=== PATIENT | male | born 1940 | race Caucasian/White ===

== ENCOUNTER 2018-03-31 17:32 | Emergency (ER) | payer MEDICARE, SELFPAY ==
[2018-03-31 17:34] VITALS: BP 122/77; PULSE 98; RESP 18; TEMP 36.6; O2SAT 98; BMI 23.7
--- NOTE | 2018-03-31 18:10 | RAD_ITS ---
STUDY: X-RAY - RIGHT KNEE REASON FOR EXAM: Male, 77 years old. Fall TECHNIQUE: 3 view(s) of the knee. COMPARISON: None. FINDINGS: Normal visualized distal femur. Normal visualized proximal tibia and fibula. Normal proximal tibiofibular articulation. Mild narrowing of the medial femorotibial compartment. Mild degenerative spurring at the lateral femorotibial compartment. Degenerative spurring and narrowing at the patellofemoral articulation. There is a questionable longitudinal lucency through the patella. Calcifications along the medial collateral ligament. There is prepatellar soft tissue thickening. Trace suprapatellar effusion. RAD/Knee 3 Views IMPRESSION: Questionable longitudinal lucency of the patella. Prepatellar soft tissue edema. A nondisplaced patella fracture cannot be excluded. Mild degenerative changes. Electronically Signed: David Peña DO at 18:35 EDT Tel [phone], Service support ,
--- NOTE | 2018-03-31 19:00 | RAD_ITS ---
STUDY: X-RAY - RIGHT KNEE REASON FOR EXAM: Male, 77 years old. Pain TECHNIQUE: [place] view of the knee. COMPARISON: March 31, 2018 at 18:17 hours. FINDINGS: There is a linear lucency through the lateral aspect of the patella compatible with a nondisplaced fracture. Narrowing of the patellofemoral compartment. Prepatellar soft tissue edema. RAD/Knee 1 or 2 Views IMPRESSION: Nondisplaced patella fracture. Electronically Signed: David Peña DO at 19:25 EDT Tel [phone], Service support ,
--- NOTE | 2018-03-31 19:54 | ED.VISSUMM ---
- ER Visit Summary Date of Service: 03/31/18 Chief Complaint: [Injury right knee] History of Present Illness: The patient is a 77 M [presents to the emergency department after injuring his right knee today approximately 4 PM. Patient states that he was in the garage when he tripped and lost his balance falling to the left side and is not sure what he may have hit his right knee on. Patient able to bear some weight but having pain with walking. Patient denies striking his head or loss of consciousness. Patient denies any other injury.] Physical Examination: [HEENT-PERRLA, EOMI. Cranial nerves II through XII grossly intact. TMs clear. Mucous membranes moist. No adenopathy. Cardiovascular-regular rate and rhythm without murmur or ectopy Lungs-clear to auscultation, chest wall stable without crepitus or subcu emphysema Abdomen-normoactive bowel sounds, soft, nontender, no rebound or rigidity, no peritoneal signs. Extremities-intact ?4, normal range of motion, normal pulses. Right knee-patient has soft tissue swelling and effusion noted. Patient has tenderness over the patella with bruising noted over this area. Patient having a hard time lifting his leg up off the bed with the knee extended. Neurovascular intact distally. Test Results: [X-rays of the right knee obtained showed a nondisplaced patellar fracture] Emergency Department Course and Treatment: [Patient was placed in a knee immobilizer and given crutches as well as a dose of [place].] Treatment Plan: [Patient will be referred to orthopedics on-call Dr. Samuel Mann and given a prescription for [place]] Disposition: [Discharged home in stable condition] Impression: [Mechanical fall Right patella fracture] This note was generated with [employer] dictation software. It may contain incorrect words, spelling, and punctuation that were not noted in review of the chart prior to signing ED Disposition - Plan for ED Patient: Chief Complaint: Lower Extremity Injury Referrals: Jignesh Leger MD [Primary Care Provider] -
--- NOTE | 2018-03-31 19:56 | ED.DEP ---
ED Disposition - Plan for ED Patient: Chief Complaint: Lower Extremity Injury Instructions: ED Fx Patella Prescriptions: Hydrocodone/Acetaminophen [[place] 5-325 Tablet] 1 ea PO 4X/DAY PRN PRN 5 Days #20 tab PRN Reason: Pain Referrals: Jignesh Leger MD [Primary Care Provider] - Samuel Mann MD [STAFF PHYSICIAN] - 3-5 Days
--- NOTE | 2018-03-31 19:57 | DCINST.ED_ITS ---
ED Disposition - Plan for ED Patient: Chief Complaint: Lower Extremity Injury Instructions: ED Fx Patella Prescriptions: Hydrocodone/Acetaminophen [[place] 5-325 Tablet] 1 ea PO 4X/DAY PRN PRN 5 Days # 20 tab PRN Reason: Pain Referrals: Jignesh Leger MD [Primary Care Provider] - Samuel Mann MD [STAFF PHYSICIAN] - 3-5 Days
[2018-03-31] MEDS: HYDROcodone Bitartrate/Apap 5/325 Tablet PO (20:03)
[2018-03-31 20:21] VITALS: BP 156/79; PULSE 81; RESP 18; O2SAT 97
== END 2018-03-31 20:21 | disposition home or self-care (01) ==
LOC: ED 19:36
PROVIDERS: Emergency Provider Emergency Medicine; Family Provider Family Medicine; PCP Family Medicine
DX: S82.001A Unspecified fracture of right patella, initial encounter for closed fracture (principal); W01.10XA Fall on same level from slipping, tripping and stumbling with subsequent striking against unspecified object, initial encounter; Y93.9 Activity, unspecified; Y92.008 Other place in unspecified non-institutional (private) residence as the place of occurrence of the external cause; Y99.9 Unspecified external cause status; E11.9 Type 2 diabetes mellitus without complications; Z79.82 Long term (current) use of aspirin; Z79.899 Other long term (current) drug therapy
CPT/HCPCS: 73560; 73562; 99284

== ENCOUNTER → 2018-12-02 09:42 | Outpatient (CLI) | payer MEDICARE, SELFPAY ==
--- NOTE | 2018-12-02 09:46 | MRI_ITS ---
STUDY: MRI BRAIN WITH AND WITHOUT CONTRAST REASON FOR EXAM: Male, 78 years old. Mental status change, confusion. The right eye stays partially closed. TECHNIQUE: Multiplanar and multisequence MR images of the brain were obtained before and after the administration 18 IV Dotarem. COMPARISON: No relevant priors. FINDINGS: Supratentorial Brain Parenchymal Size, Ventricles and Sulci: Normal. Extra-Axial Spaces: Normal. White Matter Tracks: Mild chronic white matter ischemia with a limited number of small white matter hyperintensities distributed throughout the deep white matter tracks of the cerebral hemispheres. Normal DWI images with no evidence of recent intracranial ischemia or other cause of cytotoxic edema. Normal T2* images without demonstrated susceptibility artifact or hemosiderin stain. There are mildly prominent perivascular spaces in a periventricular location involving the body of the caudate nuclei (axial T2 series 5, image 14). Basal Ganglia (bilateral): Normal. Thalami: Normal. Arterial Flow: Normal. Venous Flow: Normal. Pituitary Gland and Infundibular Stalk: Normal. Optic Chiasm: Normal. Hypothalamus: Normal. Brainstem Pineal Gland / Tectal Plate: Normal. Midbrain: Normal. Omid: Normal. Medulla: Normal. Posterior Fossa Cerebellar Hemispheres: Normal. Internal Auditory Canals (Bilateral): Normal. Temporal Bones: Normal. Basal Cisterns: Normal. Orbits (within the constraints of a routine brain study) Globes: Normal. Optic Nerves: Normal. Intraconal / Extraconal Spaces: Normal. Extraocular Muscles: Normal. Skull Calvarium / Skull Base: Normal. Paranasal Sinuses: There is minimal mucosal inflammatory thickening of the left maxillary sinus (axial T2 series 5, image 1). Soft Tissue Structures: Normal. Cervical Spine (visualized): Normal. MRI/Brain W/WO Contrast IMPRESSION: 1. Minimal scattered chronic white matter ischemic changes without cerebral atrophy. 2. No acute or evolving process. 3. Very mild chronic sinusitis of the left maxillary sinus. Electronically Signed: Manuel Santa DO at 7:52 EDT Tel , Service support ,
[2018-12-02 11:06] LABS: CREATININE FINGERSTICK 1.3 mg/dL (0.70-1.30)
== END ==
PROVIDERS: Family Provider Family Medicine; PCP Family Medicine; Referring Provider Internal Medicine Pulmonary Disease; Visit Provider Internal Medicine Pulmonary Disease
DX: R41.82 Altered mental status, unspecified (principal)
CPT/HCPCS: 70553; A9575

== ENCOUNTER 2019-01-11 13:00 | Outpatient (RCR) | payer MEDICARE, SELFPAY ==
--- NOTE | 2018-12-24 12:24 | HP.PTEVAL_ITS ---
Patient's Visit Information CANDICE MUSA is a 78 year old M referred to Physical Therapy by ARSENIO NORMAN with a diagnosis of LBP. Date of Evaluation: 12/24/18 Physical Therapist: Marcial Mendiola, PT, ATC - Visit Plan Frequency: 2x /Week Duration: 2-4 Weeks Plan: Neutral spine core strengthening, SKTC/DKTC, Nustep, and HEP - Subjective Findings: Pt reports intermittent LBP for several years. Pt reports this bout roberts s been going on for the past 3 mos, progressively worsening over this time span. Pt denies numbness in either LE, and notes pain that does shoot down his legs (it changes from leg to leg) on occasion. Pt reports he has had xrays in the past, but nothing recently. Pt reports he has been diagnosed with having spinal stenosis in the past. Pt reports occasional sleep difficulty secondary to pain. Pt reports movement helps to alleviate his pain. Prolonged ambulation increases pain. Pt also reports prolonged sitting increases his pain. 4/10 pain at rest, 9/10 pain at worst (prolonged standing) - Pain LBP Pain Intensity (Out of 10): 4 Pain Intensity Range: 10 - Objective Neuro: B LE sensation is WNL to light touch. B patellar reflex= 2/3. MMT: B LE's 5/5 throughout. ROM: Pt is moderately limited with L/S ext. All other ranges are WNL. Repeated movements: RFIS 10x2 peripheralized pain. GINO 10x1 peripheralized sx's. SKTC/DKTC pt felt better - Goals Goal 1:: Decrease LBP x 50% to aid with sleep Goal Time Frame: 4-6 Weeks Goal 2:: Decrease the frequency and intensity of LE radiculopthy x 50% to aid with ambulation Goal Time Frame: 4-6 Weeks Goal 3:: I with HEP Goal Time Frame: 4-6 Weeks - Rehabilitation Potential Physical Therapy Diagnosis: Pt has LBP, LE radiculopathy, and sleep difficulty as a result of degenerative changes in the L/S Rehabilitation Potential: Good - Anticipated Interventions Patient/Client Instruction: Educate patient on: Condition, Plan of Care For the Purpose of:: To improve self management Therapeutic Exercise to Include: Strength training, Endurance training, Body mechanics, Postural training, Dynamic Lumbar Stabilization For the Purpose of:: To decrease pain, To improve muscle performance and motor function Cryotherapy (ice pack, ice massage): Yes Thermo therapy (hot pack): Yes For the Purpose of:: To decrease pain Thank you for the opportunity to evaluate your patient. For Medicare and Medicare HMO plans, please review the plan of care and approve it. It will need to be FAXED BACK to us at [phone] for Medicare purposes. For Medicare only, by signing this I certify the plan of care. Please let me know if there are questions or concerns regarding this plan of care. Physician Signature: Date:
--- NOTE | 2019-01-11 13:38 | HP.PTDCSUM ---
HP - PT D/C Summary It has been my pleasure to treat CANDICE MUSA under orders from ARSENIO NORMAN, for the diagnosis of LBP for a total of 5 visit(s). Discharge Date: Please see the following information for a summary of their discharge status. - Subjective Subjective: Pt notices less sensation on his medial R knee. Pt reports he really doesnt feel much better overall. - Pain LBP Pain Intensity (Out of 10): 5 - Overall Improvement % Improvement: 50 - Objective Objective/Function: Pt reports his LBP level has remained about the same 12/31. LE radiculopathy is no longer constant, but is now intermittent. Pt is I with HEP. LE radiculpathy is now less and pt is I with HEP. No change in LBP - Goals Goal 1:: Decrease LBP x 50% to aid with sleep Goal Progress: Not Progressing Goal 2:: Decrease the frequency and intensity of LE radiculopthy x 50% to aid with ambulation Goal Progress: Progressing Goal 3:: I with HEP Goal Progress: Goal Met - Plan Plan: Discontinue - D/C Information If there are questions or concerns regarding this patient's physical therapy, please feel free to call me at [phone]. Thank you for the referral of this patient. Sincerely, Marcial Mendiola, PT, ATC
== END 2019-01-11 19:00 | disposition home or self-care (01) ==
LOC: PT 13:00
PROVIDERS: Family Provider Family Medicine; PCP Family Medicine
DX: M54.5 Low back pain (principal); M79.18 Myalgia, other site
CPT/HCPCS: 97110; 97161; 97530

== ENCOUNTER → 2019-01-28 09:11 | Outpatient (CLI) | payer MEDICARE, SELFPAY ==
--- NOTE | 2019-01-28 15:17 | EEG ---
- Electroencephalogram Date of service 01/28/2019 History EEG is being done in this 78 yr M to rule out seizures EEG Description: This is an 18 channel EEG with 10-20 lead placement system. Bipolar montages, and Referential montages were reviewed. Photic stimulation and Hyperventilation were performed. The posterior dominant rhythm is 9 HZ synchronous, symmetric, reacting to eye opening and closing. Photo stimulation elicited normal driving response but no abnormal photoparoxysmal response, Hyperventilation did not elicit any abnormal photoparoxysmal response. Sleep was identified. There is no abnormal background slowing noted. There was no epileptiform discharges or electrographic seizures noted during this recording. EEG Interpretation This is a normal awake and asleep EEG. There is no epileptiform discharges or electrographic seizures noted during the record.
== END ==
PROVIDERS: Family Provider Family Medicine; PCP Family Medicine; Referring Provider Psychiatry & Neurology Neurology; Visit Provider Psychiatry & Neurology Neurology
DX: R41.0 Disorientation, unspecified (principal)
CPT/HCPCS: 95819

== ENCOUNTER 2019-06-09 10:00 | Outpatient (RCR) | payer MEDICARE, SELFPAY ==
--- NOTE | 2019-04-20 10:58 | HP.OTEVAL_ITS ---
Patient's Visit Information CANDICE MUSA is a 78 year old M, referred to Occupational Therapy by Nargis Davis DC, with a diagnosis of OA B wrist and UE. Date of Evaluation: 04/20/19 Occupational Therapist: Leanne Burgess, DELAENYR/L - Subjective Subjective: Candice is 78 y/o male with history of OA. Arrived to session and noted increased bilateral wrist pain for about a year. He noted pain in B UE occurring in biceps area and around bilateral forearms. - ADLs Dressing: Overhead shirt, Button shirt, Pants, Socks, Shoes Fasteners: Tie shoes, Buttons, Zippers, Snaps Eating: Cut food, Drink from glass Bathing: Wash hair, Squeeze shampoo bottle Toileting: Manage clothing Grooming: Shave, [place] teeth Kitchen: Open jars, Open bottle caps, Lift gallon of milk, Take dish out of oven, Load/unload knife blade polisher Household: Laundry Yard: [place], Use shovel, Use pruners Comments: 's hobby but helps. Miscellaneous: Use cell phone, Unlock front door, Start car, Open medication bottle, Hold change, Take things out of wallet, Write, Use hand tools, Use power tools - Pain B UE 6 Pain Intensity Range: 6, 7 - Objective Concerns: 4x appointments due to high copay. - ROM Forearm: WFL Wrist: flex R 0-36, L 0-38;ext R 0-20, L 0-19 ROM Comments: Increased pain with all movements. - Strength Can Pusher: flexed R 64, L 43; ext position 2 R 45, L 44 Lateral Pinch: R 21, L 18 Tripod Pinch: R 13, L 11 Tip-to-Tip Pinch: R 10, L 10 Strength Comments: Increased pain with all movements. - Sensation Sensation Comments: Denies numbness and tingling. 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 Goal:: Johnathan to be (I) to completed pain management program with use of modalities to manage symptoms at home 4/5 trials 80% of the time by d/c. Goal:: Johnathan to be (I) to complete correct ergonomics and joint protection techniques of B wrist with a/e and general ergonomic training to promote decreased pain and increased joint integrity 4/5 trials 80% of the time by d/c. Goal:: Candice to be (I) to complete daily HEP to promote increased ROM and strength needed to promote increased satbility and decrease pain of B wrists 4/5 trials 80% of the time by d/c. - Rehabilitation General Assessment: Candice Mann arrived for OT evaluation on this date of 04/20/19. He exhibits increased pain with all basic ROM movements. CMC grinding noted with palpation as well as increased tenderness and tightness of extensor digitorium and ECRB muscles of forearm. Increased skilled therapy needed to promote strength and stability of B wrists to decrease pain as well as promote compensations and adaptions for daily tasks to increase (i) and returning to PLOF for ADL/IADls. Rehabilitation Potential: Good - Anticipated Interventions Anticipated Interventions: A/AAROM/PROM, Strengthening, Modalities, Orthoses, Joint Protection/Energy Conservation, Ergonomic Education, Dynamic Sitting Balance, Fine Motor Coord/Alberto, ADL Training, Caregiver Training, Home Program - Visit Plan Frequency: 1x/Week Duration: 4 Weeks General Plan: Johnathan to complete skilled OT to promote increased ROM, strength, pain management, joint protection,and ergomic training of B UE to promote increased abilityto completed daily activities at [facility]. TEXT: Thank you for the opportunity to evaluate your patient. For Medicare and Medicare HMO plans, please review the plan of care and approve it. It will need to be FAXED BACK to us at [phone] for Medicare purposes. Please let me know if there are questions or concerns regarding this plan of care. Physician Signature: Date:
--- NOTE | 2019-05-11 11:03 | OTREVAL_ITS ---
Nargis Davis DC, It has been my pleasure to treat CANDICE MUSA over the last 4 visits for OA B wrist and UE. Please see the progress note below for an update on the occupational therapy plan of care! Subjective: Arrived and noted that wrist cock up splint at night is helping and he feels he is sleeping better with less pain. L hand and UE still very painful with all movements. Feels he has made about 25% progress mostly on R side. Objective/Function: Reassessment completed on this date 05/11/19 and is as follows: ROM: - flexion: R 0-35, L 0-45. - extension R 0-21, L 0-23. Strength. Photographic Intelligence Officer R 62, L 32. Lateral R 21, L 16. Tripod R 13, L 12. Increased pain with all L hand movements. Positive lashonda test on L side. Will trial forearm based thumb spica. Plan Frequency: 1x/Week Duration: 4 Weeks Visits in this POC: 4 Plan: continue POC. He noted R UE and hand is feeling better but L is still very painful. Completed fabrication L forearm based thumb spica splint to promote increased wrist and thumb support. WIll triala nd continue to promote tasks to manage symptoms. Goals - Goals Goal:: Johnathan to increased B fusion juncture grinder strength by 15-20 lbs to promote increased stability of wrists needed for ADL/IADls by d/c. Goal:: Johnathan to be (I) to completed pain management program with use of modalities to manage symptoms at home 4/5 trials 80% of the time by d/c. Goal:: Johnathan to be (I) to complete correct ergonomics and joint protection techniques of B wrist with a/e and general ergonomic training to promote decreased pain and increased joint integrity 4/5 trials 80% of the time by d/c. Goal:: Candice to be (I) to complete daily HEP to promote increased ROM and strength needed to promote increased satbility and decrease pain of B wrists 4/5 trials 80% of the time by d/c. Anticipated Interventions Anticipated Interventions: A/AAROM/PROM, Strengthening, Modalities, Orthoses, Joint Protection/Energy Conservation, Ergonomic Education, Dynamic Sitting Balance, Fine Motor Coord/Alberto, ADL Training, Caregiver Training, Home Program Please do not hesitate to contact me at [phone] by phone or if you have questions or concerns regarding this new plan of care! Sincerely, Leanne Burgess, OTR/L
--- NOTE | 2019-06-09 10:50 | HP.OTDCSUM ---
HP - OT D/C Summary It has been my pleasure to treat CANDICE MUSA under orders from Nargis Davis DC, for the diagnosis of OA B wrist and UE for a total of 8 visit(s). Please see the following information for a summary of their discharge status. - Overall Improvement % Improvement: 30 - Objective Objective/Function: Reassessment and completed reassessment on this date 06/09/19: ROM: wrist: - flexion: R 0-46, L 0-41. - extension R 0-30, L 0-25. - Supination: WFL. Thumb: - MP R 0-6, L 0-46. - IP R -17-0-53, L -15-0-56. - Opposition WFL. Strength: - feed project engineer flexed in position 2: R 58, l 34. - feed project engineer extended in position 2: R 53, L 40. - lateral: R 17, L 15. - tripod: R 12, L 6. He has been completing intrinsic and isometric strengthening but pain is limiting and present with all movements. - Goals Patient Goals: Regain Mobility, Regain Strength, Decrease Pain, Return to Work, Improve Fine Motor Skills, Use Hand/Wrist/Arm Normally Again, Sleep Better, Increase ROM, Be More Independent in ADLS, Resume Former Household Responsibilities (Cooking,Cleaning,Yard, etc.), Resume Hobbies Goal:: Johnathan to increased B feed project engineer strength by 15-20 lbs to promote increased stability of wrists needed for ADL/IADls by d/c. Goal:: Johnathan to be (I) to completed pain management program with use of modalities to manage symptoms at home 4/5 trials 80% of the time by d/c. Goal:: Johnathan to be (I) to complete correct ergonomics and joint protection techniques of B wrist with a/e and general ergonomic training to promote decreased pain and increased joint integrity 4/5 trials 80% of the time by d/c. Goal:: Candice to be (I) to complete daily HEP to promote increased ROM and strength needed to promote increased satbility and decrease pain of B wrists 4/5 trials 80% of the time by d/c. - Plan Plan: He will be discharged today as he has attempted therapy and progressed some with splinting methods and intrinsic and isometric strengthening techniques but has plateaued with progression at this time. Pain remains a concern and he would like, and OT agrees, that second opinion would be beneficial. He is to complete pain management techniques as well as HEP to promote increased ability to complete daily tasks. OT contact information provided via [employer] so he can call with questions/concerns. - D/C Information If there are questions or concerns regarding this patient's occupational therapy, please fell free to call me at [phone]. Thank you for the referral of this patient. Sincerely, Leanne Burgess, OTR/L
== END 2019-06-09 19:00 | disposition home or self-care (01) ==
LOC: OT 10:00
PROVIDERS: Family Provider Family Medicine; PCP Family Medicine; Referring Provider Chiropractor; Visit Provider Chiropractor
DX: M19.039 Primary osteoarthritis, unspecified wrist (principal)
CPT/HCPCS: 97035; 97110; 97140; 97166; 97168; 97530; 97760; 97763

== ENCOUNTER → 2021-06-20 12:56 | Outpatient (CLI) | payer MEDICARE, SELFPAY ==
--- NOTE | 2021-06-20 13:10 | RAD_ITS ---
STUDY: BILATERAL ENEMA. REASON FOR EXAM: Male, 81 years old. INCOMPLETE COLONOSCOPY FLUOROSCOPY TIME (if supplied): ( 46 seconds ) minutes/seconds. 15 images were obtained. TECHNIQUE: Barium was introduced retrograde through the rectum. The entire colon was opacified. COMPARISON: None. FINDINGS: A mechanical engineering teacher film was obtained. Small calculi are seen in the lower pole calyx of the left kidney. There is redundancy of the sigmoid colon. Scattered sigmoid diverticula. No evidence of retrograde or antegrade obstruction to the flow of contrast. RAD/Barium Enema No Air Cont IMPRESSION: Redundancy of the sigmoid colon. Scattered sigmoid diverticula with no radiographic evidence of diverticulitis at this time. Electronically Signed: Yossi Sinclair MD at 14:18 EDT , Service support ,
== END ==
PROVIDERS: PCP Family Medicine; Referring Provider Surgery; Visit Provider Surgery
DX: K57.30 Diverticulosis of large intestine without perforation or abscess without bleeding (principal)
CPT/HCPCS: 74270

== ENCOUNTER → 2021-07-15 12:54 | Outpatient (CLI) | payer MEDICARE, SELFPAY ==
--- NOTE | 2021-07-15 13:03 | ECHOD_ITS ---
Reason For Study: DYSPNEA/SOB Procedure This was a 2D Doppler, Color Flow transthoracic echocardiogram. The study was technically difficult. Due to restless leg syndrome. Exam performed in department. Left Ventricle Normal LV size. Left ventricular systolic function is normal. The estimated ejection fraction is 60 %. Stage 1 diastolic dysfunction. No regional wall motion abnormalities noted. Right Ventricle Normal RV size. Normal systolic function. Atria Normal left atrium. Normal right atrium. Hypermobile atrial septum. Bubble contrast study negative for right to left interatrial shunt. Mitral Valve Normal mitral valve. Tricuspid Valve Normal tricuspid valve. Aortic Valve Trisinus/trileaflet aortic valve. Mild focal aortic valve calcification. Pulmonic Valve Normal pulmonic valve. Great Vessels Normal aortic root. The pulmonary artery is normal size. Normal inferior vena cava. Pericardium/Pleural No pericardial effusion. Medication Performed a rapid injection of agitated mix of 9 cc saline and 1cc air to assess for atrial septal defect. MMode/2D Measurements & Calculations LVIDd: 4.4 cm IVSd: 1.1 cm Ao root diam: 3.4 cm LVIDs: 2.6 cm LVPWd: 1.1 cm RVDd: 3.5 cm FS: 41.6 % LAV(MOD-bp): 61.6 ml LA A4 area: 18.1 cm2 LA dimension(2D): 4.4 cm LAV(MOD-bp) Indexed: 29.9 ml/m2 LAV(MOD-sp2): 69.2 ml LAV(MOD-sp4): 52.3 ml RA A4 area: 10.9 cm2 Time Measurements MV dec time: 0.20 sec Doppler Measurements & Calculations MV E max toi: 92.6 cm/sec Lat Peak E' Toi: 9.0 cm/sec Med Peak E' Toi: 9.4 cm/sec MV A max toi: 125.4 cm/sec E/E' lat: 10.3 E/E' med: 9.8 MV E/A: 0.74 Ao V2 max: 146.0 cm/sec LV V1 max: 106.8 cm/sec PA V2 max: 98.0 cm/sec Ao max P.5 mmHg LV V1 max P.6 mmHg ECHO/Echo Complete Interpretation Summary Normal LV size. Left ventricular systolic function is normal. The estimated ejection fraction is 60 %. Hypermobile atrial septum. Stage 1 diastolic dysfunction. Ordering Physician: Felipe Jorge Referring Physician: Jignesh Leger Performed By: Angella Zuniga, NAMANCS, RVT
== END ==
PROVIDERS: PCP Family Medicine; Referring Provider Internal Medicine Pulmonary Disease; Visit Provider Internal Medicine Pulmonary Disease
DX: R06.00 Dyspnea, unspecified (principal); G25.81 Restless legs syndrome; G47.37 Central sleep apnea in conditions classified elsewhere
CPT/HCPCS: 93306; A4216

== ENCOUNTER 2023-08-20 18:53 | Inpatient (IN) | payer MEDICARE, SELFPAY ==
[2023-08-20] VITALS (19 sets, daily range): BP systolic 62–152; BP diastolic 41–98; PULSE 55–131; RESP 16–28; TEMP 36.6–39.1; O2SAT 88–97; BMI 25.2; BMI 25.3
--- NOTE | 2023-08-20 19:29 | CT_ITS ---
EXAM: CT HEAD WITHOUT INTRAVENOUS CONTRAST CLINICAL INDICATION: altered mental status TECHNIQUE: Multiple axial images were obtained of the head without intravenous contrast. This CT exam was performed using one or more of the following dose reduction techniques: automated exposure control, adjustment of the mA and/or kV according to patient size, and/or use of iterative reconstruction technique. COMPARISON: No relevant prior studies available. FINDINGS: BRAIN AND EXTRA-AXIAL SPACES: There is hypoattenuation in the periventricular white matter. No intra- or extra-axial hemorrhage. No evidence of acute infarct. No intracranial mass or mass effect. There is preservation of the medrnao/white matter interface. Posterior fossa structures are unremarkable. No hydrocephalus. Basal cisterns are patent. BONES/JOINTS: Unremarkable. No discrete lytic or blastic abnormalities. SINUSES: Unremarkable as visualized. Clear. MASTOID AIR CELLS: Unremarkable. Clear. ORBITS: Visualized globes, extraocular muscles, optic nerves and retrobulbar fat appear unremarkable. CT/Brain/Head without Contrast IMPRESSION: No acute intracranial abnormality. There is mild underlying small vessel ischemia. Electronically Signed: Perez Dangelo MD at 20:41 EST ,
--- NOTE | 2023-08-20 19:29 | CT_ITS ---
EXAM: CT ABDOMEN AND PELVIS WITHOUT INTRAVENOUS CONTRAST CLINICAL INDICATION: agitated, low back pain TECHNIQUE: Helically acquired images were obtained of the abdomen and pelvis without intravenous contrast. This CT exam was performed using one or more of the following dose reduction techniques: automated exposure control, adjustment of the mA and/or kV according to patient size, and/or use of iterative reconstruction technique. COMPARISON: No relevant prior studies available. FINDINGS: LOWER THORAX: Unremarkable. Lung bases are clear. No cardiomegaly. No significant pericardial effusion. ABDOMEN: LIVER: Unremarkable. Homogeneous. GALLBLADDER AND BILE DUCTS: There are surgical clips from a cholecystectomy. No intra- or extrahepatic biliary ductal dilation. PANCREAS: Unremarkable. No focal cystic mass. SPLEEN: Unremarkable. Normal size without focal cystic or solid mass. ADRENALS: Unremarkable. No nodules. KIDNEYS AND URETERS: There is a low-density mass in the right kidney compatible with a cyst. No follow-up imaging is necessary. There is a nonobstructing left calyceal stone. STOMACH AND BOWEL: Unremarkable. No stomach or bowel distention. No focal inflammatory change. PELVIS: APPENDIX: No evidence of acute appendicitis. BLADDER: Unremarkable. REPRODUCTIVE: Unremarkable as visualized. No mass. ABDOMEN and PELVIS: INTRAPERITONEAL SPACE: Unremarkable. No ascites or other fluid collection. No free air. BONES/JOINTS: There are old healed fractures of the right superior and inferior pubic rami. No suspicious lytic or blastic abnormality. SOFT TISSUES: Unremarkable. No discrete abdominal or pelvic wall hernia. VASCULATURE: Unremarkable. Abdominal aorta is non-dilated. LYMPH NODES: Unremarkable. No enlarged lymph nodes. CT/Abdomen/Pelvis without Cont IMPRESSION: No acute findings in the abdomen or pelvis. Electronically Signed: Perez Dangelo MD at 20:40 EST ,
--- NOTE | 2023-08-20 19:34 | EX.ED.DYSGE1 ---
HPI History of Present Illness Chief Complaint: Fever Informant: patient and EMS Narrative Narrative: Very limited evaluation on this gentleman who was confused and called by roommate because he was altered. Febrile 103 per EMS, according to triage nurses who have been with him for 5 minutes since he arrived, he is wanting to constantly have episodes of urination, he is very agitated and getting up, lying down, trying to get out of bed, etc. Very poor historian. He does know where he is at. Denies any abdominal or chest pain right now or headache, but states he has pain in his low back and nowhere else. [facility] Medical History (Updated 08/20/23 @ 21:[address] Abdulkadir Ayala MD) Arthritis Carpal tunnel syndrome Diabetes Hypertension IBS (irritable bowel syndrome) Kidney stones Neuropathy Prostate abscess Sleep apnea Medical History unable to obtain Home Medications lisinopril 5 mg tablet 5 mg PO DAILY 03/31/18 [History Last Taken Unknown] ropinirole 5 mg tablet (Requip) 1 mg PO BID 03/31/18 [History Last Taken Unknown] simvastatin 10 mg tablet 10 mg PO QHS 03/31/18 [History Last Taken Unknown] tamsulosin 0.4 mg capsule 0.4 mg PO DAILY 03/31/18 [History Last Taken Unknown] calcitonin (salmon) 200 unit/actuation nasal spray 1 spray intranasal DAILY 08/20/23 [History Last Taken Unknown] citalopram 20 mg tablet 20 mg PO DAILY 08/20/23 [History Last Taken Unknown] glimepiride 2 mg tablet 2 mg PO DAILY 08/20/23 [History Last Taken Unknown] metformin 1,000 mg tablet 1,000 mg PO BID 08/20/23 [History Last Taken Unknown] methadone 5 mg tablet 5 mg PO QHS 08/20/23 [History Last Taken Unknown] methocarbamol 750 mg tablet 750 mg PO Q8H PRN muscle pain 08/20/23 [History Last Taken Unknown] Allergy/AdvReac Type Severity Reaction Status Date / Time meperidine [From Demerol] Allergy Mild insomnia Verified 08/20/23 19:32 Family History Other Asthma Surgical History History of cholecystectomy History of circumcision History of foot surgery History of shoulder surgery History of tonsillectomy Social History Smoking Status: Never smoker alcohol intake: never substance use type: does not use what type of physical activity do you participate in: none ROS ROS ED Review of Systems ROS Unobtainable: due to encephalopathy Cardiovascular Cardiovascular: Denies chest pain Respiratory/Chest Respiratory/Chest: Reports cough Gastrointestinal Gastrointestinal: Denies abdominal pain Musculoskeletal Musculoskeletal: Reports back pain; Denies neck pain Neurologic Neurologic: Denies headache(s) EXAM Physical Exam Const Vital Signs: 08/20/23 19:00 08/20/23 19:05 08/20/23 19:13 Temperature 100.5 F H 100.5 F H Temperature Source Oral Temporal Pulse Rate 131 H 130 H Respiratory Rate 21 H 23 H Respiratory Effort Normal Respiratory Pattern Tachypnea Blood Pressure 152/98 H 152/98 H Blood Pressure Mean 116 116 Pulse Ox 93 92 Oxygen Delivery Method Room Air Room Air 08/20/23 19:19 08/20/23 19:41 08/20/23 20:05 Temperature 100.5 F H 102.3 F H Temperature Source Temporal Oral Pulse Rate 129 H 71 66 Respiratory Rate 24 H 26 H 26 H Respiratory Effort Respiratory Pattern Blood Pressure 152/98 H 131/69 H 110/46 L Blood Pressure Mean 116 89 67 Pulse Ox 94 94 94 Oxygen Delivery Method Room Air Room Air Room Air 08/20/23 20:34 08/20/23 20:52 08/20/23 21:04 Temperature 98.4 F Temperature Source Oral Pulse Rate 69 72 72 Respiratory Rate 28 H 26 H Respiratory Effort Respiratory Pattern Blood Pressure 134/52 H 119/49 L 80/55 L Blood Pressure Mean 79 72 63 Pulse Ox 93 92 Oxygen Delivery Method Room Air Room Air 08/20/23 21:14 08/20/23 21:43 Temperature Temperature Source Pulse Rate 68 88 Respiratory Rate 22 H 16 Respiratory Effort Respiratory Pattern Blood Pressure 99/70 92/56 L Blood Pressure Mean 79 68 Pulse Ox 92 Oxygen Delivery Method Room Air Positive well nourished and well developed Constitutional Narrative: Very agitated keenly alert General Appearance ED: well developed HEENT Reports moist mucous membranes normocephalic and atraumatic Eyes PERRL and EOMs intact bilaterally Neck full ROM and supple Resp normal respiratory effort and clear to auscultation bilaterally Cardio regular rate, regular rhythm and no murmurs Rate: tachycardic GI non-tender and non-distended Auscultation: normoactive bowel sounds Palpation: soft Narrative: Patient constantly urinating in small amounts no gross hematuria Back/Spine no CVA tenderness General Back: other FROM Extremity normal to inspection General Extremety ED: Negative for edema, pulses abnormal or tenderness General Extremity: Negative for edema or pulses abnormal Neuro CN's II-XII intact bilaterally and no sensory deficits noted Neuro Narrative: Disoriented to time but oriented to person and city/hospital Sensorium / Orientation: awake, alert and orientation impaired Motor Exam: strength 5/5 throughout Psych Attitude: agitated Skin no rashes or lesions noted and no wounds Sepsis Attestation Sepsis Alert: Yes Sepsis Attestation: Agree w/Sepsis Date exam was performed: 08/20/23 Time exam was performed: 20:00 Possible Source of Sepsis: Pulmonary, GI tract/intra-abdominal and Genitourinary Sepsis Organ Dysfunction Criteria Present: Lactic Acid > 2 mmol/L and New/Unexplained change in mental status Fluid Resuscitation Fluid resuscitation indicated?: Yes Fluid Resuscitation ordered: 30 ml/kg fluid bolus ordered Sepsis Note Date exam was performed: 08/20/23 Time exam was performed: 21:30 Sepsis Attestation: Sepsis re-evaluation was performed (Tachycardia resolved, MAP stable) MDM MDM MDM Narrative Medical decision making narrative: Concerned about sepsis here in this gentleman who is tachycardic, agitated, and febrile. Wide differential, but so far I have high suspicion of UTI source but also considering others such as upper urinary tract involvement given his back pain so obtaining a CT of the abdomen/pelvis, acute SCRAP SAWYER etiologies given his agitation so CT of the head being obtained, pulmonary etiologies, blood cultures to evaluate for bacteremia, and COVID/influenza swab. Simultaneously treating him with 30 cc/kg IV fluid bolus and antibiotics to cover for urinary source. Urinalysis was one of the first test returned, and it is surprisingly normal. His COVID test returns positive. Chest x-ray 1 view on my interpretation shows a right hemidiaphragm elevation but no acute infiltrate, CT of the head is negative for any acute, and CT of the abdomen/pelvis shows nothing acute. I reviewed the images and the results which I agree with. Patient told the nurses that he had an L1 fracture and he was post be on methadone and has not had it. We do not know for how long. For his agitation we gave him Geodon but it did not do anything, and there was a nurse that was not able to leave the room, as she was trying to keep him from falling and injuring himself since he is extremely agitated and all over the place. Therefore I gave him IV morphine, it also did not result in any help with his agitation. Therefore I felt that the benefit of Haldol outweighed the risks in this scenario although they are noted. He is less tachycardic with the fluids and Tylenol, actually his heart rate is down to the 60s now. Plan from here will be to admit the patient given his mental status. After discussing with hospitalist, we did have a discussion about the possibility of meningitis. I think that is less likely here. He does not examine like meningitis and actually was doing straight leg raises on his own without any apparent discomfort. He does have an objective reason for his fevers, since he is positive for COVID. Furthermore after discussing with nursing, he was able to intermittently have appropriate discussions with him about the fact that he fell a couple weeks ago, was diagnosed with an L1 fracture at an outside ER, [place], and is only on 5 mg of methadone once daily, not a large dose making withdrawal less likely here in my opinion. She stated that the patient seemed to have more like restless legs than anything else. At 1 point she briefly left the room and came back and he was out of bed and rummaging through his belongings for a pill bottle. Given all of this, I think much less likely to need an emergent LP. History & Record Review Additional record(s) reviewed:: Other (Prior radiology: Evidence of DDD but no radiology showing L1 fracture as patient suggests) Lab Data Attestation: I reviewed the patient's lab results. Labs: Laboratory Results - last 24 hr 08/20/23 08/20/23 19:15 19:20 WBC 3.5 L RBC 3.65 L Hgb 11.6 L Hct 35.5 L MCV 97.3 H MCH 31.8 MCHC 32.7 RDW Std Deviation 43.6 RDW Coeff of Radha 12.1 Plt Count 128 L MPV 11.0 Immature Gran % (Auto) 0.000 Neut % (Auto) 84.3 H Lymph % (Auto) 13.0 L [place] % (Auto) 1.2 Eos % (Auto) 1.2 Baso % (Auto) 0.3 Absolute Neuts (auto) 2.9 Absolute Lymphs (auto) 0.45 L Nucleated RBC % 0 Differential Comment SCANNED Diff Path Review December foll PT 13.5 INR 1.0 APTT 21.5 L Sodium 139 Potassium 4.7 Chloride 108 H Carbon Dioxide 24.0 Anion Gap 7 BUN 33 H Creatinine 1.80 H Estim Creat Clear Calc 35.76 Est GFR (MDRD) Af Amer 47 L Est GFR (MDRD) Non-Af 39 L BUN/Creatinine Ratio 18.3 Glucose 151 H Lactic Acid 3.3 H* Calcium 9.0 Total Bilirubin 0.40 AST 16 ALT 23 Alkaline Phosphatase 103 Troponin I High Sens 18 Total Protein 6.2 L Albumin 3.1 L Globulin 3.1 Albumin/Globulin Ratio 1.0 Urine Color Yellow Urine Clarity Clear Urine pH 6.0 Ur Specific [place] 1.010 Urine Protein 30 H Urine Glucose (UA) Normal Urine Ketones Negative Urine Occult Blood 25 H Urine Nitrite Negative Urine Bilirubin Negative Urine Urobilinogen Normal Ur Leukocyte Esterase Negative Urine RBC 0-5 SEEN Urine WBC 0-5 SEEN Ur Squamous Epith Cells 0 SEEN Urine Bacteria 0 SEEN Urine Mucus 0 SEEN Radiography Diagnostic Testing: Clinical Impression(s) from Imaging Studies Abdomen/Pelvis CT 08/20/23 19:29 IMPRESSION: No acute findings in the abdomen or pelvis. Electronically Signed: Perez Dangelo MD at 20:40 EST , Brain CT 08/20/23 19:29 IMPRESSION: No acute intracranial abnormality. There is mild underlying small vessel ischemia. Electronically Signed: Perez Dangelo MD at 20:41 EST , Chest X-Ray 08/20/23 20:15 IMPRESSION: No acute findings in the chest. Electronically Signed: Perez Dangelo MD at 20:38 EST , Rhythm Strip Rhythm Strip: Sinus Tach Rate: 133 Ectopy: None EKG Initial EKG: Attestation: I personally reviewed and interpreted this EKG as follows: Interpretation: Sinus Rhythm (66 rate), No Acute Injury Pattern and Non-Specific ST Changes Prior EKG tracings: not available for review Prior: No Prior Management Discussion w/another healthcare provider: Hospitalist Critical Care Time Critical Care Time: Yes Critical care time (excluding procedures): 30-74 minutes (36 min), Including time spent:, Discussing w/Patient &/or Family/3[employer] Modeler, Discussing w/Consultants, Arranging Admission or Transfer and Performing Direct Patient Care at Bedside Discharge Plan Dx/Rx/DC Orders Clinical Impression: COVID-19, Acute encephalopathy, Restlessness and agitation, Sepsis Disposition Disposition: Acute Care Hospital [facility] Discharge Date/Time: 08/20/23 22:12
[2023-08-20] MEDS: Acetaminophen 500 MG Tablet 1000 MG PO (19:36)
[2023-08-20] MEDS: NORMAL SALINE 999 ML IV (19:36)
[2023-08-20] MEDS: Ziprasidone IM 20 MG/ML VIAL 10 MG IM (19:37)
--- NOTE | 2023-08-20 19:43 | ED.RN ---
pt thrashing in bed. trying to get up. not following commands. pulling at wires. alert to self and place. RN has been at bedside at all times for safety. RAFAEL scott ordered and given.
[2023-08-20 19:53] LABS: Bacteria 0 SEEN /hpf (None Seen); Color, Urine Yellow (Yellow); Glucose, Dipstick Normal (Normal); Ketone-Dipstick Negative (Negative); Leukocyte Esterase-Dipstick Negative /ul (Negative); Mucous, Urine 0 SEEN /hpf (<or=2+); Nitrite-Dipstick Negative (Negative); Occult Blood-Urine 25 /ul (Negative); Protein-Dipstick 30 mg/dl (Negative); Squamous Epithelial Cells - UA 0 SEEN /hpf (0-5); Urine Bilirubin Dipstick Negative (Negative); Urine Clarity Clear (Clear); Urine Urobilinogen Normal (Normal)
[2023-08-20 19:57] LABS: Absolute Lymphocyte Count 0.45 X10^3/uL (0.83-4.51); Absolute Neutrophil Count 2.9 X10^3/uL (2.0-7.7); Basophil# 0.01 X10^3/uL; Basophil% 0.3 % (0-1); Eosinophil# 0.04 X10^3/uL; Eosinophils% 1.2 % (0-5); Hematocrit 35.5 % (40-54); Hemoglobin 11.6 g/dL (13.0-16.5); Lymphocyte # 0.45 X10^3/ul (0.83-4.51); Mean Corp Hgb Conc 32.7 g/dL (32-36); Mean Corpuscular Hgb 31.8 pg (27.0-32.0); Mean Corpuscular Volume 97.3 fL (80-94); Monocyte# 0.04 X10^3/uL; Monocyte% 1.2 % (0-10); NRBC Flagged by Analyzer 0 % (0-5); Neutrophil # 2.93 X10^3/uL (2.7-7.7); Neutrophil % 84.3 % (47-70); POSITIVE DIFFERENTIAL YES; Platelet Count 128 K/mm3 (150-450); RBC Distribution Width CV 12.1 % (11.6-14.6); RBC Distribution Width SD 43.6 fl (35.1-43.9); Red Blood Count 3.65 M/mm3 (4.6-6.2); White Blood Count 3.5 K/mm3 (4.4-11.0)
[2023-08-20] MEDS: Ceftriaxone 1 GM/50 ML BAG IV (19:57)
[2023-08-20 19:59] LABS: Red Blood Cells-Urine 0-5 SEEN /hpf (0-5); White Blood Cells 0-5 SEEN /hpf (0-5)
[2023-08-20 20:01] LABS: Differential Indicated SCAN CRITERIA MET
[2023-08-20 20:08] LABS: AST(SGOT) 16 U/L (15-37); Alanine Aminotransfer ALT/SGPT 23 U/L (16-61); Albumin, Serum 3.1 g/dL (3.2-5.0); Alkaline Phosphatase 103 U/L (45-117); Anion Gap 7 (5-15); BUN 33 mg/dL (7-18); BUN/Creat Ratio 18.3 RATIO (10-20); Chloride 108 mmol/L (98-107); EST Glomerular Filtration Rate 39 mL/min (>60); Est Glom Filt Rate - Afr Amer 47 mL/min (>60); Estimated Creatinine Clearance 35.76 ml/min; Globulin 3.1 g/dL (2.2-4.2); Glucose 151 mg/dL (74-106); Potassium 4.7 mmol/L (3.5-5.1); Protein, Total 6.2 g/dL (6.4-8.2); Sodium Level 139 mmol/L (136-145); Troponin-I HS 18 pg/mL (3.0-78.0)
[2023-08-20 20:10] LABS: Prothrombin Time (Protime)PT. 13.5 SECONDS (11.7-14.9)
[2023-08-20 20:11] LABS: Partial Thromboplast Time 21.5 Seconds (24.1-36.2)
[2023-08-20 20:14] LABS: Lactic Acid 3.3 mmol/L (0.4-1.9)
--- NOTE | 2023-08-20 20:15 | RAD_ITS ---
EXAM: XR CHEST, 1 VIEW CLINICAL INDICATION: fever TECHNIQUE: Frontal view of the chest. COMPARISON: No relevant prior studies available. FINDINGS: LUNGS AND PLEURAL SPACES: Unremarkable. No consolidation or edema. No pneumothorax. No effusion. HEART: Unremarkable. Cardiac silhouette not enlarged. MEDIASTINUM: Central airways and mediastinal contour are unremarkable. BONES/JOINTS: Unremarkable. No acute fracture. SOFT TISSUES: Unremarkable. UPPER ABDOMEN: There is elevation of the right hemidiaphragm. RAD/Chest 1 View (Portable) IMPRESSION: No acute findings in the chest. Electronically Signed: Perez Dangelo MD at 20:38 EST ,
[2023-08-20 20:24] LABS: Differential Comment SCANNED
--- OUTSIDE RECORDS SUMMARY | 2023-08-20 20:32 | XMS RPT_ITS | CCD ---
Author Name Unknown Address [address] [place] [address] Organization [facility] Care Team Providers Care Impregnation Operator Name Role Phone Trevon BELL, Antonio Ortiz Unavailable Jignesh Leger Primary Care Provider Adarsh BELL, Jignesh Marin Primary Care Provider Jignesh Leger MD Primary Care Provider Veena Bucio Primary Care Provider Martha Tariq Attending Unavailable PROVIDER, UNKNOWN Referring Unavailable Adarsh, Jignesh Primary Care Unavailable Martha Tariq Attending Unavailable PROVIDER, UNKNOWN Referring Unavailable Adarsh, Jignesh Primary Care Unavailable Jignesh Leger MD Primary Care Provider Dequan Tariq DOa E Unavailable Jignesh Leger MD Primary Care Provider Trinh DOesa E Unavailable Jignesh Leger MD Primary Care Provider CECILIA, DAY Attending Unavailable CECILIA, DAY Referring Unavailable ADARSH, JIGNESH Primary Care Unavailable CAMILA PEPPER Attending Unavailable ADARSH, JIGNESH Primary Care Unavailable CECILIA, DAY Attending Unavailable CAMILA PEPPER Attending Unavailable CAMILA PEPPER Referring Unavailable ADARSH, JIGNESH Primary Care Unavailable CAMILA PEPPER Attending Unavailable CAMILA PEPPER Referring Unavailable ADARSH, JIGNESH Primary Care Unavailable CECILIA, DAY Attending Unavailable CECILIA, DAY Referring Unavailable ADARSH, JIGNESH Primary Care Unavailable CAMILA PEPPER Attending Unavailable ADARSH, JIGNESH Primary Care Unavailable CAMILA PEPPER Attending Unavailable CAMILA PEPPER Referring Unavailable ADARSH, JIGNESH Primary Care Unavailable CECILIA, DAY Referring Unavailable DAMIEN ARCE Attending Unavailable ADARSH, JIGNESH Primary Care Unavailable AMINATASRUTHI Referring Unavailable ADARSH, JIGNESH Primary Care Unavailable CECILIA, DAY Attending Unavailable CECILIA, DAY Referring Unavailable ADARSH, JIGNESH Primary Care Unavailable JAWILLIAM LOAIZA Referring Unavailable ADARSH, JIGNESH Primary Care Unavailable CECILIA, DAY Attending Unavailable CECILIA, DAY Referring Unavailable SKEGANGELITO MENDEZ Referring Unavailable ADARSH, JIGNESH Primary Care Unavailable CECILIA, DAY Attending Unavailable CECILIA, DAY Referring Unavailable BAVJÚNIOR, CAMILA Attending Unavailable DAMIEN ARCE Referring Unavailable ADARSH, JIGNESH Primary Care Unavailable SKANGELITO NGUYEN Attending Unavailable JABOUR, WILLIAM Referring Unavailable ADARSH, JIGNESH Primary Care Unavailable SHANTELLE, CAMILA Attending Unavailable SHANTELLE, CAMILA Referring Unavailable ADARSH, JIGNESH Primary Care Unavailable ADARSH, JIGNESH Primary Care Unavailable WILLIAM SUERO Attending Unavailable ADARSH, JIGNESH Primary Care Unavailable CANDICE PATRICIO Attending Unavailable CECILIA, DAY Attending Unavailable CECILIA, DAY Referring Unavailable ADARSH, JIGNESH Primary Care Unavailable ADARSH, JIGNESH Attending Unavailable ADARSH, JIGNESH Primary Care Unavailable DAMIEN ARCE Attending Unavailable ADARSH, JIGNESH Primary Care Unavailable CANDICE PATRICIO Referring Unavailable ADARSH, JIGNESH Primary Care Unavailable ABDULKADIR TORRES Attending Unavailable ADARSH, JIGNESH Primary Care Unavailable BAVCAMILA CALLEJAS Attending Unavailable ADARSH, JIGNESH Primary Care Unavailable CAMILA PEPPER Attending Unavailable CAMILA PEPPER Referring Unavailable ADARSH, JIGNESH Primary Care Unavailable CAMILA PEPPER Attending Unavailable BAVCAMILA CALLEJAS Referring Unavailable ADARSH, JIGNESH Primary Care Unavailable BAVCAMILA CALLEJAS Attending Unavailable BAVCAMILA CALLEJAS Referring Unavailable ADARSH, JIGNESH Primary Care Unavailable BAVCAMILA CALLEJAS Attending Unavailable BAVCAMILA CALLEJAS Referring Unavailable ADARSH, JIGNESH Primary Care Unavailable CAMILA PEPPER Attending Unavailable CAMILA PEPPER Referring Unavailable ADARSH, JIGNESH Primary Care Unavailable AMINATARASHAWNINDER Attending Unavailable AMINATA DATINDER Referring Unavailable ADARSH, JIGNESH Primary Care Unavailable Allergies Allergy Classification Reported Allergen(s) Allergy Type Date of Onset Reaction(s) Facility [facility] (4 sources) Meperidine Drug Allergy 6 Other (See Comments) [facility] pregabalin (2 sources) pregabalin Drug Allergy 9 Other (See Comments) [facility] (1 source) meperidine Drug Allergy 8 difficulty waking up [facility] Work Phone: (20 sources) Meperidine Drug Allergy 6 Other (See Comments), Intolerance [employer] Work Phone: (20 sources) Meperidine Drug Allergy 9 Other (See Comments), Unknown [facility] Work Phone: (2 sources) pregabalin Drug Allergy 9 Other (See Comments) [employer] Work Phone: (20 sources) gabapentin Drug Allergy 9 Other (See Comments) [employer] Work Phone: (20 sources) Pregabalin Allergy to substance 2 Unknown [email or web address] (10 sources) Etodolac Propensity to adverse reactions 2 [email or web address] Work Phone: (10 sources) Terazosin Drug Allergy 0 [email or web address] [email or web address] (10 sources) terbinafine Drug Allergy 5 Rash [facility] (10 sources) vardenafil Drug Allergy 2 Headache [facility] Medications Current Medications Medication Drug Class(es) Dates Sig (Normalized) Sig (Original) Acetaminophen (20 sources) Start: 10-06-2021 acetaminophen (TYLENOL) tablet 650 mg Completed/Discontinued Medications Medication Drug Class(es) Dates Sig (Normalized) Sig (Original) B COMPLEX VITAMINS (1 source) Start: 02-03-20 18 B COMPLEX CAPS take 1 capsule once daily B COMPLEX VITAMINS [id number] Tonya Tinsley LPN DULOXETINE HCL (1 source) Serotonin and Norepinephrine Reuptake Inhibitor Start: 02-03-20 18 DULOXETINE HCL 60 MG CPEP take 1 capsule once daily DULOXETINE HCL [id number] Tonya Tinsley LPN ferric carboxymaltose (INJECTAFER) 750 mg in sodium chloride 0.9 % 250 mL IVPB (1 source) Start: 03-28-20 21 End: 03-28-20 21 ferric carboxymaltose (INJECTAFER) 750 mg in sodium chloride 0.9 % 250 mL IVPB fish oil (1 source) Start: 02-03-20 FISH OIL 1000 MG CAPS take 1 capsule once daily OMEGA-3 FATTY ACIDS [id number] Tonya Alvina COLE gadobutrol (Gadavist) injection 9 mL (2 sources) Start: 01-28-20 End: 01-28-20 gadobutrol (Gadavist) injection 9 mL hydroCHLOROthiazide 25 mg oral tablet (14 sources) Thiazide Diuretic Start: 04-01-20 End: 06-18-20 take 1 tablet by mouth once daily hydroCHLOROthiazide (HYDRODiuril) 25 MG tablet Indications: Peripheral vertigo, right Take 1 tablet (25 mg) by mouth daily. 30 tablet 3 04/01/2023 06/18/2023 Discontinued Problems Active Problems Problem Classification Problem Date Documented Date Episodic/Chronic Chronic kidney disease (20 sources) Chronic kidney disease stage 3B ; Translations: [Chronic renal impairment, stage 3b (HCC)] Onset: 05-27-2022 Chronic Chronic kidney disease (4 sources) Chronic kidney disease; Translations: [Chronic kidney disease, stage 3 unspecified] Onset: 2022 Coagulation and hemorrhagic disorders (2 sources) Thrombocytopenia, unspecified; Translations: [Thrombocytopenia, unspecified] Onset: 2022 Chronic Deficiency and other anemia (14 sources) Anemia of chronic disease; Translations: [Anemia in stage 3 chronic kidney disease, unspecified whether stage 3a or 3b CKD (HCC)] Onset: 03-13-2021 Chronic Deficiency and other anemia (20 sources) Anemia; Translations: [Anemia in stage 3b chronic kidney disease (HCC)] Onset: 03-13-2021 Chronic Deficiency and other anemia (2 sources) Anemia in chronic kidney disease; Translations: [Anemia in chronic kidney disease] Onset: 06-13-2022 Chronic Deficiency and other anemia (2 sources) Anemia, unspecified; Translations: [Anemia, unspecified] Onset: 2022 Episodic Deficiency and other anemia (4 sources) Iron deficiency anemia, unspecified; Translations: [Iron deficiency anemia, unspecified] Onset: 11-05-2021 Episodic Diabetes mellitus with complications (20 sources) Type 2 diabetes mellitus; Translations: [Type 2 diabetes mellitus with diabetic chronic kidney disease] Onset: 11-25-2017 06-21-2021 Chronic Diabetes mellitus without complication (6 sources) Type 2 diabetes mellitus without complication; Translations: [Type 2 diabetes mellitus without complications] Onset: 11-25-2017 02-05-2018 Chronic Disorders of lipid metabolism (20 sources) Hyperlipidemia; Translations: [Hyperlipidemia, unspecified] Onset: 11-27-2017 11-27-2017 Chronic Essential hypertension (20 sources) Hypertensive disorder; Translations: [Essential (primary) hypertension] Onset: 11-27-2017 11-27-2017 Chronic Hyperplasia of prostate (20 sources) Benign prostatic hyperplasia; Translations: [Benign prostatic hyperplasia without lower urinary tract symptoms] Onset: 12-14-2019 12-14-2019 Chronic Hypertension with complications and secondary hypertension (2 sources) Secondary hypertension, unspecified; Translations: [Secondary hypertension, unspecified] Onset: 06-13-2022 Chronic Immunizations and screening for infectious disease (2 sources) Encounter for immunization; Translations: [Encounter for immunization] Onset: 07-15-2023 Episodic Miscellaneous mental health disorders (20 sources) Primary insomnia; Translations: [Primary insomnia] Onset: 02-06-2018 02-06-2018 Chronic Osteoarthritis (2 sources) Post-traumatic osteoarthritis, left wrist; Translations: [Post-traumatic osteoarthritis, right wrist] Onset: 02-05-2018 02-05-2018 Chronic Other acquired deformities (1 source) Contracture, right hand; Translations: [Contracture, right hand] Onset: 02-05-2018 02-05-2018 Chronic Other connective tissue disease (2 sources) Lateral epicondylitis; Translations: [Lateral epicondylitis, right elbow] Onset: 02-05-2018 02-05-2018 Episodic Other connective tissue disease (1 source) Pain in bilateral legs; Translations: [Pain in both lower extremities] Onset: 02-02-2017 02-02-2017 Other connective tissue disease (1 source) Bursitis of olecranon of right elbow; Translations: [Olecranon bursitis, right elbow] Onset: 03-10-2016 03-10-2016 Other endocrine disorders (20 sources) Male hypogonadism; Translations: [Testicular hypofunction] Onset: 10-09-2017 10-09-2017 Chronic Other fractures (3 sources) Compression fracture of lumbar spine; Translations: [Wedge compression fracture of first lumbar vertebra, initial encounter for closed fracture] 07-29-2023 Episodic Other fractures (2 sources) Wedge compression fracture of first lumbar vertebra, initial encounter for closed fracture; Translations: [Wedge compression fracture of first lumbar vertebra, initial encounter for closed fracture (HCC)] Onset: 08-12-2023 Episodic Other hereditary and degenerative nervous system conditions (20 sources) Restless legs; Translations: [Restless legs syndrome] Onset: 10-14-2021 10-14-2021 Chronic Other hereditary and degenerative nervous system conditions (2 sources) Restless legs syndrome; Translations: [Restless legs syndrome] Onset: 06-13-2022 Chronic Other nervous system disorders (2 sources) Radial neuropathy; Translations: [Lesion of radial nerve, left upper limb] Onset: 02-05-2018 02-05-2018 Chronic Other nervous system disorders (20 sources) Femoral neuropathy; Translations: [Lesion of femoral nerve, bilateral lower limbs] Onset: 12-23-2016 12-23-2016 Chronic Other nervous system disorders (20 sources) Difficulty walking; Translations: [Difficulty in walking, not elsewhere classified] Onset: 10-06-2021 Chronic Other nervous system disorders (20 sources) Narcolepsy without cataplexy ; Translations: [Narcolepsy without cataplexy] Onset: 10-14-2021 10-14-2021 Chronic Other nervous system disorders (20 sources) Chronic pain syndrome; Translations: [Chronic pain syndrome] Onset: 10-14-2021 10-14-2021 Chronic Other nervous system disorders (2 sources) Lesion of femoral nerve, bilateral lower limbs; Translations: [Lesion of femoral nerve, bilateral lower limbs] Onset: 06-13-2022 Chronic Other nervous system disorders (1 source) Chronic pain syndrome; Translations: [Chronic pain syndrome] Onset: 06-13-2022 Chronic Other nervous system disorders (2 sources) Narcolepsy without cataplexy; Translations: [Narcolepsy without cataplexy] Onset: 06-13-2022 Chronic Other nervous system disorders (2 sources) Disease of spinal cord, unspecified; Translations: [Disease of spinal cord, unspecified (HCC)] Onset: 08-27-2022 Chronic Other nervous system disorders (2 sources) Tremor; Translations: [Tremor, unspecified] Episodic Other nervous system disorders (2 sources) Paresthesia of lower extremity; Translations: [Anesthesia of skin] 06-18-2023 Episodic Other upper respiratory disease (20 sources) Allergic rhinitis due to pollen; Translations: [Allergic rhinitis due to pollen] Onset: 12-20-2021 12-20-2021 Chronic Residual codes; unclassified (20 sources) Obstructive sleep apnea syndrome; Translations: [Obstructive sleep apnea (adult) (pediatric)] Onset: 02-11-2018 02-11-2018 Chronic Residual codes; unclassified (2 sources) Obstructive sleep apnea (adult) (pediatric); Translations: [Obstructive sleep apnea (adult) (pediatric)] Onset: 06-13-2022 Chronic Spondylosis; intervertebral disc disorders; other back problems (20 sources) Degeneration of cervical intervertebral disc; Translations: [Other cervical disc degeneration, unspecified cervical region] Onset: 09-29-2022 10-13-2022 Chronic Spondylosis; intervertebral disc disorders; other back problems (20 sources) Backache; Translations: [Dorsalgia, unspecified] Onset: 10-12-2020 10-12-2020 Episodic Superficial injury; contusion (20 sources) Contusion of rib; Translations: [Contusion of right front wall of thorax, initial encounter] Onset: 01-11-2023 01-11-2023 Episodic Unclassified (1 source) Low back pain, unspecified; Translations: [Low back pain, unspecified] Onset: 08-27-2022 Past or Other Problems Problem Classification Problem Date Documented Da te Episodic/Chronic Allergic reactions (20 sources) Allergic contact dermatitis caused by plant material; Translations: [Allergic contact dermatitis due to plants, except food] Onset: 03-20-2021 03-20-2021 Episodic Conditions associated with dizziness or vertigo (17 sources) Dizziness; Translations: [Dizziness and giddiness] Onset: 01-29-2023 Episodic Deficiency and other anemia (20 sources) Iron deficiency anemia; Translations: [Iron deficiency anemia, unspecified] Onset: 03-13-2021 Episodic Genitourinary symptoms and ill-defined conditions (20 sources) Urgent desire to urinate; Translations: [Urgency of urination] Onset: 06-15-2020 06-15-2020 Episodic Malaise and fatigue (20 sources) Asthenia; Translations: [Other malaise] Onset: 10-14-2021 10-14-2021 Episodic Mood disorders (15 sources) Recurrent major depression in remission; Translations: [Major depressive disorder, recurrent, in remission, unspecified] Resolved: 12-14-2019 12-14-2019 Chronic Other acquired deformities (2 sources) Spondylolisthesis, cervical region; Translations: [Spondylolisthesis, cervical region] Onset: 08-27-2022 Episodic Other connective tissue disease (20 sources) Spasm; Translations: [Other muscle spasm] Onset: 03-12-2015 03-12-2015 Episodic Other connective tissue disease (20 sources) Bursitis of olecranon of right elbow; Translations: [Olecranon bursitis, right elbow] Onset: 03-10-2016 03-10-2016 Episodic Other connective tissue disease (20 sources) Pain in bilateral legs; Translations: [Pain in right leg] Onset: 02-02-2017 02-02-2017 Episodic Other eye disorders (20 sources) Tear film insufficiency; Translations: [Dry eye syndrome of bilateral lacrimal glands] Onset: 12-25-2020 12-25-2020 Episodic Other eye disorders (20 sources) Disorder of cornea; Translations: [Unspecified disorder of cornea] Onset: 05-15-2022 06-13-2022 Episodic Other fractures (15 sources) Fracture of multiple pubic rami; Translations: [Other specified fracture of right pubis, initial encounter for closed fracture] Onset: 10-12-2021 Episodic Other fractures (12 sources) Closed fracture sacrum; Translations: [Unspecified fracture of sacrum, subsequent encounter for fracture with routine healing] Onset: 10-12-2021 Episodic Other nervous system disorders (20 sources) Paresthesia of upper limb; Translations: [Anesthesia of skin] Onset: 07-02-2022 07-02-2022 Episodic Other nervous system disorders (20 sources) Numbness of face; Translations: [Anesthesia of skin] Onset: 07-02-2022 07-02-2022 Episodic Other nervous system disorders (5 sources) Ataxic gait; Translations: [Ataxic gait] Onset: 01-27-2023 Episodic Other nervous system disorders (1 source) Ataxic gait; Translations: [Ataxic gait] Onset: 01-27-2023 Episodic Other nervous system disorders (2 sources) Tremor, unspecified; Translations: [Tremor, unspecified] Onset: 01-22-2023 Episodic Other nervous system disorders (2 sources) Anesthesia of skin; Translations: [Anesthesia of skin] Onset: 07-02-2022 Episodic Other nervous system disorders (2 sources) Paresthesia of skin; Translations: [Paresthesia of skin] Onset: 07-02-2022 Episodic Other nervous system disorders (2 sources) Ataxia, unspecified; Translations: [Ataxia, unspecified] Onset: 08-27-2022 Episodic Other nutritional; endocrine; and metabolic disorders (20 sources) Body mass index 25-29 - overweight; Translations: [Overweight] Onset: 07-09-2022 07-09-2022 Episodic Unclassified (1 source) Problem Unclassified (1 source) Low back pain, unspecified; Translations: [Low back pain, unspecified] Onset: 08-27-2022 Viral infection (20 sources) Disease caused by 2019-nCoV; Translations: [COVID-19] Onset: 10-14-2021 Resolved: 07-09-2022 10-14-2021 Episodic Results Test Name Value Interpretation Reference Range Facil it Vital Signs Date Time Vital Sign Value Performing Clinician Facility 08-12-2023 14:33-0500 Body height 182.9 cm Angelito Pastrana NETWORKER Work Phone: [facility] 08-12-2023 14:33-0500 Body mass index (BMI) [Ratio] 26.31 kg/m2 Angelito Pastrana NETWORKER Work Phone: [facility] 08-12-2023 14:33-0500 Body weight 88 kg Angelito Bansalrosette TRINH Work Phone: [facility] 07-29-2023 15:28-0500 Diastolic blood pressure 72 mm[Hg] William Suero DO Work Phone: [facility] 07-29-2023 15:28-0500 Heart rate 94 /min William Suero [email or web address] Work Phone: [facility] 07-29-2023 15:28-0500 Respiratory rate 16 /min William Suero [email or web address] Work Phone: [facility] 07-29-2023 15:28-0500 SaO2% (BldA) [Mass fraction] 96 % William Suero DO Work Phone: [facility] 07-29-2023 15:28-0500 Systolic blood pressure 153 mm[Hg] William Suero DO Work Phone: [facility] 07-29-2023 14:06-0500 Body temperature 97.81 [degF] William Suero DO Work Phone: [facility] 06-18-2023 09:23-0400 Body height 182.9 cm Camila Pepper MD Work Phone: [facility] 06-18-2023 09:23-0400 Body mass index (BMI) [Ratio] 26.56 kg/m2 Camila Pepper MD Work Phone: [facility] 06-18-2023 09:23-0400 Body weight 88.81 kg Camila Pepper MD Work Phone: [facility] 06-18-2023 09:23-0400 Diastolic blood pressure 82 mm[Hg] Camila Pepper MD Work Phone: [facility] 06-18-2023 09:23-0400 Heart rate 98 /min Camila Pepper MD Work Phone: [facility] 06-18-2023 09:23-0400 Systolic blood pressure 154 mm[Hg] Camila Pepper MD Work Phone: [facility] 04-01-2023 07:57-0400 Body height 182.9 cm Camila Pepper MD Work Phone: [facility] 04-01-2023 07:57-0400 Body mass index (BMI) [Ratio] 26.2 kg/m2 Camila Pepper MD Work Phone: [facility] 04-01-2023 07:57-0400 Body weight 87.64 kg Camila Pepper MD Work Phone: [facility] 04-01-2023 07:57-0400 Diastolic blood pressure 82 mm[Hg] Camila Pepper MD Work Phone: [facility] 04-01-2023 07:57-0400 Heart rate 88 /min Camila Pepper MD Work Phone: [facility] 04-01-2023 07:57-0400 Systolic blood pressure 151 mm[Hg] Camila Pepper MD Work Phone: [facility] 02-16-2023 12:04-0400 Body mass index (BMI) [Ratio] 26.58 kg/m2 Camila Pepper MD Work Phone: [facility] 02-16-2023 12:04-0400 Body weight 88.91 kg Camila Pepper MD Work Phone: [facility] 02-16-2023 12:04-0400 Diastolic blood pressure 69 mm[Hg] Camila Peppre MD Work Phone: [facility] 02-16-2023 12:04-0400 Heart rate 101 /min Camila Pepper MD Work Phone: [facility] 02-16-2023 12:04-0400 Systolic blood pressure 107 mm[Hg] Camila Pepepr MD Work Phone: [facility] 01-22-2023 09:59-0400 Body height 182.9 cm Camila Pepper MD Work Phone: [facility] 01-22-2023 09:59-0400 Body mass index (BMI) [Ratio] 27.26 kg/m2 Camila Pepper MD Work Phone: [facility] 01-22-2023 09:59-0400 Body weight 91.17 kg Camila Pepper MD Work Phone: [facility] 01-22-2023 09:59-0400 Diastolic blood pressure 84 mm[Hg] Camila Pepper MD Work Phone: [facility] 01-22-2023 09:59-0400 Heart rate 82 /min Camila Pepper MD Work Phone: [facility] 01-22-2023 09:59-0400 Systolic blood pressure 169 mm[Hg] Camila Pepper MD Work Phone: [facility] 01-05-2023 09:01-0400 Body height 185.4 cm Damien Claude PLANT 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 - [employer]ER Work Phone: [facility] 01-05-2023 09:01-0400 Body mass index (BMI) [Ratio] 26.25 kg/m2 Damien Arce APRN - FLATWARE [employer]ER Work Phone: [facility] 01-05-2023 09:01-0400 Body weight 90.27 kg Damien Claude PLANT 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 - [employer] MAKER Work Phone: [facility] 01-05-2023 09:01-0400 Diastolic blood pressure 72 mm[Hg] Damien Arce PLANT 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 - [employer] MAKER Work Phone: [facility] 01-05-2023 09:01-0400 Heart rate 67 /min Damien Arce APRN - FLATWARE [employer]ER Work Phone: [facility] 01-05-2023 09:01-0400 SaO2% (BldA) [Mass fraction] 98 % Damien Arce APRN - [employer]WARE [employer]ER Work Phone: [facility] 01-05-2023 09:01-0400 Systolic blood pressure 120 mm[Hg] Damien Arce APRN - FLATWARE MAKER Work Phone: [facility] 10-12-2021 16:42-0500 Body temperature 97.59 [degF] Stephan Emanuel MD Work Phone: [facility] 10-12-2021 16:42-0500 Diastolic blood pressure 70 mm[Hg] Stephan Emanuel MD Work Phone: [facility] 10-12-2021 16:42-0500 Heart rate 99 /min Stephan Emanuel MD Work Phone: [facility] 10-12-2021 16:42-0500 Respiratory rate 18 /min Stephan Emanuel MD Work Phone: [facility] 10-12-2021 16:42-0500 SaO2% (BldA) [Mass fraction] 94 % Stephan Emanuel MD Work Phone: [facility] 10-12-2021 16:42-0500 Systolic blood pressure 143 mm[Hg] Stephan Emanuel MD Work Phone: [facility] 10-06-2021 23:00-0500 Body height 185.4 cm Stephan Emanuel MD Work Phone: [facility] 10-06-2021 23:00-0500 Body mass index (BMI) [Ratio] 23.75 kg/m2 Stephan Emanuel MD Work Phone: [facility] 10-06-2021 23:00-0500 Body weight 81.65 kg Stephan Emanuel MD Work Phone: [facility] 09-17-2021 20:06-0500 Body height 185.4 cm Vignesh Hull MD Work Phone: [facility] 09-17-2021 20:06-0500 Body mass index (BMI) [Ratio] 23.75 kg/m2 Vignesh Hull MD Work Phone: [facility] 09-17-2021 20:06-0500 Body temperature 98.1 [degF] Vignesh Hull MD Work Phone: [facility] 09-17-2021 20:06-0500 Body weight 81.65 kg Vignesh Hull MD Work Phone: [facility] 09-17-2021 20:06-0500 Diastolic blood pressure 71 mm[Hg] Vignesh Hull MD Work Phone: [facility] 09-17-2021 20:06-0500 Heart rate 85 /min Vignesh Hull MD Work Phone: [facility] 09-17-2021 20:06-0500 Respiratory rate 16 /min Vignesh Hull MD Work Phone: [facility] 09-17-2021 20:06-0500 SaO2% (BldA) [Mass fraction] 96 % Vignesh Hull MD Work Phone: [facility] 09-17-2021 20:06-0500 Systolic blood pressure 138 mm[Hg] Vignesh Hull MD Work Phone: [facility] 03-28-2021 12:03-0400 Diastolic blood pressure 61 mm[Hg] Martha Marciano DO Work Phone: [facility] Work Phone: 03-28-2021 12:03-0400 Heart rate 84 /min Martha Marciano DO Work Phone: [facility] Work Phone: 03-28-2021 12:03-0400 Respiratory rate 18 /min Martha Marciano DO Work Phone: [facility] Work Phone: 03-28-2021 12:03-0400 Systolic blood pressure 129 mm[Hg] Martha Marciano DO Work Phone: [facility] Work Phone: 03-28-2021 10:58-0400 Body mass index (BMI) [Ratio] 25.13 kg/m2 Martha Marciano DO Work Phone: [facility] Work Phone: 03-28-2021 10:58-0400 Body temperature 98.1 [degF] Martha Marciano DO Work Phone: [facility] Work Phone: 03-28-2021 10:58-0400 Body weight 84.05 kg Martha Marciano DO Work Phone: [facility] Work Phone: NEGATED: Highlighted [id number] 10:12-0400 BMI (Body Mass Index) 24.5 kg/m2 Josefina Fernandez DOUGLAS [facility] Work Phone: NEGATED: Highlighted [id number] 10:12-0400 BP Diastolic 67 mm[Hg] Josefina Fernandez DOUGLAS [facility] Work Phone: NEGATED: Highlighted [id number] 10:12-0400 BP Systolic 110 mm[Hg] Josefina Fernandez DOUGLAS [facility] Work Phone: NEGATED: Highlighted [id number] 10: Height 185.42 cm Josefina Fernandez LPN [facility] Work Phone: NEGATED: Highlighted [id number] 10: Height 185 cm Josefina Fernandez LPN [facility] Work Phone: NEGATED: Highlighted [id number] 10:040 Pulse (Heart Rate) 80 /min Josefina Fernandez LPN [facility] Work Phone: NEGATED: Highlighted [id number] 10:040 Weight 83.92 kg Josefina Fernandez LPN [facility] Work Phone: NEGATED: Highlighted [id number] 10:040 Weight 84 kg Josefina Fernandez LPN [facility] Work Phone: Encounters Encounter Date Encounter Type Care Provider Facility Start: 08-12-2023 End: 08-12-2023 ambulatory [facility] Start: 08-12-2023 End: 08-12-2023 Office outpatient new 45 minutes Angelito Bansal NETWORKER Work Phone: [facility] Procedures Date Procedure Procedure Detail Performing Clinician Start: 07-29-2023 End: 07-29-2023 Ct cervical spine w/o contrast material William Suero DO Work Phone: Start: 07-29-2023 Ct head/brain w/o co ntrast material William Suero DO Work Phone: Start: 07-14-2023 Adult depression scr eening assessment Camila Pepper MD Work Phone: Start: 06-18-2023 Protein xcpt refract ometry serum plasma/whl bld Camila Pepper MD Work Phone: Start: 07-09-2022 Adult depression scr eening assessment Damien Arce 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 Work Phone: Start: 07-09-2022 Lipid 1996 panel - S lindsey or Plasma Damien Claude 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 Work Phone: Start: 10-12-2021 Gluc bld gluc mntr d ev cleared fda spec home use Stephan Emanuel MD Work Phone: Start: 10-12-2021 COVID-19 Syd harkins MD Work Phone: Start: 10-12-2021 Gluc bld gluc mntr d ev cleared fda spec home use Stephan Emanuel MD Work Phone: Start: 10-12-2021 Gluc bld gluc mntr d ev cleared fda spec home use Stephan Emanuel MD Work Phone: Start: 10-11-2021 Gluc bld gluc mntr d ev cleared fda spec home use Stephan Emanuel MD Work Phone: Start: 10-11-2021 Gluc bld gluc mntr d ev cleared fda spec home use Stephan Emanuel MD Work Phone: Start: 10-11-2021 C-reactive protein Shikha Warren MD Work Phone: Start: 10-11-2021 Fibrin dgradj produc ts d-dimer quantitative Andrey Warren MD Work Phone: Start: 10-11-2021 Gluc bld gluc mntr d ev cleared fda spec home use Stephan Emanuel MD Work Phone: Start: 10-11-2021 COVID-19 Andrey murguia MD Work Phone: Start: 10-11-2021 Radiologic exam ches t single view Andrey Warren MD Work Phone: Start: 10-11-2021 Gluc bld gluc mntr d ev cleared fda spec home use Markel Nathan MD Work Phone: Start: 10-10-2021 Gluc bld gluc mntr d ev cleared fda spec home use Markel Nathan MD Work Phone: Start: 10-10-2021 Gluc bld gluc mntr d ev cleared fda spec home use Stephan Emanuel MD Work Phone: Start: 10-10-2021 Gluc bld gluc mntr d ev cleared fda spec home use Stephan Emanuel MD Work Phone: Start: 10-10-2021 COVID-19 Andrey murguia MD Work Phone: Start: 10-10-2021 Gluc bld gluc mntr d ev cleared fda spec home use Stephan Emanuel MD Work Phone: Start: 10-09-2021 Gluc bld gluc mntr d ev cleared fda spec home use Stephan Emanuel MD Work Phone: Start: 10-09-2021 Gluc bld gluc mntr d ev cleared fda spec home use Stephan Emanuel MD Work Phone: Start: 10-09-2021 Gluc bld gluc mntr d ev cleared fda spec home use Stephan Emanuel MD Work Phone: Start: 10-09-2021 End: 10-09-2021 Gluc bld gluc mntr dev cleared fda spec home use Stephan Emanuel MD Work Phone: Start: 10-09-2021 BASIC METABOLIC PANE L W/ REFLEX TO MG FOR LOW K Dorcas Jung MD Start: 10-08-2021 Gluc bld gluc mntr d ev cleared fda spec home use Stephan Emanuel MD Work Phone: Start: 10-08-2021 Gluc bld gluc mntr d ev cleared fda spec home use Stephan Emanuel MD Work Phone: Start: 10-08-2021 Gluc bld gluc mntr d ev cleared fda spec home use Stephan Emanuel MD Work Phone: Start: 10-08-2021 BASIC METABOLIC PANE L W/ REFLEX TO MG FOR LOW K Dorcas Jung MD Start: 10-08-2021 Blood count complete auto&auto difrntl wbc Dorcas Jung MD Start: 10-07-2021 Gluc bld gluc mntr d ev cleared fda spec home use Stephan Emanuel MD Work Phone: Start: 10-07-2021 Gluc bld gluc mntr d ev cleared fda spec home use Markel Nathan MD Work Phone: Start: 10-07-2021 Gluc bld gluc mntr d ev cleared fda spec home use Stephan Emanuel MD Work Phone: Start: 10-07-2021 Radiologic exam pelv is compl minimum 3 views Nikole Selby MD Work Phone: Start: 10-07-2021 Gluc bld gluc mntr d ev cleared fda spec home use Stephan Emaunel MD Work Phone: Start: 10-07-2021 BASIC METABOLIC PANE L W/ REFLEX TO MG FOR LOW K Dorcas Jung MD Start: 10-07-2021 Blood count complete auto&auto difrntl wbc Dorcas Jung MD Start: 10-06-2021 Gluc bld gluc mntr d ev cleared fda spec home use Stephan Emanuel MD Work Phone: Start: 10-06-2021 Basic metabolic pane l calcium total Stephan Emanuel MD Work Phone: Start: 10-06-2021 PROTIME/INR & PTT Freedom Emanuel MD Work Phone: Start: 10-06-2021 Radiologic examinati on femur minimum 2 views Stephan Emanuel MD Work Phone: Start: 10-06-2021 Ct angiography pelvi s w/contrast/noncontrast Stephan Emanuel MD Work Phone: Start: 09-17-2021 Radiologic examinati on pelvis 1/2 views Vignesh Hull MD Work Phone: Start: 09-17-2021 Radex elbow 2 views Kei Hull MD Work Phone: Start: 06-20-2021 Colonoscopy Patel davis MD Work Phone: Start: 11-06-2020 Radiologic exam knee complete 4/more views Kelly Feng Work Phone: Start: 02-05-2018 End: 02-05-2018 Blood pressure within normal parameters - no follow-up required Antonio Lester MD Work Phone: Start: 02-05-2018 End: 02-05-2018 BMI documented within normal parameters - no follow-up plan is required Antonio Lester MD Work Phone: Start: 02-05-2018 End: 02-05-2018 Current medications documented Antonio Lester MD Work Phone: Start: 02-05-2018 End: 02-05-2018 Fall plan of care docd Antonio Todd Work Phone: Start: 02-05-2018 End: 02-05-2018 Fall risk assessment doc d Antonio Somers ch, MD Work Phone: Start: 02-05-2018 End: 02-05-2018 Pain assessment documented as positive - follow-up documented Antonio Lester MD Work Phone: Start: 02-05-2018 End: 02-05-2018 Ptfalls assess-doc d ge2+/yr Antonio Lester MD Work Phone: Start: 02-05-2018 End: 02-05-2018 Tobacco non-user Antonio Lester MD Work Phone: Plan of Treatment Date Care Activity Detail Author Start: 02-20-2032 DTaP/Tdap/Td Vaccine s (5 - Td or Tdap) DTaP/Tdap/Td Vaccines (5 - Td or Tdap) [facility] Start: 06-20-2031 Colonoscopy COLONOSCOPY [facility] Start: 06-20-2031 COLORECTAL CANCER SCREENING COLORECTAL CANCER SCREENING [facility] Start: 02-19-2026 DTaP/Tdap/Td vaccine (3 - Tdap) DTaP/Tdap/Td vaccine (3 - Tdap) [facility] Start: 02-19-2026 DTaP/Tdap/Td Vaccine s (3 - Tdap) DTaP/Tdap/Td Vaccines (3 - Tdap) [facility] Start: 02-19-2026 DTaP/Tdap/Td Vaccine s (4 - Tdap) DTaP/Tdap/Td Vaccines (4 - Tdap) [facility] Start: 02-19-2026 DTaP/Tdap/Td Vaccine s (5 - Tdap) DTaP/Tdap/Td Vaccines (5 - Tdap) [facility] Start: 08-14-2024 Medicare Advantage Annual Wellness Visit (AWV) Medicare Advantage Annual Wellness Visit (AWV) [facility] Start: 07-18-2024 End: 07-18-2024 Patient encounter procedure 07/18/2024 9:20 AM EST Office Visit [facility] [address], [place] [id number] Damien Arce, [employer] 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 - [employer] [address], [place] [id number] [facility] Start: 07-15-2024 COVID-19 Vaccine ( season) COVID-19 Vaccine ( season) [facility] Immunizations Immunization Date Immunization Notes Care Provider Fa cility 07-15-2023 Influenza, Seasonal, Quadrivalent, Adjuvanted William Suero DO Work Phone: [facility] 06-24-2022 Influenza, High-dose Seasonal, Quadrivalent, Preservative Free Damien Arce 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 - [employer] Work Phone: [facility] 06-24-2022 influenza virus vacc ine, unspecified formulation Jude Kelly PT [facility] 02-19-2022 tetanus toxoid, redu clarissa diphtheria toxoid, and acellular pertussis vaccine, adsorbed Camila Pepper MD Work Phone: [facility] 10-12-2021 tuberculin skin test ; purified protein derivative solution, intradermal Abdulkadir Torres MD Work Phone: [facility] Work Phone: 11-01-2021 COVID-19, Pfizer Pur ple top, DILUTE for use, 12+ yrs, 30mcg/0.3mL dose Stephan Emanuel MD Work Phone: [facility] Work Phone: 06-05-2021 Influenza, Quadv, adjuvanted, 65 yrs +, IM, PF (Fluad) Vignesh Hull MD Work Phone: [facility] Work Phone: 10-08-2020 COVID-19, Pfizer, PF , 30mcg/0.3mL Kelly Tokodi [facility] Work Phone: 09-12-2020 COVID-19, Pfizer, PF , 30mcg/0.3mL Kelly Tokodi [facility] Work Phone: 07-30-2020 zoster vaccine recombinant Vignesh Hull MD Work Phone: [facility] Work Phone: 05-08-2020 influenza, injectabl e, quadrivalent, preservative free Damien Arce 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 - [facility] Work Phone: [facility] 05-08-2020 Influenza, Quadv, adjuvanted, 65 yrs +, IM, PF (Fluad) Kelly Feng [facility] 05-08-2020 zoster vaccine recombinant Kelly Umerodi [facility] Work Phone: 06-14-2019 pneumococcal conjuga te vaccine, 13 valent [facility] Work Phone: 05-16-2019 Seasonal trivalent influenza vaccine, adjuvanted, preservative free Vignesh Hull MD Work Phone: [facility] Work Phone: 06-04-2018 influenza, high dose seasonal, preservative-free Kellychaka Owusuodi [facility] Work Phone: 05-17-2018 zoster vaccine recombinant Vignesh Hull MD Work Phone: [facility] Work Phone: 11-09-2017 zoster vaccine recombinant Marthakristen Tariq DO Work Phone: [facility] 09-07-2017 influenza, high dose seasonal, preservative-free Kelly Feng [facility] 10-29-2016 influenza virus vacc ine, unspecified formulation Vignesh Hull MD Work Phone: [facility] Work Phone: 02-20-2016 TD(adult) unspecifie d formulation Damien Arce [employer] 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 - [employer] Work Phone: [facility] 02-20-2016 Td, unspecified formulation Kelly Feng [facility] 02-20-2016 tetanus and diphther ia toxoids, not adsorbed, for adult use Damien Arce [employer] 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 - [employer] Work Phone: [facility] 10-24-2015 pneumococcal polysaccharide vaccine, 23 valent Vignesh Hull MD Work Phone: [facility] Work Phone: 08-24-2015 zoster vaccine, live [facility] Work Phone: 07-09-2015 influenza, high dose seasonal, preservative-free Vignesh Hull MD Work Phone: [facility] Work Phone: 05-24-2015 Influenza Vaccine, unspecified formulation Kellychaka Feng [facility] 02-09-2015 pneumococcal conjuga te vaccine, 13 valent Vignesh Hull MD Work Phone: [facility] Work Phone: 12-04-2009 diphtheria, tetanus toxoids and acellular pertussis vaccine, unspecified formulation Vignesh Hull MD Work Phone: [facility] Work Phone: 08-14-2009 novel influenza-H1N1 -09, all formulations Vignesh Hull MD Work Phone: [facility] Work Phone: 08-14-2009 novel influenza-H1N1 -09, preservative-free, injectable Damien Arce [employer] 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 - [employer] Work Phone: [facility] 04-28-2002 pneumococcal vaccine , unspecified formulation Martha Marciano ATKINSON Work Phone: [facility] Work Phone: 04-27-2002 TD(adult) unspecifie d formulation Vignesh Hull MD Work Phone: [facility] Work Phone: No information available. Josefina Rebecca COLE [facility] Work Phone: Payers Date Payer Category Payer Medicare [employer] RE [employer] [id number] 2021-Present [address] [place] [address] Medicare HMO [id number] 2020 Medicare [employer] [place] [id number] 2020-Present [phone] [address] [place] [address] HMO [id number] 2020 Unknown [employer] [id number] 2020-Present [address] [place] [address] Indemnity [id number] 2019 Unknown [id number] 2015 Medicare [id number] 1940 Unknown [id number] 1940 Unknown [id number] Unknown Social History Date Type Detail Facility Start: 02-05-2018 End: 02-05-2018 Assertion Unknown if ever smoked [facility] Work Phone: Start: 10-12-2020 End: 06-13-2022 Tobacco smoking status NHIS Never smoker [facility] Start: 10-12-2020 End: 06-13-2022 Tobacco use and exposure Never used [employer] Work Phone: Start: 10-12-2020 End: 12-20-2021 Alcohol intake Current non-drinker of alcohol (finding) [employer] Work Phone: Start: 06-14-2020 End: 01-11-2023 History SDOH Alcohol Frequency 1 [employer] Work Phone: Start: 06-14-2019 History SDOH Physical Activity DPW 6 [employer] Work Phone: Start: 06-14-2019 History SDOH Physical Activity MPS 9 [employer] Work Phone: Start: 06-14-2019 History SDOH Financial 4 [employer] Work Phone: Start: 06-14-2019 End: 03-19-2021 History SDOH Transport Med 2 [employer] Work Phone: Start: 1940 Sex Assigned At Not on file [employer] Work Phone: Start: 09-28-2021 End: 05-08-2023 Exposure to SARS-CoV-2 (event) Not sure [employer] Work Phone: Start: 03-12-2021 End: 07-14-2023 Alcohol intake [facility] Start: 03-19-2021 History SDOH Financial 5 [employer] Work Phone: Start: 07-02-2021 End: 07-29-2023 Alcohol intake Lifetime non-drinker (finding) [facility] Start: 01-11-2023 History SDOH Alcohol Std Drinks 0 [facility] Start: 01-11-2023 End: 07-14-2023 Alcohol Use Disorder Identification Test - Consumption [AUDIT-C] [facility] How often to you hav e a drink containing alcohol? Never [facility] How many standard dr inks containing alcohol do you have on a typical day? Patient does not drink [id number] [email or web address] (I/We) worried wheth er (my/our) food would run out before (I/we) got money to buy more. Never true [address] [email or web address] In the past 12 month s, was there a time when you were not able to pay the mortgage or rent on time? No [facility] Medical Equipment Procedure Code Equipment Code Equipment Origin al Text Equipment Identifier Dates Test blood sugar daily DX: E11.9, type 2 diabetes mellitus without complication, without long-term current use of insulin [id number] Start: 08-28-2020 Test blood sugar daily, DX: E11.9, type 2 diabetes mellitus without complication, without long-term current use of insulin [id number] Start: 08-28-2020 Test blood sugar daily DX: E11.9, type 2 diabetes mellitus without complication, without long-term current use of insulin [id number] Start: 08-28-2020 Goals Date Patient Goal Desired Activity /State Clinical Notes 03-28-2021 to 08-12-2023 Angelito Pastrana NETWORKER - 08/12/2023 2:30 PM ESTPatient InstructionsWilliam Suero DO - 07/29/2023 1:54 PM Ngoc Kramer LPN - 07/29/2023 1:54 PM Ngoc Kramer LPN - 07/29/2023 1:54 PM EST Note Date & Type Note Facility 08-12-2023 History of Present illness Narrative Images from the original note were not included. [facility] [address] [place] [address] [place] [id number] Dept: [phone] Dept Candice Person Tiff 1940 [id number] 08/12/2023 Problem List: Acute, stable L1 compression fracture Lumbar pain Lumbar radiculopathy, bilateral Lumbar degenerative disc disease Lumbar spondylosis Diagnoses: (S32.010A) Compression fracture of L1 vertebra, initial encounter ([facility]) (M54.50) Lumbar pain (M54.16) Lumbar radiculopathy (M51.36) Lumbar degenerative disc disease (M47.816) Lumbar spondylosis Chief Complaint Patient presents with Back Pain HPI Candice is a 83 y.o. male who is here today for evaluation of his L1 Compression fracture. DOI: ED on 07/29/2023. Went to ED about 2 weeks after fall KRISTA: fall Current complaints: Across lumbar, reports pain in bilateral legs due to stenosis; numbness and tingling worse since fall Associated Radiculopathy: denies Associated neurologic complaints: Gait/balance: reports - worse since fall Bowel/bladder incontinence: was having urination incontinence prior to fall feels like it may be worse than it was prior to fall Aggravating factors: none Alleviating Factors: nothing Current Treatment: Bracing: none NSAIDS: unable to take Opiod medications: methadone Other medications: none History of osteoporosis treatment: no History of previous fragility fracture: no Quality of life: severely Work status: retired History of DVT/PE or hypercoagulable state (including history of relative): none Blood thinning medications: none Tobacco Use: Low Risk (07/29/2023) Patient History Smoking Tobacco Use: Never Smokeless Tobacco Use: Never Passive Exposure: Not on file Review of Systems Allergies Allergen Reactions Etodolac Other reaction(s): OTHER REACTION Gabapentin Other reaction(s): Other (See Comments) ineffective Other reaction(s): elevated liver enzymes Other reaction(s): elevated liver enzymes Meperidine Other reaction(s): Intolerance, Other (See Comments) Pt states he is unable to be woken after demerol Difficulty to arouse has difficulty waking up Meperidine Hcl Unknown Pregabalin Unknown Terazosin Other reaction(s): Low blood pressure Vardenafil Headache Terbinafine Rash Current Outpatient Medications Medication Sig Dispense Refill albuterol 108 (90 Base) MCG/ACT inhaler Inhale 2 puffs every 6 hours as needed for wheezing. 18 g 2 citalopram (CeleXA) 20 MG tablet take 1 tablet by mouth once daily 90 tablet 1 dextroamphetamine (DextroStat) 10 MG tablet Take 2 tablets by mouth in the morning and at bedtime. finasteride (Proscar) 5 MG tablet take 1 tablet by mouth once daily 90 tablet 1 glimepiride (Amaryl) 2 MG tablet take 1 tablet by mouth every morning 90 tablet 1 melatonin 10 MG tablet Take 10 mg by mouth Nightly as needed. metFORMIN (Glucophage) 1000 MG tablet Take 1 tablet by mouth in the morning and 1 tablet in the evening. Take with meals. methadone (Dolophine) 5 MG tablet Take 5 mg by mouth at bedtime. rOPINIRole (Requip) 1 MG tablet Take 1 mg by mouth. 1 q morning 2 at noon 2 at night simvastatin (Zocor) 10 MG tablet take 1 tablet by mouth at bedtime 90 tablet 1 tamsulosin (Flomax) 0.4 MG 24 hr capsule Take 0.8 mg by mouth. calcitonin, salmon, (Miacalcin) 200 UNIT/ACT nasal spray Administer 1 spray into one nostril daily. 3.7 mL 0 Glucose Blood (Blood Glucose Test) strip Test blood sugar daily DX: E11.9, type 2 diabetes mellitus without complication, without long-term current use of insulin ibuprofen 200 MG tablet every 12 hours. methocarbamol (Robaxin) 750 MG tablet Take 1 tablet (750 mg) by mouth 3 times daily as needed for muscle spasms. 90 tablet 0 No current facility-administered medications for this visit. Past Medical History: Diagnosis Date Chronic back pain COVID-19 10/14/2021 Depression Diabetes mellitus (HCC) Hemorrhoids, unspecified hemorrhoid type Hip fracture (HCC) 2021 R hip Hyperlipidemia Hypertension Kidney stone Osteoarthritis Restless leg syndrome Past Surgical History: Procedure Laterality Date CATARACT EXTRACTION Right CHOLECYSTECTOMY COLONOSCOPY 2014 PROSTATE SURGERY ROTATOR CUFF REPAIR Right TOE SURGERY Social History Socioeconomic History Marital status: Spouse name: Not on file Number of children: Not on file Years of education: Not on file Highest education level: Not on file Occupational History Not on file Tobacco Use Smoking status: Never Smokeless tobacco: Never Vaping Use Vaping Use: Never used Substance and Sexual Activity Alcohol use: Never Drug use: Never Sexual activity: Not on file Other Topics Concern Not on file Social History Narrative Not on file Social Determinants of Health Financial Resource Strain: Low Risk (07/14/2023) Overall Financial Resource Strain (CARDIA) Difficulty of Paying Living Expenses: Not hard at all Food Insecurity: No Food Insecurity (07/14/2023) Hunger Vital Sign Worried About Running Out of Food in the Last Year: Never true Ran Out of Food in the Last Year: Never true Transportation Needs: No Transportation Needs (07/14/2023) PRAPARE - Transportation Lack of Transportation (Medical): No Lack of Transportation (Non-Medical): No Physical Activity: Insufficiently Active (07/14/2023) Exercise Vital Sign Days of Exercise per Week: 2 days Minutes of Exercise per Session: 40 min Stress: Not on file Social Connections: Not on file Intimate Partner Violence: Not on file Housing Stability: Low Risk (07/14/2023) Housing Stability Vital Sign Unable to Pay for Housing in the Last Year: No Number of Places Lived in the Last Year: 1 Unstable Housing in the Last Year: No Family History Problem Relation Name Age of Onset Heart disease Mother Heart disease Father PHYSICAL EXAM Ht 6' (1.829 m) Wt 194 lb (88 kg) BMI 26.31 kg/m SPINE/EXTREMITY: General: Patient is in no apparent distress. Gait is slightly antalgic, nonassisted. He is able to go up on his toes and back on his heels in a standing position but is unable to toe walk or heel walk. No tenderness to palpation of lumbar spine. Lower Extremity Motor: HF Q TA EHL GSC Right 5 5 5 5 5 Left 5 5 5 5 5 Lower extremity sensation to light touch: L2 L3 L4 L5 S1 Right Intact Intact Intact Intact Intact Left Intact Intact Intact Intact Intact Lower extremity reflexes: Patellar Achilles Right 2+ 1+ Left 2+ 1+ Straight leg raise: Right Negative Left Negative Misc: Clonus Right None Left None Hip exam: Bilateral hip range of motion is full and symmetric without pain. IMAGING Lumbar 2V xrays (AP/LAT) Date of Exam: 08/12/2023 Findings: There is no aortic calcification noted. The bilateral hip joint spaces are observed with moderate degenerative changes noted. The bilateral SI joints are also observed with no significant degenerative changes noted. There is some straightening of normal lumbar lordosis. There are five non rib-bearing lumbar vertebrae. There is an acute, stable L1 compression fracture unchanged when compared to imaging done on 07/29/2023. Moderate degenerative disc disease throughout the lumbar spine. There are moderate spondylitic changes and facet arthropathy noted. There is a trace anterolisthesis noted at L2-L3. Cervical MRI: Date of exam: 09/19/2022 Findings: FINDINGS: There is normal cervical lordosis. Anterolisthesis at C4-C5 of 3 mm, C5-C6 of 4 mm and C7-T1 of 4 mm. Vertebral body heights are maintained. Multilevel degenerative endplate changes are present throughout the cervical spine, most significantly at C3-C4 and C6-C7. Loss of disc height at these levels. Mild type I edematous Modic endplate changes at C6-C7. Multilevel disc desiccation throughout the cervical spine. No prevertebral soft tissue swelling. The cervical spinal cord is normal in size and signal characteristics. Visualized portion of the posterior fossa is unremarkable. Degenerative changes at the atlantodental interval. C2-C3: Mild disc osteophyte complex. Mild spinal canal narrowing. Severe left and mild right facet hypertrophy. Left uncovertebral hypertrophy. Severe left and no right foraminal narrowing. C3-C4: Mild disc osteophyte complex that abuts and flattens the ventral cord. Severe bilateral facet hypertrophy. Severe spinal canal narrowing. Bilateral uncovertebral hypertrophy. Severe bilateral foraminal narrowing. C4-C5: Mild disc osteophyte complex. Severe bilateral facet hypertrophy with ankylosis. Mild spinal canal narrowing. Bilateral uncovertebral hypertrophy. Severe left and mild right foraminal narrowing. C5-C6: Anterolisthesis with uncovering the disc. Mild posterior endplate osteophytic spurring within the right. Right uncovertebral hypertrophy. Severe right and moderate left facet hypertrophy. Mild spinal canal narrowing. Mild bilateral foraminal narrowing. C6-C7: Moderate disc osteophyte complex eccentric to the right that abuts and flattens the ventral hemicord. Narrowing of the right lateral recess. Severe left and moderate right facet hypertrophy. Bilateral uncovertebral hypertrophy. Severe right and moderate left foraminal narrowing. Moderate to severe spinal canal narrowing. C7-T1: Anterolisthesis with uncovering the disc. Severe left and mild right facet hypertrophy. No spinal canal or foraminal narrowing. IMPRESSION: 1. Severe spinal canal narrowing at C3-C4. Moderate to severe spinal canal narrowing at C6-C7. 2. Severe foraminal narrowing at multiple levels, further described above. 3. Otherwise, multilevel degenerative changes of the cervical spine as described, including severe facet hypertrophy at multiple levels. CT: Date of exam: 07/29/2023 Findings: FINDINGS: There is a mild anterolisthesis C5 on C6. Disc space narrowing and spurring are noted diffusely, most pronounced at C3-4 and C6-7. Vertebral body heights are maintained. There is no evidence of acute C-spine fracture or traumatic subluxation. IMPRESSION: 1. Moderate degenerative changes in the mid and lower cervical spine. 2. No evidence of C-spine fracture or traumatic subluxation. L-SPINE CT: 1 mm axial cuts through the lumbosacral spine are provided without IV contrast. Coronal and sagittal reconstructions are reviewed. Dose reduction was employed with automated exposure control. There are no comparison studies. FINDINGS: The alignment of the lumbosacral spine is within normal limits. Disc space narrowing is most pronounced at L2-3. There is a compression fracture through the superior endplate of L1. This has lost approximately 20% of its height centrally. The remaining vertebral body heights are maintained. Posterior facet hypertrophy is evident from L2 through S1. Neural foraminal narrowing is most pronounced at L2-3 and L5-S1. IMPRESSION: 1. Moderate diffuse degenerative changes. 2. Compression fracture through superior endplate of L1. This is likely acute. NCT/EMG (Copied Impression) Date: none DEXA Date: ASSESSMENT See problem list above. Candice is a 83 y.o. male presenting with lumbar pain, bilateral lumbar radiculopathy, stable, acute L1 compression fracture. Patient presents today as an ED follow-up from 07/29/2023 where he presented with worsening back pain after a fall that occurred 2 weeks prior. At that time he was evaluated and found to have an L1 compression fracture. He was treated and released. Today, he reports that his back pain is no better than what it was the day he injured his back. He also reports he is having worsening lower extremity radicular symptoms since the fall. He did have bowel and bladder function issues prior to the fall but he believes that these have also worsened since the fall. He denies having any saddle paresthesia or significant symptoms of neurogenic claudication. We independently reviewed the radiographs obtained today that revealed an acute stable L1 compression fracture along with diffuse degenerative changes. The patient and I discussed the natural history of this fracture and how they typically heal on their own within 6 to 8 weeks. We discussed how these types of fractures typically do not require a procedure or operation. We discussed the data regarding cement augmentation and other treatment modalities. We will proceed with intranasal calcitonin and Robaxin. Unfortunately, the patient reports no improvement in his back pain since his accident and it has been approximately 5 weeks. He also reports increased lower extremity radicular symptoms. I feel that it is imperative to order a lumbar spine MRI without contrast to evaluate for fracture healing and nerve compression. He will follow-up with Dr. Torres for MRI review and to discuss treatment options including possible kyphoplasty, injection therapy, or possible surgery. IMPRESSION I had a long discussion with Candice to make sure he had a good understanding of what I think the main issues and diagnoses are that are affecting him today, and reviewed the plan going forward. PLAN: Calcitonin Robaxin 750mg TID Lumbar MRI without contrast Follow up 2-3 days after MRI with Dr. Torres Electronically signed by Angelito Pastrana NP 08/12/2023 at 4:00 PM Dictated using [employer] Direct Version 2.4 Proof read however unrecognized voice recognition errors may have occurred documented in this encounter [facility] 08-12-2023 Instructions Harriet Plasencia ATC - 08/12/2023 2:30 PM EST We will notify you once we have approval from your insurance. You will then call central scheduling at [phone] to schedule. We will see you in office with Dr. Torres 2-3 days following your MRI for review. documented in this encounter [facility] 07-29-2023 Emergency department Note EMERGENCY DEPARTMENT ENCOUNTER Pt Name: Candice Matthew Birthdate 1940 Date of evaluation: 07/29/2023 ED Provider: William Suero DO CHIEF COMPLAINT Chief Complaint Patient presents with Fall HISTORY OF PRESENT ILLNESS (Location/Symptom, Timing/Onset, Context/Setting, Quality, Duration, Modifying Factors, Severity) Note limiting factors. I wore appropriate PPE for the entirety of this encounter. HPI Candice Matthew is a 83 y.o. male who presents to the emergency department with headache and back pain status post fall. The patient reports that he was packing lumbar into his truck when he accidentally ran into one of the pieces of wood. He reports hitting his head and loss of consciousness. He reports falling back onto his lower back. He has been able to stand and ambulate since the accident however he is having headache and lower back pain. He denies use of blood thinners. Denies other injuries. Nursing Notes were reviewed. Limitations to history: Outside historians: REVIEW OF SYSTEMS Review of Systems Musculoskeletal: Positive for back pain. Neurological: Positive for headaches. PAST MEDICAL HISTORY Past Medical History: Diagnosis Date Chronic back pain COVID-19 10/14/2021 Depression Diabetes mellitus (HCC) Hemorrhoids, unspecified hemorrhoid type Hip fracture (HCC) 2021 R hip Hyperlipidemia Hypertension Kidney stone Osteoarthritis Restless leg syndrome SURGICAL HISTORY Past Surgical History: Procedure Laterality Date CATARACT EXTRACTION Right CHOLECYSTECTOMY COLONOSCOPY 2014 PROSTATE SURGERY ROTATOR CUFF REPAIR Right TOE SURGERY CURRENT MEDICATIONS Previous Medications ALBUTEROL 108 (90 BASE) MCG/ACT INHALER Inhale 2 puffs every 6 hours as needed for wheezing. CITALOPRAM (CELEXA) 20 MG TABLET take 1 tablet by mouth once daily DEXTROAMPHETAMINE (DEXTROSTAT) 10 MG TABLET Take 2 tablets by mouth in the morning and at bedtime. FINASTERIDE (PROSCAR) 5 MG TABLET take 1 tablet by mouth once daily GLIMEPIRIDE (AMARYL) 2 MG TABLET take 1 tablet by mouth every morning GLUCOSE BLOOD (BLOOD GLUCOSE TEST) STRIP Test blood sugar daily DX: E11.9, type 2 diabetes mellitus without complication, without long-term current use of insulin IBUPROFEN 200 MG TABLET every 12 hours. MELATONIN 10 MG TABLET Take 10 mg by mouth Nightly as needed. METFORMIN (GLUCOPHAGE) 1000 MG TABLET Take 1 tablet by mouth in the morning and 1 tablet in the evening. Take with meals. METHADONE (DOLOPHINE) 5 MG TABLET Take 5 mg by mouth at bedtime. ROPINIROLE (REQUIP) 1 MG TABLET Take 1 mg by mouth. 1 q morning 2 at noon 2 at night SIMVASTATIN (ZOCOR) 10 MG TABLET take 1 tablet by mouth at bedtime TAMSULOSIN (FLOMAX) 0.4 MG 24 HR CAPSULE Take 0.8 mg by mouth. ALLERGIES Etodolac, Gabapentin, Meperidine, Meperidine hcl, Pregabalin, Terazosin, Vardenafil, and Terbinafine FAMILY HISTORY Family History Problem Relation Name Age of Onset Heart disease Mother Heart disease Father SOCIAL HISTORY Social History Socioeconomic History Marital status: Tobacco Use Smoking status: Never Smokeless tobacco: Never Vaping Use Vaping Use: Never used Substance and Sexual Activity Alcohol use: Never Drug use: Never Social Determinants of Health Financial Resource Strain: Low Risk (07/14/2023) Overall Financial Resource Strain (CARDIA) Difficulty of Paying Living Expenses: Not hard at all Food Insecurity: No Food Insecurity (07/14/2023) Hunger Vital Sign Worried About Running Out of Food in the Last Year: Never true Ran Out of Food in the Last Year: Never true Transportation Needs: No Transportation Needs (07/14/2023) PRAPARE - Transportation Lack of Transportation (Medical): No Lack of Transportation (Non-Medical): No Physical Activity: Insufficiently Active (07/14/2023) Exercise Vital Sign Days of Exercise per Week: 2 days Minutes of Exercise per Session: 40 min Housing Stability: Low Risk (07/14/2023) Housing Stability Vital Sign Unable to Pay for Housing in the Last Year: No Number of Places Lived in the Last Year: 1 Unstable Housing in the Last Year: No SCREENINGS PHYSICAL EXAM ED Triage Vitals [07/29/23 1406] Temp Heart Rate Resp BP 36.6 C (97.8 F) (!) 115 20 (!) 158/80 SpO2 Temp Source Heart Rate Source Patient Position 96 % Oral Monitor Sitting BP Location FiO2 (%) Right arm -- Physical Exam Constitutional: General: He is not in acute distress. HENT: Head: Normocephalic. Comments: No obvious signs of head trauma. Eyes: Conjunctiva/sclera: Conjunctivae normal. Pulmonary: Effort: Pulmonary effort is normal. Abdominal: General: Abdomen is flat. Tenderness: There is no abdominal tenderness. Musculoskeletal: General: No deformity. Comments: Midline L-spine tenderness is present. No midline C-spine, or T-spine tenderness. No other long bone deformities or tenderness. Tenderness to the left posterior lateral ribs. Skin: General: Skin is warm and dry. Psychiatric: Mood and Affect: Mood normal. DIAGNOSTIC RESULTS RADIOLOGY (Per Emergency Physician): Interpretation per the Radiologist below, if available at the time of this note: CT lumbar spine wo IV contrast Final Result 1. Atrophy and evidence of small-vessel ischemic disease. This is not unusual for patient age. 2. No intracranial hemorrhage. 3. No CT evidence of an acute intracranial process. C-SPINE CT: 1 mm axial cuts through the cervical spine are provided without IV contrast. Coronal and sagittal reconstructions are reviewed. Dose reduction was employed with automated exposure control. There are no comparison studies. FINDINGS: There is a mild anterolisthesis C5 on C6. Disc space narrowing and spurring are noted diffusely, most pronounced at C3-4 and C6-7. Vertebral body heights are maintained. There is no evidence of acute C-spine fracture or traumatic subluxation. IMPRESSION: 1. Moderate degenerative changes in the mid and lower cervical spine. 2. No evidence of C-spine fracture or traumatic subluxation. L-SPINE CT: 1 mm axial cuts through the lumbosacral spine are provided without IV contrast. Coronal and sagittal reconstructions are reviewed. Dose reduction was employed with automated exposure control. There are no comparison studies. FINDINGS: The alignment of the lumbosacral spine is within normal limits. Disc space narrowing is most pronounced at L2-3. There is a compression fracture through the superior endplate of L1. This has lost approximately 20% of its height centrally. The remaining vertebral body heights are maintained. Posterior facet hypertrophy is evident from L2 through S1. Neural foraminal narrowing is most pronounced at L2-3 and L5-S1. IMPRESSION: 1. Moderate diffuse degenerative changes. 2. Compression fracture through superior endplate of L1. This is likely acute. Report Dictated on Electronically Signed By: Daryl Russell MD Electronically Signed Date/Time: 07/29/2023 3:[address] cervical spine wo IV contrast Final Result 1. Atrophy and evidence of small-vessel ischemic disease. This is not unusual for patient age. 2. No intracranial hemorrhage. 3. No CT evidence of an acute intracranial process. C-SPINE CT: 1 mm axial cuts through the cervical spine are provided without IV contrast. Coronal and sagittal reconstructions are reviewed. Dose reduction was employed with automated exposure control. There are no comparison studies. FINDINGS: There is a mild anterolisthesis C5 on C6. Disc space narrowing and spurring are noted diffusely, most pronounced at C3-4 and C6-7. Vertebral body heights are maintained. There is no evidence of acute C-spine fracture or traumatic subluxation. IMPRESSION: 1. Moderate degenerative changes in the mid and lower cervical spine. 2. No evidence of C-spine fracture or traumatic subluxation. L-SPINE CT: 1 mm axial cuts through the lumbosacral spine are provided without IV contrast. Coronal and sagittal reconstructions are reviewed. Dose reduction was employed with automated exposure control. There are no comparison studies. FINDINGS: The alignment of the lumbosacral spine is within normal limits. Disc space narrowing is most pronounced at L2-3. There is a compression fracture through the superior endplate of L1. This has lost approximately 20% of its height centrally. The remaining vertebral body heights are maintained. Posterior facet hypertrophy is evident from L2 through S1. Neural foraminal narrowing is most pronounced at L2-3 and L5-S1. IMPRESSION: 1. Moderate diffuse degenerative changes. 2. Compression fracture through superior endplate of L1. This is likely acute. Report Dictated on Electronically Signed By: Daryl Russell MD Electronically Signed Date/Time: 07/29/2023 3:[address] head wo IV contrast Final Result 1. Atrophy and evidence of small-vessel ischemic disease. This is not unusual for patient age. 2. No intracranial hemorrhage. 3. No CT evidence of an acute intracranial process. C-SPINE CT: 1 mm axial cuts through the cervical spine are provided without IV contrast. Coronal and sagittal reconstructions are reviewed. Dose reduction was employed with automated exposure control. There are no comparison studies. FINDINGS: There is a mild anterolisthesis C5 on C6. Disc space narrowing and spurring are noted diffusely, most pronounced at C3-4 and C6-7. Vertebral body heights are maintained. There is no evidence of acute C-spine fracture or traumatic subluxation. IMPRESSION: 1. Moderate degenerative changes in the mid and lower cervical spine. 2. No evidence of C-spine fracture or traumatic subluxation. L-SPINE CT: 1 mm axial cuts through the lumbosacral spine are provided without IV contrast. Coronal and sagittal reconstructions are reviewed. Dose reduction was employed with automated exposure control. There are no comparison studies. FINDINGS: The alignment of the lumbosacral spine is within normal limits. Disc space narrowing is most pronounced at L2-3. There is a compression fracture through the superior endplate of L1. This has lost approximately 20% of its height centrally. The remaining vertebral body heights are maintained. Posterior facet hypertrophy is evident from L2 through S1. Neural foraminal narrowing is most pronounced at L2-3 and L5-S1. IMPRESSION: 1. Moderate diffuse degenerative changes. 2. Compression fracture through superior endplate of L1. This is likely acute. Report Dictated on Electronically Signed By: Daryl Russell MD Electronically Signed Date/Time: 07/29/2023 3:16 PM EST LABS: Labs Reviewed - No data to display All other labs were within normal range or not returned as of this dictation. EMERGENCY DEPARTMENT COURSE and DIFFERENTIAL DIAGNOSIS/MDM: Vitals: Vitals: 07/29/23 1406 BP: (!) 158/80 BP Location: Right arm Patient Position: Sitting Pulse: (!) 115 Resp: 20 Temp: 36.6 C (97.8 F) TempSrc: Oral SpO2: 96% Medications - No data to display MDM The patient presented with chief complaint of headache and lower back pain status post fall. The patient appears well at this time no acute distress, vitals are stable. See history and physical exam above. Differential diagnosis includes but is not limited to concussion, intracranial hemorrhage, L-spine fracture, lower back soft tissue injury. The patient was offered analgesia however he reports that he does not need analgesia at this time. CT scan significant for L1 compression deformity. The patient was updated on results and questions were answered. With the patient's tenderness of the left lower ribs there is likely some bruised ribs in that region, I have very low suspicion for multiple or displaced rib fractures. Plan for discharge with instructions for Motrin and Tylenol for pain and follow-up to orthopedic spine. The patient demonstrated general understanding and is agreeable with the plan. I William Suero DO am the hardboard coating machine operator of record. PROCEDURES: Unless otherwise noted below, none Procedures FINAL IMPRESSION 1. Closed compression fracture of body of L1 vertebra (HCC) 2. Contusion of rib on left side, initial encounter DISPOSITION Discharge 07/29/2023 03:24:00 PM PATIENT REFERRED TO: Tenisha Diehl/Tank Mejia [address] [place] [id number] Schedule an appointment as soon as possible for a visit [facility] [address] [facility] [phone] If symptoms worsen DISCHARGE MEDICATIONS: New Prescriptions No medications on file (Comment: Please note this report has been produced using speech recognition software and may contain errors related to that system including errors in grammar, punctuation, and spelling, as well as words and phrases that may be inappropriate. If there are any questions or concerns please feel free to contact the dictating provider for clarification.) William Suero DO (electronically signed) Emergency Medicine Provider William Suero DO 07/29/23 152 Pt presents to the ED with acute left lower back pain. Pt states he was hauling lumber on his vehicle and when he was walking around the car. Pt states he hit his head on the lumber and knocked himself out. Pt states he wasn't out long and found himself laying on his back on the ground. Pt states this occurred 2 weeks ago. Pt states he thought the pain would go away and put it off. Pt was able to walk back to the unit without any difficulty and call light is within reach. documented in this encounter [facility] 07-29-2023 Emergency department Triage note Pt presents to the ED with acute left lower back pain. Pt states he was hauling lumber on his vehicle and when he was walking around the car. Pt states he hit his head on the lumber and knocked himself out. Pt states he wasn't out long and found himself laying on his back on the ground. Pt states this occurred 2 weeks ago. Pt states he thought the pain would go away and put it off. Pt was able to walk back to the unit without any difficulty and call light is within reach. [facility] 07-29-2023 Physician Emergency department Note EMERGENCY DEPARTMENT ENCOUNTER Pt Name: Candice Matthew Birthdate 1940 Date of evaluation: 07/29/2023 ED Provider: William Suero DO CHIEF COMPLAINT Chief Complaint Patient presents with Fall HISTORY OF PRESENT ILLNESS (Location/Symptom, Timing/Onset, Context/Setting, Quality, Duration, Modifying Factors, Severity) Note limiting factors. I wore appropriate PPE for the entirety of this encounter. HPI Candice Matthew is a 83 y.o. male who presents to the emergency department with headache and back pain status post fall. The patient reports that he was packing lumbar into his truck when he accidentally ran into one of the pieces of wood. He reports hitting his head and loss of consciousness. He reports falling back onto his lower back. He has been able to stand and ambulate since the accident however he is having headache and lower back pain. He denies use of blood thinners. Denies other injuries. Nursing Notes were reviewed. Limitations to history: Outside historians: REVIEW OF SYSTEMS Review of Systems Musculoskeletal: Positive for back pain. Neurological: Positive for headaches. PAST MEDICAL HISTORY Past Medical History: Diagnosis Date Chronic back pain COVID-19 10/14/2021 Depression Diabetes mellitus (HCC) Hemorrhoids, unspecified hemorrhoid type Hip fracture ([facility]) 2021 R hip Hyperlipidemia Hypertension Kidney stone Osteoarthritis Restless leg syndrome SURGICAL HISTORY Past Surgical History: Procedure Laterality Date CATARACT EXTRACTION Right CHOLECYSTECTOMY COLONOSCOPY 2013 PROSTATE SURGERY ROTATOR CUFF REPAIR Right TOE SURGERY CURRENT MEDICATIONS Previous Medications ALBUTEROL 108 (90 BASE) MCG/ACT INHALER Inhale 2 puffs every 6 hours as needed for wheezing. CITALOPRAM (CELEXA) 20 MG TABLET take 1 tablet by mouth once daily DEXTROAMPHETAMINE (DEXTROSTAT) 10 MG TABLET Take 2 tablets by mouth in the morning and at bedtime. FINASTERIDE (PROSCAR) 5 MG TABLET take 1 tablet by mouth once daily GLIMEPIRIDE (AMARYL) 2 MG TABLET take 1 tablet by mouth every morning GLUCOSE BLOOD (BLOOD GLUCOSE TEST) STRIP Test blood sugar daily DX: E11.9, type 2 diabetes mellitus without complication, without long-term current use of insulin IBUPROFEN 200 MG TABLET every 12 hours. MELATONIN 10 MG TABLET Take 10 mg by mouth Nightly as needed. METFORMIN (GLUCOPHAGE) 1000 MG TABLET Take 1 tablet by mouth in the morning and 1 tablet in the evening. Take with meals. METHADONE (DOLOPHINE) 5 MG TABLET Take 5 mg by mouth at bedtime. ROPINIROLE (REQUIP) 1 MG TABLET Take 1 mg by mouth. 1 q morning 2 at noon 2 at night SIMVASTATIN (ZOCOR) 10 MG TABLET take 1 tablet by mouth at bedtime TAMSULOSIN (FLOMAX) 0.4 MG 24 HR CAPSULE Take 0.8 mg by mouth. ALLERGIES Etodolac, Gabapentin, Meperidine, Meperidine hcl, Pregabalin, Terazosin, Vardenafil, and Terbinafine FAMILY HISTORY Family History Problem Relation Name Age of Onset Heart disease Mother Heart disease Father SOCIAL HISTORY Social History Socioeconomic History Marital status: Tobacco Use Smoking status: Never Smokeless tobacco: Never Vaping Use Vaping Use: Never used Substance and Sexual Activity Alcohol use: Never Drug use: Never Social Determinants of Health Financial Resource Strain: Low Risk (07/14/2023) Overall Financial Resource Strain (CARDIA) Difficulty of Paying Living Expenses: Not hard at all Food Insecurity: No Food Insecurity (07/14/2023) Hunger Vital Sign Worried About Running Out of Food in the Last Year: Never true Ran Out of Food in the Last Year: Never true Transportation Needs: No Transportation Needs (07/14/2023) PRAPARE - Transportation Lack of Transportation (Medical): No Lack of Transportation (Non-Medical): No Physical Activity: Insufficiently Active (07/14/2023) Exercise Vital Sign Days of Exercise per Week: 2 days Minutes of Exercise per Session: 40 min Housing Stability: Low Risk (07/14/2023) Housing Stability Vital Sign Unable to Pay for Housing in the Last Year: No Number of Places Lived in the Last Year: 1 Unstable Housing in the Last Year: No SCREENINGS PHYSICAL EXAM ED Triage Vitals [07/29/23 1406] Temp Heart Rate Resp BP 36.6 C (97.8 F) (!) 115 20 (!) 158/80 SpO2 Temp Source Heart Rate Source Patient Position 96 % Oral Monitor Sitting BP Location FiO2 (%) Right arm -- Physical Exam Constitutional: General: He is not in acute distress. HENT: Head: Normocephalic. Comments: No obvious signs of head trauma. Eyes: Conjunctiva/sclera: Conjunctivae normal. Pulmonary: Effort: Pulmonary effort is normal. Abdominal: General: Abdomen is flat. Tenderness: There is no abdominal tenderness. Musculoskeletal: General: No deformity. Comments: Midline L-spine tenderness is present. No midline C-spine, or T-spine tenderness. No other long bone deformities or tenderness. Tenderness to the left posterior lateral ribs. Skin: General: Skin is warm and dry. Psychiatric: Mood and Affect: Mood normal. DIAGNOSTIC RESULTS RADIOLOGY (Per Emergency Physician): Interpretation per the Radiologist below, if available at the time of this note: CT lumbar spine wo IV contrast Final Result 1. Atrophy and evidence of small-vessel ischemic disease. This is not unusual for patient age. 2. No intracranial hemorrhage. 3. No CT evidence of an acute intracranial process. C-SPINE CT: 1 mm axial cuts through the cervical spine are provided without IV contrast. Coronal and sagittal reconstructions are reviewed. Dose reduction was employed with automated exposure control. There are no comparison studies. FINDINGS: There is a mild anterolisthesis C5 on C6. Disc space narrowing and spurring are noted diffusely, most pronounced at C3-4 and C6-7. Vertebral body heights are maintained. There is no evidence of acute C-spine fracture or traumatic subluxation. IMPRESSION: 1. Moderate degenerative changes in the mid and lower cervical spine. 2. No evidence of C-spine fracture or traumatic subluxation. L-SPINE CT: 1 mm axial cuts through the lumbosacral spine are provided without IV contrast. Coronal and sagittal reconstructions are reviewed. Dose reduction was employed with automated exposure control. There are no comparison studies. FINDINGS: The alignment of the lumbosacral spine is within normal limits. Disc space narrowing is most pronounced at L2-3. There is a compression fracture through the superior endplate of L1. This has lost approximately 20% of its height centrally. The remaining vertebral body heights are maintained. Posterior facet hypertrophy is evident from L2 through S1. Neural foraminal narrowing is most pronounced at L2-3 and L5-S1. IMPRESSION: 1. Moderate diffuse degenerative changes. 2. Compression fracture through superior endplate of L1. This is likely acute. Report Dictated on Electronically Signed By: Daryl Russell MD Electronically Signed Date/Time: 07/29/2023 3:[address] cervical spine wo IV contrast Final Result 1. Atrophy and evidence of small-vessel ischemic disease. This is not unusual for patient age. 2. No intracranial hemorrhage. 3. No CT evidence of an acute intracranial process. C-SPINE CT: 1 mm axial cuts through the cervical spine are provided without IV contrast. Coronal and sagittal reconstructions are reviewed. Dose reduction was employed with automated exposure control. There are no comparison studies. FINDINGS: There is a mild anterolisthesis C5 on C6. Disc space narrowing and spurring are noted diffusely, most pronounced at C3-4 and C6-7. Vertebral body heights are maintained. There is no evidence of acute C-spine fracture or traumatic subluxation. IMPRESSION: 1. Moderate degenerative changes in the mid and lower cervical spine. 2. No evidence of C-spine fracture or traumatic subluxation. L-SPINE CT: 1 mm axial cuts through the lumbosacral spine are provided without IV contrast. Coronal and sagittal reconstructions are reviewed. Dose reduction was employed with automated exposure control. There are no comparison studies. FINDINGS: The alignment of the lumbosacral spine is within normal limits. Disc space narrowing is most pronounced at L2-3. There is a compression fracture through the superior endplate of L1. This has lost approximately 20% of its height centrally. The remaining vertebral body heights are maintained. Posterior facet hypertrophy is evident from L2 through S1. Neural foraminal narrowing is most pronounced at L2-3 and L5-S1. IMPRESSION: 1. Moderate diffuse degenerative changes. 2. Compression fracture through superior endplate of L1. This is likely acute. Report Dictated on Electronically Signed By: Daryl Russell MD Electronically Signed Date/Time: 07/29/2023 3:[address] head wo IV contrast Final Result 1. Atrophy and evidence of small-vessel ischemic disease. This is not unusual for patient age. 2. No intracranial hemorrhage. 3. No CT evidence of an acute intracranial process. C-SPINE CT: 1 mm axial cuts through the cervical spine are provided without IV contrast. Coronal and sagittal reconstructions are reviewed. Dose reduction was employed with automated exposure control. There are no comparison studies. FINDINGS: There is a mild anterolisthesis C5 on C6. Disc space narrowing and spurring are noted diffusely, most pronounced at C3-4 and C6-7. Vertebral body heights are maintained. There is no evidence of acute C-spine fracture or traumatic subluxation. IMPRESSION: 1. Moderate degenerative changes in the mid and lower cervical spine. 2. No evidence of C-spine fracture or traumatic subluxation. L-SPINE CT: 1 mm axial cuts through the lumbosacral spine are provided without IV contrast. Coronal and sagittal reconstructions are reviewed. Dose reduction was employed with automated exposure control. There are no comparison studies. FINDINGS: The alignment of the lumbosacral spine is within normal limits. Disc space narrowing is most pronounced at L2-3. There is a compression fracture through the superior endplate of L1. This has lost approximately 20% of its height centrally. The remaining vertebral body heights are maintained. Posterior facet hypertrophy is evident from L2 through S1. Neural foraminal narrowing is most pronounced at L2-3 and L5-S1. IMPRESSION: 1. Moderate diffuse degenerative changes. 2. Compression fracture through superior endplate of L1. This is likely acute. Report Dictated on Electronically Signed By: Daryl Russell MD Electronically Signed Date/Time: 07/29/2023 3:16 PM EST LABS: Labs Reviewed - No data to display All other labs were within normal range or not returned as of this dictation. EMERGENCY DEPARTMENT COURSE and DIFFERENTIAL DIAGNOSIS/MDM: Vitals: Vitals: 07/29/23 1406 BP: (!) 158/80 BP Location: Right arm Patient Position: Sitting Pulse: (!) 115 Resp: 20 Temp: 36.6 C (97.8 F) TempSrc: Oral SpO2: 96% Medications - No data to display MDM The patient presented with chief complaint of headache and lower back pain status post fall. The patient appears well at this time no acute distress, vitals are stable. See history and physical exam above. Differential diagnosis includes but is not limited to concussion, intracranial hemorrhage, L-spine fracture, lower back soft tissue injury. The patient was offered analgesia however he reports that he does not need analgesia at this time. CT scan significant for L1 compression deformity. The patient was updated on results and questions were answered. With the patient's tenderness of the left lower ribs there is likely some bruised ribs in that region, I have very low suspicion for multiple or displaced rib fractures. Plan for discharge with instructions for Motrin and Tylenol for pain and follow-up to orthopedic spine. The patient demonstrated general understanding and is agreeable with the plan. Samira Suero DO am the hardboard coating machine operator of record. PROCEDURES: Unless otherwise noted below, none Procedures FINAL IMPRESSION 1. Closed compression fracture of body of L1 vertebra (HCC) 2. Contusion of rib on left side, initial encounter DISPOSITION Discharge 07/29/2023 03:24:00 PM PATIENT REFERRED TO: Tenisha Diehl/Tank Mejia [address] [place] [address] [place] [address] Schedule an appointment as soon as possible for a visit [facility] [address] [place] [address] If symptoms worsen DISCHARGE MEDICATIONS: New Prescriptions No medications on file (Comment: Please note this report has been produced using speech recognition software and may contain errors related to that system including errors in grammar, punctuation, and spelling, as well as words and phrases that may be inappropriate. If there are any questions or concerns please feel free to contact the dictating provider for clarification.) William Suero DO (electronically signed) Emergency Medicine Provider William Suero DO 07/29/23 1526 [facility] 07-17-2023 Note Referral placed with Dr. Kevin Navas in [place]. [address] [place] [address] [address] [place] [address] P: [facility] 07-17-2023 Note Notified, agreeable, wants referral to kidney specialist. Was seeing one at the [place] but states he can't get an appointment there. [facility] 06-18-2023 Note Addended by: CAMILA PEPPER on: 06/18/2023 10:14 AM Modules accepted: Orders [facility] 06-18-2023 History of Present illness Narrative Images from the original note were not included. [facility] [address] [facility] [address] [facility] [id number] Dept: [phone] Dept Loc: [phone] Visit type: Established Patient Reason for Visit: Follow-up and Vertigo Assessment and Plan 1. Peripheral vertigo, right - External referral to Physical Therapy 2. Numbness and tingling of both legs below knees - Immunofixation Electrophoresis - Protein, Total and Protein Electrophoresis - Vitamin B1 - Vitamin B12 - Vitamin B6 - TSH 3. Spinal stenosis of lumbar region without neurogenic claudication - External referral to Physical Therapy Subjective HPI: He reports that the hydrochlorothiazide is not working even after I increased the dose. He reports that he saw an ENT in [place]. I do not have those notes and the ENT in [place] did not have our workup. He reports that the attacks last less than a minute, which is too short for usual Meniere's. He reports that the PT did not work. He reports that he feels dizzy whenever he is up and walking. He reports numbness in the toes and feet. His imbalance on his feet is worse with darkness and uneven surface. REVIEW OF SYSTEMS: Review of Systems Constitutional: Negative for appetite change, chills, diaphoresis, fever and unexpected weight change. HENT: Negative for dental problem and mouth sores. Eyes: Negative for discharge and itching. Respiratory: Negative for chest tightness. Cardiovascular: Negative for chest pain and leg swelling. Gastrointestinal: Negative for rectal pain and vomiting. Endocrine: Negative for polydipsia, polyphagia and polyuria. Genitourinary: Negative for decreased urine volume, flank pain and genital sores. Musculoskeletal: Negative for arthralgias. Skin: Negative for color change. Allergic/Immunologic: Negative for food allergies and immunocompromised state. Neurological: Positive for dizziness. Hematological: Negative for adenopathy. Does not bruise/bleed easily. Psychiatric/Behavioral: Negative for agitation, behavioral problems, decreased concentration, sleep disturbance and suicidal ideas. Allergies Allergen Reactions Gabapentin Other reaction(s): Other (See Comments) ineffective Other reaction(s): elevated liver enzymes Other reaction(s): elevated liver enzymes Meperidine Other reaction(s): Intolerance, Other (See Comments) Pt states he is unable to be woken after demerol Difficulty to arouse has difficulty waking up Meperidine Hcl Unknown Pregabalin Unknown Filled Written Sold ID Drug QTY Days Prescriber RX # Dispenser Refill Daily Dose* Pymt Type DIRECTOR OF PSYCHIATRY 06/12/2023 06/12/2023 2 Dextroamphetamine 10 Mg Tab 60.00 30 La Ruf [id number] Rit ([id number]) 0 [place] 06/07/2023 06/02/2023 1 Methadone Hcl 5 Mg Tablet 30.00 30 Mi Sonam [id number] Rit ([id number]) 0 15.00 MME [place] 05/12/2023 05/12/2023 2 Dextroamphetamine 10 Mg Tab 60.00 30 La Ruf [id number] Rit ([id number]) 0 [place] 05/08/2023 05/05/2023 1 Methadone Hcl 5 Mg Tablet 30.00 30 Mi Sonam [id number] Rit ([id number]) 0 15.00 MME [place] 04/25/2023 04/22/2023 1 Methadone Hcl 5 Mg Tablet 14.00 14 Mi Sonam [id number] Rit ([id number]) 0 15.00 MME [place] 04/06/2023 04/06/2023 2 Dextroamphetamine 10 Mg Tab 60.00 30 Ro Sib [id number] Rit ([id number]) 0 [place] 03/26/2023 03/24/2023 1 Methadone Hcl 5 Mg Tablet 30.00 30 Pi Torito [id number] Rit ([id number]) 0 15.00 MME [place] 03/09/2023 03/05/2023 2 Dextroamphetamine 10 Mg Tab 60.00 30 Ro Sib [id number] Rit ([id number]) 0 [place] 02/24/2023 02/18/2023 1 Methadone Hcl 5 Mg Tablet 30.00 30 Ho Zel [id number] Rit ([id number]) Current Outpatient Medications: acetaminophen (Tylenol) 500 MG tablet, Take 1,000 mg by mouth in the morning and 1,000 mg at noon and 1,000 mg in the evening., Disp: , Rfl: albuterol 108 (90 Base) MCG/ACT inhaler, Inhale 2 puffs., Disp: , Rfl: citalopram (CeleXA) 20 MG tablet, take 1 tablet by mouth once daily, Disp: 90 tablet, Rfl: 1 dextroamphetamine (DextroStat) 10 MG tablet, Take 2 tablets by mouth in the morning and at bedtime., Disp: , Rfl: finasteride (Proscar) 5 MG tablet, take 1 tablet by mouth once daily, Disp: 90 tablet, Rfl: 1 gabapentin (Neurontin) 100 MG capsule, 100 mg at noon and 100 mg in the evening., Disp: , Rfl: gabapentin (Neurontin) 300 MG capsule, Take 300 mg by mouth daily., Disp: , Rfl: glimepiride (Amaryl) 2 MG tablet, take 1 tablet by mouth every morning, Disp: 90 tablet, Rfl: 1 Glucose Blood (Blood Glucose Test) strip, Test blood sugar daily DX: E11.9, type 2 diabetes mellitus without complication, without long-term current use of insulin, Disp: , Rfl: hydroCHLOROthiazide (HYDRODiuril) 25 MG tablet, Take 1 tablet (25 mg) by mouth daily., Disp: 30 tablet, Rfl: 3 ibuprofen 200 MG tablet, every 12 hours., Disp: , Rfl: melatonin 10 MG tablet, Take 10 mg by mouth Nightly as needed., Disp: , Rfl: metFORMIN (Glucophage) 1000 MG tablet, Take 1 tablet by mouth in the morning and 1 tablet in the evening. Take with meals., Disp: , Rfl: methadone (Dolophine) 5 MG tablet, Take 5 mg by mouth at bedtime., Disp: , Rfl: NON FORMULARY, Beet root chews, Disp: , Rfl: prednisoLONE acetate (Pred-Forte) 1 % ophthalmic suspension, , Disp: , Rfl: rOPINIRole (Requip) 1 MG tablet, Take 1 mg by mouth. 1 q morning 2 at noon 2 at night, Disp: , Rfl: simvastatin (Zocor) 10 MG tablet, take 1 tablet by mouth at bedtime, Disp: 90 tablet, Rfl: 1 tamsulosin (Flomax) 0.4 MG 24 hr capsule, Take 0.8 mg by mouth., Disp: , Rfl: Past Medical History: Diagnosis Date Chronic back pain COVID-19 10/14/2021 Depression Diabetes mellitus (HCC) Hemorrhoids, unspecified hemorrhoid type Hip fracture (HCC) 2021 R hip Hyperlipidemia Hypertension Kidney stone Osteoarthritis Restless leg syndrome Social History Tobacco Use Smoking status: Never Smokeless tobacco: Never Substance Use Topics Alcohol use: Never Past Surgical History: Procedure Laterality Date CATARACT EXTRACTION Right CHOLECYSTECTOMY COLONOSCOPY 2014 PROSTATE SURGERY ROTATOR CUFF REPAIR Right TOE SURGERY Family History Problem Relation Name Age of Onset Heart disease Mother Heart disease Father Objective Vitals: BP (!) 154/82 (BP Location: Right arm, Patient Position: Sitting, BP Cuff Size: Adult) Pulse 98 Ht 6' (1.829 m) Wt 195 lb 12.8 oz (88.8 kg) BMI 26.56 kg/m General Appearance: Patient is in no apparent distress. Head is normocephalic, atraumatic Cardiovascular: Regular rate and rhythm. No heart murmurs. No carotid bruit Neurologic: Mentation: Alert and oriented x 3 [address] person, place and time. Speech and Language: Speech and language normal Concentration and Attention: Concentration normal Memory: Memory grossly normal Fund of Knowledge: Fund of knowledge normal Cranial Nerves: II, III, IV, V, , VII, VIII, IX, X, XI, XII examined and were intact. Motor: Strength: Strength 5 out of 5 with normal tone Alternating Movements: Normal Cogwheel Rigidity: None Tone: Tone is normal Tremor / Involuntary Movements: None Deep Tendon Reflexes: 1 out of 4 symmetrical in all four limbs. Sensory: Normal sensation upper and lower extremities Coordination: Normal coordination upper and lower extremities Gait and Station: Station is normal. Gait is abnormal. He is mildly unsteady on turning. Data Reviewed and Summarized DIAGNOSTIC TESTING [address] [address] Audiology Vestibular Testing ENG/VNG Patient Name: Candice Matthew Date: 01/29/23 : 1940 Referring Provider: Shantelle Medical Record: [id number] Skin Toggler: Michael Zeng IMPRESSIONS ABNORMAL VESTIBULAR STUDY Right peripheral vestibular involvement/hypofunction is suggested by his abnormal rotary chair findings in conjunction with his left beat nystagmus that is enhanced with vibration and positoining. He does not have a BPPV component at this time. All tests for central vestibular involvement are WNL. RECOMMENDATIONS: 1. Neuro to review and follow. 2. Consider outpatient PT for vestibular rehab protocols designed to promote compensation/habituation of his peripheral vestibular involvement. HISTORY/CHIEF COMPLAINT (per pt report) 82 y.o. presents with 6 months hx of imbalance and dizziness that is gradually getting worse. Pt reports neck c/o C4-C6. He states he has fallen a couple of times. 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 GAZE: NORMAL and negative for nystagmus. SACCADES: NORMAL for random horizontal deviations. TRACKING: NORMAL for smooth pursuit tracking at increasing speeds. OPTOKINETIC (OKN): NORMAL and symmetric for horizontal stimulation. OPTOKINETIC AFTER- NYSTAGMUS (CARLOS): NORMAL negative for prolonged afternystagmus. ROTATION (SVAR): ABNORMAL low gain, phase lead, right sided asymmetry. FixVOR: NORMAL for gain, phase, and symmetry. SPONTANEOUS: NORMAL negative for spontaneous nystagmus (sitting upright head straight) SITTING NECK TORSION: NORMAL negative for nystagmus and or c/o with neck turned right and left. BOW/LEAN: NORMAL negative for provoked nystagmus. SUBOCCIPITAL VIBRATION: ABNORMAL strong left beat nystagmus with bilateral stim. HEAD SHAKE: NORMAL negative for provoked after nystagmus. HALLPIKES: ABNORMAL negative for nystagmus consistent with posterior and or anterior canal BPPV. Left beat horizontal-constant nystagmus in the head left position only. He is asymptomatic. BACK 30 Deg/ LATERAL: NORMAL negative for nystagmus and or c/o. HEAD ROLL: ABNORMAL left beat nystagmus in the head left position. POSITIONS: ABNORMAL left beat nystagmus in the supine and left lateral head position. CBC: Lab Results Component Value Date WBC 4.7 12/03/2022 RBC 4.16 (L) 12/03/2022 HGB 13.0 (L) 12/03/2022 HCT 38.9 12/03/2022 MCV 93.5 12/03/2022 MCH 31.3 12/03/2022 MCHC 33.4 12/03/2022 RDW 13.1 12/03/2022 PLT 123 (L) 12/03/2022 MPV 10.9 12/03/2022 CMP: Lab Results Component Value Date NA 136 07/09/2022 K 4.7 07/09/2022 CL 103 07/09/2022 CO2 25 01/05/2023 BUN 30 (H) 01/05/2023 CREATININE 1.40 (H) 01/26/2023 AGRATIO 1.8 10/15/2021 GLUCOSE 116 (H) 01/05/2023 PROT 6.4 07/09/2022 CALCIUM 9.2 01/05/2023 BILITOT 0.3 07/09/2022 ALKPHOS 68 07/09/2022 AST 26 07/09/2022 ALT 18 07/09/2022 BMP: Lab Results Component Value Date NA 136 07/09/2022 K 4.7 07/09/2022 CL 103 07/09/2022 CO2 25 01/05/2023 BUN 30 (H) 01/05/2023 CREATININE 1.40 (H) 01/26/2023 CALCIUM 9.2 01/05/2023 GLUCOSE 116 (H) 01/05/2023 PT/INR: Lab Results Component Value Date PROTIME 12.1 (H) 10/06/2021 INR 1.1 10/06/2021 PTT: Lab Results Component Value Date APTT 27.3 10/06/2021 [APTT} FLP: Lab Results Component Value Date TRIG 135 07/09/2022 HDL 36 (L) 07/09/2022 LDLCALC 92 07/09/2022 TSH: Lab Results Component Value Date TSH 0.327 (L) 10/15/2021 VITAMIN B12: No results found for: [id number] No results found for: PHENYTOIN , PHENOBARB , VALPROATE , CBMZ No components found for: TOPIRA @RESULTINGLABINFO@ FERRITIN Date Value Ref Range Status 12/03/2022 176 24 - 380 ng/mL Final C REACTIVE PROTEIN Date Value Ref Range Status 10/11/2021 14.6 (H) 0.0 - 9.9 mg/L Final Comment: . No results found for: PRASHANTH , IMMUNOGLOBUL , OLIGOBANDS No results found for: [id number] , HEPCAB C REACTIVE PROTEIN Date Value Ref Range Status 10/11/2021 14.6 (H) 0.0 - 9.9 mg/L Final Comment: . FERRITIN: Lab Results Component Value Date FERRITIN 176 12/03/2022 MRI Spine Lumbar w/o Contrast) see diagnosis Report Examination: MRI lumbar spine Clinical Indication: Pain Comparison: None Findings: Multiplanar multisequence high field strength MRI images were obtained through the lumbar spine without administration of intravenous gadolinium contrast. Five lumbar type vertebra are assumed for purposes of numbering on this examination. L4-5 mm L2-L3 retrolisthesis. lumbar spine is in normal overall alignment without evidence of spondylolisthesis. 15 mm L1 vertebral body hemangioma. Mild multilevel intervertebral disc space narrowing with some low-grade reactive vertebral body endplate changes, especially at L2-L3, L3-L4 and L5-S1. Otherwise the lumbar spine demonstrates grossly normal signal intensity. The conus terminates at a normal L1 level. No abnormal signal is appreciated within the distal cord. Shortening of the pedicles resulting in relative congenital central canal stenosis with superimposed degenerative change. Partial visualization of a right renal cyst. T12-L1: No disc bulge or disc protrusion. No central spinal canal stenosis. No neural foraminal narrowing. L1-L2: No disc bulge or disc protrusion. No central spinal canal stenosis. No neural foraminal narrowing. L2-L3: 4 to 5 mm anterolisthesis, uncovering the posterior aspect of L3. Superimposed 2 mm annular disc bulge. Advanced facet arthropathy and ligamentous hypertrophy resulting in complete thecal sac effacement-severe central canal stenosis. Mild bilateral neural foraminal narrowing L3-L4: 3 to 4 mm annular disc bulge, extending laterally into the neural foramina. And advanced facet arthropathy and ligamentous hypertrophy contributes Magnetic Resonance Imaging Report to severe central canal stenosis. Mild/moderate bilateral neural foraminal narrowing. L4-L5: With tiny annular disc bulge with more focal-superimposed right and left disc protrusions. Advanced facet arthropathy and ligamentous hypertrophy contributes to moderate to severe central canal stenosis. Severe left and moderate-severe right neural foraminal narrowing. L5-S1: 3 mm right and left neural foraminal disc protrusions. Facet arthropathy and ligamentous hypertrophy contributes to moderate right and mild left neural foraminal narrowing. Mild central canal stenosis. Impression: 1. Shortening of the pedicles resulting in relative congenital central canal stenosis with superimposed degenerative change. 2. At L2-L3 there is complete thecal sac effacement is severe central canal stenosis and mild bilateral foraminal narrowing. 3. At L3-L4 there is severe central canal stenosis and mild-moderate bilateral neural foraminal narrowing. 4. At L4-L5 there is moderate to severe central canal stenosis. Severe left and moderate to severe right neural foraminal narrowing. 5. At L5-S1 there is mild central canal stenosis. Moderate right and mild left neural foraminal narrowing. ---- Vestibular test Tracie Zeng, Faraz 01/29/2023 12:16 PM [place] [address] Audiology Vestibular Testing ENG/VNG Patient Name: Candice Matthew Date: 01/29/23 : 1940 Referring Provider: Shantelle Medical Record: [id number] Skin Toggler: Michael Zeng IMPRESSIONS ABNORMAL VESTIBULAR STUDY Right peripheral vestibular involvement/hypofunction is suggested by his abnormal rotary chair findings in conjunction with his left beat nystagmus that is enhanced with vibration and positoining. He does not have a BPPV component at this time. All tests for central vestibular involvement are WNL. RECOMMENDATIONS: 1. Neuro to review and follow. 2. Consider outpatient PT for vestibular rehab protocols designed to promote compensation/habituation of his peripheral vestibular involvement. HISTORY/CHIEF COMPLAINT (per pt report) 82 y.o. presents with 6 months hx of imbalance and dizziness that is gradually getting worse. Pt reports neck c/o C4-C6. He states he has fallen a couple of times. 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 GAZE: NORMAL and negative for nystagmus. SACCADES: NORMAL for random horizontal deviations. TRACKING: NORMAL for smooth pursuit tracking at increasing speeds. OPTOKINETIC (OKN): NORMAL and symmetric for horizontal stimulation. OPTOKINETIC AFTER- NYSTAGMUS (CARLOS): NORMAL negative for prolonged afternystagmus. ROTATION (SVAR): ABNORMAL low gain, phase lead, right sided asymmetry. FixVOR: NORMAL for gain, phase, and symmetry. SPONTANEOUS: NORMAL negative for spontaneous nystagmus (sitting upright head straight) SITTING NECK TORSION: NORMAL negative for nystagmus and or c/o with neck turned right and left. BOW/LEAN: NORMAL negative for provoked nystagmus. SUBOCCIPITAL VIBRATION: ABNORMAL strong left beat nystagmus with bilateral stim. HEAD SHAKE: NORMAL negative for provoked after nystagmus. HALLPIKES: ABNORMAL negative for nystagmus consistent with posterior and or anterior canal BPPV. Left beat horizontal-constant nystagmus in the head left position only. He is asymptomatic. BACK 30 Deg/ LATERAL: NORMAL negative for nystagmus and or c/o. HEAD ROLL: ABNORMAL left beat nystagmus in the head left position. POSITIONS: ABNORMAL left beat nystagmus in the supine and left lateral head position. IMPRESSION and PLAN: Diagnosis Plan 1. Peripheral vertigo, right External referral to Physical Therapy 2. Numbness and tingling of both legs below knees Immunofixation Electrophoresis Protein, Total and Protein Electrophoresis Vitamin B1 Vitamin B12 Vitamin B6 TSH Immunofixation Electrophoresis Vitamin B1 Vitamin B12 Vitamin B6 TSH 3. Spinal stenosis of lumbar region without neurogenic claudication External referral to Physical Therapy He does have this but it appears now that the primary issue is the imbalance when he is on his feet. He can stop the hydrochlorothiazide. Labs for common causes of neuropathy. The exam suggested L4 radiculopathies This is contributing to his imbalance. CAMILA PEPPER MD I spent 30 minutes caring for this patient today, reviewing labs, records, seeing the patient, documenting in the record and arranging for studies. documented in this encounter [facility] 06-18-2023 Miscellaneous Notes Addended by: CAMILA PEPPER on: 06/18/2023 10:14 AM Modules accepted: Orders documented in this encounter [facility] 06-18-2023 Note Addended by: CAMILA PEPPER on: 06/18/2023 10:14 AM Modules accepted: Orders [facility] 06-18-2023 Note Addended by: CAMILA PEPPER on: 06/18/2023 10:14 AM Modules accepted: Orders [facility] 06-17-2023 History of Present illness Narrative Images from the original note were not included. [facility] [address] [facility] [address] Discharge Notification Patient Name: Candice Matthew : 1940 Today's Date: 06/17/2023 No contact has been made to schedule additional appointments in the past 30+ days following hold from therapy. The pt will be discharged at this time and will require a new referral and evaluation to resume physical therapy. Thank you for this referral. For any questions on this patient s course of therapy, please call the clinic for clarification. Jude Kelly PT documented in this encounter [facility] 05-11-2023 Telephone encounter Note Reviewed chart. Refill appropriate. RX sent. [facility] 05-11-2023 Miscellaneous Notes Reviewed chart. Refill appropriate. RX sent. Prescription Request: Last medication check: 01/05/23 Last physical exam: 07/09/22 Next scheduled appointment: 07/15/23 Last date of refill on this medication 11/10/22 90 days 1 refill documented in this encounter [facility] 05-11-2023 Telephone encounter Note Prescription Request: Last medication check: 01/05/23 Last physical exam: 07/09/22 Next scheduled appointment: 07/15/23 Last date of refill on this medication 11/10/22 90 days 1 refill [facility] 05-08-2023 History of Present illness Narrative Images from the original note were not included. [facility] [address] [facility] [address] [facility] [address] Dept: [phone] Dept PHYSICAL THERAPY RE-EVALUATION Patient Name: Candice Matthew : 1940 Date of Service: 05/08/2023 Referring Provider: Camila Pepper MD Visit #: 7 Diagnosis: Peripheral vertigo, right Reason for referral/Mechanism of injury: Dizziness Precautions/Red Flags: Yes HTN, DM II Patient Preferences: Johnathan Subjective General Comments: Pt reports dizziness is about the the same since starting therapy but he reports worsening symptoms with trying to do vestibular exercises. The pt reports dizziness is more often now with around the same intensity. The pt reports continued limitation in balance. Dizziness: Current: 5/10 Best: 5/10 Worst: 8/10 Objective Sensation: left hand still from radiculopathy Cervical ROM Date: 05/08/2023 Cervical AROM Left (L) Right (R) Comment: Cervical flexion (flex) 75% Cervical extension (ext) 75% Cervical Rotation (Rot) 50%* 50%* Pain/ slight increase in dizziness Cervical side bending (SB) 25*% 25%* Pain and dizziness *C/O pain with movement Flexibility: Upper Trapezius: Left: mod tightness and Right: mod tightness Visual assessment: Date 05/08/2023 Spontaneous nystagmus negative Gaze-evoked nystagmus negative Smooth Pursuits negative Convergence negative Saccades Additiona beats to the left Head Impulse negative Head Shake Test Negative VOR Horizontal positive - slight dizziness VOR Vertical positive - slight dizziness Positional testing: Date 05/08/2023 Right Jefferson-Hallpike N/T Left Ana-Hallpike N/T Right Roll Test N/T Left Roll Test N/T Balance: Date 05/08/2023 Romberg EO 30 , mild sway Romberg EC 30 . Significant sway, no LOB Semi-tandem R 10 (very difficult, CGA) Semi-tandem L 10 (very difficult, CGA) SLS R N/T SLS L N/T Gait: Gait with headturns: severe limitations, off balanced Gait with head nods: severe limitations, off balanced Outcome measure: 05/08/2023: DHI: 60/100 Assessment Reassessment of goals and objective measures was completed today after ~2.5 months of physical therapy intervention to address dizziness. The pt has not demonstrated good improvement with physical therapy noting worse response to treatment and continued dizziness limiting his tolerance to daily activities. The pt's response to testing was near baseline assessment with dizziness during VOR exercises, limited static balance- worse the eyes closed versus open, and decreased steadiness with headturns/nodding with gait. Discussed continued symptoms off dizziness and worsening tolerance to exercises. At this time the pt will follow up with his referring physician due to lack of improvement with therapy. The pt is agreeable with plan. Rehab Potential: Good Goals Active Vestibular The patient will improve Dizziness Handicap index by 20 points to 29/100 in order to demonstrate improved function with ADLs when standing and walking. (Not Progressing) Start: 02/20/23 Expected End: 06/07/23 The patient will demonstrate improvement of balance with tandem stance bilaterally to 10 in order to reduce risk for falls and improve safe and functional mobility in home and community settings (Not Progressing) Start: 02/20/23 Expected End: 06/07/23 Patient will report no dizziness/vertigo for 1 week to allow for to allow for improved steadiness with gait and standing activities. (Not Progressing) Start: 02/20/23 Expected End: 06/07/23 Plan Plan for next session: The pt will be placed on hold from therapy at this time. If no contact is made, after 30 days the pt will be discharged from therapy. Risks and benefits were discussed with the patient and/or family, and the patient and/or family participated with the plan of care and agrees. Treatment Patient Education: Pt education was provided for reassessment findings, update of POC, and goals for therapy. Time Entry Total Treatment Time Start Time: 1025 Stop Time: 1050 Time Calculation (min): 25 min PT Therapeutic Procedures Time Entry Therapeutic Exercise Time Entry: 25 Jude Kelly PT documented in this encounter [facility] 05-01-2023 Telephone encounter Note Prescription Request: Last medication check: 01-05-23 Last physical exam: 07-09-22 Next scheduled appointment: 07-15-23 Last date of refill on this medication 11-03-22 [facility] 05-01-2023 Miscellaneous Notes Prescription Request: Last medication check: 01-05-23 Last physical exam: 07-09-22 Next scheduled appointment: 07-15-23 Last date of refill on this medication 11-03-22 documented in this encounter [facility] 04-14-2023 Telephone encounter Note Reviewed chart. Refill appropriate. RX sent. [facility] 04-14-2023 Miscellaneous Notes Reviewed chart. Refill appropriate. RX sent. Prescription Request: Last medication check: 01/05/23 Last physical exam: 07/09/22 Next scheduled appointment: 07/15/23 Last date of refill on this medication 01/22/23 documented in this encounter [facility] 04-14-2023 Telephone encounter Note Prescription Request: Last medication check: 01/05/23 Last physical exam: 07/09/22 Next scheduled appointment: 07/15/23 Last date of refill on this medication 01/22/23 [facility] 04-13-2023 Note I do not see an ENT on the chart anywhere so I do not even know who did tell him to call, yes we probably need to put in a new referral if we know where we sent him. [facility] 04-13-2023 Note Do we need a new ref erral since this was a year ago? [facility] 04-10-2023 History of Present illness Narrative [facility] [address] [facility] [address] [facility] [address] Dept: [phone] Dept PHYSICAL THERAPY TREATMENT Patient Name: Candice Matthew : 1940 Date of Service: 04/10/2023 Referring Provider: Camila Pepper MD Visit #: 6 Diagnosis: Peripheral vertigo, right Reason for referral/Mechanism of injury: Dizziness Precautions/Red Flags: Yes HTN, DM II Patient Preferences: Johnathan Subjective The pt reports that he feels slightly better compared to last week but he still feels off with walking and standing exercises. The pt reports he has been working to exercises better this week with longer duration during VORx1 for stronger sensation. Compliance with HEP: Yes Objective Objective measurements not taken today. Treatment Balance/Neuromuscular Re-Education Balance/Neuromuscular Re-Education Activity 1: Romberg stance, 2x30 Activity 1 Comment: EC Balance/Neuromuscular Re-Education Activity 2: Tandem stance 2x30 ea Activity 2 Comment: EC Balance/Neuromuscular Re-Education Activity 3: Gait with VOR x1 horizontal 4x20' Balance/Neuromuscular Re-Education Activity 4: Gait with VOR x1 vertical 4x20' Balance/Neuromuscular Re-Education Activity 5: vestibular ball circles, 10x Activity 5 Comment: CW/CCW Assessment Skilled physical therapy interventions utilized to improve patient s impairments and work towards established goals. Patient response to treatment: Continued balance and vestibular exercises for gaze stabilization to improve safety with gait and decrease dizziness. Added seated ball circles to further challenge the pt's vestibular system. Standing VORx1 was much more challenging than completing from a seated position with noted unsteadiness with additional time of exercise. The pt was cued during gait with gaze stabilization to increase speed of head movements, while still keeping focus, to allow strong sensation and more challenge of stability. Patient will benefit from continued physical therapy to decreased dizziness and improve balance for decreased fall risk/increased safety. The rationale for today s treatment was explained to the patient. Verbal cues were provided for correct form with all exercises. Advised patient to continue with Home Exercise Program (HEP). Goals Vestibular The patient will improve Dizziness Handicap index by 20 points to 29/100 in order to demonstrate improved function with ADLs when standing and walking. (Not Addressed) Start: 02/20/23 Expected End: 04/20/23 The patient will demonstrate improvement of balance with tandem stance bilaterally to 10 in order to reduce risk for falls and improve safe and functional mobility in home and community settings (Progressing) Start: 02/20/23 Expected End: 04/20/23 Patient will report no dizziness/vertigo for 1 week to allow for to allow for improved steadiness with gait and standing activities. (Progressing) Start: 02/20/23 Expected End: 04/20/23 Plan Plan for next session: Reassessment of goals and objective measures at next treatment session. Time Entry Total Treatment Time Start Time: 1103 Stop Time: 1130 Time Calculation (min): 27 min PT Therapeutic Procedures Time Entry Neuromuscular Re-Education Time Entry: 27 Jude Kelly PT documented in this encounter [facility] 04-03-2023 History of Present illness Narrative Images from the original note were not included. [facility] [address] [facility] [address] [facility] [address] Dept: [phone] Dept PHYSICAL THERAPY TREATMENT Patient Name: Candice Matthew : 1940 Date of Service: 04/03/2023 Referring Provider: Camila Pepper MD Visit #: 5 Diagnosis: Peripheral vertigo, right Reason for referral/Mechanism of injury: Dizziness Precautions/Red Flags: Yes HTN, DM II Patient Preferences: Johnathan Milka Pt followed up with Dr. Pepper. He recommended continued physical therapy. He reports difficulty performing VOR exercises in standing. Compliance with HEP: Yes Objective Objective measurements not taken today. Treatment Balance/Neuromuscular Re-Education Balance/Neuromuscular Re-Education Activity 1: Romberg stance, 2x30 Activity 1 Comment: EC Balance/Neuromuscular Re-Education Activity 2: Tandem stance 2x30 ea Balance/Neuromuscular Re-Education Activity 3: Gait with VOR x1 horizontal 4x20' Balance/Neuromuscular Re-Education Activity 4: Gait with VOR x1 vertical 4x20' VOR Exercises VOR x 1 horizontal: 3x to symptoms; 2x30 in standing Position: standing, sitting VOR x 1 Vertical: 3x to symptoms; 2x30 in standing Position: standing, sitting Assessment Skilled physical therapy interventions utilized to improve patient s impairments and work towards established goals. Patient response to treatment: Continued to work on gaze stabilization to reduce dizziness and improve balance. Performed VOR x1 today in sitting, standing and during gait today. Gait with VOR was added to further challenge gaze stabilization today. Recommended when he performs VOR at home to perform for longer time frames to challenge stabilization further. Also worked on tandem and romberg stance to challenge balance. Patient will benefit from continued physical therapy to reduce fall risk and dizziness The rationale for today s treatment was explained to the patient. Verbal cues were provided for correct form with all exercises. Advised patient to continue with Home Exercise Program (HEP). Goals Vestibular The patient will improve Dizziness Handicap index by 20 points to 29/100 in order to demonstrate improved function with ADLs when standing and walking. (Not Addressed) Start: 02/20/23 Expected End: 04/20/23 The patient will demonstrate improvement of balance with tandem stance bilaterally to 10 in order to reduce risk for falls and improve safe and functional mobility in home and community settings (Progressing) Start: 02/20/23 Expected End: 04/20/23 Patient will report no dizziness/vertigo for 1 week to allow for to allow for improved steadiness with gait and standing activities. (Progressing) Start: 02/20/23 Expected End: 04/20/23 Plan Plan for next session: Progress gaze stabilization as able Time Entry Total Treatment Time Start Time: 1108 Stop Time: 1135 Time Calculation (min): 27 min Trevon Grey PT documented in this encounter [facility] 04-01-2023 History of Present illness Narrative Images from the original note were not included. [facility] [address] [place] [address] [facility] [address] Dept: [phone] Dept Loc: [phone] Visit type: Established Patient Reason for Visit: Follow-up Assessment and Plan 1. Peripheral vertigo, right - [facility] - hydroCHLOROthiazide (HYDRODiuril) 25 MG tablet; Take 1 tablet (25 mg) by mouth daily., Starting Thu04/01/2023, Until Thu05/01/2023, Normal Subjective HPI: He reports that the hydrochlorothiazide is not working that well. The PT is only slightly helping. He is dizzy any time he is walking. He feels that his hearing is about the same, no hearing loss. He sometimes feels that he has bugs crawling in the ears sometimes REVIEW OF SYSTEMS: Review of Systems Constitutional: Negative for appetite change, chills, diaphoresis, fever and unexpected weight change. HENT: Negative for dental problem and mouth sores. Eyes: Negative for discharge and itching. Respiratory: Negative for chest tightness. Cardiovascular: Negative for chest pain and leg swelling. Gastrointestinal: Negative for rectal pain and vomiting. Endocrine: Negative for polydipsia, polyphagia and polyuria. Genitourinary: Negative for decreased urine volume, flank pain and genital sores. Musculoskeletal: Negative for arthralgias. Skin: Negative for color change. Allergic/Immunologic: Negative for food allergies and immunocompromised state. Neurological: Positive for dizziness. Hematological: Negative for adenopathy. Does not bruise/bleed easily. Psychiatric/Behavioral: Negative for agitation, behavioral problems, decreased concentration, sleep disturbance and suicidal ideas. Allergies Allergen Reactions Gabapentin Other reaction(s): Other (See Comments) ineffective Other reaction(s): elevated liver enzymes Other reaction(s): elevated liver enzymes Meperidine Other reaction(s): Intolerance, Other (See Comments) Pt states he is unable to be woken after demerol Difficulty to arouse has difficulty waking up Meperidine Hcl Unknown Pregabalin Unknown Current Outpatient Medications: acetaminophen (Tylenol) 500 MG tablet, Take 1,000 mg by mouth in the morning and 1,000 mg at noon and 1,000 mg in the evening., Disp: , Rfl: albuterol 108 (90 Base) MCG/ACT inhaler, Inhale 2 puffs., Disp: , Rfl: citalopram (CeleXA) 20 MG tablet, take 1 tablet by mouth once daily, Disp: 90 tablet, Rfl: 1 dextroamphetamine (DextroStat) 10 MG tablet, Take 2 tablets by mouth in the morning and at bedtime., Disp: , Rfl: finasteride (Proscar) 5 MG tablet, take 1 tablet by mouth once daily, Disp: 90 tablet, Rfl: 1 glimepiride (Amaryl) 1 MG tablet, Take 2 tablets (2 mg) by mouth every morning., Disp: 180 tablet, Rfl: 1 Glucose Blood (Blood Glucose Test) strip, Test blood sugar daily DX: E11.9, type 2 diabetes mellitus without complication, without long-term current use of insulin, Disp: , Rfl: melatonin 10 MG tablet, Take 10 mg by mouth Nightly as needed., Disp: , Rfl: metFORMIN (Glucophage) 1000 MG tablet, Take 1 tablet by mouth in the morning and 1 tablet in the evening. Take with meals., Disp: , Rfl: methadone (Dolophine) 5 MG tablet, Take 5 mg by mouth at bedtime., Disp: , Rfl: NON FORMULARY, Beet root chews, Disp: , Rfl: prednisoLONE acetate (Pred-Forte) 1 % ophthalmic suspension, , Disp: , Rfl: rOPINIRole (Requip) 1 MG tablet, Take 1 mg by mouth. 1 q morning 2 at noon 2 at night, Disp: , Rfl: simvastatin (Zocor) 10 MG tablet, take 1 tablet by mouth at bedtime, Disp: 90 tablet, Rfl: 1 tamsulosin (Flomax) 0.4 MG 24 hr capsule, Take 0.8 mg by mouth., Disp: , Rfl: gabapentin (Neurontin) 100 MG capsule, 100 mg at noon and 100 mg in the evening., Disp: , Rfl: gabapentin (Neurontin) 300 MG capsule, Take 300 mg by mouth daily., Disp: , Rfl: hydroCHLOROthiazide (HYDRODiuril) 25 MG tablet, Take 1 tablet (25 mg) by mouth daily., Disp: 30 tablet, Rfl: 3 ibuprofen 200 MG tablet, every 12 hours., Disp: , Rfl: Filled Written Sold ID Drug QTY Days Prescriber RX # Dispenser Refill Daily Dose* Pymt Type [facility] 03/26/2023 03/24/2023 2 Methadone Hcl 5 Mg Tablet 30.00 30 Pi Ugarte [id number] Rit ([id number]) 0 15.00 MME [place] 03/09/2023 03/05/2023 1 Dextroamphetamine 10 Mg Tab 60.00 30 Ro Sib [id number] Rit ([id number]) 0 [place] 02/24/2023 02/18/2023 2 Methadone Hcl 5 Mg Tablet 30.00 30 Ho Zel [id number] Rit ([id number]) 0 15.00 [place]ME [place] 02/18/2023 02/18/2023 2 Gabapentin 300 Mg Capsule 60.00 30 Ho Zel [id number] Rit ([id number]) 0 [place] 02/02/2023 02/02/2023 1 Dextroamphetamine 10 Mg Tab 60.00 30 Ro Sib [id number] Rit ([id number]) 0 [place] 01/25/2023 01/20/2023 2 Methadone Hcl 5 Mg Tablet 30.00 30 Pi Ugarte [id number] Rit ([id number]) 0 15.00 [place]ME [place] 01/20/2023 01/20/2023 2 Gabapentin 300 Mg Capsule 30.00 30 Pi Ugarte [id number] Rit ([id number]) 0 Past Medical History: Diagnosis Date Chronic back pain COVID-19 10/14/2021 Depression Diabetes mellitus (HCC) Hemorrhoids, unspecified hemorrhoid type Hip fracture (HCC) 2021 R hip Hyperlipidemia Hypertension Kidney stone Osteoarthritis Restless leg syndrome Social History Tobacco Use Smoking status: Never Smokeless tobacco: Never Substance Use Topics Alcohol use: Never Past Surgical History: Procedure Laterality Date CATARACT EXTRACTION Right CHOLECYSTECTOMY COLONOSCOPY 2014 PROSTATE SURGERY ROTATOR CUFF REPAIR Right TOE SURGERY Family History Problem Relation Name Age of Onset Heart disease Mother Heart disease Father Objective Vitals: BP (!) 151/82 (BP Location: Right arm, Patient Position: Sitting, BP Cuff Size: Adult) Pulse 88 Ht 6' (1.829 m) Wt 193 lb 3.2 oz (87.6 kg) BMI 26.20 kg/m General Appearance: Patient is in no apparent distress. Head is normocephalic, atraumatic Cardiovascular: Regular rate and rhythm. No heart murmurs. No carotid bruit Neurologic: Mentation: Alert and oriented x 3 [address], place and time. Speech and Language: Speech and language normal Concentration and Attention: Concentration normal Memory: Memory grossly normal Fund of Knowledge: Fund of knowledge normal Cranial Nerves: II, III, IV, V, , VII, VIII, IX, X, XI, XII examined and were intact. Motor: Strength: Strength 5 out of 5 with normal tone Alternating Movements: Normal Cogwheel Rigidity: None Tone: Tone is normal Tremor / Involuntary Movements: None Deep Tendon Reflexes: 1 out of 4 symmetrical in all four limbs. Sensory: Normal sensation upper and lower extremities Coordination: Normal coordination upper and lower extremities Gait and Station: Station is normal. Gait is abnormal. He is mildly unsteady on turning. Data Reviewed and Summarized DIAGNOSTIC TESTING CBC: Lab Results Component Value Date WBC 4.7 12/03/2022 RBC 4.16 (L) 12/03/2022 HGB 13.0 (L) 12/03/2022 HCT 38.9 12/03/2022 MCV 93.5 12/03/2022 MCH 31.3 12/03/2022 MCHC 33.4 12/03/2022 RDW 13.1 12/03/2022 PLT 123 (L) 12/03/2022 MPV 10.9 12/03/2022 CMP: Lab Results Component Value Date NA 136 07/09/2022 K 4.7 07/09/2022 CL 103 07/09/2022 CO2 25 01/05/2023 BUN 30 (H) 01/05/2023 CREATININE 1.40 (H) 01/26/2023 AGRATIO 1.8 10/15/2021 GLUCOSE 116 (H) 01/05/2023 PROT 6.4 07/09/2022 CALCIUM 9.2 01/05/2023 BILITOT 0.3 07/09/2022 ALKPHOS 68 07/09/2022 AST 26 07/09/2022 ALT 18 07/09/2022 BMP: Lab Results Component Value Date NA 136 07/09/2022 K 4.7 07/09/2022 CL 103 07/09/2022 CO2 25 01/05/2023 BUN 30 (H) 01/05/2023 CREATININE 1.40 (H) 01/26/2023 CALCIUM 9.2 01/05/2023 GLUCOSE 116 (H) 01/05/2023 PT/INR: Lab Results Component Value Date PROTIME 12.1 (H) 10/06/2021 INR 1.1 10/06/2021 PTT: Lab Results Component Value Date APTT 27.3 10/06/2021 [APTT} FLP: Lab Results Component Value Date TRIG 135 07/09/2022 HDL 36 (L) 07/09/2022 LDLCALC 92 07/09/2022 TSH: Lab Results Component Value Date TSH 0.327 (L) 10/15/2021 VITAMIN B12: No results found for: [id number] No results found for: PHENYTOIN, PHENOBARB, VALPROATE, CBMZ No components found for: TOPIRA @RESULTINGLABINFO@ FERRITIN Date Value Ref Range Status 12/03/2022 176 24 - 380 ng/mL Final C REACTIVE PROTEIN Date Value Ref Range Status 10/11/2021 14.6 (H) 0.0 - 9.9 mg/L Final Comment: . No results found for: PRASHANTH, IMMUNOGLOBUL, OLIGOBANDS No results found for: [id number], HEPCAB C REACTIVE PROTEIN Date Value Ref Range Status 10/11/2021 14.6 (H) 0.0 - 9.9 mg/L Final Comment: . FERRITIN: Lab Results Component Value Date FERRITIN 176 12/03/2022 ---- Vestibular test Tracie Zeng, AuD 01/29/2023 12:16 PM [facility] [address] [facility] [address] Audiology Vestibular Testing ENG/VNG Patient Name: Candice Person Tiff Date: 01/29/23 : 1940 Referring Provider: Shantelle Medical Record: [id number] Skin Toggler: Michael Zeng IMPRESSIONS ABNORMAL VESTIBULAR STUDY Right peripheral vestibular involvement/hypofunction is suggested by his abnormal rotary chair findings in conjunction with his left beat nystagmus that is enhanced with vibration and positoining. He does not have a BPPV component at this time. All tests for central vestibular involvement are WNL. RECOMMENDATIONS: 1. Neuro to review and follow. 2. Consider outpatient PT for vestibular rehab protocols designed to promote compensation/habituation of his peripheral vestibular involvement. HISTORY/CHIEF COMPLAINT (per pt report) 82 y.o. presents with 6 months hx of imbalance and dizziness that is gradually getting worse. Pt reports neck c/o C4-C6. He states he has fallen a couple of times. 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 GAZE: NORMAL and negative for nystagmus. SACCADES: NORMAL for random horizontal deviations. TRACKING: NORMAL for smooth pursuit tracking at increasing speeds. OPTOKINETIC (OKN): NORMAL and symmetric for horizontal stimulation. OPTOKINETIC AFTER- NYSTAGMUS (CARLOS): NORMAL negative for prolonged afternystagmus. ROTATION (SVAR): ABNORMAL low gain, phase lead, right sided asymmetry. FixVOR: NORMAL for gain, phase, and symmetry. SPONTANEOUS: NORMAL negative for spontaneous nystagmus (sitting upright head straight) SITTING NECK TORSION: NORMAL negative for nystagmus and or c/o with neck turned right and left. BOW/LEAN: NORMAL negative for provoked nystagmus. SUBOCCIPITAL VIBRATION: ABNORMAL strong left beat nystagmus with bilateral stim. HEAD SHAKE: NORMAL negative for provoked after nystagmus. HALLPIKES: ABNORMAL negative for nystagmus consistent with posterior and or anterior canal BPPV. Left beat horizontal-constant nystagmus in the head left position only. He is asymptomatic. BACK 30 Deg/ LATERAL: NORMAL negative for nystagmus and or c/o. HEAD ROLL: ABNORMAL left beat nystagmus in the head left position. POSITIONS: ABNORMAL left beat nystagmus in the supine and left lateral head position. IMPRESSION and PLAN: Diagnosis Plan 1. 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 Will increase the hydrochlorothiazide to 25 mg daily. He has this feeling of bugs in his ears despite normal TM exam today. Will ask him to see ENT. Note that the VNG showed right peripheral issues and the discomfort he has is usually the right ear. CAMILA PEPPER MD I spent 30 minutes caring for this patient today, reviewing labs, records, seeing the patient, documenting in the record and arranging for studies. documented in this encounter [facility] 03-20-2023 History of Present illness Narrative Images from the original note were not included. [facility] [address] [facility] [address] [facility] [address] Dept: [phone] Dept PHYSICAL THERAPY RE-EVALUATION Patient Name: Candice Matthew : 1940 Date of Service: 03/20/2023 Referring Provider: Camila Pepper MD Diagnosis: Peripheral vertigo, right Reason for referral/Mechanism of injury: Dizziness Precautions/Red Flags: Yes HTN, DM II Patient Preferences: Johnathan Subjective General Comments: The pt reports that he is unsure currently if his dizziness has been better the past month due to his back/neck pain increasing the past few weeks. He reports difficulty doing exercises and moving because of the pain. The pt reports that he bad bout of dizziness with standing up while shopping. He reports stumbling because catching himself. Dizziness: Current: 3/10 Best: 0/10 Worst: 9/10 Objective Sensation: left hand still from radiculopathy Palpation: No TTP during evaluation Cervical ROM Cervical AROM Left (L) Right (R) Comment: Cervical flexion (flex) 50% Cervical extension (ext) 50% Cervical Rotation (Rot) 50%* 50%* Pain down back/neck Cervical side bending (SB) 25% 25% *C/O pain with movement Flexibility: Upper Trapezius: Left: mod tightness and Right: mod tightness Visual assessment: Date 03/20/2023 Spontaneous nystagmus negative Gaze-evoked nystagmus negative Smooth Pursuits negative Convergence negative Saccades Negative Head Impulse negative Head Shake Test Negative VOR Horizontal positive - slight dizziness VOR Vertical positive - slight dizziness Positional testing: Date 03/20/2023 Right Jefferson-Hallpike N/T Left Ana-Hallpike N/T Right Roll Test N/T Left Roll Test N/T Balance: Date 03/20/2023 Romberg EO 30 , mild sway Romberg EC 30 . Significant sway, no LOB Tandem R 8 (very difficult, CGA) Tandem L 6 (very difficult, CGA) SLS R N/T SLS L N/T Gait: Gait with headturns: severe limitations, off balanced Gait with head nods: severe limitations, off balanced Outcome measure: DHI: 49/100 (not retested today) Assessment Reassessment of goals and objective measures was completed today after ~1 month of physical therapy intervention. The pt demonstrates slight improvement from initial evaluation with difficulty progressing with HEP per pt due to pt having cervical radiculopathy. The pt had only slight dizziness during VORx1 with head turns and head nods. Walking and balance is still very challenging for the pt limiting his safety with function. Discussed with the pt continuing with therapy to progress further for better improvement toward goals. The pt is open to continuing with therapy and plans to continuing following up with his phyisician about his symptoms in the left arm. Rehab Potential: Good Goals Active Vestibular The patient will improve Dizziness Handicap index by 20 points to 29/100 in order to demonstrate improved function with ADLs when standing and walking. (Not Addressed) Start: 02/20/23 Expected End: 04/20/23 The patient will demonstrate improvement of balance with tandem stance bilaterally to 10 in order to reduce risk for falls and improve safe and functional mobility in home and community settings (Progressing) Start: 02/20/23 Expected End: 04/20/23 Patient will report no dizziness/vertigo for 1 week to allow for to allow for improved steadiness with gait and standing activities. (Progressing) Start: 02/20/23 Expected End: 04/20/23 Goal Note Less dizziness with testing during reassessment Plan Frequency and Duration: 1/wk for 4 weeks Therapeutic Contents: client education, home exercise program, manual therapy techniques, therapeutic activities, therapeutic exercise, vestibular rehabilitation, and modalities as needed Plan for next session: Continue with vestibular exercises progressing to standing and balance activities. Risks and benefits were discussed with the patient and/or family, and the patient and/or family participated with the plan of care and agrees. Treatment Patient Education: Pt education was provided for reassessment findings, update of POC, and goals for therapy. Time Entry Total Treatment Time Start Time: 0840 Stop Time: 0900 Time Calculation (min): 20 min PT Therapeutic Procedures Time Entry Therapeutic Exercise Time Entry: 18 Jude Kelly PT documented in this encounter [facility] 02-20-2023 History of Present illness Narrative Images from the original note were not included. [facility] AT [facility] [address] [facility] [address] Dept: [phone] Dept PHYSICAL THERAPY EVALUATION Patient Name: Candice Matthew : 1940 Date of Service: 02/20/2023 Referring Provider: Camila Pepper MD Diagnosis: Peripheral vertigo, right General Information Reason for referral/Mechanism of injury: Dizziness Precautions/Red Flags: Yes HTN, DM II Patient Preferences: Johnathan Fall Risk: Yes, 1 fall per month typically, SPC to help while dizziness Work status: retired Home Setup: Two-story home but stays on primary floor PMHX: Candice has a past medical history of Chronic back pain, COVID-19, Depression, Diabetes mellitus (HCC), Hemorrhoids, unspecified hemorrhoid type, Hip fracture (HCC), Hyperlipidemia, Hypertension, Kidney stone, Osteoarthritis, and Restless leg syndrome. PSHX: Candice has a past surgical history that includes Cataract extraction (Right); Cholecystectomy; Colonoscopy (2014); Prostate surgery; Rotator cuff repair (Right); and Toe Surgery. Have you experienced any anxiety or depression?: No, takes medications as prescribed by the Dr. Have you experienced thoughts of self-harm or suicidal thoughts?: No Physician follow-up appointment?: as needed. Subjective Chief Complaint: Pt arrives for therapy evaluation due to dizziness. The pt reports dizziness started several months ago. He reports having mild dizziness for a while but one morning he woke up with worse dizziness that caused him to fall. The pt reports dizziness has stayed worse over the past month. The pt reports falling around once each month. He fell yesterday due to dizziness when rising from bending over. The pt reports dizziness is worse with standing up and while walking. None with rolling in bed. Pt denies spinning sensation or lightheadedness but the dizziness is difficult for the pt to describe. The pt reports off balanced feeling and he catches himself with his cane. The pt denies ringing in the ears but reports buzzing/air moving feeling with pain in his ears that last 30 seconds. This happens periodically around 1 time per day in the evening. Dizziness: Current: 5/10 Best: 0/10 Worst: 9/10 Prior Level of Function: Independent with ADLs Current Level of Function: Using SPC to avoid falling as best as possible. 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 Palpation: No TTP during evaluation Cervical ROM Cervical AROM Left (L) Right (R) Comment: Cervical flexion (flex) 50% Cervical extension (ext) 25% Cervical Rotation (Rot) 50%* 50%* Pain down back/neck Cervical side bending (SB) 25% 25% *C/O pain with movement Upper Quadrant Examination: Right Left C4 Shoulder shrug 5/5 5/5 C5 Deltoid 5/5 5/5 C5-6 Biceps 5/5 5/5 C6 Wrist Extensors 5/5 5/5 C7 Triceps 5/5 5/5 C8 Thumb extensors 5/5 5/5 T1 Hand Intrinsics 5/5 5/5 *C/O pain with movement Flexibility: Upper Trapezius: Left: mod tightness and Right: mod tightness Visual assessment: Date 02/20/2023 Spontaneous nystagmus negative Gaze-evoked nystagmus negative Smooth Pursuits negative Convergence negative Saccades positive - slight under shooting to the right Head Impulse negative Head Shake Test positive - ~5 beats with movement to the right VOR Horizontal positive - slight dizziness VOR Vertical positive - slight dizziness Positional testing: Date 02/20/2023 Right Jefferson-Hallpike N/T Left Jefferson-Hallpike N/T Right Roll Test N/T Left Roll Test N/T Balance: Date 02/20/2023 Romberg EO 30 , mild sway Romberg EC 30 . Significant sway, no LOB Tandem R 5 (very difficult, CGA) Tandem L 5 (very difficult, CGA) SLS R N/T SLS L N/T Gait: Gait with headturns: severe limitations, off balanced Gait with head nods: severe limitations, off balanced Outcome measure: DHI: 49/100 Assessment Candice Matthew is a 82 y.o. 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 The pt has mildly positive head thrust test on the right, dizziness with saccades and VORx1, and is very off balanced with balance testing and gait with head turns/nodding. The pt would benefit from skilled physical therapy to address impaired balance, impaired gait, impaired functional activities, and vestibular impairment. Evaluation complexity is low secondary to: patient has 3 or more personal factors and/or comorbidities that will affect plan of care, therapy will be addressing 1-2 elements, and clinical presentation is stable. Body Systems Affected: vestibular Rehab Potential: Good Learning Preferences: demonstration, explanation, and printed materials Barriers to Rehab: chronicity Goals Vestibular The patient will improve Dizziness Handicap index by 20 points to 29/100 in order to demonstrate improved function with ADLs when standing and walking. (Initiated) Start: 02/20/23 Expected End: 03/22/23 The patient will demonstrate improvement of balance with tandem stance bilaterally to 10 in order to reduce risk for falls and improve safe and functional mobility in home and community settings (Initiated) Start: 02/20/23 Expected End: 03/22/23 Patient will report no dizziness/vertigo for 1 week to allow for to allow for improved steadiness with gait and standing activities. (Initiated) Start: 02/20/23 Expected End: 03/22/23 Plan Frequency and Duration: 1/wk for 4 weeks Therapeutic Contents: client education, gait training, home exercise program, manual therapy techniques, neuromuscular re-education, therapeutic activities, therapeutic exercise, and vestibular rehabilitation Plan for next session: Treatment will focus on balance training and habituation exercises to improve dizziness and safety with standing and gait. Risks and benefits were discussed with the patient and/or family, and the patient and/or family participated with the plan of care and agrees. Treatment VOR Exercises VOR x 1 horizontal: 5x to symptoms Position: sitting VOR x 1 Vertical: 5x to symptoms Position: sitting Occulomotor Exercises Smooth pursuit L/R: 5x Smooth pursuit Up/down: 5x Smooth pursuit Diagonal: 5x Patient Education: Pt education was provided for evaluation findings, POC, and goals for therapy. HEP was instructed and issued to pt. Time Entry Total Treatment Time Start Time: 902 Stop Time: 944 Time Calculation (min): 42 min PT Evaluation Time Entry PT Evaluation (Low) Time Entry: 30 PT Therapeutic Procedures Time Entry Therapeutic Exercise Time Entry: 8 Jude Kelly, PT documented in this encounter [facility] 02-16-2023 History of Present illness Narrative Images from the original note were not included. [facility] NEUROS[facility]ENCE [address] [facility] [address] Dept: [phone] Dept Loc: [phone] Visit type: Established Patient Reason for Visit: Follow-up, Dizziness, and Results Assessment and Plan 1. Peripheral vertigo, right - [facility] Vestibular Therapy [facility] Subjective HPI: He has dizziness. Still primarily with position changes. He is noticing periods of hearing loss. He gets a buzzing and pain in the ears, primarily the right. The MRI brain was reviewed and it did not show a cause for his dizziness. REVIEW OF SYSTEMS: Review of Systems Constitutional: Negative for appetite change, chills, diaphoresis, fever and unexpected weight change. HENT: Negative for dental problem and mouth sores. Eyes: Negative for discharge and itching. Respiratory: Negative for chest tightness. Cardiovascular: Negative for chest pain and leg swelling. Gastrointestinal: Negative for rectal pain and vomiting. Endocrine: Negative for polydipsia, polyphagia and polyuria. Genitourinary: Negative for decreased urine volume, flank pain and genital sores. Musculoskeletal: Negative for arthralgias. Skin: Negative for color change. Allergic/Immunologic: Negative for food allergies and immunocompromised state. Neurological: Positive for dizziness. Hematological: Negative for adenopathy. Does not bruise/bleed easily. Psychiatric/Behavioral: Negative for agitation, behavioral problems, decreased concentration, sleep disturbance and suicidal ideas. Allergies Allergen Reactions Gabapentin Other reaction(s): Other (See Comments) ineffective Other reaction(s): elevated liver enzymes Other reaction(s): elevated liver enzymes Meperidine Other reaction(s): Intolerance, Other (See Comments) Pt states he is unable to be woken after demerol Difficulty to arouse has difficulty waking up Meperidine Hcl Unknown Pregabalin Unknown Current Outpatient Medications: albuterol 108 (90 Base) MCG/ACT inhaler, Inhale 2 puffs., Disp: , Rfl: citalopram (CeleXA) 20 MG tablet, take 1 tablet by mouth once daily, Disp: 90 tablet, Rfl: 1 dextroamphetamine (DextroStat) 10 MG tablet, Take 2 tablets by mouth in the morning and at bedtime., Disp: , Rfl: finasteride (Proscar) 5 MG tablet, take 1 tablet by mouth once daily, Disp: 90 tablet, Rfl: 1 gabapentin (Neurontin) 300 MG capsule, Take 300 mg by mouth daily., Disp: , Rfl: glimepiride (Amaryl) 1 MG tablet, Take 2 tablets (2 mg) by mouth every morning., Disp: 180 tablet, Rfl: 1 Glucose Blood (Blood Glucose Test) strip, Test blood sugar daily DX: E11.9, type 2 diabetes mellitus without complication, without long-term current use of insulin, Disp: , Rfl: ibuprofen 200 MG tablet, every 12 hours., Disp: , Rfl: melatonin 10 MG tablet, Take 10 mg by mouth Nightly as needed., Disp: , Rfl: metFORMIN (Glucophage) 1000 MG tablet, Take 1 tablet by mouth in the morning and 1 tablet in the evening. Take with meals., Disp: , Rfl: methadone (Dolophine) 5 MG tablet, Take 5 mg by mouth at bedtime., Disp: , Rfl: prednisoLONE acetate (Pred-Forte) 1 % ophthalmic suspension, , Disp: , Rfl: rOPINIRole (Requip) 1 MG tablet, Take 1 mg by mouth. 1 q morning 2 at noon 2 at night, Disp: , Rfl: simvastatin (Zocor) 10 MG tablet, take 1 tablet by mouth at bedtime, Disp: 90 tablet, Rfl: 1 tamsulosin (Flomax) 0.4 MG 24 hr capsule, Take 0.8 mg by mouth., Disp: , Rfl: acetaminophen (Tylenol) 500 MG tablet, Take 1,000 mg by mouth in the morning and 1,000 mg at noon and 1,000 mg in the evening., Disp: , Rfl: gabapentin (Neurontin) 100 MG capsule, 100 mg at noon and 100 mg in the evening., Disp: , Rfl: hydroCHLOROthiazide (HYDRODiuril) 12.5 MG tablet, Take 1 tablet (12.5 mg) by mouth Daily as needed (dizziness)., Disp: 30 tablet, Rfl: 3 NON FORMULARY, Beet root chews, Disp: , Rfl: Past Medical History: Diagnosis Date Chronic back pain COVID-19 10/14/2021 Depression Diabetes mellitus (HCC) Hemorrhoids, unspecified hemorrhoid type Hip fracture (HCC) 2021 R hip Hyperlipidemia Hypertension Kidney stone Osteoarthritis Restless leg syndrome Social History Tobacco Use Smoking status: Never Smokeless tobacco: Never Substance Use Topics Alcohol use: Never Past Surgical History: Procedure Laterality Date CATARACT EXTRACTION Right CHOLECYSTECTOMY COLONOSCOPY 2014 PROSTATE SURGERY ROTATOR CUFF REPAIR Right TOE SURGERY Family History Problem Relation Name Age of Onset Heart disease Mother Heart disease Father Objective Vitals: BP 107/69 (BP Location: Right arm) Pulse 101 Wt 196 lb (88.9 kg) BMI 26.58 kg/m General Appearance: Patient is in no apparent distress. Head is normocephalic, atraumatic Cardiovascular: Regular rate and rhythm. No heart murmurs. No carotid bruit Neurologic: Mentation: Alert and oriented x 3 [address], [address] and time. Speech and Language: Speech and language normal Concentration and Attention: Concentration normal Memory: Memory normal Fund of Knowledge: Fund of knowledge normal Cranial Nerves: II, III, IV, V, , VII, VIII, IX, X, XI, XII examined and were intact. AC>BC in bilateral ears. Motor: Strength: Strength 5 out of 5 with normal tone Alternating Movements: Normal Cogwheel Rigidity: None Tone: Tone is normal Tremor / Involuntary Movements: None Deep Tendon Reflexes: 1 out of 4 symmetrical in all four limbs. Coordination: Normal coordination upper and lower extremities Gait and Station: Station is normal. Gait is normal, He used his cane but just tapped the floor with it. Data Reviewed and Summarized DIAGNOSTIC TESTING [facility]THEW [facility] 1940 [id number] Exam Date/Time: 01/27/2023 10:49 Procedure: MR BRAIN W AND WO CONTRAST Ordering Provider: PEPPER JAMES Reason For Exam: Dizziness, persistent/recurrent, cardiac or vascular cause suspected EXAMINATION: MR BRAIN W AND WO CONTRAST HISTORY: Dizziness, persistent/recurrent, cardiac or vascular cause suspected TECHNIQUE: Multiplanar, multisequence MRI of the brain was performed without and with intravenous gadolinium contrast. Contrast: 9mL Gadavist IV COMPARISON: Cervical spine MRI 09/19/2022 RESULT: Multiple pulse sequences are degraded by motion. Acute Change: There is no evidence of an acute intracranial process. Hemorrhage: No evidence of prior parenchymal hemorrhage on the gradient echo images. Mass Lesion/ Mass Effect: No evidence of an intracranial mass or extra-axial fluid collection. No abnormal parenchymal or leptomeningeal enhancement is noted following contrast administration within constraints of motion. No significant mass effect. Chronic Change: Scattered patchy areas of increased T2 and FLAIR signal are present in the supratentorial white matter which is a nonspecific finding but likely represents mild chronic microvascular ischemia. Parenchyma: There is mild generalized parenchymal volume loss. Ventricles: Normal caliber and morphology. Skull Base: Hypothalamic and pituitary region are grossly normal. Craniocervical junction is normal. No significant marrow replacement process. Vasculature: Major intracranial arterial structures, and dural venous sinuses show typical flow void, suggesting patency by spin echo criteria. Other: The visualized paranasal sinuses and mastoid air cells are clear. Bilateral lens replacements The orbits and extracranial soft tissues are unremarkable. IMPRESSION: No acute intracranial process. No abnormal intracranial enhancement within constraints of motion. Chronic parenchymal changes as discussed. Report Dictated on Electronically Signed By: Neftaly Ballesteros Electronically Signed Date/Time: 01/28/2023 7:19 PM EDT [place] [id number] Audiology Vestibular Testing ENG/VNG Patient Name: Candice Matthew Date: 01/29/23 : 1940 Referring Provider: Shantelle Medical Record: [id number] Skin Toggler: Michael Zeng IMPRESSIONS ABNORMAL VESTIBULAR STUDY Right peripheral vestibular involvement/hypofunction is suggested by his abnormal rotary chair findings in conjunction with his left beat nystagmus that is enhanced with vibration and positoining. He does not have a BPPV component at this time. All tests for central vestibular involvement are WNL. RECOMMENDATIONS: 1. Neuro to review and follow. 2. Consider outpatient PT for vestibular rehab protocols designed to promote compensation/habituation of his peripheral vestibular involvement. HISTORY/CHIEF COMPLAINT (per pt report) 82 y.o. presents with 6 months hx of imbalance and dizziness that is gradually getting worse. Pt reports neck c/o C4-C6. He states he has fallen a couple of times. 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 GAZE: NORMAL and negative for nystagmus. SACCADES: NORMAL for random horizontal deviations. TRACKING: NORMAL for smooth pursuit tracking at increasing speeds. OPTOKINETIC (OKN): NORMAL and symmetric for horizontal stimulation. OPTOKINETIC AFTER- NYSTAGMUS (CARLOS): NORMAL negative for prolonged afternystagmus. ROTATION (SVAR): ABNORMAL low gain, phase lead, right sided asymmetry. FixVOR: NORMAL for gain, phase, and symmetry. SPONTANEOUS: NORMAL negative for spontaneous nystagmus (sitting upright head straight) SITTING NECK TORSION: NORMAL negative for nystagmus and or c/o with neck turned right and left. BOW/LEAN: NORMAL negative for provoked nystagmus. SUBOCCIPITAL VIBRATION: ABNORMAL strong left beat nystagmus with bilateral stim. HEAD SHAKE: NORMAL negative for provoked after nystagmus. HALLPIKES: ABNORMAL negative for nystagmus consistent with posterior and or anterior canal BPPV. Left beat horizontal-constant nystagmus in the head left position only. He is asymptomatic. BACK 30 Deg/ LATERAL: NORMAL negative for nystagmus and or c/o. HEAD ROLL: ABNORMAL left beat nystagmus in the head left position. POSITIONS: ABNORMAL left beat nystagmus in the supine and left lateral head position. CBC: Lab Results Component Value Date WBC 4.7 12/03/2022 RBC 4.16 (L) 12/03/2022 HGB 13.0 (L) 12/03/2022 HCT 38.9 12/03/2022 MCV 93.5 12/03/2022 MCH 31.3 12/03/2022 MCHC 33.4 12/03/2022 RDW 13.1 12/03/2022 PLT 123 (L) 12/03/2022 MPV 10.9 12/03/2022 CMP: Lab Results Component Value Date NA 136 07/09/2022 K 4.7 07/09/2022 CL 103 07/09/2022 CO2 25 01/05/2023 BUN 30 (H) 01/05/2023 CREATININE 1.40 (H) 01/26/2023 AGRATIO 1.8 10/15/2021 GLUCOSE 116 (H) 01/05/2023 PROT 6.4 07/09/2022 CALCIUM 9.2 01/05/2023 BILITOT 0.3 07/09/2022 ALKPHOS 68 07/09/2022 AST 26 07/09/2022 ALT 18 07/09/2022 BMP: Lab Results Component Value Date NA 136 07/09/2022 K 4.7 07/09/2022 CL 103 07/09/2022 CO2 25 01/05/2023 BUN 30 (H) 01/05/2023 CREATININE 1.40 (H) 01/26/2023 CALCIUM 9.2 01/05/2023 GLUCOSE 116 (H) 01/05/2023 PT/INR: Lab Results Component Value Date PROTIME 12.1 (H) 10/06/2021 INR 1.1 10/06/2021 PTT: Lab Results Component Value Date APTT 27.3 10/06/2021 [APTT} FLP: Lab Results Component Value Date TRIG 135 07/09/2022 HDL 36 (L) 07/09/2022 LDLCALC 92 07/09/2022 TSH: Lab Results Component Value Date TSH 0.327 (L) 10/15/2021 VITAMIN B12: No results found for: [id number] No results found for: PHENYTOIN, PHENOBARB, VALPROATE, CBMZ No components found for: TOPIRA @RESULTINGLABINFO@ FERRITIN Date Value Ref Range Status 12/03/2022 176 24 - 380 ng/mL Final C REACTIVE PROTEIN Date Value Ref Range Status 10/11/2021 14.6 (H) 0.0 - 9.9 mg/L Final Comment: . No results found for: PRASHANTH, IMMUNOGLOBUL, OLIGOBANDS No results found for: [id number], HEPCAB C REACTIVE PROTEIN Date Value Ref Range Status 10/11/2021 14.6 (H) 0.0 - 9.9 mg/L Final Comment: . FERRITIN: Lab Results Component Value Date FERRITIN 176 12/03/2022 ---- Vestibular test Tracie Zeng, Faraz 01/29/2023 12:16 PM [facility] [address] [facility] [address] Audiology Vestibular Testing ENG/VNG Patient Name: Candice Naya Matthew Date: 01/29/23 : 1940 Referring Provider: Shantelle Medical Record: [id number] Skin Toggler: Michael Zeng IMPRESSIONS ABNORMAL VESTIBULAR STUDY Right peripheral vestibular involvement/hypofunction is suggested by his abnormal rotary chair findings in conjunction with his left beat nystagmus that is enhanced with vibration and positoining. He does not have a BPPV component at this time. All tests for central vestibular involvement are WNL. RECOMMENDATIONS: 1. Neuro to review and follow. 2. Consider outpatient PT for vestibular rehab protocols designed to promote compensation/habituation of his peripheral vestibular involvement. HISTORY/CHIEF COMPLAINT (per pt report) 82 y.o. presents with 6 months hx of imbalance and dizziness that is gradually getting worse. Pt reports neck c/o C4-C6. He states he has fallen a couple of times. 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 GAZE: NORMAL and negative for nystagmus. SACCADES: NORMAL for random horizontal deviations. TRACKING: NORMAL for smooth pursuit tracking at increasing speeds. OPTOKINETIC (OKN): NORMAL and symmetric for horizontal stimulation. OPTOKINETIC AFTER- NYSTAGMUS (CARLOS): NORMAL negative for prolonged afternystagmus. ROTATION (SVAR): ABNORMAL low gain, phase lead, right sided asymmetry. FixVOR: NORMAL for gain, phase, and symmetry. SPONTANEOUS: NORMAL negative for spontaneous nystagmus (sitting upright head straight) SITTING NECK TORSION: NORMAL negative for nystagmus and or c/o with neck turned right and left. BOW/LEAN: NORMAL negative for provoked nystagmus. SUBOCCIPITAL VIBRATION: ABNORMAL strong left beat nystagmus with bilateral stim. HEAD SHAKE: NORMAL negative for provoked after nystagmus. HALLPIKES: ABNORMAL negative for nystagmus consistent with posterior and or anterior canal BPPV. Left beat horizontal-constant nystagmus in the head left position only. He is asymptomatic. BACK 30 Deg/ LATERAL: NORMAL negative for nystagmus and or c/o. HEAD ROLL: ABNORMAL left beat nystagmus in the head left position. POSITIONS: ABNORMAL left beat nystagmus in the supine and left lateral head position. IMPRESSION and PLAN: Diagnosis Plan 1. Peripheral vertigo, right [facility] He has both inner ear and Meniere's attacks. I am going to ask him to get PT for vestib therapy and to take hydrochlorothiazide 12.5 mg on days that he has prolonged dizziness. No problem-specific Assessment & Plan notes found for this encounter. CAMILA PEPPER MD I spent 30 minutes caring for this patient today, reviewing labs, records, seeing the patient, documenting in the record and arranging for studies. @SIGNATURE@ documented in this encounter [facility] 02-11-2023 Telephone encounter Note Pt has been scheduled for a sooner appt. [facility] 02-11-2023 Miscellaneous Notes Pt has been scheduled for a sooner appt. Called pt no answer, voicemail was not set up. Name of caller: Candice Contact phone number: [phone] Relationship to Patient: patient Provider: Dr Pepper Practice: [facility] [place] Chief Complaint/Reason for Call: Pt states he would like to speak to the office directly regarding his upcoming appt. Pt states that the appt is booked too far out and he needs to be seen sooner. Pt states that the results of his testing should be getting him seen within two weeks and not two months. Schedule was reviewed but nothing sooner is available at this time. Please advise. Best time of day caller can be reached: any Patient advised that office/PCP has 24-48 business hours to return their call: No documented in this encounter [facility] 02-11-2023 Telephone encounter Note Called pt no answer, voicemail was not set up. [facility] 02-11-2023 Telephone encounter Note Name of caller: Candice Contact phone number: [phone] Relationship to Patient: patient Provider: Dr Pepper Practice: [facility] [place] Chief Complaint/Reason for Call: Pt states he would like to speak to the office directly regarding his upcoming appt. Pt states that the appt is booked too far out and he needs to be seen sooner. Pt states that the results of his testing should be getting him seen within two weeks and not two months. Schedule was reviewed but nothing sooner is available at this time. Please advise. Best time of day caller can be reached: any Patient advised that office/PCP has 24-48 business hours to return their call: No [facility] 02-06-2023 Telephone encounter Note Pt has been scheduled for 02/09/2023. [facility] 02-06-2023 Miscellaneous Notes Pt has been scheduled for 02/09/2023. Pt is asking to speak to the office about some questions they had about their current condition. Patient notified Remind him of his follow up appt in Mar. If Wendy or I have a sooner opening -- not ER -- then please offer it to him. Tell him that there is no cause for dizziness/off balance on the brain MRI. Name of caller: Candice Contact phone number: [phone] Relationship to Patient: patient Provider: Dr. Pepper Practice: Neuro Chief Complaint/Reason for Call: Candice states that he has not heard any results from his mri and testing. Candice would like a call back with results. Best time of day caller can be reached: any Patient advised that office/PCP has 24-48 business hours to return their call: Yes documented in this encounter [facility] 02-06-2023 Telephone encounter Note Pt is asking to speak to the office about some questions they had about their current condition. [facility] 02-06-2023 Telephone encounter Note Patient notified [facility] 02-06-2023 Telephone encounter Note Remind him of his follow up appt in Mar. If Wendy or I have a sooner opening -- not ER -- then please offer it to him. Tell him that there is no cause for dizziness/off balance on the brain MRI. [facility] 02-04-2023 Telephone encounter Note Name of caller: Candice Contact phone number: [phone] Relationship to Patient: patient Provider: Dr. Pepper Practice: Neuro Chief Complaint/Reason for Call: Candice states that he has not heard any results from his mri and testing. Candice would like a call back with results. Best time of day caller can be reached: any Patient advised that office/PCP has 24-48 business hours to return their call: Yes [facility] 02-04-2023 Miscellaneous Notes Name of caller: Candice Contact phone number: [phone] Relationship to Patient: patient Provider: Dr. Pepper Practice: Neuro Chief Complaint/Reason for Call: Candice states that he has not heard any results from his mri and testing. Candice would like a call back with results. Best time of day caller can be reached: any Patient advised that office/PCP has 24-48 business hours to return their call: Yes documented in this encounter [facility] 01-29-2023 Note [facility] enter [address] [place] [id number] Audiology Vestibular Testing ENG/VNG Patient Name: Candice Matthew Date: 01/29/23 : 1940 Referring Provider: Shantelle Medical Record: [id number] Skin Toggler: Michael Zeng IMPRESSIONS ABNORMAL VESTIBULAR STUDY Right peripheral vestibular involvement/hypofunction is suggested by his abnormal rotary chair findings in conjunction with his left beat nystagmus that is enhanced with vibration and positoining. He does not have a BPPV component at this time. All tests for central vestibular involvement are WNL. RECOMMENDATIONS: 1. Neuro to review and follow. 2. Consider outpatient PT for vestibular rehab protocols designed to promote compensation/habituation of his peripheral vestibular involvement. HISTORY/CHIEF COMPLAINT (per pt report) 82 y.o. presents with 6 months hx of imbalance and dizziness that is gradually getting worse. Pt reports neck c/o C4-C6. He states he has fallen a couple of times. 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 GAZE: NORMAL and negative for nystagmus. SACCADES: NORMAL for random horizontal deviations. TRACKING: NORMAL for smooth pursuit tracking at increasing speeds. OPTOKINETIC (OKN): NORMAL and symmetric for horizontal stimulation. OPTOKINETIC AFTER- NYSTAGMUS (CARLOS): NORMAL negative for prolonged afternystagmus. ROTATION (SVAR): ABNORMAL low gain, phase lead, right sided asymmetry. FixVOR: NORMAL for gain, phase, and symmetry. SPONTANEOUS: NORMAL negative for spontaneous nystagmus (sitting upright head straight) SITTING NECK TORSION: NORMAL negative for nystagmus and or c/o with neck turned right and left. BOW/LEAN: NORMAL negative for provoked nystagmus. SUBOCCIPITAL VIBRATION: ABNORMAL strong left beat nystagmus with bilateral stim. HEAD SHAKE: NORMAL negative for provoked after nystagmus. HALLPIKES: ABNORMAL negative for nystagmus consistent with posterior and or anterior canal BPPV. Left beat horizontal-constant nystagmus in the head left position only. He is asymptomatic. BACK 30 Deg/ LATERAL: NORMAL negative for nystagmus and or c/o. HEAD ROLL: ABNORMAL left beat nystagmus in the head left position. POSITIONS: ABNORMAL left beat nystagmus in the supine and left lateral head position. [facility] 01-22-2023 Telephone encounter Note Called and spoke with patient about getting scheduled for MRI. He is aware and will be reaching out to Central Scheduling. [facility] 01-22-2023 Miscellaneous Notes Called and spoke with patient about getting scheduled for MRI. He is aware and will be reaching out to Central Scheduling. documented in this encounter [facility] 01-22-2023 Telephone encounter Note Reviewed chart. Refill appropriate. RX sent. [facility] 01-22-2023 Miscellaneous Notes Reviewed chart. Refill appropriate. RX sent. This has not been sent in since 07/28/22 and looks like the dose was changed, new script needs sent. Pended. Name of caller: Gage Matthew Contact phone number: [phone] Relationship to Patient: patient Provider: Damien Arce Practice: [facility] Chief Complaint/Reason for Call: Pt called that he is having some issues getting his medication. The medication is glimepiride (Amaryl) 1 MG tablet. He said provider asked him to double the dosage he is taking and when he tried to get it from the pharmacy he was told the medication has been canceled. Pt is confused. Please advise. Best time of day caller can be reached: any Patient advised that office/PCP has 24-48 business hours to return their call: Yes documented in this encounter [facility] 01-22-2023 Telephone encounter Note This has not been sent in since 07/28/22 and looks like the dose was changed, new script needs sent. Pended. [facility] 01-22-2023 History of Present illness Narrative Images from the original note were not included. [facility] [address] [place] [address] [facility] [address] Dept: [phone] Dept Loc: [phone] Camila Pepper MD Thank you for your kind request for a neurological consultation on this patient. CHIEF COMPLAINT: Chief Complaint Patient presents with New Patient Dizziness HISTORY OF PRESENT ILLNESS: The patient is a 82 y.o. person who presents with dizziness. He reports that it began 6 months ago but has gotten sharply worse in the past month. Do you have to be up to have the dizziness or can you have the dizziness when seated or lying down? On my feet only. When you have an attack of dizziness how long does it last? Seconds: vestibular paroxysmia, cardiogenic dizziness (Less than 2 minutes)? No Minutes: vertebrobasilar transient ischemic attack (TIA), vestibular migraine, panic disorder, delayed orthostatic hypotension, hypoglycemia (2 min-60 min)? No Hours: vestibular migraine, M ni re disease, toxic/metabolic (Over an hour)? Yes Days: vestibular migraine? Constant Do you feel like things are moving in when you know they are actually still?No Do you have otalgia? Yes. Both Do you have tinnitus? Buzzing, both ears If so, which ear? Left/Right Do you get dizzy turning your head?No Do you have trouble with dizziness getting up from a chair or from a seat? No Have you had falls? No Is there any vision change with the dizziness? No Do you have headache associated with the dizziness? No Have you had hearing loss with your dizziness? No He reports that he had therapy for his dizziness without success. He is on ropinirole at the same dose for years for RLS. He reports that he just recently started gabapentin for chronic leg pain. He reports that he is seeing a sleep physician. He reports that he had numbness in the left hand. He reports that he had an EMG/NCS. I do not have that report today Past Medical History: has a past medical history of Chronic back pain, COVID-19 (10/14/2021), Depression, Diabetes mellitus (HCC), Hemorrhoids, unspecified hemorrhoid type, Hip fracture (HCC) (2021), Hyperlipidemia, Hypertension, Kidney stone, Osteoarthritis, and Restless leg syndrome. Dr. 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 Medications: Current Outpatient Medications: acetaminophen (Tylenol) 500 MG tablet, Take 1,000 mg by mouth in the morning and 1,000 mg at noon and 1,000 mg in the evening., Disp: , Rfl: albuterol 108 (90 Base) MCG/ACT inhaler, Inhale 2 puffs., Disp: , Rfl: citalopram (CeleXA) 20 MG tablet, take 1 tablet by mouth once daily, Disp: 90 tablet, Rfl: 1 dextroamphetamine (DextroStat) 10 MG tablet, Take 2 tablets by mouth in the morning and at bedtime., Disp: , Rfl: finasteride (Proscar) 5 MG tablet, take 1 tablet by mouth once daily, Disp: 90 tablet, Rfl: 1 gabapentin (Neurontin) 100 MG capsule, 100 mg at noon and 100 mg in the evening., Disp: , Rfl: glimepiride (Amaryl) 1 MG tablet, Take 2 tablets (2 mg) by mouth every morning., Disp: 1 tablet, Rfl: 0 Glucose Blood (Blood Glucose Test) strip, Test blood sugar daily DX: E11.9, type 2 diabetes mellitus without complication, without long-term current use of insulin, Disp: , Rfl: ibuprofen 200 MG tablet, every 12 hours., Disp: , Rfl: melatonin 10 MG tablet, Take 10 mg by mouth Nightly as needed., Disp: , Rfl: metFORMIN (Glucophage) 1000 MG tablet, Take 1 tablet by mouth in the morning and 1 tablet in the evening. Take with meals., Disp: , Rfl: methadone (Dolophine) 5 MG tablet, Take 5 mg by mouth at bedtime., Disp: , Rfl: NON FORMULARY, Beet root chews, Disp: , Rfl: prednisoLONE acetate (Pred-Forte) 1 % ophthalmic suspension, , Disp: , Rfl: rOPINIRole (Requip) 1 MG tablet, Take 1 mg by mouth. 1 q morning 2 at noon 2 at night, Disp: , Rfl: simvastatin (Zocor) 10 MG tablet, take 1 tablet by mouth at bedtime, Disp: 90 tablet, Rfl: 1 tamsulosin (Flomax) 0.4 MG 24 hr capsule, Take 0.8 mg by mouth., Disp: , Rfl: Filled Written Sold ID Drug QTY Prescriber RX # Dispenser Refill Daily Dose* Pymt Type DIRECTOR OF PSYCHIATRY 01/01/2023 12/29/2022 1 Dextroamphetamine 10 Mg Tab 60.00 30 Ro Sib [id number] Rit ([id number]) 0 [place] 12/25/2022 12/16/2022 2 Methadone Hcl 5 Mg Tablet 30.00 30 Pi Torito [id number] Rit ([id number]) 0 15.00 MME [place] 12/16/2022 12/16/2022 2 Gabapentin 100 Mg Capsule 30.00 30 Pi Torito [id number] Rit ([id number]) 0 [place] 12/04/2022 12/02/2022 1 Dextroamphetamine 10 Mg Tab 60.00 30 [place] Ruf [id number] Rit ([id number]) 0 [place] 11/25/2022 11/25/2022 2 Methadone Hcl 5 Mg Tablet 30.00 30 Pi Ugarte [id number] Rit ([id number]) 0 15.00 MME [place] 10/25/2022 10/21/2022 2 Methadone Hcl 5 Mg Tablet 30.[address] Whi [id number] Rit ([id number]) 0 15.00 [place]ME [place] 10/24/2022 10/24/2022 1 Dextroamphetamine 10 Mg Tab 60.00 30 Ro Sib [id number] Rit ([id number]) 0 [place] 09/25/2022 09/15/2022 2 Methadone Hcl 5 Mg Tablet 30.00 30 Ho Zel [id number] Rit ([id number]) 0 15.00 MME [place] 09/01/2022 08/27/2022 1 Dextroamphetamine 10 Mg Tab 120.00 30 Ro Sib [id number] Rit ([id number]) 0 [place] Allergies: Gabapentin, Meperidine, Meperidine hcl, and Pregabalin Social History: Social History Socioeconomic History Marital status: Spouse name: Not on file Number of children: Not on file Years of education: Not on file Highest education level: Not on file Occupational History Not on file Tobacco Use Smoking status: Never Smokeless tobacco: Never Vaping Use Vaping Use: Never used Substance and Sexual Activity Alcohol use: Never Drug use: Never Sexual activity: Not on file Other Topics Concern Not on file Social History Narrative Not on file Social Determinants of Health Financial Resource Strain: Not on file Food Insecurity: Not on file Transportation Needs: Not on file Physical Activity: Not on file Stress: Not on file Social Connections: Not on file Intimate Partner Violence: Not on file Housing Stability: Not on file Family History: Family History Problem Relation Name Age of Onset Heart disease Mother Heart disease Father REVIEW OF SYSTEMS: Review of Systems Constitutional: Negative for appetite change, chills, diaphoresis, fever and unexpected weight change. HENT: Negative for dental problem and mouth sores. Eyes: Negative for discharge and itching. Respiratory: Negative for chest tightness. Cardiovascular: Negative for chest pain and leg swelling. Gastrointestinal: Negative for rectal pain and vomiting. Endocrine: Negative for polydipsia, polyphagia and polyuria. Genitourinary: Negative for decreased urine volume, flank pain and genital sores. Musculoskeletal: Positive for arthralgias, neck pain and neck stiffness. Skin: Negative for color change. Allergic/Immunologic: Negative for food allergies and immunocompromised state. Neurological: Hypersomnia Chronic leg pain bilaterally Hematological: Negative for adenopathy. Does not bruise/bleed easily. Psychiatric/Behavioral: Negative for agitation, behavioral problems, decreased concentration, sleep disturbance and suicidal ideas. PHYSICAL EXAM: Vitals: BP (!) 169/84 (BP Location: Right arm, Patient Position: Sitting, BP Cuff Size: Adult) Pulse 82 Ht 6' (1.829 m) Wt 201 lb (91.2 kg) BMI 27.26 kg/m General Appearance: Patient is in no apparent distress. Head is normocephalic, atraumatic Cardiovascular: Regular rate and rhythm. No heart murmurs. No carotid bruit Neurologic: Mentation: Alert and oriented x 3 to person, place and time. Speech and Language: Speech and language normal Concentration and Attention: Concentration normal Memory: Memory normal Fund of Knowledge: Fund of knowledge normal Cranial Nerves: II, III, IV, V, , VII, VIII, IX, X, XI, XII tested and were intact including fundoscopic exam (optic discs) and visual field to confrontation. Head position changes and hearing testing did not elicit. Motor: Strength:Strength 5 out of 5 with normal tone in the arms/hands. He has atrophy in the intrinsic hand muscles. He is 4/5 in right hip flexors and right ankle dorsiflexors but is otherwise normal in the legs. Alternating Movements: Normal Cogwheel Rigidity: None Tone: Tone is normal Tremor / Involuntary Movements: Head titubation occl Deep Tendon Reflexes: 1 out of 4 symmetrical in all four limbs. Sensory: Normal sensation upper extremities. He has compression stockings on the legs, ankles and feet that prevented exam there. Coordination: Normal coordination upper and lower extremities Gait and Station: Station is abnormal. Gait is abnormal. He is mildly unstable on standing but was able to pull off Romberg. He had a very stiff, very straight/upright gate with small strides, worse on the right DATA CBC: Lab Results Component Value Date WBC 4.7 12/03/2022 RBC 4.16 (L) 12/03/2022 HGB 13.0 (L) 12/03/2022 HCT 38.9 12/03/2022 MCV 93.5 12/03/2022 MCH 31.3 12/03/2022 MCHC 33.4 12/03/2022 RDW 13.1 12/03/2022 PLT 123 (L) 12/03/2022 MPV 10.9 12/03/2022 CMP: Lab Results Component Value Date NA 136 07/09/2022 K 4.7 07/09/2022 CL 103 07/09/2022 CO2 25 01/05/2023 BUN 30 (H) 01/05/2023 CREATININE 1.52 (H) 01/05/2023 AGRATIO 1.8 10/15/2021 GLUCOSE 116 (H) 01/05/2023 PROT 6.4 07/09/2022 CALCIUM 9.2 01/05/2023 BILITOT 0.3 07/09/2022 ALKPHOS 68 07/09/2022 AST 26 07/09/2022 ALT 18 07/09/2022 BMP: Lab Results Component Value Date NA 136 07/09/2022 K 4.7 07/09/2022 CL 103 07/09/2022 CO2 25 01/05/2023 BUN 30 (H) 01/05/2023 CREATININE 1.52 (H) 01/05/2023 CALCIUM 9.2 01/05/2023 GLUCOSE 116 (H) 01/05/2023 PT/INR: Lab Results Component Value Date PROTIME 12.1 (H) 10/06/2021 INR 1.1 10/06/2021 PTT: Lab Results Component Value Date APTT 27.3 10/06/2021 [APTT} FLP: Lab Results Component Value Date TRIG 135 07/09/2022 HDL 36 (L) 07/09/2022 LDLCALC 92 07/09/2022 TSH: Lab Results Component Value Date TSH 0.327 (L) 10/15/2021 VITAMIN B12: No results found for: [id number] FERRITIN: Lab Results Component Value Date FERRITIN 176 12/03/2022 ---- No results found for: PHENYTOIN, PHENOBARB, VALPROATE, CBMZ No components found for: TOPIRANo results found for: OXCARBAZE, OXCARB @LASTAPPOINTMENTTHISPROV@ XR chest 2 views Patient Name: CANDICE MATTHEW : 1940 Exam Date/Time: 01/11/2023 14:26 Procedure: XR CHEST 2 VIEWS Ordering Provider: PATRICIO DAVID Reason For Exam: fall, right chest and scapula pain HISTORY: Fall with right chest and scapular pain Frontal view the chest with comparison film from 10/11/2021. FINDINGS: 1. No definite fracture is seen on this single view-there are some atelectatic appearing changes in the right lung base and to lesser degree the left lung base. 2. Chronically elevated right hemidiaphragm with prior abdominal surgery Report Dictated on Electronically Signed By: Kurt Sanderson Electronically Signed Date/Time: 01/11/2023 2:33 PM EDT @RESULTINGLABINFO@ FERRITIN Date Value Ref Range Status 12/03/2022 176 24 - 380 ng/mL Final C REACTIVE PROTEIN Date Value Ref Range Status 10/11/2021 14.6 (H) 0.0 - 9.9 mg/L Final Comment: . No results found for: PRASHANTH, IMMUNOGLOBUL, OLIGOBANDS No results found for: [id number], HEPCAB C REACTIVE PROTEIN Date Value Ref Range Status 10/11/2021 14.6 (H) 0.0 - 9.9 mg/L Final Comment: . ASSESSMENT AND PLAN: Diagnosis Plan 1. Ataxic gait [facility] MR brain w and wo contrast Creatinine, Serum Creatinine, Serum 2. Dizziness and giddiness Vestibular test 3. Tremor His primary issue on exam is the instability of stance and gait. It is medically necessary to get MRI brain for stroke or tumor causing this progressively worsening issue. VNG for vertigo. He had faint tremor in the hands and head suggestive of essential tremor. I did not see Parkinson's but note that he takes ropinirole for RLS during the day so this could hide manifestations of PD. He has a history of sleep disorders but is being seen elsewhere regarding those issues. I spent 45 minutes caring for this patient today, reviewing labs and records, seeing the patient, documenting in the record and arranging for studies. documented in this encounter [facility] 01-22-2023 Telephone encounter Note Name of caller: Gage Matthew Contact phone number: [phone] Relationship to Patient: patient Provider: Damien Arce Practice: [facility] Chief Complaint/Reason for Call: Pt called that he is having some issues getting his medication. The medication is glimepiride (Amaryl) 1 MG tablet. He said provider asked him to double the dosage he is taking and when he tried to get it from the pharmacy he was told the medication has been canceled. Pt is confused. Please advise. Best time of day caller can be reached: any Patient advised that office/PCP has 24-48 business hours to return their call: Yes [email or web address] 01-12-2023 Note Order placed. Referr al to neurology was internal so they should be contacting him to schedule. [email or web address] [facility] 01-05-2023 History of Present illness Narrative Images from the original note were not included. Patient Candice Matthew 82 y.o. male, presents today with Chief Complaint Patient presents with Diabetes Medication Check Health Maintenance [facility]--[facility], [facility]--has been , Hep B--,discuss COVID 4-- has not had and does not want . HPI- Candice Matthew presents today for follow up on his diabetes and other chronic health conditions. Previous hemoglobin A1c was 6.2% on 07/09/22. Diabetes Mellitus Type II: Current symptoms/problems include none. Known diabetic complications: nephropathy and peripheral neuropathy- takes Gabapentin Cardiovascular risk factors: advanced age (older than 55 for men, 65 for women), diabetes mellitus, dyslipidemia, hypertension, male gender, and microalbuminuria Current diabetic medications include Glimepiride, Metformin . [facility] exam current (within one year): [facility] [place] [facility] Dental exam current (within one year): Yes - 11/22/22 Weight trend: stable Prior visit with wig comber: No Current diet: strives for a healthy diet but states he loves sweets Current exercise: will ride the stationary bicycle for exercise Current monitoring regimen: home blood tests - a couple times weekly Home blood sugar records: fasting range: 200 and postprandial range: has not bee checking Any episodes of hypoglycemia? No Is He on SANTANA inhibitor or angiotensin II receptor [place]? No - Was taking Lisinopril but that was discontinued by Dr. Leger due to hyperkalemia and renal function. Currently on statin therapy? Yes - Simvastatin Last urine microalbumin was 62.1 mg/L on 07/09/22. Last foot exam was 07/09/22. Chronic Pain: Takes Methadone nightly. Feels symptoms are stable. Continues to follow up with [facility]. Has also been following up with a forestry biology specialist- Dr. Torres. TABITHA: Wears a machine for his sleep apnea- states it is not a CPAP or BiPAP. Not sure what is called. Feels current settings are working well for him. [facility]. Insomnia: Feels symptoms are stable. Takes Melatonin nightly as needed. Feels symptoms are stable. Narcolepsy: Feels symptoms are stable. Takes his Dextroamphetamine (2 tablets in the AM)and feels this is helpful. RLS: Feels symptoms are well controlled with his Ropinirole. Anemia: Feels symptoms are stable. No longer taking an iron supplement. Had received an iron transfusion and symptoms resolved. Denies blood in urine or stool. BPH: Takes Finasteride and Tamsulosin for his prostate. [facility]. Has concerns regarding worsening dizziness over the past couple of years. Would like to see a neurologist. Health Maintenance: Declines to be vaccinated for Hep B. Vaccinated for COVID-19 ([facility]) x3 with most recent dose on 06/24/21- does not plan to get a 4th dose at this time. Tdap current: 02/20/16. Fully vaccinated for shingles and pneumonia. Past Medical History: Diagnosis Date Chronic back pain COVID-19 10/14/2021 Depression Diabetes mellitus (HCC) Hemorrhoids, unspecified hemorrhoid type Hip fracture (CMS/HCC) (HCC) 2021 R hip Hyperlipidemia Hypertension Kidney stone Osteoarthritis Restless leg syndrome Past Surgical History: Procedure Laterality Date CATARACT EXTRACTION Right CHOLECYSTECTOMY COLONOSCOPY 2014 PROSTATE SURGERY ROTATOR CUFF REPAIR Right TOE SURGERY Family History Problem Relation Name Age of Onset Heart disease Mother Heart disease Father Social History Socioeconomic History Marital status: Spouse name: Not on file Number of children: Not on file Years of education: Not on file Highest education level: Not on file Occupational History Not on file Tobacco Use Smoking status: Never Smokeless tobacco: Never Vaping Use Vaping Use: Never used Substance and Sexual Activity Alcohol use: Never Drug use: Never Sexual activity: Not on file Other Topics Concern Not on file Social History Narrative Not on file Social Determinants of Health Financial Resource Strain: Not on file Food Insecurity: Not on file Transportation Needs: Not on file Physical Activity: Not on file Stress: Not on file Social Connections: Not on file Intimate Partner Violence: Not on file Housing Stability: Not on file Health Maintenance Topic Date Due Diabetes: Retinopathy Screening Never done Diabetes: Hemoglobin A1C 10/09/2022 Hepatitis B Vaccines (1 of 3 - 3-dose series) 07/09/2023 (Originally 1940) COVID-19 Vaccine (4 - Booster for Pfizer series) 07/09/2023 (Originally 08/19/2021) Depression Screening 07/09/2023 Diabetes: Foot Exam 07/09/2023 Lipid Panel 07/09/2023 Diabetes: Urine Protein Screening 07/09/2023 Diabetes: Dental Exam 11/23/2023 DTaP/Tdap/Td Vaccines (3 - Tdap) 02/19/2026 Influenza Vaccine Completed Pneumococcal Vaccine: 65+ Years Completed Zoster Vaccines Completed HIB Vaccines Aged Out IPV Vaccines Aged Out Hepatitis A Vaccines Aged Out Meningococcal Vaccine Aged Out Rotavirus Vaccines Aged Out HPV Vaccines Aged Out Allergies Allergen Reactions Gabapentin Other reaction(s): Other (See Comments) ineffective Other reaction(s): elevated liver enzymes Other reaction(s): elevated liver enzymes Meperidine Other reaction(s): Intolerance, Other (See Comments) Pt states he is unable to be woken after demerol Difficulty to arouse has difficulty waking up Meperidine Hcl Unknown Pregabalin Unknown Review of Systems Constitutional: Negative for chills and fever. Respiratory: Negative for chest tightness, shortness of breath and wheezing. Cardiovascular: Negative for chest pain and palpitations. Gastrointestinal: Negative for abdominal distention, abdominal pain and blood in stool. Endocrine: Negative for polydipsia, polyphagia and polyuria. Genitourinary: Negative for hematuria. Skin: Negative for color change, pallor, rash and wound. Neurological: Positive for dizziness. Negative for syncope, facial asymmetry, speech difficulty and weakness. BP 120/72 Pulse 67 Ht 6' 1 (1.854 m) Wt 199 lb (90.3 kg) SpO2 98% BMI 26.25 kg/m Physical Exam Constitutional: General: He is not in acute distress. Appearance: He is not ill-appearing or diaphoretic. HENT: Head: Normocephalic and atraumatic. Eyes: Extraocular Movements: Extraocular movements intact. Pupils: Pupils are equal, round, and reactive to light. Neck: Vascular: No carotid bruit. Cardiovascular: Rate and Rhythm: Normal rate and regular rhythm. Pulses: Normal pulses. Heart sounds: Normal heart sounds. No murmur heard. No friction rub. Pulmonary: Effort: Pulmonary effort is normal. Breath sounds: Normal breath sounds. No wheezing, rhonchi or rales. Abdominal: General: Bowel sounds are normal. There is no distension. Palpations: Abdomen is soft. There is no hepatomegaly, splenomegaly or mass. Tenderness: There is no abdominal tenderness. Musculoskeletal: Cervical back: Neck supple. Skin: General: Skin is warm and dry. Coloration: Skin is not pale. Findings: No erythema. Neurological: Mental Status: He is alert and oriented to person, place, and time. Motor: No weakness. Coordination: Coordination normal. Gait: Gait normal. Psychiatric: Mood and Affect: Mood normal. Behavior: Behavior normal. Thought Content: Thought content normal. Judgment: Judgment normal. Assessment and Plan: 1. Type 2 diabetes mellitus with stage 3b chronic kidney disease, without long-term current use of insulin (HCC) - Hemoglobin A1c - Basic metabolic panel - Did not bring in home blood sugars for review. Will check blood work today and provide recommendations accordingly. 2. Chronic renal impairment, stage 3b (HCC) - Basic metabolic panel - Will notify of blood work results. 3. Anemia in stage 3b chronic kidney disease (HCC) - Basic metabolic panel - Stable. 4. Hyperlipidemia LDL goal <70 - Stable with Simvastatin. Will continue current treatment plan. 5. Chronic pain syndrome - Basic metabolic panel - Stable. Follow up with specialist as directed. 6. TABITHA (obstructive sleep apnea) - Stable with CPAP. Will continue current treatment plan. 7. Primary insomnia - Basic metabolic panel - Stable with Melatonin. Will continue current treatment plan. 8. Primary narcolepsy without cataplexy - Basic metabolic panel - Stable. 9. Restless leg syndrome - Basic metabolic panel - Stable with Ropinirole. Will continue current treatment plan. 10. Iron deficiency anemia, unspecified iron deficiency anemia type - Stable. 11. Benign prostatic hyperplasia without lower urinary tract symptoms - Basic metabolic panel - Stable. 12. Dizziness - [facility] Discussed use, benefit, and side effects of prescribed medications. Barriers to medication compliance addressed. All patient questions answered. Pt voiced understanding. Follow up in 6 months (on 07/15/2023) for Next scheduled follow-up. Outpatient Encounter Medications as of 01/05/2023 Medication Sig Dispense Refill acetaminophen (Tylenol) 500 MG tablet Take 1,000 mg by mouth in the morning and 1,000 mg at noon and 1,000 mg in the evening. albuterol 108 (90 Base) MCG/ACT inhaler Inhale 2 puffs. citalopram (CeleXA) 20 MG tablet take 1 tablet by mouth once daily 90 tablet 1 dextroamphetamine (DextroStat) 10 MG tablet Take 2 tablets by mouth in the morning and at bedtime. finasteride (Proscar) 5 MG tablet take 1 tablet by mouth once daily 90 tablet 1 gabapentin (Neurontin) 100 MG capsule Every 24 hours. glimepiride (Amaryl) 1 MG tablet Take 1 tablet (1 mg) by mouth every morning. 90 tablet 1 Glucose Blood (Blood Glucose Test) strip Test blood sugar daily DX: E11.9, type 2 diabetes mellitus without complication, without long-term current use of insulin ibuprofen 200 MG tablet every 12 hours. melatonin 10 MG tablet Take 10 mg by mouth Nightly as needed. metFORMIN (Glucophage) 1000 MG tablet Take 1 tablet by mouth in the morning and 1 tablet in the evening. Take with meals. methadone (Dolophine) 5 MG tablet Take 5 mg by mouth at bedtime. NON FORMULARY Beet root chews prednisoLONE acetate (Pred-Forte) 1 % ophthalmic suspension rOPINIRole (Requip) 1 MG tablet Take 1 mg by mouth. 1 q morning 2 at noon 2 at night simvastatin (Zocor) 10 MG tablet take 1 tablet by mouth at bedtime 90 tablet 1 tamsulosin (Flomax) 0.4 MG 24 hr capsule Take 0.8 mg by mouth. No facility-administered encounter medications on file as of 01/05/2023. BYRON Martinez CNP 01/05/2023 9:57 AM documented in this encounter [facility] 01-16-2022 Miscellaneous Notes Lynnette Jung, Department of Affairs ([phone]) called requesting the results of the EGD and colonoscopy that were completed on 06/20/2021. Results faxed to Lynnette's attention at [phone]. Fax confirmation sheet received. Yun Valiente RN documented in this encounter [facility] 10-12-2021 Note Hospitalist Discharg e Summary Candice Matthew : 1940 Admit date: 10/06/2021 Discharge date: 10/12/2021 Admitting Physician: Markel Nathan MD Primary Care Physician: Jignesh Leger MD Visit Status: Admission Code Status: Full Code Discharge Diagnoses: 1. Pelvic fractures 2. Chronic pain Diagnosis Date ? Chronic back pain ? Depression ? Hyperlipidemia ? Hypertension ? Kidney stone ? Osteoarthritis ? Restless legs syndrome (RLS) ? Type II or unspecified type diabetes mellitus without mention of complication, not stated as uncontrolled ? Unspecified hemorrhoids without mention of complication ? Unspecified hyperplasia of prostate without urinary obstruction and other lower urinary tract symptoms (LUTS) Procedures: None Hospital Course: 81-year-old male with history of chronic pain. Admitted to the hospital on account of a fall and pelvic fractures. Seen by orthopedic surgery. No surgical interventions. Was seen by pain management/addiction medicine. Recommendations are to hold methadone for now while on Percocet for his acute pain. Resume methadone when need for acute treatment of pain no longer exists and at which time Percocet will be discontinued. Requires rehabilitation in a care home facility. Tested positive for COVID-19 initially but asymptomatic. Subsequent repeat tests are negative. Stable for discharge. Consults: IP CONSULT TO HOSPITALIST IP CONSULT TO CASE MANAGEMENT IP CONSULT TO HOME CARE NEEDS IP CONSULT TO ADDICTION MEDICINE Discharge Instructions: Diet: ADULT DIET; Regular; 3 carb choices (45 gm/meal) Activity: as tolerated Recommended Outpatient Tests: Disposition: Patient discharged in stable condition to care home facility for rehab. Greater than 30 minutes spent discharging the patient and coming up with patient discharge plan. Vitals: BP 133/66 Pulse 98 Temp 96.8 ?F (36 ?C) (Temporal) Resp 18 Ht 6' 1 (1.854 m) Wt 180 lb (81.6 kg) SpO2 93% BMI 23.75 kg/m? Pulse Ox: SpO2 Av.5 % Min: 93 % Max: 96 % Supplemental O2: General appearance: No apparent distress, appears stated age and cooperative with exam HEENT: Normal cephalic, atraumatic without obvious deformity. Pupils equal, round, and reactive to light. Extra ocular muscles intact. Conjunctivae/corneas clear. Neck: Supple, with full range of motion. No jugular venous distention. Trachea midline. No lymphadenopathy. Respiratory: Normal respiratory effort. Clear to auscultation, bilaterally without Rales/Wheezes/Rhonchi. Cardiovascular: Regular rate and rhythm with normal S1/S2 without murmurs, rubs or gallops. Abdomen: Soft, non-tender, non-distended with normal bowel sounds. No rebound or guarding. Musculoskeletal: Tenderness on palpation of the pelvic bones Skin: Skin color, texture, turgor normal. No rashes or lesions. Neurologic: Neurovascularly intact without any focal sensory/motor deficits. Cranial nerves: II-XII intact, grossly non-focal. Discharge Medications: Medication List START taking these medications aluminum & magnesium hydroxide-simethicone 200-200-20 MG/5ML Susp suspension Commonly known as: MAALOX Take 30 mLs by mouth every 6 hours as needed for Indigestion oxyCODONE-acetaminophen 5-325 MG per tablet Commonly known as: Percocet Take 2 tablets by mouth every 8 hours as needed for Pain for up to 7 days. polyethylene glycol 17 GM/SCOOP powder Commonly known as: GLYCOLAX Take 17 g by mouth daily for 14 days predniSONE 10 MG tablet Commonly known as: DELTASONE 5 tablets by mouth once a day x 2 days, then 4 tablets by mouth once a day x 2 days, then 3 tablets by mouth once a day x 2 days, then 2 tablets by mouth once a day x 2 days, then 1 tablets by mouth once a day x 2 days then stop. sennosides-docusate sodium 8.6-50 MG tablet Commonly known as: SENOKOT-S Take 2 tablets by mouth in the morning and at bedtime for 14 days CONTINUE taking these medications albuterol sulfate HFA 108 (90 Base) MCG/ACT inhaler Commonly known as: Ventolin HFA Inhale 2 puffs into the lungs 4 times daily as needed for Wheezing aspirin 81 MG chewable tablet blood glucose test strips Test blood sugar daily DX: E11.9, type 2 diabetes mellitus without complication, without long-term current use of insulin citalopram 20 MG tablet Commonly known as: CELEXA take 1 tablet by mouth once daily Denta 5000 Plus 1.1 % Crea Generic drug: SODIUM FLUORIDE (DENTAL GEL) dextroamphetamine 10 MG tablet Commonly known as: DEXTROSTAT finasteride 5 MG tablet Commonly known as: PROSCAR take 1 tablet by mouth once daily fluocinolone 0.01 % Oil oil Commonly known as: DERMOTIC Place 4 drops in ear(s) [address] 4 drops in right ear 2 times a day glimepiride 1 MG tablet Commonly known as: AMARYL take 1 tablet by mouth every morning glucose monitoring kit Test blood sugar daily DX: E11.9, type (more content not included)... [facility] 10-12-2021 Hospital course Narrative Images from the original note were not included. Hospitalist Discharge Summary Candice Matthew : 1940 Admit date: 10/06/2021 Discharge date: 10/12/2021 Admitting Physician: Markel Nathan MD Primary Care Physician: Jignesh Leger MD Visit Status: Admission Code Status: Full Code Discharge Diagnoses: 1. Pelvic fractures 2. Chronic pain Diagnosis Date Chronic back pain Depression Hyperlipidemia Hypertension Kidney stone Osteoarthritis Restless legs syndrome (RLS) Type II or unspecified type diabetes mellitus without mention of complication, not stated as uncontrolled Unspecified hemorrhoids without mention of complication Unspecified hyperplasia of prostate without urinary obstruction and other lower urinary tract symptoms (LUTS) Procedures: None Hospital Course: 81-year-old male with history of chronic pain. Admitted to the hospital on account of a fall and pelvic fractures. Seen by orthopedic surgery. No surgical interventions. Was seen by pain management/addiction medicine. Recommendations are to hold methadone for now while on Percocet for his acute pain. Resume methadone when need for acute treatment of pain no longer exists and at which time Percocet will be discontinued. Requires rehabilitation in a care home facility. Tested positive for COVID-19 initially but asymptomatic. Subsequent repeat tests are negative. Stable for discharge. Consults: IP CONSULT TO HOSPITALIST IP CONSULT TO CASE MANAGEMENT IP CONSULT TO HOME CARE NEEDS IP CONSULT TO ADDICTION MEDICINE Discharge Instructions: Diet: ADULT DIET; Regular; 3 carb choices (45 gm/meal) Activity: as tolerated Recommended Outpatient Tests: Disposition: Patient discharged in stable condition to care home facility for rehab. Greater than 30 minutes spent discharging the patient and coming up with patient discharge plan. Vitals: BP 133/66 Pulse 98 Temp 96.8 F (36 C) (Temporal) Resp 18 Ht 6' 1 (1.854 m) Wt 180 lb (81.6 kg) SpO2 93% BMI 23.75 kg/m Pulse Ox: SpO2 Av.5 % Min: 93 % Max: 96 % Supplemental O2: General appearance: No apparent distress, appears stated age and cooperative with exam HEENT: Normal cephalic, atraumatic without obvious deformity. Pupils equal, round, and reactive to light. Extra ocular muscles intact. Conjunctivae/corneas clear. Neck: Supple, with full range of motion. No jugular venous distention. Trachea midline. No lymphadenopathy. Respiratory: Normal respiratory effort. Clear to auscultation, bilaterally without Rales/Wheezes/Rhonchi. Cardiovascular: Regular rate and rhythm with normal S1/S2 without murmurs, rubs or gallops. Abdomen: Soft, non-tender, non-distended with normal bowel sounds. No rebound or guarding. Musculoskeletal: Tenderness on palpation of the pelvic bones Skin: Skin color, texture, turgor normal. No rashes or lesions. Neurologic: Neurovascularly intact without any focal sensory/motor deficits. Cranial nerves: II-XII intact, grossly non-focal. Discharge Medications: Medication List START taking these medications aluminum & magnesium hydroxide-simethicone 200-200-20 MG/5ML Susp suspension Commonly known as: MAALOX Take 30 mLs by mouth every 6 hours as needed for Indigestion oxyCODONE-acetaminophen 5-325 MG per tablet Commonly known as: Percocet Take 2 tablets by mouth every 8 hours as needed for Pain for up to 7 days. polyethylene glycol 17 GM/SCOOP powder Commonly known as: GLYCOLAX Take 17 g by mouth daily for 14 days predniSONE 10 MG tablet Commonly known as: DELTASONE 5 tablets by mouth once a day x 2 days, then 4 tablets by mouth once a day x 2 days, then 3 tablets by mouth once a day x 2 days, then 2 tablets by mouth once a day x 2 days, then 1 tablets by mouth once a day x 2 days then stop. sennosides-docusate sodium 8.6-50 MG tablet Commonly known as: SENOKOT-S Take 2 tablets by mouth in the morning and at bedtime for 14 days CONTINUE taking these medications albuterol sulfate HFA 108 (90 Base) MCG/ACT inhaler Commonly known as: Ventolin HFA Inhale 2 puffs into the lungs 4 times daily as needed for Wheezing aspirin 81 MG chewable tablet blood glucose test strips Test blood sugar daily DX: E11.9, type 2 diabetes mellitus without complication, without long-term current use of insulin citalopram 20 MG tablet Commonly known as: CELEXA take 1 tablet by mouth once daily Denta 5000 Plus 1.1 % Crea Generic drug: SODIUM FLUORIDE (DENTAL GEL) dextroamphetamine 10 MG tablet Commonly known as: DEXTROSTAT finasteride 5 MG tablet Commonly known as: PROSCAR take 1 tablet by mouth once daily fluocinolone 0.01 % Oil oil Commonly known as: DERMOTIC Place 4 drops in ear(s) [address] 4 drops in right ear 2 times a day glimepiride 1 MG tablet Commonly known as: AMARYL take 1 tablet by mouth every morning glucose monitoring kit Test blood sugar daily DX: E11.9, type 2 diabetes mellitus without complication, without long-term current use of insulin Lancets Misc Test blood sugar daily, DX: E11.9, type 2 diabetes mellitus without complication, without long-term current use of insulin lisinopril 5 MG tablet Commonly known as: PRINIVIL;ZESTRIL take 1 tablet by mouth once daily Melatonin 10 MG Tabs meloxicam 15 MG tablet Commonly known as: Mobic Take 1 tablet by mouth daily for 14 days metFORMIN 500 MG tablet Commonly known as: GLUCOPHAGE NONFORMULARY rOPINIRole 1 MG tablet Commonly known as: REQUIP Take 1 tablet by mouth 5 times daily simvastatin 10 MG tablet Commonly known as: ZOCOR take 1 tablet by mouth at bedtime tamsulosin 0.4 MG capsule Commonly known as: FLOMAX Walker Misc Use as directed STOP taking these medications methadone 5 MG tablet Commonly known as: DOLOPHINE ASK your doctor about these medications traMADol 50 MG tablet Commonly known as: ULTRAM Take 1 tablet by mouth every 6 hours as needed (Moderate pain) for up to 3 days. Ask about: Should I take this medication? Where to Get Your Medications These medications were sent to [id number] [place] - [address] [facility] - P [phone] - F [phone] [address] [phone] predniSONE 10 MG tablet Information about where to get these medications is not yet available Ask your nurse or doctor about these medications aluminum & magnesium hydroxide-simethicone 200-200-20 MG/5ML Susp suspension oxyCODONE-acetaminophen 5-325 MG per tablet polyethylene glycol 17 GM/SCOOP powder sennosides-docusate sodium 8.6-50 MG tablet traMADol 50 MG tablet Recommended Follow-up: Jignesh Leger MD [address] [place] [address], [address] [facility] [id number] Felipe Damon MD [address] [place] [address], [address] [facility] [id number] In 1 week For fracture follow up Readmission Risk Risk of Unplanned Readmission: 0 Complexity of Follow up: [] Moderate Complexity: follow up within 7-14 calendar days (72939) [x] Severe Complexity: follow up within 7 calendar days (81619) Follow up Testing, Pending results or Referrals at Transitional Care Visit: [x] yes [] no Instructions to MA: Please call patient on day after discharge (must document patient contacted within 2 business days of discharge). Follow up questions for MA: 1. Did you get medications filled and taking them as instructed from discharge? 2. Are you following your discharge instructions from your hospital stay? 3. Please confirm patient is scheduled for a follow up appointment within the above time frame. Signed: Syd Smith MD Division of Hospitalist Medicine Inpatient Medical Services 10/12/2021, 3:24 PM Images from the original note were not included. Hospitalist Discharge Summary Patient ID: Candice Matthew Patient : 1940 Patient's PCP: Jignesh Leger MD Admit Date: 10/06/2021 Admitting Physician: Markel Nathan MD Discharge Date: 10/11/21 Discharge Physician: Andrey Warren MD Discharge Condition: Stable Discharge Disposition: Acute Rehab Hospital course in brief: (Please refer to daily progress notes for a comprehensive review of the hospitalization by requesting medical records) Patient admitted on 10/06/2021 who presented to [facility] as a transfer from [facility] for PT/OT orthopedic evaluation for sacral and pubic ramus fractures. Patient reports he fell off a chair he was standing on that collapsed in his home 3 weeks ago, mostly landing on his right side. He was evaluated in ER and advised of pubic ramus fracture. Over the past 4 days he has been having increasing left hip pain and repeat imaging showed the sacral fracture today. Patient sent here for rehab evaluation and pain control. Patient has been on nightly Methadone for overall pain that has been chronic but has not been taking it since the accident and initiation of narcotic medication. Will admit for further evaluation and management. Admitted to monitored for pain control. PT OT evaluations noted. Patient had evaluation by orthopedic team. Patient was discharged in stable condition. ADDENDUM: Patient tested positive for COVID and could not discharge to Rehab. Patient discharged home with [facility] services Consults: IP CONSULT TO HOSPITALIST IP CONSULT TO CASE MANAGEMENT IP CONSULT TO HOME CARE NEEDS IP CONSULT TO ADDICTION MEDICINE Discharge Diagnoses: Pubic ramus/sacral fractures Type 2 diabetes mellitus with an A1c of CKD stage III Hypertension Restless leg syndrome BPH Hyperlipidemia Depression Chronic back pain / syndrome - on Methadone Discharge exam: see today's progress note BP 131/62 Pulse 79 Temp 96.8 F (36 C) (Temporal) Resp 15 Ht 6' 1 (1.854 m) Wt 180 lb (81.6 kg) SpO2 97% BMI 23.75 kg/m General appearance: No apparent distress. Pain is more than adequately controlled HEENT: Conjunctivae/corneas clear. Neck: Supple. No jugular venous distention. Respiratory: Clear to auscultation bilaterally, normal respiratory effort Cardiovascular: Regular rate rhythm, normal S1-S2 Abdomen: Soft, nontender, nondistended Musculoskeletal: No clubbing, cyanosis, no bilateral lower extremity edema. Brisk capillary refill. Skin: No rashes on visible skin Neurologic: awake, alert and following commands Discharge Instructions / Follow up: Future Appointments Date Time Provider Department Center 10/22/2021 9:30 AM [facility] [address] [facility] 11/05/2021 9:45 AM Martha Tariq DO [facility] 12/19/2021 9:00 AM Jignesh Leger MD [facility] 06/23/2022 9:00 AM Damien Arce, PLANT 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 - JOCELYN [facility] Titrate pain medications for comfort to participate in rehab Continued appropriate risk factor modification of blood pressure, diabetes and serum lipids will remain essential to reducing risk of future atherosclerotic development Activity: activity as tolerated Significant labs: CBC: Recent Labs 10/09/21 0606 WBC 5.5 RBC 4.02* HGB 12.9* HCT 38.8* MCV 96.5 RDW 13.7 PLT 207 BMP: Recent Labs 10/09/21 0606 NA 134* K 4.9 CL 103 CO2 22 BUN 40* CREATININE 1.25 LFT: No results for input(s): PROT, ALB, ALKPHOS, ALT, AST, BILITOT, AMYLASE, LIPASE in the last 72 hours. PT/INR: No results for input(s): INR, APTT in the last 72 hours. BNP: No results for input(s): BNP in the last 72 hours. Hgb A1C: Lab Results Component Value Date LABA1C 6.9 (A) 06/21/2021 Folate and B12: No results found for: [id number], No results found for: FOLATE Thyroid Studies: Lab Results Component Value Date TSH 1.350 07/15/2017 [id number] 89 07/15/2017 Urinalysis: No results found for: NITRU, WBCUA, BACTERIA, RBCUA, BLOODU, SPECGRAV, GLUCOSEU Imaging: XR ELBOW RIGHT (2 VIEWS) Result Date: 09/17/2021 Patient Name: CANDICE MATTHEW Diagnostic Radiology ACCESSION EXAM DATE/TIME PROCEDURE ORDERING PROVIDER [id number] 09/17/2021 21:11 EST CR Elbow 2 Views Right 5803 -VIGNESH HULL CPT code 66238 Reason For Exam (CR Elbow 2 Views Right) fall, elbow pain Report EXAMINATION: Right elbow two views INDICATION: fall, elbow pain FINDINGS: The lateral radiograph is limited in positioning. No acute fracture or dislocation is demonstrated. There is a small well-corticated osseous fragment along the expected common extensor origin. Small osteophytes are present at the articulation of the radial head with the ulna. The joint spaces are otherwise grossly maintained. There is soft tissue swelling along the posterior elbow. IMPRESSION: No obvious acute fracture. Diagnostic Radiology Report Report Dictated on --- Final --- Dictating Physician: MD BOUCHER KRIKOR Signed Date and Time: 09/17/2021 9:28 pm Signed by: MD BOUCHER KRIKOR Transcribed Date and Time: 09/17/2021 9:29 XR HIP RIGHT (2-3 VIEWS) Result Date: 09/17/2021 Patient Name: CANDICE MATTHEW [facility]#: [id number] Diagnostic Radiology ACCESSION EXAM DATE/TIME PROCEDURE ORDERING PROVIDER [id number] 09/17/2021 21:11 EST CR Hip w/ Pelvis 2 or 3 5803 -KEI HULLNTIN Views Right n CPT code 67037 Reason For Exam (CR Hip w/ Pelvis 2 or 3 Views Right n) fall, r hip pain Report AP view of the pelvis and AP and frog-leg lateral views of the right hip, 09/17/2021. Reason for examination: Right hip pain after falling. COMPARISON: CT of the abdomen and pelvis dated February 15, 2018. FINDINGS: There are minimally displaced fractures of the right superior and inferior rami fractures identified. There is no evidence of hip dislocation. There are [id number] degenerative changes in the hips bilaterally. Degenerative changes are also noted in the lumbar spine. IMPRESSION: Fractures of the right superior and inferior pubic rami. Report Dictated on --- Final --- Dictating Physician: MD CORREA JOE M Signed Date and Time: 09/17/2021 9:26 pm Signed by: MD CORREA JOE M Transcribed Date and Time: 09/17/2021 9:27 XR FEMUR LEFT (MIN 2 VIEWS) Result Date: 10/06/2021 Patient Name: CANDICE MATTHEW Diagnostic Radiology ACCESSION EXAM DATE/TIME PROCEDURE ORDERING PROVIDER [id number] 10/06/2021 17:32 EST CR Femur 2+ Views Left n MD EMANUEL DOUGALAS R. CPT code 63900 Reason For Exam (CR Femur 2+ Views Left n) left femur/proximal left hip pain Report EXAMINATION: LEFT FEMUR RADIOGRAPH CLINICAL INDICATION: Fall, left hip pain TECHNIQUE: Two views COMPARISON: None. FINDINGS: No acute fracture or subluxation of the left femur/hip. Alignment is anatomic. Joint spaces are preserved. Soft tissues are intact. IMPRESSION: No acute fracture of the left hip/femur. Known fractures of the right superior and inferior pubic rami better characterized on pelvic CT performed earlier today. Report Dictated on --- Final --- Dictating Physician: MD KRISTAL, VITA BERNAL Signed Date and Time: 10/06/2021 5:39 pm Signed by: MD KRISTAL, VITA BERNAL Transcribed Date and Time: 10/06/2021 5:40 XR PELVIS (MIN 3 VIEWS) Result Date: 10/07/2021 Patient Name: CANDICE MATTHEW Diagnostic Radiology ACCESSION EXAM DATE/TIME PROCEDURE ORDERING PROVIDER [id number] 10/07/2021 09:08 EST CR Pelvis Complete [id number] NIKOLE CASE Minimum 3 Views CPT code 82322 Reason For Exam (CR Pelvis Complete Minimum 3 Views) AP/inlet/outlet Report Indication: Fracture. Findings and impression: Pelvis three views performed. Fracture deformity right superior and inferior pubic rami. Fracture deformities well visualized on CT 10/06/2021. Femurs intact. Pubic symphysis and SI joints intact. Degenerative changes of lumbar spine noted. Report Dictated on --- Final --- Dictating Physician: MD VASQUEZ JOHN Signed Date and Time: 10/07/2021 9:25 am Signed by: MD VASQUEZ JOHN Transcribed Date and Time: 10/07/2021 9:26 CT PELVIS WO ANY CONTRAST Result Date: 10/06/2021 Patient Name: CANDICE MATTHEW Computed Tomography ACCESSION EXAM DATE/TIME PROCEDURE ORDERING PROVIDER [id number] 10/06/2021 17:[address] Pelvis w/o Contrast MD EMANUEL DOUGALAS R. CPT code 22809 Reason For Exam (CT Pelvis w/o Contrast) fell on 09/17/21, has right upper and lower rami fx. now his left hip pain. is he putting too much weight on left hip or are there left pubic rami or left hip fractures too?? Report CT PELVIS WITHOUT CONTRAST CLINICAL INDICATION: Left-sided hip pain. Recent history of right superior and inferior pubic rami fractures. Evaluate for new fractures. Noncontrast axial CT images of the pelvis were obtained. Coronal and sagittal reformatted images were also made available for interpretation. COMPARISON: Plain films of the pelvis and right hip dated 09/17/2021 FINDINGS: Again are identified nondisplaced, slightly comminuted fractures of the right superior and inferior pubic rami with mild surrounding callus formation. The appearance is similar to the plain films dated 09/17/2021. No fracture or dislocation of the left or right hip is identified. There are moderate degenerative changes of the bilateral hip joints, with loss of joint space and degenerative spurring. The visualized portion of the left and right femurs are unremarkable. A nondisplaced, incomplete hairline fracture through the left sacral ala is suspected. There are moderate degenerative changes of the lower lumbar spine. No fluid collection or mass is identified within the pelvis on the soft tissue images. There is no soft tissue gas or radiopaque foreign body. IMPRESSION: Nondisplaced, slightly comminuted fractures of the right superior and inferior pubic rami with mild surrounding callus formation, similar appearance to plain films dated 09/17/2021. An incomplete, hairline fracture of the left sacral ala is suspected. This may be confirmed with either bone scan or MRI if clinically warranted. Computed Tomography Report Report Dictated on --- Final --- Dictating Physician: MD VALENCIA JONATHAN R Signed Date and Time: 10/06/2021 5:29 pm Signed by: MD VALENCIA JONATHAN R Transcribed Date and Time: 10/06/2021 5:30 XR PELVIS (1-2 VW) Result Date: 09/17/2021 Patient Name: CANDICE MATTHEW Diagnostic Radiology ACCESSION EXAM DATE/TIME PROCEDURE ORDERING PROVIDER [id number] 09/17/2021 22:56 EST CR Pelvis 1 or 2 Views 5803 -VIGNESH HULL CPT code 73160 Reason For Exam (CR Pelvis 1 or 2 Views) inlet and outlet Report EXAMINATION: AP pelvis with Inlet and outlet views INDICATION: inlet and outlet FINDINGS: Fractures of the right superior and inferior pubic rami are present. There is cam morphology along the lateral right and left femoral head neck junctions. Degenerative disc disease of the lower lumbar spine is present. Mild degenerative changes of the SI joints are noted. The soft tissues are grossly unremarkable. IMPRESSION: Acute fractures of the right superior and inferior pubic rami. Report Dictated on --- Final --- Dictating Physician: MD BOUCHER KRIKOR Signed Date and Time: 09/17/2021 11:11 pm Signed by: MD BOUCHER KRIKOR Transcribed Date and Time: 09/17/2021 11:12 Discharge Medications: Medication List START taking these medications aluminum & magnesium hydroxide-simethicone 200-200-20 MG/5ML Susp suspension Commonly known as: MAALOX Take 30 mLs by mouth every 6 hours as needed for Indigestion oxyCODONE-acetaminophen 7.5-325 MG per tablet Commonly known as: Percocet Take 1 tablet by mouth every 6 hours as needed for Pain for up to 7 days. Intended supply: 28 days sennosides-docusate sodium 8.6-50 MG tablet Commonly known as: SENOKOT-S Take 1 tablet by mouth daily traMADol 50 MG tablet Commonly known as: ULTRAM Take 1 tablet by mouth every 6 hours as needed (Moderate pain) for up to 3 days. CONTINUE taking these medications albuterol sulfate HFA 108 (90 Base) MCG/ACT inhaler Commonly known as: Ventolin HFA Inhale 2 puffs into the lungs 4 times daily as needed for Wheezing aspirin 81 MG chewable tablet blood glucose test strips Test blood sugar daily DX: E11.9, type 2 diabetes mellitus without complication, without long-term current use of insulin citalopram 20 MG tablet Commonly known as: CELEXA take 1 tablet by mouth once daily Denta 5000 Plus 1.1 % Crea Generic drug: SODIUM FLUORIDE (DENTAL GEL) dextroamphetamine 10 MG tablet Commonly known as: DEXTROSTAT finasteride 5 MG tablet Commonly known as: PROSCAR take 1 tablet by mouth once daily fluocinolone 0.01 % Oil oil Commonly known as: DERMOTIC Place 4 drops in ear(s) [address] 4 drops in right ear 2 times a day glimepiride 1 MG tablet Commonly known as: AMARYL take 1 tablet by mouth every morning glucose monitoring kit Test blood sugar daily DX: E11.9, type 2 diabetes mellitus without complication, without long-term current use of insulin Lancets Misc Test blood sugar daily, DX: E11.9, type 2 diabetes mellitus without complication, without long-term current use of insulin lisinopril 5 MG tablet Commonly known as: PRINIVIL;ZESTRIL take 1 tablet by mouth once daily Melatonin 10 MG Tabs meloxicam 15 MG tablet Commonly known as: Mobic Take 1 tablet by mouth daily for 14 days metFORMIN 500 MG tablet Commonly known as: GLUCOPHAGE methadone 5 MG tablet Commonly known as: DOLOPHINE NONFORMULARY rOPINIRole 1 MG tablet Commonly known as: REQUIP Take 1 tablet by mouth 5 times daily simvastatin 10 MG tablet Commonly known as: ZOCOR take 1 tablet by mouth at bedtime tamsulosin 0.4 MG capsule Commonly known as: FLOMAX Walker Misc Use as directed Where to Get Your Medications Information about where to get these medications is not yet available Ask your nurse or doctor about these medications aluminum & magnesium hydroxide-simethicone 200-200-20 MG/5ML Susp suspension oxyCODONE-acetaminophen 7.5-325 MG per tablet sennosides-docusate sodium 8.6-50 MG tablet traMADol 50 MG tablet Time Spent on discharge is more than 40 minutes in the examination, evaluation, counseling and review of medications and discharge plan. ++++++++++++++++++++++++++++++++++ +++++++++++++++ Andrey Warren MD ++++++++++++++++++++++++++++++++++ +++++++++++++++ NOTE: This report was transcribed using voice recognition software. Every effort was made to ensure accuracy; however, inadvertent computerized agronomy professor errors may be present. documented in this encounter [facility] Work Phone: 10-11-2021 Note Hospitalist Discharg e Summary Patient ID: Candice Matthew Patient : 1940 Patient's PCP: Jignesh Leger MD Admit Date: 10/06/2021 Admitting Physician: Mrakel Nathan MD Discharge Date: 10/11/21 Discharge Physician: Andrey Warren MD Discharge Condition: Stable Discharge Disposition: Acute Rehab Hospital course in brief: (Please refer to daily progress notes for a comprehensive review of the hospitalization by requesting medical records) Patient admitted on 10/06/2021 who presented to [facility] as a transfer from [facility] for PT/OT orthopedic evaluation for sacral and pubic ramus fractures. Patient reports he fell off a chair he was standing on that collapsed in his home 3 weeks ago, mostly landing on his right side. He was evaluated in ER and advised of pubic ramus fracture. Over the past 4 days he has been having increasing left hip pain and repeat imaging showed the sacral fracture today. Patient sent here for rehab evaluation and pain control. Patient has been on nightly Methadone for overall pain that has been chronic but has not been taking it since the accident and initiation of narcotic medication.?Will admit for further evaluation and management. ? Admitted to monitored for pain control. PT OT evaluations noted. Patient had evaluation by orthopedic team. Patient was discharged in stable condition. ADDENDUM: Patient tested positive for COVID and could not discharge to Rehab. Patient discharged home with [facility] services Consults: IP CONSULT TO HOSPITALIST IP CONSULT TO CASE MANAGEMENT IP CONSULT TO HOME CARE NEEDS IP CONSULT TO ADDICTION MEDICINE Discharge Diagnoses: Pubic ramus/sacral fractures Type 2 diabetes mellitus with an A1c of CKD stage III Hypertension Restless leg syndrome BPH Hyperlipidemia Depression Chronic back pain / syndrome - on Methadone Discharge exam: see today's progress note BP 131/62 Pulse 79 Temp 96.8 ?F (36 ?C) (Temporal) Resp 15 Ht 6' 1 (1.854 m) Wt 180 lb (81.6 kg) SpO2 97% BMI 23.75 kg/m? General appearance: No apparent distress. Pain is more than adequately controlled HEENT: Conjunctivae/corneas clear. Neck: Supple. No jugular venous distention. Respiratory: Clear to auscultation bilaterally, normal respiratory effort Cardiovascular: Regular rate rhythm, normal S1-S2 Abdomen: Soft, nontender, nondistended Musculoskeletal: No clubbing, cyanosis, no bilateral lower extremity edema. Brisk capillary refill. Skin: No rashes on visible skin Neurologic: awake, alert and following commands Discharge Instructions / Follow up: Future Appointments Date Time Provider Department Center 10/22/2021 9:30 AM [facility]EDULE, [facility] [address] [facility] 11/05/2021 9:45 AM [facility] 12/19/2021 9:00 AM Jignesh Leger MD [facility] 06/23/2022 9:00 AM Damien Arce APRN - FLATWARE MAKER [facility] Titrate pain medications for comfort to participate in rehab Continued appropriate risk factor modification of blood pressure, diabetes and serum lipids will remain essential to reducing risk of future atherosclerotic development Activity: activity as tolerated Significant labs: CBC: Recent Labs 10/09/21 0606 WBC 5.5 RBC 4.02* HGB 12.9* HCT 38.8* MCV 96.5 RDW 13.7 PLT 207 BMP: Recent Labs 10/09/21 0606 NA 134* K 4.9 CL 103 CO2 22 BUN 40* CREATININE 1.25 LFT: No results for input(s): PROT, ALB, ALKPHOS, ALT, AST, BILITOT, AMYLASE, LIPASE in the last 72 hours. PT/INR: No results for input(s): INR, APTT in the last 72 hours. BNP: No results for input(s): BNP in the last 72 hours. Hgb A1C: Lab Results Component Value Date LABA1C 6.9 (A) 06/21/2021 Folate and B12: No results found for: [id number], No results found for: FOLATE Thyroid Studies: Lab Results Component Value Date TSH 1.350 07/15/2017 [id number] 89 07/15/2017 Urinalysis: No results found for: NITRU, WBCUA, BACTERIA, RBCUA, BLOODU, SPECGRAV, GLUCOSEU Imaging: XR ELBOW RIGHT (2 VIEWS) Result Date: 09/17/2021 Patient Name: CANDICE MATTHEW Diagnostic Radiology ACCESSION EXAM DATE/TIME PROCEDURE ORDERING PROVIDER [id number] 09/17/2021 21:11 EST CR Elbow 2 Views Right 5803 -VIGNESH HULL CPT code 31332 Reason For Exam (CR Elbow 2 Views Right) fall, elbow pain Report EXAMINATION: Right elbow two views INDICATION: fall, elbow pain FINDINGS: The lateral radiograph is limited in positioning. No acute fracture or dislocation is demonstrated. There is a small well-corticated osseous fragment along the expected common extensor origin. Small osteophytes are present at the articulation of the radial head with the ulna. The joint spaces are otherwise grossly maintained. There is soft tissue swelling along theposterior elbow. IMPRESSION: No obvious acute fracture. Diagnostic Radiology Report Report Dictated on Workstation: (more content not included)... [facility] 10-10-2021 History of Present illness Narrative Patient transferred up to [facility] from [facility]. Patient resting comfortably. No complaints. Will continue to monitor Occupational Therapy Facility/Department: [facility] Daily Treatment Note NAME: Candice Matthew : 1940 Date of Service: 10/10/2021 Discharge Recommendations: IP Rehab Assessment Performance deficits / Impairments: Decreased functional mobility ;Decreased endurance;Decreased ADL status;Decreased balance;Decreased safe awareness;Decreased high-level IADLs Assessment: Pt completed toileting ADL this date. Increased time required throughout d/t increased fatigue and pain in BLE hips, L > R. He required CGA for completion of functional transfers / mobility. Good FWW management. Pt completed hand hygiene at sink thsi date wtih use of environemtnal supports and FWW. No gross LOB. Also of note pt recieved r/o COVID-19 test and has resulted positive, appears asymptomatic. Pt would continue to beenfit from skilled OT services. Continue to rec IP rehab for D/C. Prognosis: Good History: Pt was admitted with R pubic ramus fracture, sacral fracture, gait disturbance and L hip pain. PMH is listed above. Exam: [facility] Assistance / Modification: CGA OT Education: Transfer Training Barriers to Learning: none REQUIRES OT FOLLOW UP: Yes Activity Tolerance Activity Tolerance: Patient limited by fatigue;Patient limited by pain Safety Devices Safety Devices in place: Yes Type of devices: All fall risk precautions in place;Left in bed;Nurse notified;Call light within reach;Gait belt;Patient at risk for falls Restraints Initially in place: No Patient Diagnosis(es): The primary encounter diagnosis was Closed fracture of sacrum with routine healing, unspecified portion of sacrum, subsequent encounter. Diagnoses of Closed fracture of multiple pubic rami, right, sequela and Difficulty walking were also pertinent to this visit. has a past medical history of Chronic back pain, Depression, Hyperlipidemia, Hypertension, Kidney stone, Osteoarthritis, Restless legs syndrome (RLS), Type II or unspecified type diabetes mellitus without mention of complication, not stated as uncontrolled, Unspecified hemorrhoids without mention of complication, and Unspecified hyperplasia of prostate without urinary obstruction and other lower urinary tract symptoms (LUTS). has a past surgical history that includes Cholecystectomy; Tonsillectomy; Cataract removal (Right); Toe Surgery; Colonoscopy (2013); Prostate surgery; eye surgery (Bilateral, 01/2018); and Rotator cuff repair (Right). Restrictions Restrictions/Precautions Restrictions/Precautions: General Precautions,Fall Risk,Weight Bearing,Isolation,Contact Precautions (COVID-19) Required Braces or Orthoses?: No Lower Extremity Weight Bearing Restrictions Right Lower Extremity Weight Bearing: Weight Bearing As Tolerated Left Lower Extremity Weight Bearing: Weight Bearing As Tolerated Position Activity Restriction Other position/activity restrictions: R sup/ing rami fractures, L sacral ala fracture Subjective General Chart Reviewed: Yes Patient assessed for rehabilitation services?: Yes Response to previous treatment: Patient with no complaints from previous session Family / Caregiver Present: No Subjective Subjective: Pt was pleasant and cooperative General Comment Comments: Per RN, ok to see pt. Vital Signs Patient Currently in Pain: Yes (noted cris hip pain, however did not rate this visit) Orientation Orientation Overall Orientation Status: Within Functional Limits Objective ADL Toileting: Contact guard assistance Additional Comments: Pt completed bathroom level toileting this date. Increased time d/t pain noted. No gross LOB, however increased reliance on device and grab bars with transfers. Pt able to complete pericare seated and hand hygiene in standing at sink. Increased time throughout. Balance Sitting Balance: Supervision Standing Balance: Stand by assistance Standing Balance Time: ~1 min Activity: washing hands at sink Comment: no gross LOB, good FWW placement, SBA for safety Functional Mobility Functional - Mobility Device: Rolling Walker Activity: To/from bathroom Assist Level: Contact guard assistance Functional Mobility Comments: Continues to require CGA for mobility with increased time to complete d/t diminished balance and increased pain in BLE, L > R Toilet Transfers Toilet - Technique: Ambulating Equipment Used: Grab bars Toilet Transfer: Contact guard assistance Toilet Transfers Comments: increased reliance on grab bar and FWW. No gross LOB, however increased time required d/t BLE pain this visit. no gross LOB. Good hand placement. Bed mobility Supine to Sit: Stand by assistance Sit to Supine: Stand by assistance Scooting: Stand by assistance Comment: Denies lightheadedness with change in position, HOB elevated, increased time to complete. SBA overall this date Transfers Sit to stand: Contact guard assistance Stand to sit: Contact guard assistance Transfer Comments: at FWW, increased time to complete this date. Noted increased pain, with increased reliance on FWW. Mild fatigue noted Cognition Overall Cognitive Status: WFL Plan Plan Times per week: 4 visits Current Treatment Recommendations: Patient/Caregiver Education & Training,Home Management Training,Equipment Evaluation, Education, & procurement,Balance Training,Functional Mobility Training,Endurance Training,Safety Education & Training,Self-Care / ADL,Pain Management,Positioning,Strengtheni ng Plan Comment: continue with established OT POC AM-PAC Score AM-PAC Inpatient Daily Activity Raw Score: 20 (10/10/21 1600) AM-PAC Inpatient ADL T-Scale Score : 42.03 (10/10/21 1600) ADL Inpatient CMS 0-100% Score: 38.32 (10/10/21 1600) ADL Inpatient [facility] G-Code Modifier : CJ (10/10/211599) Goals Short term goals Time Frame for Short term goals: 5 visits Short term goal 1: Pt will complete functional mobility/transfers with mod I at fww. (progressing) Short term goal 2: Pt will complete full body ADLs with mod I. (progressing) Short term goal 3: Pt will complete functional standing >3 min at fww with mod I. (progressing) Short term goal 4: Pt will complete toilet transfers with mod I. (progressing) Therapy Time Individual Concurrent Group Co-treatment Time In 1455 Time Out 1513 Minutes 18 Timed Code Treatment Minutes: 18 Minutes (ADL) Rajeev Renteria OT Physical Therapy Facility/Department: [facility] Daily Treatment Note NAME: Candice Matthew : 1940 Date of Service: 10/10/2021 Discharge Recommendations: IP Rehab,Continue to assess pending progress Assessment Assessment: Pt presents iwth decreased functional mobility, demo bed mobility SBA, transfers min A and limited ambulation CGA iwth FWW. Pt limited by pain this date. Also of note pt recieved r/o COVID-19 test and has resulted positive, appears asymptomatic. He is at increased risk for falls and IP Rehab rec remains appropriate. He will continue to benefit from skilled therapy to promote safety and mobility PT Education: Goals;PT Role;Plan of Care;Precautions;Transfer Training;Energy Conservation;General Safety;Weight-bearing Education;Gait Training;Functional Mobility Training;Injury Prevention REQUIRES PT FOLLOW UP: Yes Activity Tolerance Activity Tolerance: Patient limited by pain Patient Diagnosis(es): The primary encounter diagnosis was Closed fracture of sacrum with routine healing, unspecified portion of sacrum, subsequent encounter. Diagnoses of Closed fracture of multiple pubic rami, right, sequela and Difficulty walking were also pertinent to this visit. has a past medical history of Chronic back pain, Depression, Hyperlipidemia, Hypertension, Kidney stone, Osteoarthritis, Restless legs syndrome (RLS), Type II or unspecified type diabetes mellitus without mention of complication, not stated as uncontrolled, Unspecified hemorrhoids without mention of complication, and Unspecified hyperplasia of prostate without urinary obstruction and other lower urinary tract symptoms (LUTS). has a past surgical history that includes Cholecystectomy; Tonsillectomy; Cataract removal (Right); Toe Surgery; Colonoscopy (2013); Prostate surgery; eye surgery (Bilateral, 01/2018); and Rotator cuff repair (Right). Restrictions Restrictions/Precautions Restrictions/Precautions: General Precautions,Fall Risk,Weight Bearing,Isolation,Contact Precautions (COVID-19) Required Braces or Orthoses?: No Lower Extremity Weight Bearing Restrictions Right Lower Extremity Weight Bearing: Weight Bearing As Tolerated Left Lower Extremity Weight Bearing: Weight Bearing As Tolerated Position Activity Restriction Other position/activity restrictions: R sup/ing rami fractures, L sacral ala fracture Subjective General Chart Reviewed: Yes Additional Pertinent Hx: tested positive for COVID-19 Response To Previous Treatment: Patient with no complaints from previous session. Family / Caregiver Present: No Subjective Subjective: Pt pleasant and agreeable to PT General Comment Comments: Per RN patient okay for therapy. Pain Screening Patient Currently in Pain: Yes Pain Assessment Pain Level: 8 Pain Type: Acute pain Pain Location: Hip Vital Signs Patient Currently in Pain: Yes Orientation Orientation Overall Orientation Status: Within Normal Limits Cognition Cognition Overall Cognitive Status: WFL Objective Bed mobility Supine to Sit: Unable to assess (pt standing next to bed on entry) Sit to Supine: Stand by assistance Scooting: Stand by assistance Comment: Denies dizziness. Pt requires increased time to complete. He completes sit to supine with SBA Transfers Sit to Stand: Minimal Assistance Stand to sit: Stand by assistance Comment: Pt completes sit to stand with min A to FWW. Pt demo good hand and foot placement and no LOB noted. Pt limited by pain Ambulation Ambulation?: Yes WB Status: WBAT Ambulation 1 Surface: level tile Device: Rolling Walker Assistance: Contact guard assistance Quality of Gait: Pt ambulates with CGA and FWW for safety. He demo short reciprocal step pattern with decreased crystal, step length. He is limited by pain this date. Gait Deviations: Slow Crystal;Decreased step length;Decreased step height Distance: ~20 ft x2 Comments: Pt with increased pain. Therapist cues pt for increased equal step lenth nad upright trunk for normal gait. Therapist cues pt for walker management with turning and to maintain FRANK inside FWW with turns. Stairs/Curb Stairs?: No AM-PAC Score AM-PAC Inpatient Mobility Raw Score : 17 (10/10/211536) AM-PAC Inpatient T-Scale Score : 42.13 (10/10/211536) Mobility Inpatient CMS 0-100% Score: 50.57 (10/10/211536) Mobility Inpatient CMS G-Code Modifier : CK (10/10/211536) Goals Short term goals Time Frame for Short term goals: 6 visits Short term goal 1: Patient will complete bed mobility MOD I to increase independence. (not met) Short term goal 2: Patient will complete functional transfers MOD I with LRAD in preparation for gait. (not met) Short term goal 3: Patient will ambulate 100' with LRAD MOD I to increase endurance and safety. (not met) Short term goal 4: Patient will complete 1-2 sets/ 10 reps LE exercises to increase strength and activity tolerance. (N/A) Short term goal 5: Patient will complete 4 stairs with no HR and CGA to enter home safely. (N/A) Patient Goals Patient goals : Patient states he want his pain to get better Plan Plan Times per week: 4 visits Current Treatment Recommendations: Strengthening,ROM,Balance Training,Functional Mobility Training,Transfer Training,Stair training,Gait Training,Endurance Training,Safety Education & Training,Patient/Caregiver Education & Training,Equipment Evaluation, Education, & procurement,Positioning,Pain Management Plan Comment: all goals and/or treatment were established in collaboration with patient. Safety Devices Type of devices: All fall risk precautions in place,Gait belt,Patient at risk for falls,Left in bed,Call light within reach,Nurse notified Restraints Initially in place: No Therapy Time Individual Concurrent Group Co-treatment Time In 1430 Time Out 1445 Minutes 15 Timed Code Treatment Minutes: 15 Minutes (gait x1) Ottoniel Short PT Images from the original note were not included. Hospitalist Progress Note SYNOPSIS: Patient admitted on 10/06/2021 who presented to [facility] as a transfer from [facility] for PT/OT orthopedic evaluation for sacral and pubic ramus fractures. Patient reports he fell off a chair he was standing on that collapsed in his home 3 weeks ago, mostly landing on his right side. He was evaluated in ER and advised of pubic ramus fracture. Over the past 4 days he has been having increasing left hip pain and repeat imaging showed the sacral fracture today. Patient sent here for rehab evaluation and pain control. Patient has been on nightly Methadone for overall pain that has been chronic but has not been taking it since the accident and initiation of narcotic medication. Will admit for further evaluation and management. SUBJECTIVE: Patient seen and examined Records reviewed. No new complaints Pain well controlled Stable overnight. No other overnight issues reported. Temp (24hrs), Av.2 F (36.2 C), Min:96.8 F (36 C), Max:97.5 F (36.4 C) DIET: ADULT DIET; Regular; 3 carb choices (45 gm/meal) CODE: Full Code Intake/Output Summary (Last 24 hours) at 10/11/2021 0920 Last data filed at 10/11/2021 0138 Gross per 24 hour Intake 480 ml Output 1300 ml Net -820 ml OBJECTIVE: BP 131/62 Pulse 79 Temp 96.8 F (36 C) (Temporal) Resp 15 Ht 6' 1 (1.854 m) Wt 180 lb (81.6 kg) SpO2 97% BMI 23.75 kg/m General appearance: No apparent distress. Pain is more than adequately controlled HEENT: Conjunctivae/corneas clear. Neck: Supple. No jugular venous distention. Respiratory: Clear to auscultation bilaterally, normal respiratory effort Cardiovascular: Regular rate rhythm, normal S1-S2 Abdomen: Soft, nontender, nondistended Musculoskeletal: No clubbing, cyanosis, no bilateral lower extremity edema. Brisk capillary refill. Skin: No rashes on visible skin Neurologic: awake, alert and following commands ASSESSMENT: Pubic ramus/sacral fractures Type 2 diabetes mellitus with an A1c of CKD stage III Hypertension Restless leg syndrome BPH Hyperlipidemia Depression Chronic back pain / syndrome - on Methadone PLAN: Reviewed H&P, labs and imaging studies MAR reviewed-Percocet 7.5 starting today. Orthopedic consultation-fall 3 weeks ago-okay with weightbearing as tolerated, PT OT evaluation-no formal consult provided by orthopedic surgery resident on 10/07 Stable serum creatinine and kidney function Normocytic anemia-stable Vital signs with elevated blood pressure otherwise stable-likely due to pain-monitor Patient's home medications have been reviewed Pain medications readjusted again today DISPOSITION: Inpatient Rehab: [facility] per patient request. Okay for discharge Medications: REVIEWED DAILY Infusion Medications sodium chloride dextrose Scheduled Medications morphine 4 mg IntraVENous Once lactulose 20 g Oral Daily rOPINIRole 2 mg Oral Daily before dinner Vitamin D 4,000 Units Oral Daily melatonin 10 mg Oral Nightly rOPINIRole 0.5 mg Oral Nightly rOPINIRole 1 mg Oral Daily lidocaine 1 patch TransDERmal Daily aspirin 81 mg Oral Daily citalopram 20 mg Oral Daily finasteride 5 mg Oral Daily lisinopril 5 mg Oral Daily trospium 20 mg Oral BID AC atorvastatin 10 mg Oral Daily triamcinolone Topical BID sodium chloride flush 5-40 mL IntraVENous 2 times per day enoxaparin 40 mg SubCUTAneous Daily insulin lispro 0-6 Units SubCUTAneous TID WC insulin lispro 0-3 Units SubCUTAneous Nightly tamsulosin 0.8 mg Oral Nightly PRN Meds: oxyCODONE-acetaminophen, morphine, traMADol, albuterol sulfate HFA, sodium chloride flush, sodium chloride, ondansetron OR ondansetron, polyethylene glycol, acetaminophen OR acetaminophen, aluminum & magnesium hydroxide-simethicone, glucose, dextrose, glucagon (rDNA), dextrose Labs: Recent Labs 10/09/21 0606 WBC 5.5 HGB 12.9* HCT 38.8* PLT 207 Recent Labs 10/09/21 0606 NA 134* K 4.9 CL 103 CO2 22 BUN 40* CREATININE 1.25 CALCIUM 9.6 No results for input(s): PROT, ALB, ALKPHOS, ALT, AST, BILITOT, AMYLASE, LIPASE in the last 72 hours. No results for input(s): INR in the last 72 hours. No results for input(s): CKTOTAL, TROPONINI in the last 72 hours. Chronic labs: Lab Results Component Value Date CHOL 141 06/21/2021 TRIG 165 (A) 06/21/2021 HDL 37 (L) 06/21/2021 LDLCALC 93 10/22/2016 TSH 1.350 07/15/2017 PSA 1.108 06/14/2019 INR 1.1 10/06/2021 LABA1C 6.9 (A) 06/21/2021 Radiology: REVIEWED DAILY ++++++++++++++++++++++++++++++++++ +++++++++++++++ nAdrey Warren MD ++++++++++++++++++++++++++++++++++ +++++++++++++++ NOTE: This report was transcribed using voice recognition software. Every effort was made to ensure accuracy; however, inadvertent computerized agronomy professor errors may be present. Physical Therapy Facility/Department: [facility] Daily Treatment Note NAME: Candice Matthew : 1940 Date of Service: 10/09/2021 Discharge Recommendations: IP Rehab,Continue to assess pending progress Assessment Assessment: Pt presents with increased functional mobility. Pt is now SBA for bed mobility, STS and 80ft x 1 of ambulation qith FWW. Pt requires extended time to complete due to increased pain. Pt faituges quickly. pt is expected to benefit from continued therapy in order to increase overall independence. REQUIRES PT FOLLOW UP: Yes Activity Tolerance Activity Tolerance: Patient limited by fatigue;Patient limited by pain;Patient limited by endurance Patient Diagnosis(es): The primary encounter diagnosis was Closed fracture of sacrum with routine healing, unspecified portion of sacrum, subsequent encounter. Diagnoses of Closed fracture of multiple pubic rami, right, sequela and Difficulty walking were also pertinent to this visit. has a past medical history of Chronic back pain, Depression, Hyperlipidemia, Hypertension, Kidney stone, Osteoarthritis, Restless legs syndrome (RLS), Type II or unspecified type diabetes mellitus without mention of complication, not stated as uncontrolled, Unspecified hemorrhoids without mention of complication, and Unspecified hyperplasia of prostate without urinary obstruction and other lower urinary tract symptoms (LUTS). has a past surgical history that includes Cholecystectomy; Tonsillectomy; Cataract removal (Right); Toe Surgery; Colonoscopy (2013); Prostate surgery; eye surgery (Bilateral, 01/2018); and Rotator cuff repair (Right). Restrictions Restrictions/Precautions Restrictions/Precautions: General Precautions,Fall Risk,Weight Bearing Required Braces or Orthoses?: No Lower Extremity Weight Bearing Restrictions Right Lower Extremity Weight Bearing: Weight Bearing As Tolerated Left Lower Extremity Weight Bearing: Weight Bearing As Tolerated Position Activity Restriction Other position/activity restrictions: R sup/ing rami fractures, L sacral ala fracture Subjective General Chart Reviewed: Yes Family / Caregiver Present: No Subjective Subjective: Patient lying in bed and agreeable to therapy. General Comment Comments: Per RN patient okay for therapy. Pain Screening Patient Currently in Pain: Yes (c/o of pain with mobility but didnt rate) Vital Signs Patient Currently in Pain: Yes (c/o of pain with mobility but didnt rate) Objective Bed mobility Supine to Sit: Stand by assistance Sit to Supine: Stand by assistance Scooting: Stand by assistance Comment: Denied dizziness. HOB elevated and use of bed rails. Pt moves with B LE together. Transfers Sit to Stand: Stand by assistance (To FWW) Stand to sit: Stand by assistance Comment: Denied dizziness. Pt able to demonstrates proper hand placement with ascends and descends. Demonstrates good overall control. Ambulation Ambulation?: Yes More Ambulation?: No Ambulation 1 Surface: level tile Device: Rolling Walker Assistance: Stand by assistance Quality of Gait: Demonstrates a short reciprocal gait pattern, decreased step height and length, increased B UE assist to complete, fatigue but no LOB noted Distance: 80ft x 1 Comments: Pt with increased pain with ambulation. Pt demos slow crystal. Extended time. Stairs/Curb Stairs?: No AM-PAC Score -[facility] Inpatient Mobility Raw Score : 17 (10/09/211054) AM-[facility] Inpatient T-Scale Score : 42.13 (10/09/211054) Mobility Inpatient CMS 0-100% Score: 50.57 (10/09/215) Mobility Inpatient [facility] G-Code Modifier : CK (10/09/211054) Goals Short term goals Time Frame for Short term goals: 6 visits Short term goal 1: Patient will complete bed mobility MOD I to increase independence. (not met) Short term goal 2: Patient will complete functional transfers MOD I with LRAD in preparation for gait. (not met) Short term goal 3: Patient will ambulate 100' with LRAD MOD I to increase endurance and safety. (not met) Short term goal 4: Patient will complete 1-2 sets/ 10 reps LE exercises to increase strength and activity tolerance. (N/A) Short term goal 5: Patient will complete 4 stairs with no HR and CGA to enter home safely. (N/A) Patient Goals Patient goals : Patient states he want his pain to get better Plan Plan Times per week: 5 visits Current Treatment Recommendations: Strengthening,ROM,Balance Training,Functional Mobility Training,Transfer Training,Stair training,Gait Training,Endurance Training,Safety Education & Training,Patient/Caregiver Education & Training,Equipment Evaluation, Education, & procurement,Positioning,Pain Management Plan Comment: all goals and/or treatment were established in collaboration with patient. Safety Devices Type of devices: All fall risk precautions in place,Gait belt,Patient at risk for falls,Left in bed,Call light within reach,Nurse notified Restraints Initially in place: No Therapy Time Individual Concurrent Group Co-treatment Time In 1041 Time Out 1054 Minutes 13 Timed Code Treatment Minutes: 13 Minutes (1 gait) Amna Peña PTA Images from the original note were not included. Hospitalist Progress Note SYNOPSIS: Patient admitted on 10/06/2021 who presented to [facility] as a transfer from [facility] for PT/OT orthopedic evaluation for sacral and pubic ramus fractures. Patient reports he fell off a chair he was standing on that collapsed in his home 3 weeks ago, mostly landing on his right side. He was evaluated in ER and advised of pubic ramus fracture. Over the past 4 days he has been having increasing left hip pain and repeat imaging showed the sacral fracture today. Patient sent here for rehab evaluation and pain control. Patient has been on nightly Methadone for overall pain that has been chronic but has not been taking it since the accident and initiation of narcotic medication. Will admit for further evaluation and management. SUBJECTIVE: Patient seen and examined Records reviewed. Patient's Percocets will be changed to 7.5 mg every 6 hours as needed. Continue morphine the same and Ultram for moderate pain Patient reports he slept well last night No family present at bedside Pain appears to be adequately controlled at the current regimen Stable overnight. No other overnight issues reported. Temp (24hrs), Av.1 F (36.2 C), Min:96.7 F (35.9 C), Max:97.4 F (36.3 C) DIET: ADULT DIET; Regular; 3 carb choices (45 gm/meal) CODE: Full Code Intake/Output Summary (Last 24 hours) at 10/09/2021 0959 Last data filed at 10/09/2021 0921 Gross per 24 hour Intake Output 1600 ml Net -1600 ml OBJECTIVE: BP (!) 140/78 Pulse 101 Temp 96.7 F (35.9 C) (Temporal) Resp 12 Ht 6' 1 (1.854 m) Wt 180 lb (81.6 kg) SpO2 94% BMI 23.75 kg/m General appearance: No apparent distress. Pain is more than adequately controlled HEENT: Conjunctivae/corneas clear. Neck: Supple. No jugular venous distention. Respiratory: Clear to auscultation bilaterally, normal respiratory effort Cardiovascular: Regular rate rhythm, normal S1-S2 Abdomen: Soft, nontender, nondistended Musculoskeletal: No clubbing, cyanosis, no bilateral lower extremity edema. Brisk capillary refill. Skin: No rashes on visible skin Neurologic: awake, alert and following commands ASSESSMENT: Pubic ramus/sacral fractures Type 2 diabetes mellitus with an A1c of CKD stage III Hypertension Restless leg syndrome BPH Hyperlipidemia Depression Chronic back pain / syndrome - on Methadone PLAN: Reviewed H&P, labs and imaging studies MAR reviewed-Percocet 7.5 starting today. Orthopedic consultation-fall 3 weeks ago-okay with weightbearing as tolerated, PT OT evaluation-no formal consult provided by orthopedic surgery resident on 10/07 Stable serum creatinine and kidney function Normocytic anemia-stable Vital signs with elevated blood pressure otherwise stable-likely due to pain-monitor Patient's home medications have been reviewed Pain medications readjusted again today DISPOSITION: Inpatient Rehab: [facility] per patient request. Okay for discharge Medications: REVIEWED DAILY Infusion Medications sodium chloride dextrose Scheduled Medications melatonin 10 mg Oral Nightly rOPINIRole 0.5 mg Oral Nightly rOPINIRole 1 mg Oral Daily lidocaine 1 patch TransDERmal Daily aspirin 81 mg Oral Daily citalopram 20 mg Oral Daily finasteride 5 mg Oral Daily lisinopril 5 mg Oral Daily trospium 20 mg Oral BID AC atorvastatin 10 mg Oral Daily triamcinolone Topical BID sodium chloride flush 5-40 mL IntraVENous 2 times per day enoxaparin 40 mg SubCUTAneous Daily insulin lispro 0-6 Units SubCUTAneous TID WC insulin lispro 0-3 Units SubCUTAneous Nightly tamsulosin 0.8 mg Oral Nightly PRN Meds: oxyCODONE-acetaminophen, morphine, traMADol, albuterol sulfate HFA, sodium chloride flush, sodium chloride, ondansetron OR ondansetron, polyethylene glycol, acetaminophen OR acetaminophen, aluminum & magnesium hydroxide-simethicone, glucose, dextrose, glucagon (rDNA), dextrose Labs: Recent Labs 10/07/21 0614 10/08/21 0433 10/09/21 0606 WBC 5.4 7.1 5.5 HGB 11.0* 12.9* 12.9* HCT 33.3* 39.0* 38.8* PLT 160 221 207 Recent Labs 10/07/21 0614 10/08/21 0433 10/09/21 0606 NA 132* 133* 134* K 4.7 4.6 4.9 CL 104 102 103 CO2 25 27 22 BUN 45* 41* 40* CREATININE 1.30* 1.29* 1.25 CALCIUM 8.7 9.4 9.6 No results for input(s): PROT, ALB, ALKPHOS, ALT, AST, BILITOT, AMYLASE, LIPASE in the last 72 hours. Recent Labs 10/06/21 1826 INR 1.1 No results for input(s): CKTOTAL, TROPONINI in the last 72 hours. Chronic labs: Lab Results Component Value Date CHOL 141 06/21/2021 TRIG 165 (A) 06/21/2021 HDL 37 (L) 06/21/2021 LDLCALC 93 10/22/2016 TSH 1.350 07/15/2017 PSA 1.108 06/14/2019 INR 1.1 10/06/2021 LABA1C 6.9 (A) 06/21/2021 Radiology: REVIEWED DAILY ++++++++++++++++++++++++++++++++++ +++++++++++++++ Andrey Warren MD ++++++++++++++++++++++++++++++++++ +++++++++++++++ NOTE: This report was transcribed using voice recognition software. Every effort was made to ensure accuracy; however, inadvertent computerized agronomy professor errors may be present. Images from the original note were not included. Hospitalist Progress Note SYNOPSIS: Patient admitted on 10/06/2021 who presented to [facility] as a transfer from [facility] for PT/OT orthopedic evaluation for sacral and pubic ramus fractures. Patient reports he fell off a chair he was standing on that collapsed in his home 3 weeks ago, mostly landing on his right side. He was evaluated in ER and advised of pubic ramus fracture. Over the past 4 days he has been having increasing left hip pain and repeat imaging showed the sacral fracture today. Patient sent here for rehab evaluation and pain control. Patient has been on nightly Methadone for overall pain that has been chronic but has not been taking it since the accident and initiation of narcotic medication. Will admit for further evaluation and management. SUBJECTIVE: Hospital day 0 Patient seen and examined Records reviewed. MAR reviewed. Ultram 25 mg x 1 for moderate, Percocet 5 mg x 2 for severe used - Morphine used for breakthroughs x 3-increase Ultram 25-50 and reduce dosage frequency, increase morphine frequency to every 3 hours as needed Pain is somewhat adequately controlled today. Patient was over treated yesterday. No family at bedside today. Plan is for inpatient rehab at [facility] overnight. No other overnight issues reported. Temp (24hrs), Av.6 F (36.4 C), Min:97.5 F (36.4 C), Max:97.7 F (36.5 C) DIET: ADULT DIET; Regular; 3 carb choices (45 gm/meal) CODE: Full Code Intake/Output Summary (Last 24 hours) at 10/08/2021 1040 Last data filed at 10/08/2021 0737 Gross per 24 hour Intake Output 1250 ml Net -1250 ml OBJECTIVE: BP 125/64 Pulse 89 Temp 97.7 F (36.5 C) (Temporal) Resp 16 Ht 6' 1 (1.854 m) Wt 180 lb (81.6 kg) SpO2 98% BMI 23.75 kg/m General appearance: No apparent distress. Pain is more than adequately controlled HEENT: Conjunctivae/corneas clear. Neck: Supple. No jugular venous distention. Respiratory: Clear to auscultation bilaterally, normal respiratory effort Cardiovascular: Regular rate rhythm, normal S1-S2 Abdomen: Soft, nontender, nondistended Musculoskeletal: No clubbing, cyanosis, no bilateral lower extremity edema. Brisk capillary refill. Skin: No rashes on visible skin Neurologic: awake, alert and following commands ASSESSMENT: Pubic ramus/sacral fractures Type 2 diabetes mellitus with an A1c of CKD stage III Hypertension Restless leg syndrome BPH Hyperlipidemia Depression Chronic back pain / syndrome - on Methadone PLAN: Reviewed H&P, labs and imaging studies MAR reviewed. Ultram 25 mg x 1 for moderate, Percocet 5 mg x 2 for severe used - Morphine used for breakthroughs x 3-increase Ultram 25-50 and reduce dosage frequency, increase morphine frequency to every 3 hours as needed Orthopedic consultation-fall 3 weeks ago-okay with weightbearing as tolerated, PT OT evaluation-no formal consult provided by orthopedic surgery resident on 10/07 Stable serum creatinine and kidney function Normocytic anemia-stable Vital signs with elevated blood pressure otherwise stable-likely due to pain Patient's home medications have been reviewed PTOT Pain medications readjusted DISPOSITION: Inpatient Rehab: [facility] per patient request. Medications: REVIEWED DAILY Infusion Medications sodium chloride dextrose Scheduled Medications melatonin 10 mg Oral Nightly rOPINIRole 1 mg Oral Daily lidocaine 1 patch TransDERmal Daily aspirin 81 mg Oral Daily citalopram 20 mg Oral Daily finasteride 5 mg Oral Daily lisinopril 5 mg Oral Daily trospium 20 mg Oral BID AC atorvastatin 10 mg Oral Daily triamcinolone Topical BID sodium chloride flush 5-40 mL IntraVENous 2 times per day enoxaparin 40 mg SubCUTAneous Daily insulin lispro 0-6 Units SubCUTAneous TID WC insulin lispro 0-3 Units SubCUTAneous Nightly tamsulosin 0.8 mg Oral Nightly PRN Meds: traMADol, morphine, oxyCODONE-acetaminophen, albuterol sulfate HFA, sodium chloride flush, sodium chloride, ondansetron OR ondansetron, polyethylene glycol, acetaminophen OR acetaminophen, aluminum & magnesium hydroxide-simethicone, glucose, dextrose, glucagon (rDNA), dextrose Labs: Recent Labs 10/06/21182510/07/21 0614 10/08/21 0433 WBC 6.3 5.4 7.1 HGB 11.9* 11.0* 12.9* HCT 35.1* 33.3* 39.0* PLT 183 160 221 Recent Labs 10/06/21 1826 10/07/21 0614 10/08/21 0433 NA 136 132* 133* K 4.8 4.7 4.6 CL 107 104 102 CO2 25 25 27 BUN 47* 45* 41* CREATININE 1.33* 1.30* 1.29* CALCIUM 9.1 8.7 9.4 No results for input(s): PROT, ALB, ALKPHOS, ALT, AST, BILITOT, AMYLASE, LIPASE in the last 72 hours. Recent Labs 10/06/211825 INR 1.1 No results for input(s): CKTOTAL, TROPONINI in the last 72 hours. Chronic labs: Lab Results Component Value Date CHOL 141 06/21/2021 TRIG 165 (A) 06/21/2021 HDL 37 (L) 06/21/2021 LDLCALC 93 10/22/2016 TSH 1.350 07/15/2017 PSA 1.108 06/14/2019 INR 1.1 10/06/2021 LABA1C 6.9 (A) 06/21/2021 Radiology: REVIEWED DAILY ++++++++++++++++++++++++++++++++++ +++++++++++++++ Andrey Warren MD ++++++++++++++++++++++++++++++++++ +++++++++++++++ NOTE: This report was transcribed using voice recognition software. Every effort was made to ensure accuracy; however, inadvertent computerized agronomy professor errors may be present. Nutrition rescreen completed. Patient assigned a level 1. Told that patient still c/o pain. Asked if he could have the Morphine when it is due and she said yes. Patient has been complaining of lower left back and sacral area. He has received Percocet, Morphine and Tramadol. He has an ice pack. Lidocaine patch was applied. He says nothing has helped with the pain. Notified Dr. Jung. Melatonin ordered for sleep. Physical Therapy Facility/Department: [facility] Initial Assessment NAME: Candice Matthew : 1940 Date of Service: 10/07/2021 Having reviewed the treatment plan and goals for this patient, I certify that the plan of care below is medically necessary and appropriate. Discharge Recommendations: IP Rehab,Continue to assess pending progress PT Equipment Recommendations Equipment Needed: No Assessment Body structures, Functions, Activity limitations: Decreased functional mobility ;Decreased ROM;Decreased strength;Decreased safe awareness;Decreased endurance;Decreased balance;Increased pain;Decreased posture Assessment: Patient admitted 10/06 with L hip pain. Imaging shows R sup/inf rami fractures and L sacral ala fracture from 09/17. Patient presents with the above deficits limiting his functional indepenence. On evaluation patient requires SBA for bed mobility, Gabriel for transfers and CGA for ambulation with FWW. Patient is limited by LLE pain and fatigue. Expected to benefit from skilled PT to increase strength, endurance and safety with mobility. Prognosis: Good Decision Making: Medium Complexity History: Patient admitted 10/06 with L hip pain. Imaging shows R sup/inf rami fractures and L sacral ala fracture from 09/17. PMH listed below. Exam: AM-PAC Clinical Presentation: Patient has PMH as indicated below that contributes to his clinical presentation. At baseline patient lives alone with renters that share the same space and is functionally independent with no device, however has been using a FWW recently due to pain. Patient is limited with OOB mobility due to acute pain and is at an increased fall risk. Unable to attempt any stairs. Recommend IP rehab pending progress. PT Education: Goals;PT Role;Plan of Care;Precautions;Transfer Training;Energy Conservation;General Safety;Weight-bearing Education;Gait Training;Functional Mobility Training;Injury Prevention REQUIRES PT FOLLOW UP: Yes Activity Tolerance Activity Tolerance: Patient limited by fatigue;Patient limited by pain;Patient limited by endurance Patient Diagnosis(es): The primary encounter diagnosis was Closed fracture of sacrum with routine healing, unspecified portion of sacrum, subsequent encounter. Diagnoses of Closed fracture of multiple pubic rami, right, sequela and Difficulty walking were also pertinent to this visit. has a past medical history of Chronic back pain, Depression, Hyperlipidemia, Hypertension, Kidney stone, Osteoarthritis, Restless legs syndrome (RLS), Type II or unspecified type diabetes mellitus without mention of complication, not stated as uncontrolled, Unspecified hemorrhoids without mention of complication, and Unspecified hyperplasia of prostate without urinary obstruction and other lower urinary tract symptoms (LUTS). has a past surgical history that includes Cholecystectomy; Tonsillectomy; Cataract removal (Right); Toe Surgery; Colonoscopy (2013); Prostate surgery; eye surgery (Bilateral, 01/2018); and Rotator cuff repair (Right). Restrictions Restrictions/Precautions Restrictions/Precautions: General Precautions,Fall Risk,Weight Bearing Required Braces or Orthoses?: No Lower Extremity Weight Bearing Restrictions Right Lower Extremity Weight Bearing: Weight Bearing As Tolerated Left Lower Extremity Weight Bearing: Weight Bearing As Tolerated Position Activity Restriction Other position/activity restrictions: R sup/ing rami fractures, L sacral ala fracture Vision/Hearing Vision: Within Functional Limits Hearing: Within functional limits Subjective General Chart Reviewed: Yes Patient assessed for rehabilitation services?: Yes Family / Caregiver Present: No Follows Commands: Within Functional Limits General Comment Comments: Per RN patient okay for therapy. Subjective Subjective: Patient lying in bed and agreeable to therapy. Pain Screening Patient Currently in Pain: Yes (pain in L hip, did not rate) Pain Assessment Pain Type: Acute pain Pain Location: Hip Pain Orientation: Left Vital Signs Patient Currently in Pain: Yes (pain in L hip, did not rate) Orientation Orientation Overall Orientation Status: Within Normal Limits Social/Functional History Social/Functional History Lives With: Alone Type of Home: House Home Layout: Two level Home Access: Stairs to enter without rails Bathroom Shower/Tub: Tub/Shower unit Bathroom Toilet: Standard Bathroom Accessibility: Accessible Home Equipment: (Bi-Pap) Receives Help From: Family ADL Assistance: Independent Homemaking Assistance: Independent Homemaking Responsibilities: Yes Ambulation Assistance: Independent Transfer Assistance: Independent Active Help Desk Support: Yes Occupation: Retired Cognition Cognition Overall Cognitive Status: WFL Objective Observation/Palpation Posture: Fair Observation: No lines or tubes AROM RLE (degrees) RLE AROM: WFL AROM LLE (degrees) LLE AROM : WFL LLE General AROM: limited by pain Strength RLE Strength RLE: WFL Strength LLE Strength LLE: WFL Comment: limited by pain Sensation Overall Sensation Status: WFL (denied numbness/tingling) Bed mobility Supine to Sit: Stand by assistance Sit to Supine: Stand by assistance Scooting: Stand by assistance Comment: HOB elevated and additional time to complete. Denies dizziness. Noted increased pain in L hip during movement. Transfers Sit to Stand: Minimal Assistance Stand to sit: Minimal Assistance Comment: x1 from EOB to FWW and Gabriel to stand with pain in LLE. Increased weight shift to R during transition and increased time to achieve upright position. Denies dizziness. Ambulation Ambulation?: Yes Ambulation 1 Surface: level tile Device: Rolling Walker Assistance: Contact guard assistance Quality of Gait: Patient ambulates with short step to pattern and antalgic gait. No acute LOB, however limited by pain and fatigue. Gait Deviations: Slow Crystal;Decreased step height;Decreased step length;Shuffles Distance: 20'x2 Comments: Patient educated on correct gait sequence for pain management and safety. Demos slight unsteadiness and shuffling steps, placing him at an increased fall risk. Stairs/Curb Stairs?: No Balance Posture: Fair Sitting - Static: Good Sitting - Dynamic: Good Standing - Static: Fair;+ Standing - Dynamic: Fair;- Plan Plan Times per week: 6 visits Current Treatment Recommendations: Strengthening,ROM,Balance Training,Functional Mobility Training,Transfer Training,Stair training,Gait Training,Endurance Training,Safety Education & Training,Patient/Caregiver Education & Training,Equipment Evaluation, Education, & procurement,Positioning,Pain Management Plan Comment: all goals and/or treatment were established in collaboration with patient. Safety Devices Type of devices: All fall risk precautions in place,Gait belt,Patient at risk for falls,Left in bed,Call light within reach,Nurse notified Restraints Initially in place: No AM-PAC Score AM-PAC Inpatient Mobility Raw Score : 15 (10/07/211316) AM-PAC Inpatient T-Scale Score : 39.45 (10/07/211316) Mobility Inpatient CMS 0-100% Score: 57.7 (10/07/211316) Mobility Inpatient CMS G-Code Modifier : CK (10/07/211316) Goals Short term goals Time Frame for Short term goals: 6 visits Short term goal 1: Patient will complete bed mobility MOD I to increase independence. Short term goal 2: Patient will complete functional transfers MOD I with LRAD in preparation for gait. Short term goal 3: Patient will ambulate 100' with LRAD MOD I to increase endurance and safety. Short term goal 4: Patient will complete 1-2 sets/ 10 reps LE exercises to increase strength and activity tolerance. Short term goal 5: Patient will complete 4 stairs with no HR and CGA to enter home safely. Patient Goals Patient goals : Patient states he want his pain to get better Therapy Time Individual Concurrent Group Co-treatment Time In 1038 (co-eval with OT) Time Out 1056 Minutes 18 Melinda Goel, PT Occupational Therapy Occupational Therapy Initial Assessment Date: 10/07/2021 Patient Name: Candice Matthew : 1940 Date of Service: 10/07/2021 Having reviewed the treatment plan and goals for this patient, I certify that the plan of care below is medically necessary and appropriate. Discharge Recommendations: IP Rehab Assessment Performance deficits / Impairments: Decreased functional mobility ;Decreased endurance;Decreased ADL status;Decreased balance;Decreased safe awareness;Decreased high-level IADLs Assessment: Prior to admission, pt was independent in ADLs, functional mobility, and transfers. Pt now requires min A for transfers, CGA for functional mobility, and SBA-CGA for ADLs. Pt is limited by decreased endurance, safety awarenesss, and balance. Pt would benefit from skilled OT services to increase independence and occupational participation. Recommend IP rehab. Prognosis: Good Decision Making: Medium Complexity History: Pt was admitted with R pubic ramus fracture, sacral fracture, gait disturbance and L hip pain. PMH is listed above. Exam: [facility] Assistance / Modification: CGA OT Education: OT Role;Plan of Care Barriers to Learning: none REQUIRES OT FOLLOW UP: Yes Activity Tolerance Activity Tolerance: Patient limited by fatigue;Patient limited by pain Safety Devices Safety Devices in place: Yes Type of devices: All fall risk precautions in place;Left in bed;Nurse notified;Call light within reach;Gait belt;Patient at risk for falls Restraints Initially in place: No Patient Diagnosis(es): The primary encounter diagnosis was Closed fracture of sacrum with routine healing, unspecified portion of sacrum, subsequent encounter. Diagnoses of Closed fracture of multiple pubic rami, right, sequela and Difficulty walking were also pertinent to this visit. has a past medical history of Chronic back pain, Depression, Hyperlipidemia, Hypertension, Kidney stone, Osteoarthritis, Restless legs syndrome (RLS), Type II or unspecified type diabetes mellitus without mention of complication, not stated as uncontrolled, Unspecified hemorrhoids without mention of complication, and Unspecified hyperplasia of prostate without urinary obstruction and other lower urinary tract symptoms (LUTS). has a past surgical history that includes Cholecystectomy; Tonsillectomy; Cataract removal (Right); Toe Surgery; Colonoscopy (2013); Prostate surgery; eye surgery (Bilateral, 01/2018); and Rotator cuff repair (Right). Restrictions Restrictions/Precautions Restrictions/Precautions: General Precautions,Fall Risk,Weight Bearing Required Braces or Orthoses?: No Lower Extremity Weight Bearing Restrictions Right Lower Extremity Weight Bearing: Weight Bearing As Tolerated Left Lower Extremity Weight Bearing: Weight Bearing As Tolerated Position Activity Restriction Other position/activity restrictions: R sup/ing rami fractures, L sacral ala fracture Subjective General Chart Reviewed: Yes Patient assessed for rehabilitation services?: Yes Family / Caregiver Present: No Subjective Subjective: Pt was pleasant and cooperative General Comment Comments: Per RN, ok to see pt. Patient Currently in Pain: Yes (pain in L hip, did not rate) Pain Assessment Pain Level: 2 Pain Type: Acute pain Pain Location: Hip Pain Orientation: Left Vital Signs Patient Currently in Pain: Yes (pain in L hip, did not rate) Social/Functional History Social/Functional History Lives With: Alone Type of Home: House Home Layout: Two level Home Access: Stairs to enter without rails Bathroom Shower/Tub: Tub/Shower unit Bathroom Toilet: Standard Bathroom Accessibility: Accessible Home Equipment: (Bi-Pap) Receives Help From: Family ADL Assistance: Independent Homemaking Assistance: Independent Homemaking Responsibilities: Yes Ambulation Assistance: Independent Transfer Assistance: Independent Active Help Desk Support: Yes Occupation: Retired Objective Vision: Within Functional Limits Hearing: Within functional limits Orientation Overall Orientation Status: Within Functional Limits Observation/Palpation Posture: Fair Observation: No lines or tubes Balance Sitting Balance: Supervision Standing Balance: Contact guard assistance Standing Balance Time: ~1 min Activity: washing hands at sink Comment: Pt required CGA for washing hands at sink with w. Functional Mobility Functional - Mobility Device: Rolling Walker Activity: To/from bathroom Assist Level: Contact guard assistance Functional Mobility Comments: Pt required CGA for functional mobility at fww d/t balance and pain in L LE. ADL Feeding: Independent Grooming: Independent UE Bathing: Stand by assistance LE Bathing: Contact guard assistance UE Dressing: Stand by assistance LE Dressing: Contact guard assistance Toileting: Contact guard assistance (pt completed toilet hygiene independently. Pt required CGA d/t balance.) Bed mobility Supine to Sit: Stand by assistance Sit to Supine: Stand by assistance Scooting: Stand by assistance Comment: Pt required SBA for all bed mobility tasks with use of bed features. Pt denied dizziness with positional changes. Transfers Sit to stand: Minimal assistance Stand to sit: Minimal assistance Transfer Comments: Pt required min A for sit>stand and stand>sit d/t fatigue/pain in L LE. Cognition Overall Cognitive Status: WFL Sensation Overall Sensation Status: WFL (denied numbness/tingling) LUE AROM (degrees) LUE AROM : WFL RUE AROM (degrees) RUE AROM : WFL LUE Strength Gross LUE Strength: WFL RUE Strength Gross RUE Strength: WFL Plan Plan Times per week: 5 visits Current Treatment Recommendations: Patient/Caregiver Education & Training,Home Management Training,Equipment Evaluation, Education, & procurement,Balance Training,Functional Mobility Training,Endurance Training,Safety Education & Training,Self-Care / ADL,Pain Management,Positioning,Strengtheni ng Plan Comment: POC and goals were made in collaboration with the pt. AM-PAC Score AM-PAC Inpatient Daily Activity Raw Score: 20 (10/07/21 1155) AM-PAC Inpatient ADL T-Scale Score : 42.03 (10/07/21 1155) ADL Inpatient CMS 0-100% Score: 38.32 (10/07/21 1155) ADL Inpatient CMS G-Code Modifier : CJ (10/07/211154) Goals Short term goals Time Frame for Short term goals: 5 visits Short term goal 1: Pt will complete functional mobility/transfers with mod I at fww. Short term goal 2: Pt will complete full body ADLs with mod I. Short term goal 3: Pt will complete functional standing >3 min at fww with mod I. Short term goal 4: Pt will complete toilet transfers with mod I. Therapy Time Individual Concurrent Group Co-treatment Time In 1038 (co eval with PT) Time Out 1056 Minutes 18 Maribell Vaz S/OT Images from the original note were not included. Hospitalist Progress Note SYNOPSIS: Patient admitted on 10/06/2021 who presented to [facility] as a transfer from [facility] for PT/OT orthopedic evaluation for sacral and pubic ramus fractures. Patient reports he fell off a chair he was standing on that collapsed in his home 3 weeks ago, mostly landing on his right side. He was evaluated in ER and advised of pubic ramus fracture. Over the past 4 days he has been having increasing left hip pain and repeat imaging showed the sacral fracture today. Patient sent here for rehab evaluation and pain control. Patient has been on nightly Methadone for overall pain that has been chronic but has not been taking it since the accident and initiation of narcotic medication. Will admit for further evaluation and management. SUBJECTIVE: Hospital day 0 Patient seen and examined Records reviewed. Son at bedside Patient is slightly drowsy due to pain medications but able to hold a conversation. Stable overnight. No other overnight issues reported. Temp (24hrs), Av.2 F (36.2 C), Min:96.6 F (35.9 C), Max:98.4 F (36.9 C) DIET: ADULT DIET; Regular; 3 carb choices (45 gm/meal) CODE: Full Code Intake/Output Summary (Last 24 hours) at 10/07/2021 1129 Last data filed at 10/07/2021 0815 Gross per 24 hour Intake Output 500 ml Net -500 ml OBJECTIVE: BP 139/74 Pulse 60 Temp 96.7 F (35.9 C) (Temporal) Resp 16 Ht 6' 1 (1.854 m) Wt 180 lb (81.6 kg) SpO2 95% BMI 23.75 kg/m General appearance: No apparent distress. Pain is more than adequately controlled HEENT: Conjunctivae/corneas clear. Neck: Supple. No jugular venous distention. Respiratory: Clear to auscultation bilaterally, normal respiratory effort Cardiovascular: Regular rate rhythm, normal S1-S2 Abdomen: Soft, nontender, nondistended Musculoskeletal: No clubbing, cyanosis, no bilateral lower extremity edema. Brisk capillary refill. Skin: No rashes on visible skin Neurologic: awake, alert and following commands ASSESSMENT: Pubic ramus/sacral fractures Type 2 diabetes mellitus with an A1c of CKD stage III Hypertension Restless leg syndrome BPH Hyperlipidemia Depression Chronic back pain / syndrome - on Methadone PLAN: Reviewed H&P, labs and imaging studies Orthopedic consultation-fall 3 weeks ago-okay with weightbearing as tolerated, PT OT evaluation-no formal consult provided by orthopedic surgery resident on 10/07 Stable serum creatinine and kidney function Normocytic anemia-stable Vital signs with elevated blood pressure otherwise stable-likely due to pain Patient's home medications have been reviewed PTOT Pain medications readjusted DISPOSITION: Recommend rehab placement/pain control. Medications: REVIEWED DAILY Infusion Medications sodium chloride dextrose Scheduled Medications melatonin 10 mg Oral Nightly rOPINIRole 2 mg Oral BID rOPINIRole 1 mg Oral Daily aspirin 81 mg Oral Daily citalopram 20 mg Oral Daily finasteride 5 mg Oral Daily lisinopril 5 mg Oral Daily trospium 20 mg Oral BID AC atorvastatin 10 mg Oral Daily triamcinolone Topical BID sodium chloride flush 5-40 mL IntraVENous 2 times per day enoxaparin 40 mg SubCUTAneous Daily insulin lispro 0-6 Units SubCUTAneous TID WC insulin lispro 0-3 Units SubCUTAneous Nightly tamsulosin 0.8 mg Oral Nightly PRN Meds: albuterol sulfate HFA, traMADol, sodium chloride flush, sodium chloride, ondansetron OR ondansetron, polyethylene glycol, acetaminophen OR acetaminophen, aluminum & magnesium hydroxide-simethicone, glucose, dextrose, glucagon (rDNA), dextrose, oxyCODONE-acetaminophen Labs: Recent Labs 10/06/216 10/07/21 0614 WBC 6.3 5.4 HGB 11.9* 11.0* HCT 35.1* 33.3* PLT 183 160 Recent Labs 10/06/21 1826 10/07/21 0614 NA 136 132* K 4.8 4.7 CL 107 104 CO2 25 25 BUN 47* 45* CREATININE 1.33* 1.30* CALCIUM 9.1 8.7 No results for input(s): PROT, ALB, ALKPHOS, ALT, AST, BILITOT, AMYLASE, LIPASE in the last 72 hours. Recent Labs 10/06/211825 INR 1.1 No results for input(s): CKTOTAL, TROPONINI in the last 72 hours. Chronic labs: Lab Results Component Value Date CHOL 141 06/21/2021 TRIG 165 (A) 06/21/2021 HDL 37 (L) 06/21/2021 LDLCALC 93 10/22/2016 TSH 1.350 07/15/2017 PSA 1.108 06/14/2019 INR 1.1 10/06/2021 LABA1C 6.9 (A) 06/21/2021 Radiology: REVIEWED DAILY ++++++++++++++++++++++++++++++++++ +++++++++++++++ Andrey Warren MD ++++++++++++++++++++++++++++++++++ +++++++++++++++ NOTE: This report was transcribed using voice recognition software. Every effort was made to ensure accuracy; however, inadvertent computerized agronomy professor errors may be present. Ortho consulted for weightbearing status. Patient had a fall 3 weeks ago. No new falls. Ortho reviewed imaging and imaging shows R sup/inf rami fxs as well as Left sacral ala, consistent with L LC1 which have been present since 09/17/21. Patient has been seeing Dr. Damon for these fractures outpatient. Patient is ok for WBAT. Rec PT/OT. Discussed patient with Rebekah Charles PA-C, and she does not feel we need a formal consult as this time as long as patient is ok for WBAT. We recommend follow up OP with Dr. Damon, PT/OT, pain control. Nikole Selby MD Orthopaedic Surgery PGY-2 *[phone] documented in this encounter [employer] Phone: 10-10-2021 Hospital Discharge instructions Margaux Carrillo LPN - 10/10/2021 1:27 PM EST Your physician has ordered skilled home care services for you. Your home care will be provided by: [facility] [phone] Swati Falcon RN - 10/08/2021 10:50 AM EST Continuity of Care Form Patient Name: Candice Matthew : 1940 Admit date: 10/06/2021 Discharge date: 10OCT2021 Code Status Order: Full Code Advance Directives: Admitting Physician: Markel Nathan MD PCP: Jignesh Leger MD Discharging Nurse: [facility] Unit/Room#: 158/1581 Discharging Unit Emergency Contact: Extended Emergency Contact Information Primary Emergency Contact: [facility] Relation: Child Secondary Emergency Contact: Nakia Ye Relation: Child Past Surgical History: Past Surgical History: Procedure Laterality Date CATARACT REMOVAL Right CHOLECYSTECTOMY COLONOSCOPY 2013 normal EYE SURGERY Bilateral 01/2018 eyebrow and skin around eyes lifted PROSTATE SURGERY ROTATOR CUFF REPAIR Right TOE SURGERY TONSILLECTOMY Immunization History: Immunization History Administered Date(s) Administered COVID-19, Pfizer Purple top, DILUTE for use, 12+ yrs, 30mcg/0.3mL dose 09/12/2020, 10/08/2020 DTaP vaccine 12/04/2009 Influenza A ([id number]),all Formulations 08/14/2009 Influenza Vaccine, unspecified formulation 05/24/2015 Influenza Virus Vaccine 10/29/2016 Influenza, High Dose (Fluzone 65 yrs and older) 07/09/2015, 09/07/2017, 06/04/2018 Influenza, Quadv, adjuvanted, 65 yrs +, IM, PF (Fluad) 05/08/2020, 06/05/2021 Influenza, Triv, inactivated, subunit, adjuvanted, IM (Fluad 65 yrs and older) 05/16/2019 Pneumococcal Conjugate 13-valent ([id number]) 02/09/2015, 06/14/2019 Pneumococcal Polysaccharide ([id number]) 10/24/2015 Td vaccine (adult) 04/27/2002 Td, unspecified formulation 02/20/2016 Zoster Live (Zostavax) 08/24/2015 Zoster Recombinant (Shingrix) 05/17/2018, 05/08/2020, 07/30/2020 Active Problems: Patient Active Problem List Diagnosis Code Muscle spasm M62.838 Olecranon bursitis, right elbow M70.21 Femoral neuropathy of lower extremity, 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 Pain in both lower extremities M79.604, M79.605 Hypogonadism in male E29.1 Type 2 diabetes mellitus with chronic kidney disease (HCC) E11.22 Hyperlipidemia LDL goal <70 E78.5 Hypertension I10 Primary insomnia F51.01 TABITHA (obstructive sleep apnea) G47.33 Benign prostatic hyperplasia without lower urinary tract symptoms N40.0 Urinary urgency R39.15 Backache M54.9 Dry eye syndrome of both eyes H04.123 Anemia in stage 3 chronic kidney disease (HCC) N18.30, D63.1 Iron deficiency anemia D50.9 Allergic contact dermatitis due to plants, except food L23.7 Difficulty walking R26.2 Isolation/Infection: Isolation No Isolation Patient Infection Status None to display Nurse Assessment: Last Vital Signs: BP 125/64 Pulse 89 Temp 97.7 F (36.5 C) (Temporal) Resp 16 Ht 6' 1 (1.854 m) Wt 180 lb (81.6 kg) SpO2 98% BMI 23.75 kg/m Last documented pain score (0-10 scale): Pain Level: 10 Last Weight: Wt Readings from Last 1 Encounters: 10/06/21 180 lb (81.6 kg) Mental Status: oriented, alert, coherent, logical, thought processes intact, and able to concentrate and follow conversation IV Access: - None Nursing Mobility/ADLs: Walking Assisted Transfer Assisted Bathing Assisted Dressing Assisted Toileting Assisted Feeding Independent Microbiology Lab Technician Assisted Med Delivery whole Wound Care Documentation and Therapy: Elimination: Continence: Bowel: Yes Bladder: Yes Urinary Catheter: None Colostomy/Ileostomy/Ileal Conduit: No Date of Last BM: [id number] Intake/Output Summary (Last 24 hours) at 10/08/2021 1049 Last data filed at 10/08/2021 0737 Gross per 24 hour Intake -- Output 1250 ml Net -1250 ml I/O last 3 completed shifts: In: - Out: 1000 [Urine:1000] Safety Concerns: History of Falls (last 30 days) and At Risk for Falls Impairments/Disabilities: None Nutrition Therapy: Current Nutrition Therapy: - Oral Diet: Carb Control 3 carbs/meal (1500kcals/day) Routes of Feeding: Oral Liquids: Thin Liquids Daily Fluid Restriction: no Last Modified Barium Swallow with Video (Video Swallowing Test): not done Treatments at the Time of Hospital Discharge: Respiratory Treatments: n/a Oxygen Therapy: is not on home oxygen therapy. Ventilator: - No ventilator support Rehab Therapies: Physical Therapy and Occupational Therapy Weight Bearing Status/Restrictions: No weight bearing restirctions Other Medical Equipment (for information only, NOT a DME order): walker Other Treatments: n/a Patient's personal belongings (please select all that are sent with patient): Glasses RN SIGNATURE: CASE MANAGEMENT/SOCIAL WORK SECTION Inpatient Status Date: 10-06-2021 Readmission Risk Assessment Score: Readmission Risk Risk of Unplanned Readmission: 0 Discharging to Facility/ Agency Name: [facility] Address: [address] [place] [address] Fax: Dialysis Facility (if applicable) Name: Address: Dialysis Schedule: Phone: Fax: Support Director/Membership Advisor signature: PHYSICIAN SECTION Prognosis: Fair Condition at Discharge: Stable Rehab Potential (if transferring to Rehab): Fair Recommended Labs or Other Treatments After Discharge: none, check BS Physician Certification: I certify the above information and transfer of Candice Matthew is necessary for the continuing treatment of the diagnosis listed and that he requires ALF for less 30 days. Update Admission H&P: Reduce doses taken as pain becomes manageable USE PERCOCET FOR SEVERE PAIN USE ULTRAM FOR MODERATE PAIN DO NOT USE TOGETHER PHYSICIAN SIGNATURE: documented in this encounter [facility] Work Phone: 07-01-2021 Note HNO ID: [id number] Author: Mary Lucas PA-C Service: ? Author Type: Physician Rotary Derrick Operator Type: Progress Notes Filed: 07/02/2021 7:10 PM Note Text: In lieu of an in-person visit due to COVID-19 concerns, a telephone visit was performed on the patient. Patient is aware that I am not fully able to assess symptoms and do a full physical examination including vital signs assessment at this time. Patient consents to this encounter. No video was used in the evaluation of this patient, as the patient preferred a telephone call. I personally called patient by telephone. FOLLOW UP VISIT - ENDOSCOPY NAME: Candice Person [facility] NO.: [id number] DATE OF SERVICE: 07/01/2021 : 1940 REFERRING PHYSICIAN: Veena Bucio MD Candice Person is a patient I am following with Dr. Smith for anemia. Dr. Smith performed upper endoscopy and attempted colonoscopy on 06/20/21. The patient was found to have normal esophagus, regular Z-line, and gastritis on upper endoscopy. Colonoscopy was attempted but aborted due to extreme difficulty because of redundant colon. Patient had a completion barium enema at [facility] which showed no filling defects or other concerning findings. Pathology demonstrated: FINAL DIAGNOSIS Stomach, biopsy: Gastric mucosa with no significant pathologic abnormality. The patient notes no complaints since the procedure. Assessment IMPRESSION: s/p EGD and attempted colonoscopy, normal completion barium enema. No signs of bleeding noted PLAN: The operative findings and pathology report were reviewed with the patient, and the patient has had the opportunity to ask questions and have questions answered. Reviewed dietary and lifestyle modifications for gastritis. If the patient notes any problems or changes in bowel function, the patient should contact me immediately. Otherwise I recommend patient consider follow up colonoscopy in 10 years, to be performed under [facility] due to redundant colon. Follow up with PCP for anemia Patient verbalized understanding of all above and agreed with the plan Diagnoses: (Z86.2) History of anemia (primary encounter diagnosis) (Q43.8) Redundant colon I spent a total of 19 minutes on the date of the service which included preparing to see the patient, completing clinical documentation, obtaining and/or reviewing separately obtained history, communicating with other HCPs (not separately reported), independently interpreting results (not separately reported) and communicating results to the patient/family/caregiver. Mary Lucas PA-C [facility] documented as of this encounter (statuses as of 01/16/2022) [facility]10-28-2021 NoteHNO ID: [id number] Author: Kadie Villanueva RN Service: ? Author Type: Registered Nurse Type: Nursing Progress Note Filed: 06/20/2021 9:17 AM Note Text: Abdomen is soft non-distended. Will continue to monitor.[facility]09-13-2021 NoteHNO ID: [id number] Author: Patel Smith MD Service: ? Author Type: Physician Type: Progress Notes Filed: 05/08/2021 8:56 AM Note Text: HISTORY AND PHYSICAL Candice Person Matthew 1940 REFERRING PHYSICIAN: Veena Bucio, * CHIEF COMPLAINT: Consult HPI: The patient is a 80 year old male referred for endoscopy. Candice Person notes no history of colon complaints. The patient notes no history of upper GI complaints. Candice Person has undergone prior endoscopy. unsure of date The patient is being seen by me today at the request of Veena Bucio, * my opinion and advice regarding Iron deficiency anemia, unspecified iron deficiency anemia type (primary encounter diagnosis). PAST MEDICAL HISTORY Diagnosis Date - BPH (benign prostatic hyperplasia) - Depression - High blood pressure - High cholesterol - History of ear infections - Kidney stones - Narcolepsy - Restless legs - Type 2 diabetes mellitus (HCC) PAST SURGICAL HISTORY Procedure Laterality Date - COLONOSCOP W/ OR W/O [facility] SPEC - LAPAROSCOPIC CHOLECYSTECTOMY - PAST SURGICAL HISTORY OF Left surgery on foot - REMOVE TONSILS/ADENOIDS,<12 Y/O - TRANSURETHRAL NEEDLE ABLATION_*FL Current Outpatient Medications Medication Sig - citalopram (CELEXA) 20 mg tablet Take 20 mg by mouth once daily. - aspirin 81 mg chewable tablet Take 81 mg by mouth once daily. - finasteride (PROSCAR) 5 mg tablet Take 5 mg by mouth once daily. - tamsulosin (FLOMAX) 0.4 mg Take 0.4 mg by mouth once daily. - simvastatin (ZOCOR) 10 mg tablet Take 10 mg by mouth daily at bedtime. - rOPINIRole (REQUIP) 1 mg tablet Take 1 mg by mouth five times daily. - mirabegron (MYRBETRIQ) 25 mg Tb24 Take 25 mg by mouth once daily. - metFORMIN (GLUCOPHAGE) 1,000 mg tablet Take 1,000 mg by mouth twice daily with meals. - lisinopril (ZESTRIL, PRINIVIL) 5 mg tablet Take 5 mg by mouth once daily. - Dextroamphetamine Sulfate 10 mg tablet Take 20 mg by mouth twice daily. - methadone (DOLOPHINE) 5 mg tablet Take 5 mg by mouth once daily. No current facility-administered medications for this visit. ALLERGIES: Patient has no known allergies. PERSONAL HISTORY: Social History Tobacco Use - Smoking status: Never Smoker - Smokeless tobacco: Never Used Substance Use Topics - Alcohol use: Never - Drug use: Never FAMILY HISTORY: FAMILY HISTORY Problem Relation Age of Onset - Breast Cancer Sister - Diabetes Brother REVIEW OF SYMPTOMS: The review of systems data was entered by the nurse and reviewed by ny Nursing Notes: Addie Lindsay RN 05/06/2021 3:36 PM Signed REVIEW OF SYSTEMS: General: The patient denies fatigue, denies weight loss, denies weight gain, denies feeling hot, and denies feelings of cold. Eyes: The patient denies glaucoma, notes eye injury/surgery, wears glasses or contacts. Ear/Nose/Throat: The patient denies allergies, denies hayfever, notes ear infections, and denies bloody noses. Cardiovascular: The patient denies chest pain, denies heart disease, notes high blood pressure,denies cardiac stent, denies prior heart attack, denies irregular heart beat, notes high cholesterol, denies poor circulation, denies heart failure, other cardiac issues, denies claudication, denies cold feet, denies peripheral arterial stent. Respiratory: The patient denies tuberculosis, denies pneumonia, denies frequent cough, denies pulmonary embolism, notes shortness of breath, and denies coughing up blood. Gastrointestinal: The patient denies difficulty swallowing, denies acid reflux, notes ulcers, denies vomiting, denies jaundice/hepatitis, notes gallbladder problems, denies black or tarry stools, denies hemorrhoids, denies bleeding from rectum, denies diverticulitis, denies constipation, denies diarrhea, denies loss of stool control, and denies hernias. Kidney/Bladder: The patient notes kidney stones, denies urine infections, and denies bloody urine. Skin: The patient denies a history of skin cancer, denies bleeding/changing moles, and denies a history of skin rash. Neurologic: The patient denies a history of epilepsy/convulsions, denies headaches, denies head/spinal injuries, and denies stroke/TIA. Psychiatric: The patient notes psychiatric medications, notes depression, and denies voices, denies substance abuse. Endocrine: The patient denies thyroid disorders, notes diabetes, and denies hormonal problems. Hematologic: The patient notes a history of bruising, denies bleeding, and notes anemia, denies blood clots. Infections: The patient notes a history of measles and mumps, notes rheumatic fever, and denies sexually transmitted diseases. Musculoskeletal: The patient notes back pain/injury, notes back problems, notes sciatica, notes knee/foot trouble, notes arthritis, or denies gout. When was patient's last Mammogram screening? N/A Last Colonoscopy: unknown Addie Lindsay RN PHYSICAL EXAMINATION: General: The pa (more content not included)...[facility] 03-28-2021 History of Present illness Narrative* Swati Anne RN - 03/28/2021 11:00 AM EDT Arrival Note Infusion Patient is here for iron Labs were not ordered. 1200 Ordered treatment completed. Patient discharged without any issues. Patient has a copy of next infusion appointment and verbalizes understanding. All questions answered. documented in this [facility] Work Phone: [phone]) 195-349508-05-2021 Evaluation note* Diagnosis Anemia in stage 3 chronic kidney disease, unspecified whether stage 3a or 3b CKD ([facility])- Primary Iron deficiency anemia, unspecified iron deficiency anemia type documented in this encounter [facility] Work Phone: Evaluation note* Diagnosis Closed fracture of multiple pubic rami, right, initial encounter ([facility])- Primary documented in this encounter [facility] Work Phone: Evaluation note* Diagnosis Closed fracture of sacrum with routine healing, unspecified portion of sacrum, subsequent encounter- Primary Closed fracture of multiple pubic rami, right, sequela Difficulty walking Difficulty in walking documented in this encounter [facility] Work Phone: Evaluation note* Diagnosis Closed fracture of multiple pubic rami, right, initial encounter ([facility]) Lumbar radiculitis Thoracic or lumbosacral neuritis or radiculitis, unspecified Spinal stenosis of lumbar region with neurogenic claudication Spinal stenosis, lumbar region, with neurogenic claudication documented in this encounter [facility] Work Phone: Evaluation note* Diagnosis Closed fracture of multiple pubic rami, right, initial encounter ([facility]) documented in this encounter [facility] Work Phone: Evaluation note* Diagnosis Type 2 diabetes mellitus with stage 3b chronic kidney disease, without long-term current use of insulin ([facility])- Primary Chronic renal impairment, stage 3b (HCC) Anemia in stage 3b chronic kidney disease ([facility]) Hyperlipidemia LDL goal <70 Other and unspecified hyperlipidemia Chronic pain syndrome TABITHA (obstructive sleep apnea) Obstructive sleep apnea (adult) (pediatric) Primary insomnia Persistent disorder of initiating or maintaining sleep Primary narcolepsy without cataplexy Restless leg syndrome Restless legs syndrome (RLS) Iron deficiency anemia, unspecified iron deficiency anemia type Benign prostatic hyperplasia without lower urinary tract symptoms Dizziness Dizziness and giddiness documented in this encounter [facility]* Diagnosis Ataxic gait- Primary Abnormality of gait Dizziness and giddiness Tremor Abnormal involuntary movements documented in this encounter [facility]* Diagnosis Ataxic gait Abnormality of gait documented in this encounter [facility] note* Diagnosis Peripheral vertigo, right- Primary documented in this encounter [facility]* Diagnosis Peripheral vertigo, right documented in this encounter [facility] note* Diagnosis Peripheral vertigo, right- Primary Cervical disc disorder with radiculopathy of cervicothoracic region documented in this encounter [facility]* Diagnosis Peripheral vertigo, right- Primary documented in this encounter [facility]* Diagnosis Peripheral vertigo, right- Primary documented in this encounter [facility]* Diagnosis Peripheral vertigo, right- Primary Cervical disc disorder with radiculopathy of cervicothoracic region documented in this encounter [facility]* Diagnosis Peripheral vertigo, right- Primary Cervical disc disorder with radiculopathy of cervicothoracic region documented in this encounter [facility] note* Diagnosis Hyperlipidemia LDL goal <70 Other and unspecified hyperlipidemia documented in this encounter [facility] note* Diagnosis Peripheral vertigo, right- Primary Numbness and tingling of both legs below knees Spinal stenosis of lumbar region without neurogenic claudication documented in this encounter [facility] note* Diagnosis Closed compression fracture of body of L1 vertebra (HCC)- Primary Contusion of rib on left side, initial encounter documented in this encounter [facility] note* Diagnosis Compression fracture of L1 vertebra, initial encounter ([facility])- Primary Lumbar pain Lumbago Lumbar radiculopathy Thoracic or lumbosacral neuritis or radiculitis, unspecified Lumbar degenerative disc disease Lumbar spondylosis Lumbosacral spondylosis without myelopathy documented in this encounter [facility] Discharge instructions* Attachments The following attachments cannot be sent through Care Everywhere. * Pelvis Fracture (Belarusian) documented in this [facility] Work Phone: Hospital Discharge instructions* Attachments The following attachments cannot be sent through Care Everywhere. * Acute Pain Discharge Instructions, Adult (Belarusian) documented in this [facility] for referral (narrative)* Consultation (Routine) - Pending Review Specialty Diagnoses / Procedures Referred By Contac t Referred To Contact Neurology Diagnoses Dizziness Procedures [place] OFFICE/OUTPATIENT [facility] 60-74 MINUTES Damien Arce APRN - [employer] [address] [place] [address] [facility] Neuro [address] [place] [address] Referral ID Status Reason Start Date Expiration Date Visits Requested Visits Authorized [id number] Pending Review Specialty Services Required 01/05/2023 01/05/[address] [facility] for referral (narrative)* Consultation (Routine) - Pending Review Specialty Diagnoses / Procedures Referred By Contac t Referred To Contact Otolaryngology Diagnoses Peripheral vertigo, right Procedures [place] OFFICE/OUTPATIENT [facility] 60-74 MINUTES Camila Pepper MD [address] [place] [address] Jatinder Wright, [address] [place] [address] Referral ID Status Reason Start Date Expiration Date Visits Requested Visits Authorized [id number] Pending Review Specialty Services Required 04/01/2023 03/31/[address] [facility] for referral (narrative)* Consultation (Routine) - Pending Review Specialty Diagnoses / Procedures Referred By Contac t Referred To Contact Orthopedic Surgery: Spine Surgery / Orthopedic Surgery Diagnoses Closed compression fracture of body of L1 vertebra (HCC) Procedures [place] OFFICE/OUTPATIENT [facility] MDM 60-74 MINUTES William Suero DO [address] [place] [address] [facility] [address] [place] [id number] Referral ID Status Reason Start Date Expiration Date Visits Requested Visits Authorized [id number] Pending Review Specialty Services Required 07/29/2023 07/28/[address] [facility] for visit Narrative* Treatment Plan (Routine) Status Reason Specialty Diagnoses / Procedures Referred By Contact Referred To Contact Pending Review Diagnoses Anemia in stage 3 chronic kidney disease, unspecified whether stage 3a or 3b CKD (HCC) Iron deficiency anemia, unspecified iron deficiency anemia type Martha Tariq DO [address] [place] [address] [facility] [address] [place] [address] [facility] Phone: Advance Directives No Advanced Directives Records FoundDocuments on File Type Date Recorded Patient Desktop Specialist Expl anation ACP-Advance Directive ACP-Power of Manager [employer] Documents on File Type Date Recorded Patient Desktop Specialist Expl anation ACP-Advance Directive ACP-Power of Manager [employer] Latest Code Status on File Code Status Date Activated Date Inactivated Comments Full Code 10/06/2021 11:38 PM Latest Code Status on File Code Status Date Activated Date Inactivated Comments DNR-CCA 10/14/2021 3:01 PM Full Code 10/06/2021 11:38 PM 10/13/2021 1:23 AM Latest Code Status on File Code Status Date Activated Date Inactivated Comments DNR-CCA 10/14/2021 3:01 PM Full Code 10/06/2021 11:38 PM 10/13/2021 1:23 AM Documents on File Type Date Recorded Patient Desktop Specialist Expl anation Advance Directive(s) 06/20/2021 7:38 AM Advance Directive(s) 05/31/2021 2:52 PM Assessments There may be information available, but it has not been provided by the sender. Review of System There may be information available, but it has not been provided by the sender. Family History There may be information available, but it has not been provided by the sender.No Family History Records FoundNo Family History Records FoundNo Family History Records FoundNo Family History Records FoundNo Family History Records FoundNo Family History Records Found Summary Purpose Reason for Referral Specialty Diagnoses / Procedures Referred By Contac t Referred To Contact Orthopedic Surgery Diagnoses Closed fracture of multiple pubic rami, right, initial encounter (HCC) Vignesh Hull MD [address] [place] [address] [facility] Roney Aguilera [facility] [address] [address] [place] [address] Referral ID Status Reason Start Date Expiration Date V isits Requested Visits Authorized [id number] Open Specialty Services Required 09/17/2021 09/17/2022 1 1 Scheduling Instructions [facility] [address] [place] [address] Specialty Diagnoses / Procedures Referred By Contac t Referred To Contact Radiology Diagnoses Closed fracture of multiple pubic rami, right, initial encounter (HCC) Lumbar radiculitis Spinal stenosis of lumbar region with neurogenic claudication Procedures MRI LUMBAR SPINE WO CONTRAST Felipe Damon MD [address] [place] [address] Referral ID Status Reason Start Date Expiration Date V isits Requested Visits Authorized [id number] Pending Review 10/25/2021 10/25/2022 1 1 Specialty Diagnoses / Procedures Referred By Contac t Referred To Contact Radiology Diagnoses Dizziness and giddiness Procedures Vestibular test Camila Pepper MD [address] [place] [address] Referral ID Status Reason Start Date Expiration Date V isits Requested Visits Authorized [id number] Authorized 01/22/2023 07/21/2023 1 1 Specialty Diagnoses / Procedures Referred By Contac t Referred To Contact Radiology Diagnoses Ataxic gait Procedures MR brain w and wo contrast Camila Pepper MD [address] [place] [address] Referral ID Status Reason Start Date Expiration Date V isits Requested Visits Authorized [id number] Authorized 01/22/2023 07/21/2023 1 1 Referral ID Status Reason Start Date Expiration Date Visits Re quested Visits Authorized [id number] Closed 01/22/2023 07/21/2023 1 1 Specialty Diagnoses / Procedures Referred By Contac t Referred To Contact Physical Therapy Diagnoses Peripheral vertigo, right Procedures [place] OFFICE/OUTPATIENT NEW HIGH MDM 60-74 MINUTES Camila Pepper MD [address] [place] [address] [place] [address] Referral ID Status Reason Start Date Expiration Date Visits Requested Visits Authorized [id number] Pending Review Eval and Treat 02/16/2023 08/15/2023 99 99 Specialty Diagnoses / Procedures Referred By Contac t Referred To Contact Physical Therapy Diagnoses Peripheral vertigo, right Spinal stenosis of lumbar region without neurogenic claudication Procedures NV OFFICE/OUTPATIENT NEW HIGH MDM 60-74 MINUTES Camila Pepper MD [address] [place] [address] Referral ID Status Reason Start Date Expiration Date Visits Requested Visits Authorized [id number] Pending Review Eval and Treat 12/15/2023 99 99 Scheduling Instructions Robert Tomlin, ANTWAN Address: [address] [place] [address] , [place] [address] Imbalance and dizziness due to combination of right peripheral vertigo AND severe lumbar spinal stenosis (mulitple levels) 2 times a week for 4 weeks. Specialty Diagnoses / Procedures Referred By Contac t Referred To Contact Radiology Diagnoses Compression fracture of L1 vertebra, initial encounter ([facility]) Lumbar radiculopathy Lumbar pain Procedures MR lumbar spine wo contrast Angelito Pastrana NP 1 [facility] [address] [place] [address] Referral ID Status Reason Start Date Expiration Date V isits Requested Visits Authorized [id number] Authorized 08/12/2023 08/11/2024 1 1 Additional Source Comments (unrecognized sect ion and content) No Status Records FoundNo Status Records FoundNo Status Records FoundNo Status Records FoundNo Status Records FoundNo Status Records Found INFORMATION SOURCE (unrecogn ized section and content) DATE CREATED AUTHOR AUTHOR'S ORGANIZ ATION 04/28/2019 [facility] [place] [facility] DATE CREATED AUTHOR AUTHOR'S ORGANIZ ATION 01/18/2022 [facility] DATE CREATED AUTHOR AUTHOR'S ORGANIZ ATION 05/01/2022 [facility] DATE CREATED AUTHOR AUTHOR'S ORGANIZ ATION 06/14/2022 [facility] DATE CREATED AUTHOR AUTHOR'S ORGANIZ ATION 08/14/2023 [facility] Reason for Visit (unrecogniz ed section and content) Reason Comments Hip Pain left hip Specialty Diagnoses / Procedures Referred By Contac t Referred To Contact Radiology Diagnoses Closed fracture of multiple pubic rami, right, initial encounter ([facility]) Lumbar radiculitis Spinal stenosis of lumbar region with neurogenic claudication Procedures MRI LUMBAR SPINE WO CONTRAST Felipe Damon MD [address] [place] [address] Referral ID Status Reason Start Date Expiration Date V isits Requested Visits Authorized [id number] Pending Review 10/25/2021 10/25/2022 1 1 Reason Comments Results EGD and colonoscopy results Reason Comments Diabetes Medication Check Health Maintenance DM eye--[facility]has been , Hep B--,discuss COVID 4-- has not had and does not want Reason Comments New Patient Dizziness Specialty Diagnoses / Procedures Referred By Contac t Referred To Contact Neurology Diagnoses Dizziness Procedures [place] OFFICE/OUTPATIENT NEW HIGH MDM 60-74 MINUTES Damien Arce S, PLANT 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 - [employer] [address] [place] [address] [facility] Neuro [address] [facility] [address] [place] [address] Referral ID Status Reason Start Date Expiration Date Visits Requested Visits Authorized [id number] Pending Review Specialty Services Required 01/05/2023 01/05/2024 1 1 Reason Onset Date Comments Medication Problem 01/22/2023 glimepiride ( Amaryl) 1 MG tablet Specialty Diagnoses / Procedures Referred By Contac t Referred To Contact Radiology Diagnoses Ataxic gait Procedures MR brain w and wo contrast Camila Pepper MD [address] [facility] [address] [place] [address] Referral ID Status Reason Start Date Expiration Date Visits Re quested Visits Authorized [id number] Closed 01/22/2023 07/21/2023 1 1 Reason Onset Date Comments Results 02/04/2023 Reason Comments Follow-up Dizziness Results Specialty Diagnoses / Procedures Referred By Contac t Referred To Contact Physical Therapy Diagnoses Peripheral vertigo, right Procedures [place] OFFICE/OUTPATIENT NEW HIGH [facility] 60-74 MINUTES Camila Pepper MD [address] [facility] [address] [place] [address] [facility] [address] [place] [address] [place] [address] Referral ID Status Reason Start Date Expiration Date Visits Requested Visits Authorized [id number] Authorized Eval and Treat 02/16/2023 08/15/2023 99 99 Reason Comments Follow-up Reason Comments Med Refill Reason Comments PT Discharge Reason Comments Follow-up Vertigo Reason Onset Date Comments Appointment Request 02/11/2023 Reason Comments Fall Reason Comments Back Pain Specialty Diagnoses / Procedures Referred By Contac t Referred To Contact Orthopedic Surgery: Spine Surgery / Orthopedic Surgery Diagnoses Closed compression fracture of body of L1 vertebra (HCC) Procedures [place] OFFICE/OUTPATIENT [facility] 60-74 MINUTES William Suero DO [address] [place] [address] Angelito Pastrana NP [address] [address] Referral ID Status Reason Start Date Expiration Date V isits Requested Visits Authorized [id number] Closed Specialty Services Required 07/29/2023 07/28/2024 1 1 Ordered Prescriptions (unrec ognized section and content) Prescription Sig Dispensed Refills Start Date End Da te polyethylene glycol (GLYCOLAX) 17 GM/SCOOP powder Take 17 g by mouth daily for 14 days 14 each 0 10/12/2021 10/26/2021 sennosides-docusate sodium (SENOKOT-S) 8.6-50 MG tablet Take 2 tablets by mouth in the morning and at bedtime for 14 days 56 tablet 0 10/12/2021 10/26/2021 oxyCODONE-acetaminophe n (PERCOCET) 5-325 MG per tabletIndications:Clos ed fracture of sacrum with routine healing, unspecified portion of sacrum, subsequent encounter Take 2 tablets by mouth every 8 hours as needed for Pain for up to 7 days. 42 tablet 0 10/12/2021 10/19/2021 predniSONE (DELTASONE) 10 MG tablet 5 tablets by mouth once a day x 2 days, then 4 tablets by mouth once a day x 2 days, then 3 tablets by mouth once a day x 2 days, then 2 tablets by mouth once a day x 2 days, then 1 tablets by mouth once a day x 2 days then stop. 30 tablet 0 10/11/2021 10/21/2021 aluminum & magnesium hydroxide-simethicone (MAALOX) 200-200-20 MG/5ML SUSP suspension Take 30 mLs by mouth every 6 hours as needed for Indigestion 300 mL 0 10/08/2021 11/07/2021 oxyCODONE-acetaminophe n (PERCOCET) 7.5-325 MG per tabletIndications:Clos ed fracture of sacrum with routine healing, unspecified portion of sacrum, subsequent encounter Take 1 tablet by mouth every 6 hours as needed for Pain for up to 7 days. Intended supply: 28 days 28 tablet 0 10/10/2021 10/12/2021 sennosides-docusate sodium (SENOKOT-S) 8.6-50 MG tablet Take 1 tablet by mouth daily 100 tablet 0 10/09/2021 10/12/2021 oxyCODONE-acetaminophe n (PERCOCET) 5-325 MG per tabletIndications:[facility] ed fracture of sacrum with routine healing, unspecified portion of sacrum, subsequent encounter,Closed fracture of multiple pubic rami, right, sequela Take 7.5 tablets by mouth every 6 hours as needed (SEVERE PAIN) for up to 3 days. 12 tablet 0 10/09/2021 10/10/2021 traMADol (ULTRAM) 50 MG tabletIndications:[facility] ed fracture of multiple pubic rami, right, sequela Take 1 tablet by mouth every 6 hours as needed (Moderate pain) for up to 3 days. 12 tablet 0 10/08/2021 10/11/2021 oxyCODONE-acetaminophe n (PERCOCET) 5-325 MG per tabletIndications:[facility] ed fracture of multiple pubic rami, right, sequela Take 1 tablet by mouth every 6 hours as needed (severe apin) for up to 3 days. 12 tablet 0 10/08/2021 10/10/2021 Care Teams (unrecognized sec tion and content) Impregnation Operator Relationship Specialty Start Date End Date Jignesh Leger MD [address] [place] [address] PCP - General 03/13/16 Impregnation Operator Relationship Specialty Start Date End Date Jignesh Leger MD [address] [place], [place] [address] [address] PCP - General 03/13/16 Impregnation Operator Relationship Specialty Start Date End Date Jignesh Leger MD [address] [place], [place] [address] [address] PCP - General 03/13/16 Impregnation Operator Relationship Specialty Start Date End Date Jignesh Leger MD [address] [place], [place] [address] [address] PCP - General 03/13/16 Impregnation Operator Relationship Specialty Start Date End Date Jignesh Leger MD [address] [place] [address] PCP - General 03/13/16 Impregnation Operator Relationship Specialty Start Date End Date Rupinder Veena Ray [address] [facility] [address] [place] [address] PCP - General Internal Medicine 05/10/21 Impregnation Operator Relationship Specialty Start Date End Date Jignesh Leger MD [address] [place] [address] PCP - General 03/13/16 Impregnation Operator Relationship Specialty Start Date End Date Jignesh Leger MD [address] [place], [place] [address] [address] PCP - General Family Medicine 06/10/22 Martha Tariq, DO [address] [place] [address] [place] [address] Consulting Physician Hematology and Oncology 11/17/22 Impregnation Operator Relationship Specialty Start Date End Date Jignesh Leger MD [address] [place] [address] PCP - General Family Medicine 06/10/22 Martha Tariq, DO [address] [place] [address] [place] [address] Consulting Physician Hematology and Oncology 11/17/22 Impregnation Operator Relationship Specialty Start Date End Date [place]ign[place] [address] PCP - General Family Medicine 06/10/22 Martha Tariq DO [address] [place] [address] [place] [address] Consulting Physician Hematology and Oncology 11/17/22 Impregnation Operator Relationship Specialty Start Date End Date [place] [address] PCP - General Family Medicine 06/10/22 Martha Tariq DO [address] [place] [address] [place] [address] Consulting Physician Hematology and Oncology 11/17/22 Impregnation Operator Relationship Specialty Start Date End Date Jignesh Leger MD [address] [place] [address] [place] [address] PCP - General Family Medicine 06/10/22 Martha Tariq DO [address] [place] [place] [address] Consulting Physician Hematology and Oncology 11/17/22 Impregnation Operator Relationship Specialty Start Date End Date Jignesh Leger MD [address] [place], [place] [address] [address] PCP - General Family Medicine 06/10/22 Martha Tariq DO [address] [place] [place] [address] Consulting Physician Hematology and Oncology 11/17/22 Impregnation Operator Relationship Specialty Start Date End Date Jignesh Leger MD [address] [place], [place] [address] [address] PCP - General Family Medicine 06/10/22 Martha Tariq DO [address] [place] [place] [address] Consulting Physician Hematology and Oncology 11/17/22 Impregnation Operator Relationship Specialty Start Date End Date Jignesh Leger MD [address] [place] [address] PCP - General Family Medicine 06/10/22 Martha Tariq DO [address] [place] [address] Consulting Physician Hematology and Oncology 11/17/22 Impregnation Operator Relationship Specialty Start Date End Date Jignesh Leger MD [address] [place] [address] PCP - General Family Medicine 06/10/22 Martha Tariq DO [address] [place] [address] Consulting Physician Hematology and Oncology 11/17/22 Impregnation Operator Relationship Specialty Start Date End Date Jignesh Leger MD [address] [place] [address] PCP - General Family Medicine 06/10/22 Martha Tariq DO [address] [place] [address] Consulting Physician Hematology and Oncology 11/17/22 Impregnation Operator Relationship Specialty Start Date End Date Jignesh Leger MD [address] [place] [address] PCP - General Family Medicine 06/10/22 Martha Tariq DO [address] [place] [place] [address] Consulting Physician Hematology and Oncology 11/17/22 Impregnation Operator Relationship Specialty Start Date End Date Jignesh Leger MD [address] [place] [address] PCP - General Family Medicine 06/10/22 Martha Tariq DO [address] [place] [address] Consulting Physician Hematology and Oncology 11/17/22 Impregnation Operator Relationship Specialty Start Date End Date Jignesh Leger MD [address] [place] [address] PCP - General Family Medicine 06/10/22 Martha Tariq DO [address] [place] [address] Consulting Physician Hematology and Oncology 11/17/22 Impregnation Operator Relationship Specialty Start Date End Date Jignesh Leger MD [address] [place], [place] [address] [address] PCP - General Family Medicine 06/10/22 Martha Tariq DO [address] [place] [address] Consulting Physician Hematology and Oncology 11/17/22 Impregnation Operator Relationship Specialty Start Date End Date Jignesh Leger MD [facility] [place] [address] PCP - General Family Medicine 06/10/22 Martha Tariq DO [address] [place] [address] [place] [address] Consulting Physician Hematology and Oncology 11/17/22 Impregnation Operator Relationship Specialty Start Date End Date Jignesh Leger MD [facility] [place] [address] PCP - General Family Medicine 06/10/22 Martha Tariq DO [address] [place] [place] [address] Consulting Physician Hematology and Oncology 11/17/22 Impregnation Operator Relationship Specialty Start Date End Date Jignesh Leger MD [facility] [place] [address] PCP - General Family Medicine 06/10/22 Martha Tariq DO [address] [place] [place] [address] Consulting Physician Hematology and Oncology 11/17/22 Impregnation Operator Relationship Specialty Start Date End Date Jignesh Leger MD [facility] [place] [address] PCP - General Family Medicine 06/10/22 Martha Tariq DO [address] [place] [place] [address] Consulting Physician Hematology and Oncology 11/17/22 Impregnation Operator Relationship Specialty Start Date End Date Jignesh Leger MD [address] [place] [address] PCP - General Family Medicine 06/10/22 Martha Tariq DO [address] [place] [address] [place] [address] Consulting Physician Hematology and Oncology 11/17/22 Impregnation Operator Relationship Specialty Start Date End Date Jignesh Leger MD [address] [place] [address] PCP - General Family Medicine 06/10/22 Martha Tariq DO [address] [place] [place] [address] Consulting Physician Hematology and Oncology 11/17/22 Scheduled Active and Recently Administ ered Medications (unrecognized section and content) PRN Medication Order 10/10/2021 10/11/2021 10/12/2021 0.9 % sodium chloride infusion 25 mL, IntraVENous, at 100 mL/hr, PRN, If patient receiving piggyback infusions without ordered maintenance IV fluids or with frequent/long duration piggyback infusions, Starting on 10/06/21 at 2338, Administer at the same rate as the piggyback being infused. acetaminophen (TYLENOL) suppository 650 mg(Linked Group 1) 650 mg, Rectal, EVERY 6 HOURS PRN, Pain Mild (1-3), Fever, For temp greater than 100.4 F (38 C), Starting on 10/06/21 at 2338, Administer if oral route cannot be used. 0903 (See Alternative - Provider: Art Colvin RN) 0007 (See Alternative - Provider: Eloisa Mae RN) acetaminophen (TYLENOL) tablet 650 mg(Linked Group 1) 650 mg, Oral, EVERY 6 HOURS PRN, Pain Mild (1-3), Fever, For temp greater than 100.4 F (38 C), Starting on 10/06/21 at 2338, Maximum dose of acetaminophen is 4000 mg from all sources in 24 hours. 0903 (Given - Provider: Art Colvin, RN) 0007 (Given - Provider: Eloisa Mae, JAMES) albuterol sulfate HFA 108 (90 Base) MCG/ACT inhaler 2 puff 2 puff, Inhalation, 4 TIMES DAILY PRN, Wheezing, Starting on 10/06/21 at 2338 aluminum & magnesium hydroxide-simethicone (MAALOX) 200-200-20 MG/5ML suspension 30 mL 30 mL, Oral, EVERY 6 HOURS PRN, Indigestion, Starting on 10/06/21 at 2338 dextrose 5 % solution 100 mL/hr, IntraVENous, PRN, Low blood sugar, Starting on 10/06/21 at 2338, Start infusion following administration of dextrose 50% or glucagon. dextrose 50 % IV solution 12.5 g, IntraVENous, PRN, Low blood sugar, Blood glucose less than 70 mg/dL and patient NOT ALERT or NPO., Starting on 10/06/21 at 2338, If patient does not respond within 5 minutes, repeat dose x1. Start D5W at 100 mL/hour until ordering provider can be reached. Repeat blood glucose in 15 minutes. If blood glucose is less than 70 mg/dL, repeat treatment and recheck blood glucose in 15 minutes x2. If using Glucostabilizer, dose as instructed per system. glucagon (rDNA) injection 1 mg 1 mg, IntraMUSCular, PRN, Low blood sugar, Blood glucose less than 70 mg/dL and patient NOT ALERT or NPO and does not have IV access., Starting on Thu10/06/21 at 2338, After administration, attempt intravenous access and start D5W at 100 mL/hr. Repeat blood glucose in 15 minutes x2 and notify provider. glucose (GLUTOSE) 40 % oral gel 15 g 15 g, Oral, PRN, Low blood sugar, Starting on 10/06/21 at 2338, If blood glucose less than 50 mg/dL and patient ALERT and TOLERATING PO, give 2 tubes glucose gel. If blood glucose less than 70 mg/dL and patient ALERT and TOLERATING PO, give 1 tube glucose gel. Repeat blood glucose in 15 minutes. If blood glucose is less than 70 mg/dL, repeat treatment and recheck blood glucose in 15 minutes x2 and notify provider. morphine sulfate (PF) injection 2 mg (CANCELED) 2 mg, IntraVENous, EVERY 3 HOURS PRN, breakthrough pain between ultram dosages and nightly prn for pain before sleep, Starting on Thu10/08/21 at 1045, If oral and IV narcotics ordered, use oral first and only use IV if oral is ineffective or cannot take oral. Do Not give oral and IV within 1 hour of each other unless specifically ordered. 0652 (Given - Provider: Sushma Blackwell RN) ondansetron (ZOFRAN) injection 4 mg(Linked Group 2) 4 mg, IntraVENous, EVERY 6 HOURS PRN, Nausea, Vomiting, Starting on Thu10/06/21 at 2338, Administer if oral route cannot be used. ondansetron (ZOFRAN-ODT) disintegrating tablet 4 mg(Linked Group 2) 4 mg, Oral, EVERY 8 HOURS PRN, Nausea, Vomiting, Starting on Thu10/06/21 at 2338 oxyCODONE-acetaminophen (PERCOCET) 7.5-325 MG per tablet 1 tablet 1 tablet, Oral, EVERY 6 HOURS PRN, Pain Severe (7-10), Starting on Thu10/09/21 at 1418, Maximum dose of acetaminophen is 4000 mg from all sources in 24 hours. 0256 (Given - Provider: Mariaelena Morris RN)0848 (Given - Provider: Todd Yuen RN)1552 (Given - Provider: Todd Yuen RN)2201 (Given - Provider: Eloisa Mae RN) 0409 (Given - Provider: Eloisa Mae RN)1430 (Given - Provider: Art Colvin RN)2143 (Given - Provider: Eloisa Mae RN) 0500 (Given - Provider: Eloisa Mae RN)1146 (Given - Provider: Karley Cummings, JAMES)1748 (Given - Provider: Karley Cummings, JAMES) polyethylene glycol (GLYCOLAX) packet 17 g 17 g, Oral, DAILY PRN, Constipation, Starting on Thu10/06/21 at 2338, First line therapy for constipation sodium chloride flush 0.9 % injection 5-40 mL 5-40 mL, IntraVENous, PRN, Line Care, After every IV line use, Starting on Thu10/06/21 at 2338, For Line Patency: Peripheral IV = 5 mL; Midline or Central Line = 10 mL/lumen. If following IV push medication, administer flush at same rate as the IV push. Flush volume is determined by type of infusion therapy being given. For non-viscous solutions use: Peripheral IV = 5 mL Midline or Central Line = 10 mL/lumen For viscous solutions (i.e. blood components, parenteral nutrition, contrast media, or after obtaining blood sample) use: Peripheral IV = 10 mL Midline or Central Line = 20 mL/lumen traMADol (ULTRAM) tablet 50 mg 50 mg, Oral, EVERY 6 HOURS PRN, Pain Moderate (4-6), Starting on Thu10/08/21 at 1045 0626 (Given - Provider: Mariaelena Morris RN - Comment: per morphine order morpine is to be given between ultram. perc is not due yet.) 0154 (Given - Provider: Eloisa Mae RN)0903 (Given - Provider: Art Colvin RN) 0913 (Given - Provider: Karley Cummings, JAMES)1527 (Given - Provider: Karley Cummings RN) Linked Groups Order Group 1: acetaminophen (TYLENOL) tablet 650 mgJump to med 650 mg, Oral, EVERY 6 HOURS PRN, Pain Mild (1-3), Fever, For temp greater than 100.4 F (38 C), Starting on Thu10/06/21 at 2338
Maximum dose of acetaminophen is 4000 mg from all sources in 24 hours.
Or acetaminophen (TYLENOL) suppository 650 mgJump to med 650 mg, Rectal, EVERY 6 HOURS PRN, Pain Mild (1-3), Fever, For temp greater than 100.4 F (38 C), Starting on Thu10/06/21 at 2338
Administer if oral route cannot be used.
Group 2: ondansetron (ZOFRAN-ODT) disintegrating tablet 4 mgJump to med 4 mg, Oral, EVERY 8 HOURS PRN, Nausea, Vomiting, Starting on 10/06/21 at 2338 Or ondansetron (ZOFRAN) injection 4 mgJump to med 4 mg, IntraVENous, EVERY 6 HOURS PRN, Nausea, Vomiting, Starting on 10/06/21 at 2338
Administer if oral route cannot be used.
Source Comments (unrecognize d section and content) In the event this informatio n is protected by the Federal Confidentiality of Alcohol and Drug Abuse Patient Records regulations: The Federal rules restrict any use of the information to criminally investigate or prosecute any alcohol or drug abuse patient.[facility] FOR RECORDS PERTAINING TO PATIENTS WHO ARE OR HAVE BEEN ENROLLED IN A CHEMICAL DEPENDENCY/SUBSTANCEABUSE PROGRAM, SOME INFORMATION MAY BE OMITTED. This clinical summary was aggregated from multiple sources. Caution should be exercised in using it in the provision of clinical care. This summary normalizes information from multiple sources, and as a consequence, information in this document may materially change the coding, format and clinical context of patient data. In addition, data may be omitted in some cases. CLINICAL DECISIONS SHOULD BE BASED ON THE PRIMARY CLINICAL RECORDS. [facility] [employer] [facility]. provides no warranty or guarantee of the accuracy or completeness of information in this document.
--- NOTE | 2023-08-20 20:49 | ED.RN ---
still trying to climb out of bed, asking for his pain meds. notified . pt is rolling around in bed.
[2023-08-20] MEDS: Morphine 4 MG/ML Syringe IV (21:05)
[2023-08-20] MEDS: Haloperidol Lactate 5 MG/ML Vial 2 MG IM (21:30)
--- NOTE | 2023-08-20 21:46 | HP.PCM.HOS_ITS ---
HPI - General General Date of Admission: 08/20/23 Date of Service: 08/20/23 Chief Complaint: Altered mental status with agitation HPI Narrative CANDICE MUSA, is a 83 M who presented to [facility] ED on 08/20/2023 with altered mental status with agitation. Patient seen at bedside in the ED. On my review, patient was initially sitting up in bed and appeared fairly comfortable. However, during the course of my review, patient was consistently moving around the bed and reported feeling very anxious and unsettled. Patient states he recently had a low back fracture that was diagnosed, and he has been taking methadone since then for the pain. States that he thinks his significant anxiety currently is due to not taking his methadone today, is asking for dose of methadone now. Per EMS, patient lives with roommates and a roommate called EMS to bring him in because he had altered mental status and agitation this evening there. Remained did note that this seemed significantly different for patient from his baseline. ED staff initially had significant difficulty getting any information from the patient, as he was not answering questions appropriately. On my interview, patient was able to tell me his full name and date of . He knew that he was from [place], and knew he was at [facility]. He knew that the current present was Dustin, previous president was [employer] and president before blanca t was Gemma. He however did think the year was 2002, but said the month was July. Patient denies any cough or chest pain. Denied any fevers or chills. Denied any other pain aside from his low back pain. Denied any lightheadedness or dizziness. No other acute concerns this time. ON LICENSE OF [facility] Medical History Arthritis Carpal tunnel syndrome Diabetes Hypertension IBS (irritable bowel syndrome) Kidney stones Neuropathy Prostate abscess Sleep apnea Medical History unable to obtain Home Medications lisinopril 5 mg tablet 5 mg PO DAILY 03/31/18 [History Last Taken Unknown] ropinirole 5 mg tablet (Requip) 1 mg PO BID 03/31/18 [History Last Taken Unknown] simvastatin 10 mg tablet 10 mg PO QHS 03/31/18 [History Last Taken Unknown] tamsulosin 0.4 mg capsule 0.4 mg PO DAILY 03/31/18 [History Last Taken Unknown] calcitonin (salmon) 200 unit/actuation nasal spray 1 spray intranasal DAILY 08/20/23 [History Last Taken Unknown] citalopram 20 mg tablet 20 mg PO DAILY 08/20/23 [History Last Taken Unknown] glimepiride 2 mg tablet 2 mg PO DAILY 08/20/23 [History Last Taken Unknown] metformin 1,000 mg tablet 1,000 mg PO BID 08/20/23 [History Last Taken Unknown] methadone 5 mg tablet 5 mg PO QHS 08/20/23 [History Last Taken Unknown] methocarbamol 750 mg tablet 750 mg PO Q8H PRN muscle pain 08/20/23 [History Last Taken Unknown] Allergy/AdvReac Type Severity Reaction Status Date / Time meperidine [From Demerol] Allergy Mild insomnia Verified 08/20/23 19:32 Family History Other Asthma Surgical History History of cholecystectomy History of circumcision History of foot surgery History of shoulder surgery History of tonsillectomy Social History Smoking Status: Never smoker alcohol intake: never substance use type: does not use what type of physical activity do you participate in: none ROS Constitutional Constitutional: Denies chills, fatigue, fever(s) or weakness Eyes Eyes: Denies change in vision Cardiovascular Cardiovascular: Denies chest pain Respiratory/Chest Respiratory/Chest: Denies cough Gastrointestinal Gastrointestinal: Denies abdominal pain Musculoskeletal Musculoskeletal: Reports back pain Psychiatric Psychiatric: Reports anxiety Vital Signs Vital Signs Vital Signs: 08/20/23 19:00 08/20/23 19:05 08/20/23 19:13 Temperature 100.5 F H 100.5 F H Temperature Source Oral Temporal Pulse Rate 131 H 130 H Respiratory Rate 21 H 23 H Respiratory Effort Normal Respiratory Pattern Tachypnea Blood Pressure 152/98 H 152/98 H Blood Pressure Mean 116 116 Pulse Ox 93 92 Oxygen Delivery Method Room Air Room Air 08/20/23 19:19 08/20/23 19:41 08/20/23 20:05 Temperature 100.5 F H 102.3 F H Temperature Source Temporal Oral Pulse Rate 129 H 71 66 Respiratory Rate 24 H 26 H 26 H Respiratory Effort Respiratory Pattern Blood Pressure 152/98 H 131/69 H 110/46 L Blood Pressure Mean 116 89 67 Pulse Ox 94 94 94 Oxygen Delivery Method Room Air Room Air Room Air 08/20/23 20:34 08/20/23 20:52 08/20/23 21:04 Temperature 98.4 F Temperature Source Oral Pulse Rate 69 72 72 Respiratory Rate 28 H 26 H Respiratory Effort Respiratory Pattern Blood Pressure 134/52 H 119/49 L 80/55 L Blood Pressure Mean 79 72 63 Pulse Ox 93 92 Oxygen Delivery Method Room Air Room Air 08/20/23 21:14 08/20/23 21:43 Temperature Temperature Source Pulse Rate 68 88 Respiratory Rate 22 H 16 Respiratory Effort Respiratory Pattern Blood Pressure 99/70 92/56 L Blood Pressure Mean 79 68 Pulse Ox 92 Oxygen Delivery Method Room Air Weight Weight: 87 kg Body Mass Index (BMI) 25.2 Physical Exam Const alert and average body habitus Constitutional Narrative: Elderly male, alert but not answering all questions appropriately, appears agitated and consistently moving up and down in the bed and try to get out of bed. General Appearance: cooperative HEENT normocephalic, head/scalp atraumatic, hearing grossly normal bilaterally and nasal mucous membranes and turbinates normal HEENT Narrative: Dry mucous membranes. Eyes PERRL, EOMs intact bilaterally and conjunctivae normal Neck full ROM, no lymphadenopathy and supple Lymph Lymphatic: no lymphadenopathy noted Chest inspection of chest normal Resp normal respiratory effort, normal air movement, no use of accessory muscles and clear to auscultation bilaterally Cardio regular rate, regular rhythm, no murmurs and peripheral pulses 2+ throughout GI normal to inspection, nondistended, normoactive bowel sounds, soft to palpation, non-tender and non-distended Back/Spine normal ROM Back/Spine Narrative: Mild tenderness to palpation in low back diffusely. Extremity normal to inspection, full ROM and no pedal edema Skin no rashes or lesions noted Neuro moves all extremities and no focal motor deficits Speech: speech normal Results Lab / Micro Data 08/20/23 19:15 08/20/23 19:15 Labs: Laboratory Results - last 24 hr 08/20/23 19:15: WBC 3.5 L, RBC 3.65 L, Hgb 11.6 L, Hct 35.5 L, MCV 97.3 H, MCH 31.8, MCHC 32.7, RDW Std Deviation 43.6, RDW Coeff of Radha 12.1, Plt Count 128 L, MPV 11.0, Immature Gran % (Auto) 0.000, Neut % (Auto) 84.3 H, Lymph % (Auto) 13.0 L, [place] % (Auto) 1.2, Eos % (Auto) 1.2, Baso % (Auto) 0.3, Absolute Neuts (auto) 2.9, Absolute Lymphs (auto) 0.45 L, Nucleated RBC % 0, Differential Comment SCANNED, Diff Path Review December, PT 13.5, INR 1.0, APTT 21.5 L, Sodium 139, Potassium 4.7, Chloride 108 H, Carbon Dioxide 24.0, Anion Gap 7, BUN 33 H, Creatinine 1.80 H, Estim Creat Clear Calc 35.76, Est GFR (MDRD) Af Amer 47 L, Est GFR (MDRD) Non-Af 39 L, BUN/Creatinine Ratio 18.3, Glucose 151 H, Lactic Acid 3.3 H*, Calcium 9.0, Total Bilirubin 0.40, AST 16, ALT 23, Alkaline Phosphatase 103, Troponin I High Sens 18, Total Protein 6.2 L, Albumin 3.1 L, Globulin 3.1, Albumin/Globulin Ratio 1.0 08/20/23 19:20: Urine Color Yellow, Urine Clarity Clear, Urine pH 6.0, Ur Specific [place] 1.010, Urine Protein 30 H, Urine Glucose (UA) Normal, Urine Ketones Negative, Urine Occult Blood 25 H, Urine Nitrite Negative, Urine Bilirubin Negative, Urine Urobilinogen Normal, Ur Leukocyte Esterase Negative, Urine RBC 0-5 SEEN, Urine WBC 0-5 SEEN, Ur Squamous Epith Cells 0 SEEN, Urine Bacteria 0 SEEN, Urine Mucus 0 SEEN Micro: Microbiology 08/20/23 19:40 Nasal Secretion SARS-CoV-2 & FLU Antigen (Rapid) - Final Rhythm Strip Rhythm Strip: Sinus Tach Rate: 133 Ectopy: None Imagaing Radiology Impression Abdomen/Pelvis CT 08/20/23 19:29 IMPRESSION: No acute findings in the abdomen or pelvis. Electronically Signed: Perez Dangelo MD at 20:40 EST , Brain CT 08/20/23 19:29 IMPRESSION: No acute intracranial abnormality. There is mild underlying small vessel ischemia. Electronically Signed: Perez Dangelo MD at 20:41 EST , Chest X-Ray 08/20/23 20:15 IMPRESSION: No acute findings in the chest. Electronically Signed: Perez Dangelo MD at 20:38 EST , Assessment & Plan Assessment/Plan (1) Restlessness and agitation: (2) Acute encephalopathy: (3) COVID-19: (4) Sepsis: PLAN: Plan Patient is an 83-year-old male who presented to [facility] ED on 08/20/2023 with altered mental status with agitation. 1. Altered mental status with agitation Unclear etiology at this time. CT head without contrast nonacute. Unlikely due to opiate withdrawal, patient on low-dose of methadone. Unlikely stroke, no focal weakness or numbness/tingling, no speech difficulties. Unlikely meningitis, neck and back moving freely without issue, minimal pain noted. History of BPH but having frequent urination in ED, CT abdomen/pelvis with no urinary retention, UA clean. S/p Geodon 10 mg x 1, Haldol 2 mg x 1, IV morphine x 2 in ED with no improvement in agitation. Have some concern for possible serotonin syndrome given home meds of methadone, citalopram and dextroamphetamine (and concern patient could be taking methadone inappr opriately), but no clonus elicited on exam and no tremor noted. ? Admit under inpatient status to the ICU. Family Life Counselor consulted. Low threshold to start Precedex for agitation, but will need to monitor blood pressure closely. Urine drug screen ordered. Will hold home serotonergic agents for now given concern for possible serotonin syndrome; could consider Ativan as needed and assessing response. 2. COVID-19 infection, sepsis without shock COVID-positive in the ED. Chest x-ray nonacute, patient satting in mid 90s on room air at rest. WBC count 3.5K, tachycardic to 130, tachypneic, lactate 3.5, febrile to 102.3F; met sepsis criteria. Initially normotensive, became hypotensive after administration of antipsychotics and morphine. No other source of infection aside from COVID seen at this time but cannot rule out. S/p 2600 cc normal saline in the ED (30 cc/kg) administered. ? Admitted to the ICU as noted above. Trend lactate. Isolation precautions in place. No need for COVID-specific treatments for now, as patient is stable on room air. Will start vancomycin and cefepime for broad-spectrum coverage. Blood cultures ordered. 3. Mild pancytopenia WBC count 3.5K, hemoglobin 11.6 (MCV 97), platelets 128 on admit. No prior labs for comparison. ? Iron studies, B12 and folate ordered. Follow-up a.m. CBC. 4. Suspected DORY Creatinine 1.80, BUN 33 on admit. No labs for comparison. UA showed 30 protein. Suspect patient has some degree of prerenal DORY due to volume depletion with sepsis as noted above. ? Given IV fluids in ED as noted above. Follow-up a.m. BMP. Monitor urine output. 5. Low back pain after L1 fracture on methadone ? Unclear on timing of L1 fracture but checked OARRS report, and patient has been filling methadone 5 mg daily since 08/2021. Holding methadone for now given concern for possible serotonin syndrome as noted above. Chronic medical conditions: ? Depression: Holding home citalopram as noted above. Notably unclear on why robert tubbs is on dextroamphetamine, but he has been filling this regularly since 12/2021. ? Hypertension: Holding home lisinopril. ? Hyperlipidemia: Continue home statin. ? Type 2 diabetes mellitus: Home medications of metformin 1000 mg twice daily, glimepiride 2 mg daily. Sliding-scale insulin while inpatient. ? BPH: Continue home Flomax. ? RLS: Continue home ropinirole. DVT prophylaxis: Heparin subcu CODE STATUS: Full code, unverified Expected disposition: TBD Total clinical time spent by myself addressing the patient's medical issues, reviewing all the data, and collaborating with patient's care team: 75 minutes. Charges/Coding Visit Charges Inpatient E&M: 84817 Init Hosp L3
[2023-08-20] MEDS: Morphine 4 MG/ML Syringe 2 MG IV (21:58)
--- OUTSIDE RECORDS SUMMARY | 2023-08-20 22:30 | XMS RPT_ITS | CCD ---
Author Name Unknown Address [address] [place] [address] Organization [facility] Care Team Providers Care Conference Service Coordinator Name Role Phone Trevon BELL, Antonio Ortiz Unavailable Jignesh Leger Primary Care Provider Adarsh BELL, Jignesh Marin Primary Care Provider Jignesh Leger MD Primary Care Provider Veena Bucio Primary Care Provider [phone] Martha Tariq Attending Unavailable PROVIDER, UNKNOWN Referring [...] DAY Attending Unavailable CECILIA, DAY Referring Unavailable ADARHS, JIGNESH Primary Care Unavailable JAWILLIAM LOAIZA Referring [...] meperidine Drug Allergy 8 difficulty waking up [facility] Work Phone: (20 sources) Meperidine Drug Allergy 6 Other (See Comments), Intolerance [employer] Work Phone: (20 sources) Meperidine Drug Allergy 9 Other (See Comments), Unknown [facility] [employer] Work Phone: (2 sources) pregabalin Drug Allergy 9 Other (See Comments) [employer] Work Phone: (20 sources) gabapentin Drug Allergy 9 Other (See Comments) [employer] Work Phone: (20 sources) Pregabalin Allergy to substance 2 Unknown [facility] (10 sources) Etodolac Propensity to adverse reactions 2 [facility] Work Phone: (10 sources) Terazosin Drug Allergy 0 [facility] (10 sources) terbinafine Drug Allergy 5 Rash [employer] (10 sources) vardenafil Drug Allergy 2 Headache [employer] Medications Current Medications Medication Drug Class(es) Dates Sig (Normalized) Sig (Original) Acetaminophen (20 sources) Start: 10-06-2021 acetaminophen (TYLENOL) tablet 650 mg Completed/Discontinued Medications Medication Drug Class(es) Dates Sig (Normalized) Sig (Original) B COMPLEX VITAMINS (1 source) Start: 02-03-20 18 B COMPLEX CAPS take 1 capsule once daily B COMPLEX VITAMINS [id number] Tonya Tinsley LPN DULOXETINE HCL (1 source) Serotonin and Norepinephrine Reuptake Inhibitor Start: 02-03-20 18 DULOXETINE HCL 60 MG CPEP take 1 capsule once daily DULOXETINE HCL [id number] Tonya Tinsley LPN ferric carboxymaltose (INJECTAFER) 750 mg in sodium chloride 0.9 % 250 mL IVPB (1 source) Start: 03-28-20 21 End: 03-28-20 21 ferric carboxymaltose (INJECTAFER) 750 mg in sodium chloride 0.9 % 250 mL IVPB fish oil (1 source) Start: 02-03-20 FISH OIL 1000 MG CAPS take 1 capsule once daily OMEGA-3 FATTY ACIDS [id number] Tonya Alvina COLE gadobutrol (Gadavist) injection 9 [...] 14:33-0500 Body height 182.9 cm Angelito Pastrana BREAD PAN GREASER Work Phone: [employer] 08-12-2023 14:33-0500 Body mass index (BMI) [Ratio] 26.31 kg/m2 Angelito Pastrana BREAD PAN GREASER Work Phone: [facility] 08-12-2023 14:33-0500 Body weight 88 kg Angelito Banaslrosette TRINH Work Phone: [employer] 07-29-2023 15:28-0500 Diastolic blood pressure 72 mm[Hg] William Suero DO Work Phone: [employer] 07-29-2023 15:28-0500 Heart rate 94 /min William Suero Safe N Clear Work Phone: [employer] 07-29-2023 15:28-0500 Respiratory rate 16 /min William Suero Safe N Clear Work Phone: [employer] 07-29-2023 15:28-0500 SaO2% (BldA) [Mass fraction] 96 % William Suero DO Work Phone: [employer] 07-29-2023 15:28-0500 Systolic blood pressure 153 mm[Hg] William Suero DO Work Phone: [employer] 07-29-2023 14:06-0500 Body temperature 97.81 [degF] William Suero DO Work Phone: [employer] 06-18-2023 09:23-0400 Body height 182.9 cm Camila Pepper MD Work Phone: [employer] 06-18-2023 09:23-0400 Body mass index (BMI) [Ratio] 26.56 kg/m2 Camila Pepper MD Work Phone: [employer] 06-18-2023 09:23-0400 Body weight 88.81 kg Camila Pepper MD Work Phone: [facility] [employer] [facility] 06-18-2023 09:23-0400 Diastolic blood pressure 82 mm[Hg] Camila Pepper MD Work Phone: [employer] 06-18-2023 09:23-0400 Heart rate 98 /min Camila Pepper MD Work Phone: [employer] 06-18-2023 09:23-0400 Systolic blood pressure 154 mm[Hg] Camila Pepper MD Work Phone: [employer] [facility] 04-01-2023 07:57-0400 Body height 182.9 cm Camila Pepper MD Work Phone: [facility] [employer] [facility] 04-01-2023 07:57-0400 Body mass index (BMI) [Ratio] 26.2 kg/m2 Camila Pepper MD Work Phone: [facility] [employer] 04-01-2023 07:57-0400 Body weight 87.64 kg Camila Pepper MD Work Phone: [facility] [employer] 04-01-2023 07:57-0400 Diastolic blood pressure 82 mm[Hg] Camila Pepper MD Work Phone: [facility] [employer] [facility] 04-01-2023 07:57-0400 Heart rate 88 /min Camila Pepper MD Work Phone: [facility] [employer] [facility] 04-01-2023 07:57-0400 Systolic blood pressure 151 mm[Hg] Camila Pepper MD Work Phone: [facility] [employer] [facility] 02-16-2023 12:04-0400 Body mass index (BMI) [Ratio] 26.58 kg/m2 Camila Pepper MD Work Phone: [facility] [employer] [facility] 02-16-2023 12:04-0400 Body weight 88.91 kg Camila Pepper MD Work Phone: [facility] [employer] [facility] 02-16-2023 12:04-0400 Diastolic blood pressure 69 mm[Hg] Camila Pepper MD Work Phone: [facility] [employer] [facility] 02-16-2023 12:04-0400 Heart rate 101 /min Camila Pepper MD Work Phone: [facility] [employer] [facility] 02-16-2023 12:04-0400 Systolic blood pressure 107 mm[Hg] Camila Pepper MD Work Phone: [facility] [employer] [facility] 01-22-2023 09:59-0400 Body height 182.9 cm Camila Pepper MD Work Phone: [facility] 01-22-2023 09:59-0400 Body mass index (BMI) [Ratio] 27.26 kg/m2 Camila Pepper MD Work Phone: [facility] 01-22-2023 09:59-0400 Body weight 91.17 kg Camila Pepper MD Work Phone: [facility] 01-22-2023 09:59-0400 Diastolic blood pressure 84 mm[Hg] Camila Pepper MD Work Phone: [facility] [employer] [facility] 01-22-2023 09:59-0400 Heart rate 82 /min Camila Pepper MD Work Phone: [facility] 01-22-2023 09:59-0400 Systolic blood pressure 169 mm[Hg] Camila Pepper MD Work Phone: [facility] 01-05-2023 09:01-0400 Body height 185.4 cm Damien Claued HEEL WHEELER - PROGRAMMER DEVELOPER Work Phone: [facility] [employer] [facility] 01-05-2023 09:01-0400 Body mass index (BMI) [Ratio] 26.25 kg/m2 Damien Arce APRN - PROGRAMMER DEVELOPER Work Phone: [facility] 01-05-2023 09:01-0400 Body weight 90.27 kg Damien Claude HEEL WHEELER - PROGRAMMER DEVELOPER Work Phone: [facility] [employer] [facility] 01-05-2023 09:01-0400 Diastolic blood pressure 72 mm[Hg] Damien Arce HEEL WHEELER - PROGRAMMER DEVELOPER Work Phone: [facility] 01-05-2023 09:01-0400 Heart rate 67 /min Damien Arce APRN - PROGRAMMER DEVELOPER Work Phone: [facility] 01-05-2023 09:01-0400 SaO2% (BldA) [Mass fraction] 98 % Damien Arce APRN - PROGRAMMER DEVELOPER Work Phone: [facility] [facility] 01-05-2023 09:01-0400 Systolic blood pressure 120 mm[Hg] Damien Arce APRN - PROGRAMMER DEVELOPER Work Phone: [facility] [facility] 10-12-2021 16:42-0500 Body temperature 97.59 [degF] Stephan Emanuel MD Work Phone: [facility] 10-12-2021 16:42-0500 Diastolic blood pressure 70 mm[Hg] Stephan Emanuel MD Work Phone: [facility] 10-12-2021 16:42-0500 Heart rate 99 /min Stephan Emanuel MD Work Phone: [facility] 10-12-2021 16:42-0500 Respiratory rate 18 /min Stephan Emanuel MD Work Phone: [facility] 10-12-2021 16:42-0500 SaO2% (BldA) [Mass fraction] 94 % Stephan Emanuel MD Work Phone: [facility] 10-12-2021 16:42-0500 Systolic blood pressure 143 mm[Hg] Stephan Emanuel MD Work Phone: [facility] 10-06-2021 23:00-0500 Body height 185.4 cm Stephan Emanuel MD Work Phone: [facility] 10-06-2021 23:00-0500 Body mass index (BMI) [Ratio] 23.75 kg/m2 Stephan Emanuel MD Work Phone: [facility] 10-06-2021 23:00-0500 Body weight 81.65 kg Stephan Emanuel MD Work Phone: [facility] 09-17-2021 20:06-0500 Body height 185.4 cm Vignesh Hull MD Work Phone: [facility] 09-17-2021 20:06-0500 Body mass index (BMI) [Ratio] 23.75 kg/m2 Vignesh Hull MD Work Phone: [facility] 09-17-2021 20:06-0500 Body temperature 98.1 [degF] Vignesh Hull MD Work Phone: [facility] 09-17-2021 20:06-0500 Body weight 81.65 kg Vignesh Hull MD Work Phone: [facility] 09-17-2021 20:06-0500 Diastolic blood pressure 71 mm[Hg] Vignesh Hull MD Work Phone: [facility] 09-17-2021 20:06-0500 Heart rate 85 /min Vignesh Hull MD Work Phone: [facility] 09-17-2021 20:06-0500 Respiratory rate 16 /min Vignesh Hull MD Work Phone: [facility] 09-17-2021 20:06-0500 SaO2% (BldA) [Mass fraction] 96 % Vignesh Hull MD Work Phone: [facility] 09-17-2021 20:06-0500 Systolic blood pressure 138 mm[Hg] Vignesh Hull MD Work Phone: [facility] 03-28-2021 12:03-0400 Diastolic blood pressure [...] Work Phone: [facility] Work Phone: NEGATED: Highlighted [id number] 10:12-0400 BMI (Body Mass Index) 24.5 kg/m2 Josefina Fernandez DOUGLAS [facility] Work Phone: NEGATED: Highlighted [id number] 10:12-0400 BP Diastolic 67 mm[Hg] Josefina Fernandez DOUGLAS [facility] Work Phone: NEGATED: Highlighted [id number] 10:12-0400 BP Systolic 110 mm[Hg] Josefina Fernandez DOUGLAS [facility] Work Phone: NEGATED: Highlighted [id number] 10: Height 185.42 cm Josefina Fernandez LPN [facility] Work Phone: NEGATED: Highlighted [id number] 10: Height 185 cm Josefina Fernandez LPN [facility] Work Phone: NEGATED: Highlighted [id number] 10:040 Pulse (Heart Rate) 80 /min Josefina Fernandez LPN [facility] Work Phone: NEGATED: Highlighted [id number] 10:040 Weight 83.92 kg Josefina Fernandez LPN [facility] Work Phone: NEGATED: Highlighted [id number] 10:040 Weight 84 kg Josefina Fernandez LPN [facility] Work Phone: Encounters Encounter Date Encounter Type Care Provider Facility Start: 08-12-2023 End: 08-12-2023 ambulatory [facility] Start: 08-12-2023 End: 08-12-2023 Office outpatient new 45 minutes Angelito Bansal BREAD PAN GREASER Work Phone: [facility] Procedures [...] Adult depression scr eening assessment Damien Arce HEEL WHEELER - PROGRAMMER DEVELOPER Work Phone: Start: 07-09-2022 Lipid 1996 panel - S lindsey or Plasma Damien Claude HEEL WHEELER - PROGRAMMER DEVELOPER Work Phone: Start: 10-12-2021 Gluc bld gluc [...] MD Work Phone: Start: 10-10-2021 COVID-19 Andrey mugruia MD Work Phone: Start: 10-10-2021 Gluc bld [...] Stephan Emanuel MD Work Phone: Start: 10-07-2021 BASIC METABOLIC [...] DTaP/Tdap/Td Vaccines (5 - Td or Tdap) [facility] Start: 06-20-2031 Colonoscopy COLONOSCOPY [facility] Start: 06-20-2031 COLORECTAL CANCER SCREENING COLORECTAL CANCER SCREENING [facility] Start: 02-19-2026 DTaP/Tdap/Td vaccine (3 - Tdap) DTaP/Tdap/Td vaccine (3 - Tdap) [facility] Start: 02-19-2026 DTaP/Tdap/Td Vaccine s (3 - Tdap) DTaP/Tdap/Td Vaccines (3 - Tdap) [facility] Start: 02-19-2026 DTaP/Tdap/Td Vaccine s (4 - Tdap) DTaP/Tdap/Td Vaccines (4 - Tdap) [facility] Start: 02-19-2026 DTaP/Tdap/Td Vaccine s (5 - Tdap) DTaP/Tdap/Td Vaccines (5 - Tdap) [facility] Start: 08-14-2024 Medicare Advantage Annual Wellness Visit (AWV) Medicare Advantage Annual Wellness Visit (AWV) [facility] Start: 07-18-2024 End: 07-18-2024 Patient encounter procedure 07/18/2024 9:20 AM EST Office Visit [facility] [address], [place] [id number] Damien Arce, HEEL WHEELER - PROGRAMMER DEVELOPER [address] [place], [place] [id number] [facility] Start: 07-15-2024 COVID-19 Vaccine ( season) COVID-19 Vaccine ( season) [facility] Immunizations Immunization Date Immunization Notes Care Provider Fa cility 07-15-2023 Influenza, Seasonal, Quadrivalent, Adjuvanted William Suero DO Work Phone: [facility] 06-24-2022 Influenza, High-dose Seasonal, Quadrivalent, Preservative Free Damien Arce HEEL WHEELER - PROGRAMMER DEVELOPER Work Phone: [facility] 06-24-2022 influenza virus vacc ine, unspecified formulation Jude Kelly PT [facility] 02-19-2022 tetanus toxoid, redu clarissa diphtheria toxoid, and acellular pertussis vaccine, adsorbed Camila Pepper MD Work Phone: [facility] 10-12-2021 tuberculin skin test ; purified protein derivative solution, intradermal Abdulkadir Torres MD Work Phone: [facility] Work Phone: 11-01-2021 COVID-19, Pfizer Pur ple top, DILUTE for use, 12+ yrs, 30mcg/0.3mL dose Stephan Emanuel MD Work Phone: [facility] Work Phone: 06-05-2021 Influenza, Quadv, adjuvanted, 65 yrs +, IM, PF (Fluad) Vignesh Hull MD Work Phone: [facility] Work Phone: 10-08-2020 COVID-19, Pfizer, PF , 30mcg/0.3mL Kelly Tokodi [facility] Work Phone: 09-12-2020 COVID-19, Pfizer, PF , 30mcg/0.3mL Kelly Tokodi [facility] Work Phone: 07-30-2020 zoster vaccine recombinant Vignesh Hull MD Work Phone: [facility] Work Phone: 05-08-2020 influenza, injectabl e, quadrivalent, preservative free Damien Arce HEEL WHEELER - [facility] Work Phone: [facility] 05-08-2020 Influenza, Quadv, adjuvanted, 65 yrs +, IM, PF (Fluad) Kelly Feng [facility] 05-08-2020 zoster vaccine recombinant Kelly Umerodi [facility] Work Phone: 06-14-2019 pneumococcal conjuga te vaccine, 13 valent [facility] Work Phone: 05-16-2019 Seasonal trivalent influenza vaccine, adjuvanted, preservative free Vignesh Hull MD Work Phone: [facility] Work Phone: 06-04-2018 influenza, high dose seasonal, preservative-free Kellychaka Owusuodi [facility] Work Phone: 05-17-2018 zoster vaccine recombinant Vignesh Hull MD Work Phone: [facility] Work Phone: 11-09-2017 zoster vaccine recombinant Marthakristen Tariq DO Work Phone: [facility] 09-07-2017 influenza, high dose seasonal, preservative-free Kelly Feng [facility] 10-29-2016 influenza virus vacc ine, unspecified formulation Vignesh Hull MD Work Phone: [facility] Work Phone: 02-20-2016 TD(adult) unspecifie d formulation Damien Arce HEEL WHEELER - PROGRAMMER DEVELOPER Work Phone: [facility] 02-20-2016 Td, unspecified formulation Kelly Feng [facility] 02-20-2016 tetanus and diphther ia toxoids, not adsorbed, for adult use Damien Arce HEEL WHEELER - PROGRAMMER DEVELOPER Work Phone: [facility] 10-24-2015 pneumococcal polysaccharide vaccine, 23 valent Vignesh Hull MD Work Phone: [facility] Work Phone: 08-24-2015 zoster vaccine, live [facility] Work Phone: 07-09-2015 influenza, high dose seasonal, preservative-free Vignesh Hull MD Work Phone: [facility] Work Phone: 05-24-2015 Influenza Vaccine, unspecified formulation Kellychaka Feng [facility] 02-09-2015 pneumococcal conjuga te vaccine, 13 valent Vignesh Hull MD Work Phone: [facility] Work Phone: 12-04-2009 diphtheria, tetanus toxoids and acellular pertussis vaccine, unspecified formulation Vignesh Hull MD Work Phone: [facility] Work Phone: 08-14-2009 novel influenza-H1N1 -09, all formulations Vignesh Hull MD Work Phone: [facility] Work Phone: 08-14-2009 novel influenza-H1N1 -09, preservative-free, injectable Damien Arce HEEL WHEELER - PROGRAMMER DEVELOPER Work Phone: [facility] 04-28-2002 pneumococcal vaccine , unspecified formulation Martha Marciano ATKINSON Work Phone: [facility] Work Phone: 04-27-2002 TD(adult) unspecifie d formulation Vignesh Hull MD Work Phone: [facility] Work Phone: No information available. Josefina Rebecca COLE [facility] Work Phone: Payers Date Payer Category Payer Medicare [employer] MED[employer] RE [employer] SECURE [id number] 2021-Present [address] [place] [address] Medicare HMO [id number] 2020 Medicare [employer] MEDICA RE ADVANT[place] [id number] 2020-Present [phone] [address] [place] [address] HMO [id number] 2020 Unknown [employer] [id number] 2020-Present [address] [place] [address] Indemnity [id number] 2019 Unknown [id number] 2015 Medicare [id number] 1941 Unknown [id number] 1940 Unknown [id number] Unknown Social History Date Type Detail Facility Start: 02-05-2018 End: 02-05-2018 Assertion Unknown if ever smoked [facility] Work Phone: Start: 10-12-2020 End: 06-13-2022 Tobacco smoking status NHIS Never smoker [facility] Start: 10-12-2020 End: 06-13-2022 Tobacco use and exposure Never used [employer] Work Phone: Start: 10-12-2020 End: 12-20-2021 Alcohol intake Current non-drinker of alcohol (finding) [employer] Work Phone: Start: 06-14-2020 End: 01-11-2023 History SDOH Alcohol Frequency 1 [employer] Work Phone: Start: 06-14-2019 History SDOH Physical Activity DPW 6 [employer] Work Phone: Start: 06-14-2019 History SDOH Physical Activity MPS 9 [employer] Work Phone: Start: 06-14-2019 History SDOH Financial 4 [employer] Work Phone: Start: 06-14-2019 End: 03-19-2021 History SDOH Transport Med 2 [employer] Work Phone: Start: 1940 Sex Assigned At Not on file [employer] Work Phone: Start: 09-28-2021 End: 05-08-2023 Exposure to SARS-CoV-2 (event) Not sure [employer] Work Phone: Start: 03-12-2021 End: 07-14-2023 Alcohol intake [employer] Start: 03-19-2021 History SDOH Financial 5 [employer] Work Phone: Start: 07-02-2021 End: 07-29-2023 Alcohol intake Lifetime non-drinker (finding) [facility] Start: 01-11-2023 History SDOH Alcohol Std Drinks 0 [employer] Start: 01-11-2023 End: 07-14-2023 Alcohol Use Disorder Identification Test - Consumption [AUDIT-C] [facility] How often to you hav e a drink containing alcohol? Never [facility] How many standard dr inks containing alcohol do you have on a typical day? Patient does not drink [facility] (I/We) worried wheth er (my/our) food would run out before (I/we) got money to buy more. Never true [facility] In the past 12 month s, was there a time when you were not able to pay the mortgage or rent on time? No [facility] Medical Equipment Procedure Code Equipment Code Equipment Origin al Text Equipment Identifier Dates Test blood sugar daily DX: E11.9, type 2 diabetes mellitus without complication, without long-term current use of insulin [id number] Start: 08-28-2020 Test blood sugar daily, DX: E11.9, type 2 diabetes mellitus without complication, without long-term current use of insulin [id number] Start: 08-28-2020 Test blood sugar daily DX: E11.9, type 2 diabetes mellitus without complication, without long-term current use of insulin [id number] Start: 08-28-2020 Goals Date Patient Goal Desired Activity /State Clinical Notes 03-28-2021 to 08-12-2023 Angelito Pastrana BREAD PAN GREASER - 08/12/2023 2:30 PM ESTPatient InstructionsWilliam Suero DO - 07/29/2023 1:54 PM Ngoc Kramer LPN - 07/29/2023 1:54 PM Ngoc Kramer LPN - 07/29/2023 1:54 PM EST Note Date & Type Note Facility 08-12-2023 History of Present illness Narrative Images from the original note were not included. [facility] [address] [place] [address] [place] [id number] Dept: [phone] Dept Candice Person Tiff 1940 [id number] 08/12/2023 Problem List: Acute, stable L1 compression fracture Lumbar pain Lumbar radiculopathy, bilateral Lumbar degenerative disc disease Lumbar spondylosis Diagnoses: (S32.010A) Compression fracture of L1 vertebra, initial encounter ([facility]) (M54.50) Lumbar pain (M54.16) Lumbar radiculopathy (M51.36) [...] NP 08/12/2023 at 4:00 PM Dictated using HQ plus Version 2.4 Proof read however unrecognized voice recognition errors may have occurred documented in this encounter [facility] 08-12-2023 Instructions Harriet Plasencia ATC - 08/12/2023 2:30 PM EST We will notify you once we have approval from your insurance. You will then call central scheduling at [phone] to schedule. We will see you in office with Dr. Torres 2-3 days following your MRI for review. documented in this encounter [facility] 07-29-2023 Emergency department Note EMERGENCY DEPARTMENT ENCOUNTER [...] plan. I William Suero DO am the nut orchardist of record. PROCEDURES: Unless otherwise noted below, none Procedures FINAL IMPRESSION 1. Closed compression fracture of body of L1 vertebra (HCC) 2. Contusion of rib on left side, initial encounter DISPOSITION Discharge 07/29/2023 03:24:00 PM PATIENT REFERRED TO: Tenisha Diehl/Tank Meija [address] [place] [id number] Schedule an appointment as soon as possible for a visit [facility] ED [address] [facility] [address] If symptoms worsen DISCHARGE MEDICATIONS: New [...] is within reach. documented in this encounter [facility] 07-29-2023 Emergency department Triage note Pt presents [...] difficulty and call light is within reach. [facility] 07-29-2023 Physician Emergency department Note EMERGENCY DEPARTMENT [...] (HCC) Hemorrhoids, unspecified hemorrhoid type Hip fracture ([facility]) 2021 R hip Hyperlipidemia Hypertension Kidney stone [...] the plan. Samira Suero DO am the nut orchardist of record. PROCEDURES: Unless otherwise noted below, none Procedures FINAL IMPRESSION 1. Closed compression fracture of body of L1 vertebra (HCC) 2. Contusion of rib on left side, initial encounter DISPOSITION Discharge 07/29/2023 03:24:00 PM PATIENT REFERRED TO: Tenisha Diehl/Tank Mejia [address] [place] [address] [place] [address] Schedule an appointment as soon as possible for a visit [facility] ED [address] [place] [address] If symptoms worsen DISCHARGE MEDICATIONS: New [...] Medicine Provider William Suero DO 07/29/23 1526 [facility] 07-17-2023 Note Referral placed [address] Dr. Kevin Navas in [place]. [address] [place] [address] [address] [place] [address] P: [facility] 07-17-2023 Note Notified, agreeable, wants referral to kidney specialist. Was seeing one at the [place] but states he can't get an appointment there. [facility] 06-18-2023 Note Addended by: CAMILA PEPPER on: 06/18/2023 10:14 AM Modules accepted: Orders [facility] 06-18-2023 History of Present illness Narrative Images from the original note were not included. [facility] [address] [facility] [address] [facility] [address] Dept: [phone] Dept Loc: [phone] Visit type: Established Patient Reason for Visit: [...] reports that he saw an ENT in [place]. I do not have those notes and the ENT in [place] did not have our workup. He reports [...] # Dispenser Refill Daily Dose* Pymt Type COUNTER INSTALLER 06/12/2023 06/12/2023 2 Dextroamphetamine 10 Mg Tab 60.00 30 La Ruf [id number] Rit (3581) 0 [place] 06/07/2023 06/02/2023 1 Methadone Hcl 5 Mg Tablet 30.00 30 Mi Sonam 1647627 Rit (3581) 0 15.00 [place] 05/12/2023 05/12/2023 2 Dextroamphetamine 10 Mg Tab 60.00 30 La Ruf [id number] Rit (3581) 0 [place] 05/08/2023 05/05/2023 1 Methadone Hcl 5 Mg Tablet 30.00 30 Mi Sonam [id number] Rit (3581) 0 15.00 [place] 04/25/2023 04/22/2023 1 Methadone Hcl 5 Mg Tablet 14.00 14 Mi Sonam 5067587 Rit (3581) 0 15.00 [place] 04/06/2023 04/06/2023 2 Dextroamphetamine 10 Mg Tab 60.00 30 Ro Sib 1510834 Rit (3581) 0 [place] 03/26/2023 03/24/2023 1 Methadone Hcl 5 Mg Tablet 30.00 30 Pi Torito 2661711 Rit (3581) 0 15.00 [place] 03/09/2023 03/05/2023 2 Dextroamphetamine 10 Mg Tab 60.00 30 Ro Sib 6102245 Rit (5961) 0 [place] 02/24/2023 02/18/2023 1 Methadone Hcl 5 Mg Tablet 30.00 30 Ho Zel [id number] Rit (3581) Current Outpatient Medications: acetaminophen (Tylenol) [...] turning. Data Reviewed and Summarized DIAGNOSTIC TESTING [address] [address] Audiology Vestibular Testing ENG/VNG Patient Name: Candice Matthew Date: 01/29/23 : 1940 Referring Provider: Shantelle Medical Record: [id number] Boring Machine Operator Vertical: Michael Zeng IMPRESSIONS ABNORMAL VESTIBULAR STUDY Right [...] 10/15/2021 VITAMIN B12: No results found for: [id number] No results found for: PHENYTOIN , PHENOBARB , VALPROATE , CBMZ No components found for: TOPIRA @RESULTINGLABINFO@ FERRITIN Date Value Ref Range Status 12/03/2022 176 24 - 380 ng/mL Final C REACTIVE PROTEIN Date Value Ref Range Status 10/11/2021 14.6 (H) 0.0 - 9.9 mg/L Final Comment: . No results found for: PRASHANTH , IMMUNOGLOBUL , OLIGOBANDS No results found for: [id number] , HEPCAB C REACTIVE PROTEIN Date Value [...] test Tracie Zeng, Faraz 01/29/2023 12:16 PM [place] [address] Audiology Vestibular Testing ENG/VNG Patient Name: Candice Matthew Date: 01/29/23 : 1940 Referring Provider: Shantelle Medical Record: [id number] Boring Machine Operator Vertical: Michael Zeng IMPRESSIONS ABNORMAL VESTIBULAR STUDY Right [...] arranging for studies. documented in this encounter [facility] 06-18-2023 Miscellaneous Notes Addended by: CAMILA PEPPER on: 06/18/2023 10:14 AM Modules accepted: Orders documented in this encounter [facility] 06-18-2023 Note Addended by: CAMILA PEPPER on: 06/18/2023 10:14 AM Modules accepted: Orders [facility] 06-18-2023 Note Addended by: CAMILA PEPPER on: 06/18/2023 10:14 AM Modules accepted: Orders [facility] 06-17-2023 History of Present illness Narrative Images from the original note were not included. [facility] [address] [facility] [address] Discharge Notification Patient Name: Candice Matthew [...] Jude Kelly PT documented in this encounter [facility] 05-11-2023 Telephone encounter Note Reviewed chart. Refill appropriate. RX sent. [facility] 05-11-2023 Miscellaneous Notes Reviewed chart. Refill appropriate. RX sent. Prescription Request: Last medication check: 01/05/23 Last physical exam: 07/09/22 Next scheduled appointment: 07/15/23 Last date of refill on this medication 11/10/22 90 days 1 refill documented in this encounter [facility] 05-11-2023 Telephone encounter Note Prescription Request: Last medication check: 01/05/23 Last physical exam: 07/09/22 Next scheduled appointment: 07/15/23 Last date of refill on this medication 11/10/22 90 days 1 refill [facility] 05-08-2023 History of Present illness Narrative Images from the original note were not included. [facility] [address] [place] [address] Dept: [phone] Dept PHYSICAL THERAPY RE-EVALUATION Patient Name: Candice [...] slight dizziness Positional testing: Date 05/08/2023 Right [place]-Hallpike N/T Left Ana-Hallpike N/T Right Roll Test [...] Jude Kelly PT documented in this encounter [facility] 05-01-2023 Telephone encounter Note Prescription Request: Last medication check: 01-05-23 Last physical exam: 07-09-22 Next scheduled appointment: 07-15-23 Last date of refill on this medication 11-03-22 [facility] 05-01-2023 Miscellaneous Notes Prescription Request: Last medication check: 01-05-23 Last physical exam: 07-09-22 Next scheduled appointment: 07-15-23 Last date of refill on this medication 11-03-22 documented in this encounter [facility] 04-14-2023 Telephone encounter Note Reviewed chart. Refill appropriate. RX sent. [facility] 04-14-2023 Miscellaneous Notes Reviewed chart. Refill appropriate. RX sent. Prescription Request: Last medication check: 01/05/23 Last physical exam: 07/09/22 Next scheduled appointment: 07/15/23 Last date of refill on this medication 01/22/23 documented in this encounter [facility] 04-14-2023 Telephone encounter Note Prescription Request: Last medication check: 01/05/23 Last physical exam: 07/09/22 Next scheduled appointment: 07/15/23 Last date of refill on this medication 01/22/23 [facility] 04-13-2023 Note I do not see an ENT on the chart anywhere so I do not even know who did tell him to call, yes we probably need to put in a new referral if we know where we sent him. [facility] 04-13-2023 Note Do we need a new ref erral since this was a year ago? [facility] 04-10-2023 History of Present illness Narrative [facility] [address] [place] [address] Dept: [phone] Dept PHYSICAL THERAPY TREATMENT Patient Name: Canidce Matthew : 1940 Date of Service: 04/10/2023 [...] Jude Kelly PT documented in this encounter [facility] 04-03-2023 History of Present illness Narrative Images from the original note were not included. [facility] [address] [place] [address] Dept: [phone] Dept PHYSICAL THERAPY TREATMENT Patient Name: Candice [...] Trevon Grey PT documented in this encounter [facility] 04-01-2023 History of Present illness Narrative Images from the original note were not included. [facility] [address] [facility] [address] Dept: [phone] Dept Loc: [phone] Visit type: Established Patient Reason for Visit: [...] Dispenser Refill Daily Dose* Pymt Type [facility] 03/26/2023 03/24/2023 2 Methadone Hcl 5 Mg Tablet 30.00 30 Pi Ugarte 6206349 Rit (3581) 0 15.00 [place] 03/09/2023 03/05/2023 1 Dextroamphetamine 10 Mg Tab 60.00 30 Ro Sib 7020444 Rit (5961) 0 [place] 02/24/2023 02/18/2023 2 Methadone Hcl 5 Mg Tablet 30.00 30 Ho Zel 3541871 Rit (3581) 0 15.00 [place] 02/18/2023 02/18/2023 2 Gabapentin 300 Mg Capsule 60.00 30 Ho Zel 4106745 Rit (3581) 0 [place] 02/02/2023 02/02/2023 1 Dextroamphetamine 10 Mg Tab 60.00 30 Ro Sib 7387626 Rit (3581) 0 [place] 01/25/2023 01/20/2023 2 Methadone Hcl 5 Mg Tablet 30.00 30 Pi Ugarte 3987418 Rit (3581) 0 15.00 [place] 01/20/2023 01/20/2023 2 Gabapentin 300 Mg Capsule 30.00 30 Pi Ugarte 9969261 Rit (3581) 0 Past Medical History: Diagnosis [...] 10/15/2021 VITAMIN B12: No results found for: [id number] No results found for: PHENYTOIN, PHENOBARB, VALPROATE, CBMZ No components found for: TOPIRA @RESULTINGLABINFO@ FERRITIN Date Value Ref Range Status 12/03/2022 176 24 - 380 ng/mL Final C REACTIVE PROTEIN Date Value Ref Range Status 10/11/2021 14.6 (H) 0.0 - 9.9 mg/L Final Comment: . No results found for: PRASHANTH, IMMUNOGLOBUL, OLIGOBANDS No results found for: [id number], HEPCAB C REACTIVE PROTEIN Date Value Ref Range Status 10/11/2021 14.6 (H) 0.0 - 9.9 mg/L Final Comment: . FERRITIN: Lab Results Component Value Date FERRITIN 176 12/03/2022 ---- Vestibular test Tracie Zeng, AuD 01/29/2023 12:16 PM [facility] [address] [facility] [address] Audiology Vestibular Testing ENG/VNG Patient Name: Candice Person Tiff Date: 01/29/23 : 1940 Referring Provider: Shantelle Medical Record: [id number] Boring Machine Operator Vertical: Michael Zeng IMPRESSIONS ABNORMAL VESTIBULAR STUDY Right [...] arranging for studies. documented in this encounter [facility] 03-20-2023 History of Present illness Narrative Images from the original note were not included. [facility] [address] [place] [address] Dept: [phone] Dept PHYSICAL THERAPY RE-EVALUATION Patient Name: Candice [...] slight dizziness Positional testing: Date 03/20/2023 Right [place]-Hallpike N/T Left [place]-Hallpike N/T Right Roll Test [...] Jude Kelly PT documented in this encounter [facility] 02-20-2023 History of Present illness Narrative Images from the original note were not included. [facility] [address] [place] [address] Dept: [phone] Dept PHYSICAL THERAPY EVALUATION Patient Name: Candice [...] slight dizziness Positional testing: Date 02/20/2023 Right [place]pike N/T Left [place]pike N/T Right Roll Test N/T Left Roll [...] Jude Kelly, PT documented in this encounter [facility] 02-16-2023 History of Present illness Narrative Images from the original note were not included. [facility] [address] [facility] [address] Dept: [phone] Dept Loc: [phone] Visit type: Established Patient Reason for Visit: Follow-up, Dizziness, and Results Assessment and Plan 1. Peripheral vertigo, right - [place] [facility] Subjective HPI: He has dizziness. [...] TESTING [facility]THEW [facility] 1940 [id number] Exam Date/Time: 01/27/2023 10:49 Procedure: MR BRAIN [...] Electronically Signed Date/Time: 01/28/2023 7:19 PM EDT [place] [address] Audiology Vestibular Testing ENG/VNG Patient Name: Candice Mattehw Date: 01/29/23 : 1940 Referring Provider: Shantelle Medical Record: [id number] Boring Machine Operator Vertical: Michael Zeng IMPRESSIONS ABNORMAL VESTIBULAR STUDY Right [...] 10/15/2021 VITAMIN B12: No results found for: [id number] No results found for: PHENYTOIN, PHENOBARB, VALPROATE, CBMZ No components found for: TOPIRA @RESULTINGLABINFO@ FERRITIN Date Value Ref Range Status 12/03/2022 176 24 - 380 ng/mL Final C REACTIVE PROTEIN Date Value Ref Range Status 10/11/2021 14.6 (H) 0.0 - 9.9 mg/L Final Comment: . No results found for: PRASHANTH, IMMUNOGLOBUL, OLIGOBANDS No results found for: [id number], HEPCAB C REACTIVE PROTEIN Date Value Ref Range Status 10/11/2021 14.6 (H) 0.0 - 9.9 mg/L Final Comment: . FERRITIN: Lab Results Component Value Date FERRITIN 176 12/03/2022 ---- Vestibular test Tracie Zeng, Faraz 01/29/2023 12:16 PM [facility] [address] [facility] [address] Audiology Vestibular Testing ENG/VNG Patient Name: Candice Naya Matthew Date: 01/29/23 : 1940 Referring Provider: Shantelle Medical Record: [id number] Boring Machine Operator Vertical: Michael Zeng IMPRESSIONS ABNORMAL VESTIBULAR STUDY Right [...] 1. Peripheral vertigo, right [place] [facility] He has both inner ear and Meniere's attacks. I am going to ask him to get PT for vestib therapy and to take hydrochlorothiazide 12.5 mg on days that he has prolonged dizziness. No problem-specific Assessment & Plan notes found for this encounter. CAMIAL PEPPER MD I spent 30 minutes caring for this patient today, reviewing labs, records, seeing the patient, documenting in the record and arranging for studies. @SIGNATURE@ documented in this encounter [facility] 02-11-2023 Telephone encounter Note Pt has been scheduled for a sooner appt. [facility] 02-11-2023 Miscellaneous Notes Pt has been scheduled for a sooner appt. Called pt no answer, voicemail was not set up. Name of caller: Candice Contact phone number: [phone] Relationship to Patient: patient Provider: Dr Pepper Practice: [facility] [place] Chief Complaint/Reason for Call: Pt states he [...] their call: No documented in this encounter [facility] 02-11-2023 Telephone encounter Note Called pt no answer, voicemail was not set up. [employer] 02-11-2023 Telephone encounter Note Name of caller: Candice Contact phone number: [phone] Relationship to Patient: patient Provider: Dr Pepper Practice: [facility] [place] Chief Complaint/Reason for Call: Pt states he [...] business hours to return their call: No [place] [employer] 02-06-2023 Telephone encounter Note Pt has been scheduled for 02/09/2023. [place] [facility] 02-06-2023 Miscellaneous Notes Pt has been scheduled [...] Name of caller: Candice Contact phone number: [phone] Relationship to Patient: patient Provider: Dr. Pepper Practice: Neuro Chief Complaint/Reason for Call: Candice states that he has not heard any results from his mri and testing. Candice would like a call back with results. Best time of day caller can be reached: any Patient advised that office/PCP has 24-48 business hours to return their call: Yes documented in this encounter [facility] 02-06-2023 Telephone encounter Note Pt is asking to speak to the office about some questions they had about their current condition. [facility] 02-06-2023 Telephone encounter Note Patient notified [facility] 02-06-2023 Telephone encounter Note Remind him of his follow up appt in Mar. If Wendy or I have a sooner opening -- not ER -- then please offer it to him. Tell him that there is no cause for dizziness/off balance on the brain MRI. [facility] 02-04-2023 Telephone encounter Note Name of caller: Candice Contact phone number: [phone] Relationship to Patient: patient Provider: Dr. Pepper Practice: Neuro Chief Complaint/Reason for Call: Candice states that he has not heard any results from his mri and testing. Candice would like a call back with results. Best time of day caller can be reached: any Patient advised that office/PCP has 24-48 business hours to return their call: Yes [facility] 02-04-2023 Miscellaneous Notes Name of caller: Candice Contact phone number: [phone] Relationship to Patient: patient Provider: Dr. Pepper Practice: Neuro Chief Complaint/Reason for Call: Candice states that he has not heard any results from his mri and testing. Candice would like a call back with results. Best time of day caller can be reached: any Patient advised that office/PCP has 24-48 business hours to return their call: Yes documented in this encounter [facility] 01-29-2023 Note [facility] enter [address] [place] [address] Audiology Vestibular Testing ENG/VNG Patient Name: Candice Matthew Date: 01/29/23 : 1940 Referring Provider: Shantelle Medical Record: [id number] Boring Machine Operator Vertical: Michael Zeng IMPRESSIONS ABNORMAL VESTIBULAR STUDY Right [...] the supine and left lateral head position. [facility] 01-22-2023 Telephone encounter Note Called and spoke with patient about getting scheduled for MRI. He is aware and will be reaching out to Central Scheduling. [facility] 01-22-2023 Miscellaneous Notes Called and spoke with patient about getting scheduled for MRI. He is aware and will be reaching out to Central Scheduling. documented in this encounter [facility] 01-22-2023 Telephone encounter Note Reviewed chart. Refill appropriate. RX sent. [facility] 01-22-2023 Miscellaneous Notes Reviewed chart. Refill appropriate. RX sent. This has not been sent in since 07/28/22 and looks like the dose was changed, new script needs sent. Pended. Name of caller: Gage Matthew Contact phone number: [phone] Relationship to Patient: patient Provider: Damien Arce [...] their call: Yes documented in this encounter [facility] 01-22-2023 Telephone encounter Note This has not been sent in since 07/28/22 and looks like the dose was changed, new script needs sent. Pended. [facility] 01-22-2023 History of Present illness Narrative Images from the original note were not included. [facility] [address] [facility] [address] Dept: [phone] Dept Loc: [phone] Camila Pepper MD Thank you for your [...] # Dispenser Refill Daily Dose* Pymt Type COUNTER INSTALLER 01/01/2023 12/29/2022 1 Dextroamphetamine 10 Mg Tab 60.00 30 Ro Sib 2265477 Rit (3581) 0 [place] 12/25/2022 12/16/2022 2 Methadone Hcl 5 Mg Tablet 30.00 30 Pi Torito 7264175 Rit (3581) 0 15.00 [place] 12/16/2022 12/16/2022 2 Gabapentin 100 Mg Capsule 30.00 30 Pi Torito 6391705 Rit (3581) 0 [place] 12/04/2022 12/02/2022 1 Dextroamphetamine 10 Mg Tab 60.00 30 La Ruf 8161344 Rit (3581) 0 [place] 11/25/2022 11/25/2022 2 Methadone Hcl 5 Mg Tablet 30.00 30 Pi Ugarte 8454342 Rit (3581) 0 15.00 [place] 10/25/2022 10/21/2022 2 Methadone Hcl 5 Mg Tablet 30.[address] Whi 9078794 Rit (3581) 0 15.00 [place] 10/24/2022 10/24/2022 1 Dextroamphetamine 10 Mg Tab 60.00 30 Ro Sib [id number] Rit (3581) 0 [place] 09/25/2022 09/15/2022 2 Methadone Hcl 5 Mg Tablet 30.00 30 Ho Zel 2929641 Rit (3581) 0 15.00 [place] 09/01/2022 08/27/2022 1 Dextroamphetamine 10 Mg Tab 120.00 30 Ro Sib 7971390 Rit (3581) 0 [place] Allergies: Gabapentin, [...] 10/15/2021 VITAMIN B12: No results found for: [id number] FERRITIN: Lab Results Component Value Date FERRITIN [...] PRASHANTH, IMMUNOGLOBUL, OLIGOBANDS No results found for: [id number], HEPCAB C REACTIVE PROTEIN Date Value Ref [...] arranging for studies. documented in this encounter [facility] 01-22-2023 Telephone encounter Note Name of caller: Gage Matthew Contact phone number: [phone] Relationship to Patient: patient Provider: Damien Arce [...] business hours to return their call: Yes [facility] 01-12-2023 Note Order placed. Referr al to neurology was internal so they should be contacting him to schedule. [facility] 01-05-2023 History of Present illness Narrative Images [...] [facility] [place] [facility] Dental exam current (within one year): Yes - 11/22/22 Weight trend: stable Prior visit with fixed interest dealer: No Current diet: strives for a healthy [...] Has also been following up with a security operations specialist- Dr. Torres. TABITHA: Wears a machine [...] vaccinated for Hep B. Vaccinated for COVID-19 ([employer]) x3 with most recent dose on 06/24/21- [...] 01/05/2023 9:57 AM documented in this encounter [facility] 01-16-2022 Miscellaneous Notes Lynnette Jung, Department of Affairs ([phone]) called requesting the results of the EGD and colonoscopy that were completed on 06/20/2021. Results faxed to Lynnette's attention at [phone]. Fax confirmation sheet received. Yun Valiente RN documented in this encounter [facility] 10-12-2021 Note Hospitalist Discharg e Summary Candice [...] will be discontinued. Requires rehabilitation in a longterm facility. Tested positive for COVID-19 initially but asymptomatic. Subsequent repeat tests are negative. Stable for discharge. Consults: IP CONSULT TO HOSPITALIST IP CONSULT TO CASE MANAGEMENT IP CONSULT TO HOME CARE NEEDS IP CONSULT TO ADDICTION MEDICINE Discharge Instructions: Diet: ADULT DIET; Regular; 3 carb choices (45 gm/meal) Activity: as tolerated Recommended Outpatient Tests: Disposition: Patient discharged in stable condition to longterm facility for rehab. Greater than 30 minutes [...] DX: E11.9, type (more content not included)... [facility] 10-12-2021 Hospital course Narrative Images from the [...] will be discontinued. Requires rehabilitation in a longterm facility. Tested positive for COVID-19 initially but asymptomatic. Subsequent repeat tests are negative. Stable for discharge. Consults: IP CONSULT TO HOSPITALIST IP CONSULT TO CASE MANAGEMENT IP CONSULT TO HOME CARE NEEDS IP CONSULT TO ADDICTION MEDICINE Discharge Instructions: Diet: ADULT DIET; Regular; 3 carb choices (45 gm/meal) Activity: as tolerated Recommended Outpatient Tests: Disposition: Patient discharged in stable condition to longterm facility for rehab. Greater than 30 minutes [...] Your Medications These medications were sent to [id number] [place] [address] [facility] - P [phone] - F [phone] [address] [facility] [address] predniSONE 10 MG tablet Information about where to get these medications is not yet available Ask your nurse or doctor about these medications aluminum & magnesium hydroxide-simethicone 200-200-20 MG/5ML Susp suspension oxyCODONE-acetaminophen 5-325 MG per tablet polyethylene glycol 17 GM/SCOOP powder sennosides-docusate sodium 8.6-50 MG tablet traMADol 50 MG tablet Recommended Follow-up: Jignesh Leger MD [address] [place] [address], [address] [facility] [id number] Felipe Damon MD [address] [place] [address], [address] [facility] [address] In 1 week For fracture follow up Readmission Risk Risk of Unplanned Readmission: 0 Complexity of Follow up: [] Moderate Complexity: follow up within 7-14 calendar days ([address]20) [x] Severe Complexity: follow up within 7 calendar days ([address]4738) Follow up Testing, Pending results or Referrals [...] Patient admitted on 10/06/2021 who presented to [facility] as a transfer from [facility] for PT/OT orthopedic evaluation for sacral and [...] discharge to Rehab. Patient discharged home with [facility] services Consults: IP CONSULT TO HOSPITALIST [...] Center 10/22/2021 9:30 AM SCHEDULE, [facility] [address] [facility] 11/05/2021 9:45 AM Martha Tariq DO [facility] 12/19/2021 9:00 AM Jignesh Leger MD [facility] 06/23/2022 9:00 AM Damien Arce, HEEL WHEELER - JOCELYN [facility] Titrate pain medications for comfort to participate [...] Folate and B12: No results found for: [id number], No results found for: FOLATE Thyroid Studies: Lab Results Component Value Date TSH 1.350 07/15/2017 I2TNSTN 89 07/15/2017 Urinalysis: No results found for: NITRU, WBCUA, BACTERIA, RBCUA, BLOODU, SPECGRAV, GLUCOSEU Imaging: XR ELBOW RIGHT (2 VIEWS) Result Date: 09/17/2021 Patient Name: CANDICE MATTHEW Diagnostic Radiology ACCESSION EXAM DATE/TIME PROCEDURE ORDERING PROVIDER [id number] 09/17/2021 21:11 EST CR Elbow 2 Views Right 5803 -VIGNESH HULL CPT code 70900 Reason For Exam (CR Elbow 2 Views [...] Result Date: 09/17/2021 Patient Name: CANDICE MATTHEW [facility]#: [id number] Diagnostic Radiology ACCESSION EXAM DATE/TIME PROCEDURE ORDERING PROVIDER [id number] 09/17/2021 21:11 EST CR Hip w/ Pelvis 2 or 3 5803 -KEI HULLNTIN Views Right n CPT code 57784 Reason For Exam (CR Hip w/ Pelvis [...] no evidence of hip dislocation. There are [id number] degenerative changes in the hips bilaterally. Degenerative [...] Radiology ACCESSION EXAM DATE/TIME PROCEDURE ORDERING PROVIDER [id number] 10/06/2021 17:32 EST CR Femur 2+ Views Left n MD EMANUEL DOUGALAS R. CPT code 54171 Reason For Exam (CR Femur 2+ Views [...] Radiology ACCESSION EXAM DATE/TIME PROCEDURE ORDERING PROVIDER [id number] 10/07/2021 09:08 EST CR Pelvis Complete [id number] NIKOLE CASE Minimum 3 Views CPT code 93617 Reason For Exam (CR Pelvis Complete Minimum [...] Tomography ACCESSION EXAM DATE/TIME PROCEDURE ORDERING PROVIDER [id number] 10/06/2021 17:[address] Pelvis w/o Contrast MD EMANUEL DOUGALAS R. CPT code 26799 Reason For Exam (CT Pelvis w/o Contrast) [...] Radiology ACCESSION EXAM DATE/TIME PROCEDURE ORDERING PROVIDER [id number] 09/17/2021 22:56 EST CR Pelvis 1 or 2 Views 5803 -VIGNESH HULL CPT code 82945 Reason For Exam (CR Pelvis 1 or [...] made to ensure accuracy; however, inadvertent computerized distribution coordinator errors may be present. documented in this [...] Patient admitted on 10/06/2021 who presented to [facility] as a transfer from [facility] for PT/OT orthopedic evaluation for sacral [...] discharge to Rehab. Patient discharged home with [facility] services Consults: IP CONSULT TO HOSPITALIST [...] Provider Department Center 10/22/2021 9:30 AM SCHEDULE, [facility] [address] [facility] [place] 11/05/2021 9:45 AM [facility]ariq [facility] 12/19/2021 9:00 AM Jignesh Leger MD [facility] 06/23/2022 9:00 AM Damien Arce APRN - PROGRAMMER DEVELOPER [facility] Titrate pain medications for comfort to participate [...] Folate and B12: No results found for: [id number], No results found for: FOLATE Thyroid Studies: Lab Results Component Value Date TSH 1.350 07/15/2017 [id number] 89 07/15/2017 Urinalysis: No results found for: NITRU, WBCUA, BACTERIA, RBCUA, BLOODU, SPECGRAV, GLUCOSEU Imaging: XR ELBOW RIGHT (2 VIEWS) Result Date: 09/17/2021 Patient Name: CANDICE MATTHEW Diagnostic Radiology ACCESSION EXAM DATE/TIME PROCEDURE ORDERING PROVIDER [id number] 09/17/2021 21:11 EST CR Elbow 2 Views Right [id number] -VGINESH HULL CPT code 21059 Reason For Exam (CR Elbow 2 Views [...] Dictated on Workstation: (more content not included)... [facility] 10-10-2021 History of Present illness Narrative Patient transferred up to [facility] from [facility]. Patient resting comfortably. No complaints. Will continue to monitor Occupational Therapy Facility/Department: [facility] Daily Treatment Note NAME: Candice [...] hip pain. PMH is listed above. Exam: [facility] Assistance / Modification: CGA OT Education: Transfer [...] 0-100% Score: 38.32 (10/10/21 1600) ADL Inpatient [facility] G-Code Modifier : CJ (10/10/211599) Goals Short [...] (ADL) Rajeev Renteria OT Physical Therapy Facility/Department: [facility] Daily Treatment Note NAME: Candice [...] Patient admitted on 10/06/2021 who presented to [facility] as a transfer from [facility] for PT/OT orthopedic evaluation for sacral and [...] medications readjusted again today DISPOSITION: Inpatient Rehab: [facility] per patient request. Okay for discharge [...] made to ensure accuracy; however, inadvertent computerized distribution coordinator errors may be present. Physical Therapy Facility/Department: [facility] Daily Treatment Note NAME: Candice [...] Extended time. Stairs/Curb Stairs?: No AM-PAC Score -[facility] Inpatient Mobility Raw Score : 17 (10/09/211054) AM-[facility] Inpatient T-Scale Score : 42.13 (10/09/211054) Mobility Inpatient CMS 0-100% Score: 50.57 (10/09/215) Mobility Inpatient [facility] G-Code Modifier : CK (10/09/211054) Goals Short [...] Patient admitted on 10/06/2021 who presented to [facility] as a transfer from [facility] for PT/OT orthopedic evaluation for sacral [...] medications readjusted again today DISPOSITION: Inpatient Rehab: [facility] per patient request. Okay for discharge [...] made to ensure accuracy; however, inadvertent computerized distribution coordinator errors may be present. Images from the original note were not included. Hospitalist Progress Note SYNOPSIS: Patient admitted on 10/06/2021 who presented to [facility] as a transfer from [facility] for PT/OT orthopedic evaluation for sacral and [...] today. Plan is for inpatient rehab at [facility] overnight. No other overnight issues reported. [...] PTOT Pain medications readjusted DISPOSITION: Inpatient Rehab: [facility] per patient request. Medications: REVIEWED DAILY [...] made to ensure accuracy; however, inadvertent computerized distribution coordinator errors may be present. Nutrition rescreen completed. [...] Melatonin ordered for sleep. Physical Therapy Facility/Department: [facility] Initial Assessment NAME: Candice Matthew [...] Ambulation Assistance: Independent Transfer Assistance: Independent Active Appliance Repairer: Yes Occupation: Retired Cognition Cognition Overall Cognitive [...] hip pain. PMH is listed above. Exam: [facility] Assistance / Modification: CGA OT Education: OT [...] Ambulation Assistance: Independent Transfer Assistance: Independent Active Appliance Repairer: Yes Occupation: Retired Objective Vision: Within Functional [...] Patient admitted on 10/06/2021 who presented to [facility] as a transfer from [facility] for PT/OT orthopedic evaluation for sacral [...] made to ensure accuracy; however, inadvertent computerized distribution coordinator errors may be present. Ortho consulted for [...] control. Nikole Selby MD Orthopaedic Surgery PGY-2 *[id number] documented in this encounter Personaling Phone: 10-10-2021 Hospital Discharge instructions Margaux Carrillo LPN - 10/10/2021 1:27 PM EST Your physician has ordered skilled home care services for you. Your home care will be provided by: [facility] [phone] Swati Falcon RN - 10/08/2021 10:50 AM EST Continuity of Care Form Patient Name: Candice Matthew : 1940 Admit date: 10/06/2021 Discharge date: 10OCT2021 Code Status Order: Full Code Advance Directives: Admitting Physician: Markel Nathan MD PCP: Jignesh Leger MD Discharging Nurse: [facility] Unit/Room#: 158/1581 Discharging Unit Emergency Contact: Extended Emergency Contact Information Primary Emergency Contact: Igor Matthew [facility] Relation: Child Secondary Emergency Contact: Nakia Ye [...] 09/12/2020, 10/08/2020 DTaP vaccine 12/04/2009 Influenza A ([id number]),all Formulations 08/14/2009 Influenza Vaccine, unspecified formulation 05/24/2015 Influenza Virus Vaccine 10/29/2016 Influenza, High Dose (Fluzone 65 yrs and older) 07/09/2015, 09/07/2017, 06/04/2018 Influenza, Quadv, adjuvanted, 65 yrs +, IM, PF (Fluad) 05/08/2020, 06/05/2021 Influenza, Triv, inactivated, subunit, adjuvanted, IM (Fluad 65 yrs and older) 05/16/2019 Pneumococcal Conjugate 13-valent (Rxodhxi32) 02/09/2015, 06/14/2019 Pneumococcal Polysaccharide (Mostmaztk44) 10/24/2015 Td vaccine (adult) 04/27/2002 Td, unspecified [...] Assisted Dressing Assisted Toileting Assisted Feeding 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 Assisted Med Delivery whole Wound Care Documentation and Therapy: Elimination: Continence: Bowel: Yes Bladder: Yes Urinary Catheter: None Colostomy/Ileostomy/Ileal Conduit: No Date of Last BM: [id number] Intake/Output Summary (Last 24 hours) at 10/08/2021 [...] to Facility/ Agency Name: [facility]y Mendoza Address: [address] [place] [address] Fax: Dialysis Facility (if applicable) Name: Address: Dialysis Schedule: Phone: Fax: Butadiene Compressor Operator/Delivery Associate signature: PHYSICIAN SECTION Prognosis: Fair Condition at Discharge: Stable Rehab Potential (if transferring to Rehab): Fair Recommended Labs or Other Treatments After Discharge: none, check BS Physician Certification: I certify the above information and transfer of Candice Matthew is necessary for the continuing treatment of the diagnosis listed and that he requires [facility] for less 30 days. Update Admission H&P: Reduce doses taken as pain becomes manageable USE PERCOCET FOR SEVERE PAIN USE ULTRAM FOR MODERATE PAIN DO NOT USE TOGETHER PHYSICIAN SIGNATURE: documented in this encounter [facility] Work Phone: 07-01-2021 Note HNO ID: [id number] Author: Mary Lucas PA-C Service: ? Author Type: Physician Sawmill Supervisor Type: Progress Notes Filed: 07/02/2021 7:10 PM [...] UP VISIT - ENDOSCOPY NAME: Candice Person [facility] NO.: [id number] DATE OF SERVICE: 07/01/2021 : 1940 REFERRING [...] Patient had a completion barium enema at [facility] which showed no filling defects or [...] results to the patient/family/caregiver. Mary Lucas PA-C [facility] documented as of this encounter (statuses as of 01/16/2022) [facility]10-28-2021 NoteHNO ID: [id number] Author: Kadie Villanueva RN Service: ? Author Type: Registered Nurse Type: Nursing Progress Note Filed: 06/20/2021 9:17 AM Note Text: Abdomen is soft non-distended. Will continue to monitor.[facility]09-13-2021 NoteHNO ID: [id number] Author: Patel Smith MD Service: ? Author [...] Laterality Date - COLONOSCOP W/ OR W/O [facility] SPEC - LAPAROSCOPIC CHOLECYSTECTOMY - PAST SURGICAL [...] entered by the nurse and reviewed by fl Nursing Notes: Addie Lindsay RN 05/06/2021 3:36 [...] EXAMINATION: General: The pa (more content not included)...[facility] 03-28-2021 History of Present illness Narrative* Swati Anne RN - 03/28/2021 11:00 AM EDT Arrival Note Infusion Patient is here for iron Labs were not ordered. 1200 Ordered treatment completed. Patient discharged without any issues. Patient has a copy of next infusion appointment and verbalizes understanding. All questions answered. documented in this [facility] Work Phone: [phone]) 443-584808-05-2021 Evaluation note* Diagnosis Anemia in stage 3 chronic kidney disease, unspecified whether stage 3a or 3b CKD ([facility])- Primary Iron deficiency anemia, unspecified iron deficiency anemia type documented in this encounter [facility] Work Phone: Evaluation note* Diagnosis Closed fracture of multiple pubic rami, right, initial encounter ([facility])- Primary documented in this encounter [facility] Work Phone: Evaluation note* Diagnosis Closed fracture of sacrum with routine healing, unspecified portion of sacrum, subsequent encounter- Primary Closed fracture of multiple pubic rami, right, sequela Difficulty walking Difficulty in walking documented in this encounter [facility] Work Phone: Evaluation note* Diagnosis Closed fracture of multiple pubic rami, right, initial encounter ([facility]) Lumbar radiculitis Thoracic or lumbosacral neuritis or radiculitis, unspecified Spinal stenosis of lumbar region with neurogenic claudication Spinal stenosis, lumbar region, with neurogenic claudication documented in this encounter [facility] Work Phone: Evaluation note* Diagnosis Closed fracture of multiple pubic rami, right, initial encounter ([facility]) documented in this encounter [facility] Work Phone: Evaluation note* Diagnosis Type 2 diabetes mellitus with stage 3b chronic kidney disease, without long-term current use of insulin ([facility])- Primary Chronic renal impairment, stage 3b (HCC) Anemia in stage 3b chronic kidney disease ([facility]) Hyperlipidemia LDL goal <70 Other and unspecified [...] Dizziness and giddiness documented in this encounter [facility]* Diagnosis Ataxic gait- Primary Abnormality of gait Dizziness and giddiness Tremor Abnormal involuntary movements [facility] this [facility]* Diagnosis Ataxic gait Abnormality of gait documented in this [facility]* Diagnosis Peripheral vertigo, right- Primary documented in this encounter [facility]* Diagnosis Peripheral vertigo, right documented in this encounter [facility]* Diagnosis Peripheral vertigo, right- Primary Cervical disc disorder with radiculopathy of cervicothoracic region documented in this encounter [facility]* Diagnosis Peripheral vertigo, right- Primary [facility] in this [facility]* Diagnosis Peripheral vertigo, right- Primary [facility] in this [facility]* Diagnosis Peripheral vertigo, right- Primary Cervical disc disorder with radiculopathy of cervicothoracic region documented in this [facility]* Diagnosis Peripheral vertigo, right- Primary Cervical disc disorder with radiculopathy of cervicothoracic region documented in this encounter [facility]* Diagnosis Hyperlipidemia LDL goal <70 Other and unspecified hyperlipidemia documented in this encounter [facility]* Diagnosis Peripheral vertigo, right- Primary Numbness and tingling of both legs below knees Spinal stenosis of lumbar region without neurogenic claudication documented in this encounter [facility] note* Diagnosis Closed compression fracture of body of L1 vertebra (HCC)- Primary Contusion of rib on left side, initial encounter documented in this encounter [facility] note* Diagnosis Compression fracture of L1 vertebra, initial encounter ([facility])- Primary Lumbar pain Lumbago Lumbar radiculopathy Thoracic or lumbosacral neuritis or radiculitis, unspecified Lumbar degenerative disc disease Lumbar spondylosis Lumbosacral spondylosis without myelopathy documented in this encounter [facility] Discharge instructions* Attachments The following attachments cannot be sent through Care Everywhere. * Pelvis Fracture (Estonian) documented in this [facility] Work Phone: Hospital Discharge instructions* Attachments The following attachments cannot be sent through Care Everywhere. * Acute Pain Discharge Instructions, Adult (Estonian) documented in this [facility] for referral (narrative)* Consultation (Routine) - Pending Review Specialty Diagnoses / Procedures Referred By Contac t Referred To Contact Neurology Diagnoses Dizziness Procedures NE OFFICE/OUTPATIENT [facility] 60-74 MINUTES Damien Arce APRN - PROGRAMMER DEVELOPER [address] [place] [address] [facility] Neuro [address] [place] [address] Referral ID Status Reason Start Date Expiration Date Visits Requested Visits Authorized [id number] Pending Review Specialty Services Required 01/05/2023 01/05/2024 1 1 [facility] for referral (narrative)* Consultation (Routine) - Pending Review Specialty Diagnoses / Procedures Referred By Contac t Referred To Contact Otolaryngology Diagnoses Peripheral vertigo, right Procedures NE OFFICE/OUTPATIENT [facility] 60-74 MINUTES Camila Pepper MD [address] [place] [address] Jatinder Wright, [address] [place] [address] Referral ID Status Reason Start Date Expiration Date Visits Requested Visits Authorized [id number] Pending Review Specialty Services Required 04/01/2023 03/31/2024 1 1 [facility] for referral (narrative)* Consultation (Routine) - Pending Review Specialty Diagnoses / Procedures Referred By Contac t Referred To Contact Orthopedic Surgery: Spine Surgery / Orthopedic Surgery Diagnoses Closed compression fracture of body of L1 vertebra (HCC) Procedures NE OFFICE/OUTPATIENT NEW [facility] MDM 60-74 MINUTES William Suero DO [address] [place] [address] [facility] Orth/Spine [facility] [address] [place] [phone] Referral ID Status Reason Start Date Expiration Date Visits Requested Visits Authorized [id number] Pending Review Specialty Services Required 07/29/2023 07/28/2024 1 1 [facility] for visit Narrative* Treatment Plan (Routine) Status Reason Specialty Diagnoses / Procedures Referred By Contact Referred To Contact Pending Review Diagnoses Anemia in stage 3 chronic kidney disease, unspecified whether stage 3a or 3b CKD (HCC) Iron deficiency anemia, unspecified iron deficiency anemia type Martha Tariq DO [address] [place] [address] [facility] [address] [place] [address] [facility] Clean Phone: Advance Directives No Advanced Directives Records FoundDocuments on File Type Date Recorded Patient Distribution Coordinator Expl anation ACP-Advance Directive ACP-Power of Shaping Machine Tender Documents on File Type Date Recorded Patient Distribution Coordinator Expl anation ACP-Advance Directive ACP-Power of Shaping Machine Tender Latest Code Status on File Code Status [...] Documents on File Type Date Recorded Patient Distribution Coordinator Expl anation Advance Directive(s) 06/20/2021 7:38 AM [...] right, initial encounter (HCC) Vignesh Hull MD [address] [place] [address] [facility] Roney Aguilera [facility] [address] [address] [place] [address] Referral ID Status Reason Start Date Expiration Date V isits Requested Visits Authorized [id number] Open Specialty Services Required 09/17/2021 09/17/2022 1 1 Scheduling Instructions [facility] Orthopedics [facility] [address] [place] [address] Specialty Diagnoses / Procedures Referred By Contac t Referred To Contact Radiology Diagnoses Closed fracture of multiple pubic rami, right, initial encounter (HCC) Lumbar radiculitis Spinal stenosis of lumbar region with neurogenic claudication Procedures MRI LUMBAR SPINE WO CONTRAST Felipe Damon MD [address] [place] [address] Referral ID Status Reason Start Date Expiration Date V isits Requested Visits Authorized [id number] Pending Review 10/25/2021 10/25/2022 1 1 Specialty Diagnoses / Procedures Referred By Contac t Referred To Contact Radiology Diagnoses Dizziness and giddiness Procedures Vestibular test Camila Pepper MD [address] [place] [address] Referral ID Status Reason Start Date Expiration Date V isits Requested Visits Authorized [id number] Authorized 01/22/2023 07/21/2023 1 1 Specialty Diagnoses / Procedures Referred By Contac t Referred To Contact Radiology Diagnoses Ataxic gait Procedures MR brain w and wo contrast Camila Pepper MD [address] [place] [address] Referral ID Status Reason Start Date Expiration Date V isits Requested Visits Authorized [id number] Authorized 01/22/2023 07/21/2023 1 1 Referral ID Status Reason Start Date Expiration Date Visits Re quested Visits Authorized [id number] Closed 01/22/2023 07/21/2023 1 1 Specialty Diagnoses / Procedures Referred By Contac t Referred To Contact Physical Therapy Diagnoses Peripheral vertigo, right Procedures NE OFFICE/OUTPATIENT NEW [facility] MDM 60-74 MINUTES Camila Pepper MD [address] [place] [address] [place] [address] Referral ID Status Reason Start Date Expiration Date Visits Requested Visits Authorized [id number] Pending Review Eval and Treat 02/16/2023 08/15/2023 99 99 Specialty Diagnoses / Procedures Referred By Contac t Referred To Contact Physical Therapy Diagnoses Peripheral vertigo, right Spinal stenosis of lumbar region without neurogenic claudication Procedures NE OFFICE/OUTPATIENT NEW [facility] MDM 60-74 MINUTES Camila Pepper MD [address] [place] [address] Referral ID Status Reason Start Date Expiration Date Visits Requested Visits Authorized [id number] Pending Review Eval and Treat 12/15/2023 99 99 Scheduling Instructions Robert Tomlin, ANTWAN Address: [address] [place] [address] , [place] [address] Imbalance and dizziness due to combination of right peripheral vertigo AND severe lumbar spinal stenosis (mulitple levels) 2 times a week for 4 weeks. Specialty Diagnoses / Procedures Referred By Contac t Referred To Contact Radiology Diagnoses Compression fracture of L1 vertebra, initial encounter ([facility]) Lumbar radiculopathy Lumbar pain Procedures MR lumbar spine wo contrast Angelito Pastrana NP 1 [facility] [address] [place] [address] Referral ID Status Reason Start Date Expiration Date V isits Requested Visits Authorized [id number] Authorized 08/12/2023 08/11/2024 1 1 Additional Source Comments (unrecognized sect ion and content) No Status Records FoundNo Status Records FoundNo Status Records FoundNo Status Records FoundNo Status Records FoundNo Status Records Found INFORMATION SOURCE (unrecogn ized section and content) DATE CREATED AUTHOR AUTHOR'S ORGANIZ ATION 04/28/2019 [facility] DATE CREATED AUTHOR AUTHOR'S ORGANIZ ATION 01/18/2022 [facility] DATE CREATED AUTHOR AUTHOR'S ORGANIZ ATION 05/01/2022 [facility] DATE CREATED AUTHOR AUTHOR'S ORGANIZ ATION 06/14/2022 [facility] DATE CREATED AUTHOR AUTHOR'S ORGANIZ ATION 08/14/2023 [facility] Reason for Visit (unrecogniz ed section and content) Reason Comments Hip Pain left hip Specialty Diagnoses / Procedures Referred By Contac t Referred To Contact Radiology Diagnoses Closed fracture of multiple pubic rami, right, initial encounter ([facility]) Lumbar radiculitis Spinal stenosis of lumbar region with neurogenic claudication Procedures MRI LUMBAR SPINE WO CONTRAST Felipe Damon MD [address] [place] [address] Referral ID Status Reason Start Date Expiration Date V isits Requested Visits Authorized [id number] Pending Review 10/25/2021 10/25/2022 1 1 Reason Comments Results EGD and colonoscopy results Reason Comments Diabetes Medication Check Health Maintenance DM eye--[facility]--has been , Hep B--,discuss COVID 4-- has not had and does not want Reason Comments New Patient Dizziness Specialty Diagnoses / Procedures Referred By Contac t Referred To Contact Neurology Diagnoses Dizziness Procedures NE OFFICE/OUTPATIENT NEW [facility]IGH MDM 60-74 MINUTES Damien Arce S, HEEL WHEELER - PROGRAMMER DEVELOPER [address] [place] [address] [facility] Neuro [address] [place] [address] Referral ID Status Reason Start Date Expiration Date Visits Requested Visits Authorized [id number] Pending Review Specialty Services Required 01/05/2023 01/05/2024 1 1 Reason Onset Date Comments Medication Problem 01/22/2023 glimepiride ( Amaryl) 1 MG tablet Specialty Diagnoses / Procedures Referred By Contac t Referred To Contact Radiology Diagnoses Ataxic gait Procedures MR brain w and wo contrast Camila Pepper MD [address] [place] [address] Referral ID Status Reason Start Date Expiration Date Visits Re quested Visits Authorized [id number] Closed 01/22/2023 07/21/2023 1 1 Reason Onset Date Comments Results 02/04/2023 Reason Comments Follow-up Dizziness Results Specialty Diagnoses / Procedures Referred By Contac t Referred To Contact Physical Therapy Diagnoses Peripheral vertigo, right Procedures NE OFFICE/OUTPATIENT NEW [facility] 60-74 MINUTES Camila Pepper MD [address] [facility] [address] [place] [address] [facility] [address] [place] [address] [place] [address] Referral ID Status Reason Start Date Expiration Date Visits Requested Visits Authorized [id number] Authorized Eval and Treat 02/16/2023 08/15/2023 99 [...] of body of L1 vertebra (HCC) Procedures NE OFFICE/OUTPATIENT [facility] 60-74 MINUTES William Suero DO [address] [place] [address] Angelito Pastrana NP [address] [address] Referral ID Status Reason Start Date Expiration Date V isits Requested Visits Authorized [id number] Closed Specialty Services Required 07/29/2023 07/28/2024 1 [...] 10/12/2021 oxyCODONE-acetaminophe n (PERCOCET) 5-325 MG per tabletIndications:[facility] with [facility] healing, unspecified portion of sacrum, subsequent encounter,Closed fracture of multiple pubic rami, right, sequela Take 7.5 tablets by mouth every 6 hours as needed (SEVERE PAIN) for up to 3 days. 12 tablet 0 10/09/2021 10/10/2021 traMADol (ULTRAM) 50 MG tabletIndications:[facility]ami, right, sequela Take 1 tablet by mouth every 6 hours as needed (Moderate pain) for up to 3 days. 12 tablet 0 10/08/2021 10/11/2021 oxyCODONE-acetaminophe n (PERCOCET) 5-325 MG per tabletIndications:[facility] ed fracture of multiple pubic rami, right, sequela Take 1 tablet by mouth every 6 hours as needed (severe apin) for up to 3 days. 12 tablet 0 10/08/2021 10/10/2021 Care Teams (unrecognized sec tion and content) Conference Service Coordinator Relationship Specialty Start Date End Date Jignesh Leger MD [address] [place] [id number] PCP - General 03/13/16 Conference Service Coordinator Relationship Specialty Start Date End Date Jignesh Leger MD [address] [place], [place] [address] [address] PCP - General 03/13/16 Conference Service Coordinator Relationship Specialty Start Date End Date Jignesh Leger MD [address] [place], [place] [address] [address] PCP - General 03/13/16 Conference Service Coordinator Relationship Specialty Start Date End Date Jignesh Leger MD [address] [place], [place] [address] [address] PCP - General 03/13/16 Conference Service Coordinator Relationship Specialty Start Date End Date Jignesh Leger MD [address] [place] [phone] PCP - General 03/13/16 Conference Service Coordinator Relationship Specialty Start Date End Date Rupinder Veena Ray [address] [facility] [address] [place] [address] PCP - General Internal Medicine 05/10/21 Conference Service Coordinator Relationship Specialty Start Date End Date Jignesh Leger MD [address] [place] [id number] PCP - General 03/13/16 Conference Service Coordinator Relationship Specialty Start Date End Date Jignesh Leger MD [address] [place], [place] [address] [address] PCP - General Family Medicine 06/10/22 Martha Tariq, DO [address] [place] [address] [place] [address] Consulting Physician Hematology and Oncology 11/17/22 Conference Service Coordinator Relationship Specialty Start Date End Date Jignesh Leger MD [address] [place] [phone] PCP - General Family Medicine 06/10/22 Martha Tariq, DO [address] [place] [address] [place] [address] Consulting Physician Hematology and Oncology 11/17/22 Conference Service Coordinator Relationship Specialty Start Date End Date Jignesh Leger [facility] [place] [address] PCP - General Family Medicine 06/10/22 Martha Tariq DO [address] [place] [address] [place] [address] Consulting Physician Hematology and Oncology 11/17/22 Conference Service Coordinator Relationship Specialty Start Date End Date Jignesh Leger [facility] [place] [address] PCP - General Family Medicine 06/10/22 Martha Tariq DO [address] [place] [address] [place] [address] Consulting Physician Hematology and Oncology 11/17/22 Conference Service Coordinator Relationship Specialty Start Date End Date Jignesh Leger MD [address] [place] [address] [place] [address] PCP - General Family Medicine 06/10/22 Martha Tariq DO [address] [place] [address] Consulting Physician Hematology and Oncology 11/17/22 Conference Service Coordinator Relationship Specialty Start Date End Date Jignesh Leger MD [address] [place], [place] [address] [address] PCP - General Family Medicine 06/10/22 Martha Tariq DO [address] [place] [address] Consulting Physician Hematology and Oncology 11/17/22 Conference Service Coordinator Relationship Specialty Start Date End Date Jignesh Leger MD [address] [place], [place] [address] [address] PCP - General Family Medicine 06/10/22 Martha Tariq DO [address] [place] [place] [address] Consulting Physician Hematology and Oncology 11/17/22 Conference Service Coordinator Relationship Specialty Start Date End Date Jignesh Leger MD [address] [place] [address] PCP - General Family Medicine 06/10/22 Martha Tariq DO [address] [place] [place] [address] Consulting Physician Hematology and Oncology 11/17/22 Conference Service Coordinator Relationship Specialty Start Date End Date Jignesh Leger MD [address] [place] [id number] PCP - General Family Medicine 06/10/22 Martha Tariq DO [address] [place] [place] [address] Consulting Physician Hematology and Oncology 11/17/22 Conference Service Coordinator Relationship Specialty Start Date End Date Jignesh Leger MD [address] [place] [address] PCP - General Family Medicine 06/10/22 Martha Tariq DO [address] [place] [place] [address] Consulting Physician Hematology and Oncology 11/17/22 Conference Service Coordinator Relationship Specialty Start Date End Date Jignesh Leger MD [address] [place] [address] PCP - General Family Medicine 06/10/22 Martha Tariq DO [address] [place] [place] [address] Consulting Physician Hematology and Oncology 11/17/22 Conference Service Coordinator Relationship Specialty Start Date End Date Jignesh Leger MD [address] [place] [id number] PCP - General Family Medicine 06/10/22 Martha Tariq DO [address] [place] [place] [address] Consulting Physician Hematology and Oncology 11/17/22 Conference Service Coordinator Relationship Specialty Start Date End Date Jignesh Leger MD [address] [place] [address] PCP - General Family Medicine 06/10/22 Martha Tariq DO [address] [place] [place] [address] Consulting Physician Hematology and Oncology 11/17/22 Conference Service Coordinator Relationship Specialty Start Date End Date Jignesh Leger MD [address] [place], [place] [address] [address] PCP - General Family Medicine 06/10/22 Martha Tariq DO [address] [place] [address] Consulting Physician Hematology and Oncology 11/17/22 Conference Service Coordinator Relationship Specialty Start Date End Date Jignesh Leger MD [facility] [place] [address] PCP - General Family Medicine 06/10/22 Martha Tariq DO [address] [place] [address] Consulting Physician Hematology and Oncology 11/17/22 Conference Service Coordinator Relationship Specialty Start Date End Date Jignesh Leger MD [facility] [place] [address] PCP - General Family Medicine 06/10/22 Martha Tariq DO [address] [place] [address] Consulting Physician Hematology and Oncology 11/17/22 Conference Service Coordinator Relationship Specialty Start Date End Date Jignesh Leger MD [facility] [place] [address] PCP - General Family Medicine 06/10/22 Martha Tariq DO [address] [place] [place] [address] Consulting Physician Hematology and Oncology 11/17/22 Conference Service Coordinator Relationship Specialty Start Date End Date Jignesh Leger MD [facility] [place] [address] PCP - General Family Medicine 06/10/22 Martha Tariq DO [address] [place] [place] [address] Consulting Physician Hematology and Oncology 11/17/22 Conference Service Coordinator Relationship Specialty Start Date End Date Jignesh Leger MD [address] [place] [address] PCP - General Family Medicine 06/10/22 Martha Tariq DO [address] [place] [address] [place] [address] Consulting Physician Hematology and Oncology 11/17/22 Conference Service Coordinator Relationship Specialty Start Date End Date Jignesh Leger MD [address] [place] [id number] PCP - General Family Medicine 06/10/22 Martha Tariq DO [address] [place] [place] [address] Consulting Physician Hematology and Oncology 11/17/22 Scheduled [...] or prosecute any alcohol or drug abuse patient.[facility] FOR RECORDS PERTAINING TO PATIENTS WHO ARE [...] BE BASED ON THE PRIMARY CLINICAL RECORDS. [facility] [address] [facility]. provides no warranty or guarantee of the accuracy or completeness of information in this document.
[2023-08-20] MEDS: Cefepime HCl 1 GM in 0.9% Normal Saline (50mL MB+) 50 ML IV (22:47)
[2023-08-20] MEDS: Heparin Injection (Vial) 5,000 UNIT/ML VIAL 5000 UNIT SC (22:51)
[2023-08-20] MEDS: Insulin Lispro 100 UNIT/ML INSULN.PEN SC (22:52)
[2023-08-20] MEDS: Pramipexole Di-HCl 1 MG Tablet 1.5 MG PO (22:54)
[2023-08-20] MEDS: Lactated Ringers 1,000 ML 100 ML IV (22:59)
[2023-08-20] MEDS: 0.9% Saline Lock 10 ML Syringe IV (23:04)
[2023-08-20] MEDS: dexMEDEtomidine 400 MCG in 0.9% Normal Saline (100mL Bag) 96 ML 10.9000000000000004 MCG CONT INF (23:05)
[2023-08-20] MEDS: Lactated Ringers 1,000 ML 999 ML IV (23:07)
[2023-08-20 23:49] LABS: Reflex Lactate? Y
[2023-08-21] VITALS (48 sets, daily range): BP systolic 74–139; BP diastolic 44–83; PULSE 43–84; RESP 13–29; TEMP 36.6–38.2; O2SAT 90–100; BMI 25.7
--- NOTE | 2023-08-21 | NURSING ---
Pt continually trying to pull off nasal cannula and pull at IVs and telemetry wires, also attempting to sit up and get out of bed despite being on precedex drip. Dr. Morejon notified. Order received for bilateral soft wrist restraints.
[2023-08-21] MEDS: 0.9% Saline Lock 10 ML Syringe IV ×5 (00:01→20:28)
[2023-08-21] MEDS: Vancomycin HCl 2,000 MG in 0.9% Normal Saline (500mL Bag) 500 ML 250 MG IV (00:02)
[2023-08-21] MEDS: Norepinephrine 8 MG in 0.9% Normal Saline (250mL Bag) 242 ML 9.40000000000000036 MG CONT INF (00:20)
--- NOTE | 2023-08-21 00:23 | PCM.RX.CS ---
Consult Antibiotic Management Pharmacy has been consulted to manage selected antibiotic: Vancomycin Type of Intervention Type of Consult: New start Labs Labs: Sodium 139 mmol/L (136-145) 08/20/23 19:15 Potassium 4.7 mmol/L (3.5-5.1) 08/20/23 19:15 Chloride 108 mmol/L (98-107) H 08/20/23 19:15 Carbon Dioxide 24.0 mmol/L (21.0-32.0) 08/20/23 19:15 Anion Gap 7 (5-15) 08/20/23 19:15 BUN 33 mg/dL (7-18) H 08/20/23 19:15 Creatinine 1.80 mg/dL (0.70-1.30) H 08/20/23 19:15 Est GFR (MDRD) Af Amer 47 mL/min (>60) L 08/20/23 19:15 Est GFR (MDRD) Non-Af 39 mL/min (>60) L 08/20/23 19:15 BUN/Creatinine Ratio 18.3 RATIO (10-20) 08/20/23 19:15 Glucose 151 mg/dL (74-106) H 08/20/23 19:15 Microbiology Microbiology: Microbiology 08/20/23 19:40 Nasal Secretion SARS-CoV-2 & FLU Antigen (Rapid) - Final Dosing Weight Weight used for dosin.2 kg Estimated Creatinine Clearance Estimated Creatinine Clearance: 37 Goal Trough Goal Trough: 15-20 mcg/mL Pharmacy Plan for Drug Dosing Pharmacy Plan for Drug Dosing: Pharmacy Service will continue to monitor and adjust dosing as required. Follow-Up Labs Follow-Up Labs: Trough: Vancomycin Date/Time Labs Ordered Labs to be done on [date and time ordered]: 08/22 @ 1961
[2023-08-21 00:34] LABS: Bedside Glucose 161 mg/dL (74-106)
[2023-08-21 00:47] LABS: Lactic Acid 3.5 mmol/L (0.4-1.9)
[2023-08-21 02:31] LABS: Amphetamine Urine VISTA NEGATIVE (<1000 ng/mL); Barbiturate Urine VISTA NEGATIVE (< 200 ng/mL); Benzodiazepine Urine VISTA NEGATIVE (< 200 ng/mL); Cocaine Urine VISTA NEGATIVE (< 300 ng/mL); Ecstacy Urine VISTA NEGATIVE (< 500 ng/mL); Methadone Urine VISTA POSITIVE (< 300 ng/mL); PCP Urine VISTA NEGATIVE (< 25 ng/mL); THC Urine VISTA NEGATIVE (< 50 ng/mL); Vista UDS pH Range 4
[2023-08-21] MEDS: LORazepam 2 MG/ML Syringe 1 MG IV (02:50)
[2023-08-21 04:17] LABS: Hematocrit 34.2 % (40-54); Hemoglobin 10.6 g/dL (13.0-16.5); Mean Corpuscular Hgb 30.8 pg (27.0-32.0); Mean Corpuscular Volume 99.4 fL (80-94); Mean Platelet Vol. 11.5 fl (6.2-12.0); Platelet Count 113 K/mm3 (150-450); RBC Distribution Width CV 12.5 % (11.6-14.6); RBC Distribution Width SD 45.1 fl (35.1-43.9); Red Blood Count 3.44 M/mm3 (4.6-6.2); White Blood Count 13.5 K/mm3 (4.4-11.0)
[2023-08-21 04:31] LABS: Scan Indicated on CBC? Y/N NO
[2023-08-21 04:49] LABS: CPK Total, Creatine Kinase 575 U/L (39-308)
[2023-08-21 04:51] LABS: Lactic Acid 2.5 mmol/L (0.4-1.9); Vitamin B12 223 pg/mL (211-911)
[2023-08-21 04:59] LABS: Anion Gap 6 (5-15); BUN 41 mg/dL (7-18); BUN/Creat Ratio 20.1 RATIO (10-20); Calcium,Total 7.7 mg/dL (8.5-10.1); Chloride 113 mmol/L (98-107); Creatinine, Serum 2.04 mg/dL (0.70-1.30); EST Glomerular Filtration Rate 33 mL/min (>60); Est Glom Filt Rate - Afr Amer 40 mL/min (>60); Estimated Creatinine Clearance 31.55 ml/min; Glucose 205 mg/dL (74-106); Potassium 5.1 mmol/L (3.5-5.1); Sodium Level 140 mmol/L (136-145)
[2023-08-21 05:01] LABS: Troponin-I HS 5957 pg/mL (3.0-78.0)
[2023-08-21 05:26] LABS: Ferritin 244 ng/mL (26-388); Iron 12 ug/dL (65-175); Iron Binding Capacity,Total 222 ug/dL (250-450); PERCENT IRON SATURATION 5.4 % (15.0-55.0)
[2023-08-21] MEDS: Heparin Injection (Vial) 5,000 UNIT/ML VIAL 6000 UNIT IV (05:34)
[2023-08-21] MEDS: HEPARIN/D5w 25,000 UNITS 25,000 UNITS/250 ML IV.SOLN. 12 UNITS CONT INF (05:37)
[2023-08-21] MEDS: Aspirin 325 MG Tablet PO (05:42)
--- NOTE | 2023-08-21 06:34 | CON.PCM.CC_ITS ---
Assessment & Plan Assessment/Plan (1) Sepsis: (2) COVID-19: (3) Acute encephalopathy: PLAN: Plan RECOMMENDATIONS: 1. Continue supplemental oxygen to maintain saturations at or above 90%. 2. Continue Levophed to maintain a mean arterial pressure at or above 65 mmHg. 3. Initiate remdesivir and Decadron. Monitor GFR closely. 4. Continue heparin infusion and obtain echocardiogram. 5. Cardiology consultation is pending. 6. Continue empiric antibiotics pending culture workup. 7. If MRSA screen is negative, vancomycin can be discontinued. IMPRESSIONS: 1. Multifactorial shock I suspect that the patient's presenting symptoms and hypotension is not only related to his COVID-19 infection, but also likely the consequence of the hemodynamic side effects of the sedative medications that were utilized overnight. In addition, the patient likely has a component of intravascular volume depletion. Lastly, I cannot discount the potential implications of his presenting NSTEMI on his hemodynamic status. The patient has been adequately volume resuscitated and initiated on appropriate vasopressor support. Levophed will be continued to maintain a mean arterial pressure at or above 65 mmHg. Empiric antimicrobials will also be continued, pending infectious workup. Cardiology consultation and echocardiogram are pending. 2. COVID-19 In light of the patient's hypoxemia requiring supplemental oxygen, will initiate Decadron and remdesivir. Will need to monitor the patient's renal function clos chago and if it continues to worsen, remdesivir will be discontinued. Otherwise, continue supplemental oxygen to maintain saturations at or above 90%. 3. Encephalopathy Most likely metabolic in etiology in relation to his presenting sepsis and likely polypharmacy. Continue supportive measures as noted above. Attempt to avoid sedating medications, if feasible. 4. NSTEMI Potentially related to presenting sepsis. Troponins have continued to increase. Cardiology consultation is pending. Agree with continuation of heparin infusion for now. Obtain echocardiogram. 5. Acute versus chronic kidney disease Unclear presenting baseline. Continue volume resuscitation and vasopressor support to maintain hemodynamic stability. Continue to monitor urine output. No current indication for renal replacement therapy. 6. Chronic pain/depression/hypertension/hyperlipidemia/diabetes mellitus Complicates care, management, recovery and prognosis. Continue supportive care as noted above. Plan to restart methadone tomorrow to prevent withdrawal symptoms. Continue Accu-Cheks and sliding scale insulin coverage. TIME: 38 minutes of critical care time, independent of procedures, was spent addressing the patient's multifactorial shock, COVID-19 pneumonia, encephal opathy, NSTEMI, review of all data and collaboration with care team. HPI Consult Data Date of Consult: 08/21/23 HPI Narrative Reason for Consultation: Sepsis HPI Narrative: The patient is an 83-year-old male, with a history as outlined below, who presented to the emergency department via EMS on August 20 with altered mental status. The patient, per report, is on opiate pain medications due to chronic back related complaints, including a questionable recent back fracture. No additional history could be obtained from the patient. On presentation to the emergency department, the patient was documented to be febrile with a temperature of 101.5 ?F. He was tachycardic and tachypneic as well. Initial laboratory evaluation revealed evidence of pancytopenia. Coagulation profile was largely unremarkable. Chemistry profile was notable for a creatinine of 1.8 with a lactate of 3.3. Troponin was increased at 5957. Urine analysis was unremarkable. Toxicology screen was positive for opiates and methadone. Chest x-ray demonstrated no acute cardiopulmonary process. CT head revealed no acute intracranial abnormality. CT abdomen/pelvis demonstrated no acute findings. The patient received supplemental IV fluids and was started on antimicrobials. He was then admitted to the medical intensive care unit for fur ther management. It does appear that the patient became agitated and restless overnight. While in the emergency department, it appears that the patient received Geodon, Haldol and morphine. He was trialed on Precedex upon transfer to the intensive care unit, but became hypotensive and bradycardic. Rapid COVID testing was positive. The patient was ultimately started on vasopressor support overnight due to hemodynamic instability. [facility] Medical History Arthritis Carpal tunnel syndrome Diabetes Hypertension IBS (irritable bowel syndrome) Kidney stones Neuropathy Prostate abscess Sleep apnea Medical History unable to obtain Home Medications lisinopril 5 mg tablet 5 mg PO DAILY 03/31/18 [History Last Taken Unknown] ropinirole 5 mg tablet (Requip) 1 mg PO BID 03/31/18 [History Last Taken Unknown] simvastatin 10 mg tablet 10 mg PO QHS 03/31/18 [History Last Taken Unknown] tamsulosin 0.4 mg capsule 0.4 mg PO DAILY 03/31/18 [History Last Taken Unknown] calcitonin (salmon) 200 unit/actuation nasal spray 1 spray intranasal DAILY 08/20/23 [History Last Taken Unknown] citalopram 20 mg tablet 20 mg PO DAILY 08/20/23 [History Last Taken Unknown] glimepiride 2 mg tablet 2 mg PO DAILY 08/20/23 [History Last Taken Unknown] metformin 1,000 mg tablet 1,000 mg PO BID 08/20/23 [History Last Taken Unknown] methadone 5 mg tablet 5 mg PO QHS 08/20/23 [History Last Taken Unknown] methocarbamol 750 mg tablet 750 mg PO Q8H PRN muscle pain 08/20/23 [History Last Taken Unknown] Allergy/AdvReac Type Severity Reaction Status Date / Time meperidine [From Demerol] Allergy Mild insomnia Verified 08/20/23 19:32 Family History Other Asthma Surgical History History of cholecystectomy History of circumcision History of foot surgery History of shoulder surgery History of tonsillectomy Social History Smoking Status: Never smoker alcohol intake: never substance use type: does not use what type of physical activity do you participate in: none ROS Review of Systems ROS Unobtainable: due to mental status Physical Exam Const alert and no apparent distress Constitutional Narrative: Confused and disoriented. Alert to person and place only. HEENT normocephalic and head/scalp atraumatic Eyes PERRL and EOMs intact bilaterally Neck supple General: trachea midline Chest inspection of chest normal Resp normal respiratory effort Auscultation: Negative for rales, rhonchi or wheezes Cardio S1 normal heart sound and S2 normal heart sound Rate: bradycardia GI normal to inspection, nondistended, normoactive bowel sounds Extremity no clubbing, cyanosis or edema Skin no rashes or lesions noted Neuro moves all extremities and no focal motor deficits Psych Activity / Motor Behavior: restless Lab / Micro Data 08/21/23 04:05 08/21/23 04:05 Labs: Laboratory Results - last 24 hr 08/20/23 00:00: Lactic Acid 3.5 H* 08/20/23 19:15: WBC 3.5 L, RBC 3.65 L, Hgb 11.6 L, Hct 35.5 L, MCV 97.3 H, MCH 31.8, MCHC 32.7, RDW Std Deviation 43.6, RDW Coeff of Radha 12.1, Plt Count 128 L, MPV 11.0, Immature Gran % (Auto) 0.000, Neut % (Auto) 84.3 H, Lymph % (Auto) 1 3.0 L, Fisher % (Auto) 1.2, Eos % (Auto) 1.2, Baso % (Auto) 0.3, Absolute Neuts (auto) 2.9, Absolute Lymphs (auto) 0.45 L, Nucleated RBC % 0, Differential Comment SCANNED, Diff Path Review December, PT 13.5, INR 1.0, APTT 21.5 L, Sodium 139, Potassium 4.7, Chloride 108 H, Carbon Dioxide 24.0, Anion Gap 7, BUN 33 H, Creatinine 1.80 H, Estim Creat Clear Calc 35.76, Est GFR (MDRD) Af Amer 47 L, Est GFR (MDRD) Non-Af 39 L, BUN/Creatinine Ratio 18.3, Glucose 151 H, Lactic Acid 3.3 H*, Calcium 9.0, Total Bilirubin 0.40, AST 16, ALT 23, Alkaline Phosphatase 103, Troponin I High Sens 18, Total Protein 6.2 L, Albumin 3.1 L, Globulin 3.1, Albumin/Globulin Ratio 1.0 08/20/23 19:20: Urine Color Yellow, Urine Clarity Clear, Urine pH 6.0, Ur Specific [place] 1.010, Urine Protein 30 H, Urine Glucose (UA) Normal, Urine Ketones Negative, Urine Occult Blood 25 H, Urine Nitrite Negative, Urine Bilirubin Negative, Urine Urobilinogen Normal, Ur Leukocyte Esterase Negative, Urine RBC 0-5 SEEN, Urine WBC 0-5 SEEN, Ur Squamous Epith Cells 0 SEEN, Urine Bacteria 0 SEEN, Urine Mucus 0 SEEN 08/20/23 22:50: POC Glucose 161 H 08/21/23 01:20: Urine Opiates Screen POSITIVE H, Urine Methadone Screen POSITIVE H, Ur Barbiturates Screen NEGATIVE, Ur Phencyclidine Scrn NEGATIVE, Ur Amphetamines Screen NEGATIVE, MDMA (Ecstasy) Screen NEGATIVE, U Benzodiazepines Scrn NEGATIVE, Urine Cocaine Screen NEGATIVE, U Cannabinoids Screen NEGATIVE, Ur Drug Screen Comment 08/21/23 04:05: WBC 13.5 H, RBC 3.44 L, Hgb 10.6 L, Hct 34.2 L, MCV 99.4 H, MCH 30.8, MCHC 31.0 L D, RDW Std Deviation 45.1 H, RDW Coeff of Radha 12.5, Plt Count 113 L, MPV 11.5, Sodium 140, Potassium 5.1, Chloride 113 H, Carbon Dioxide 21.0, Anion Gap 6, BUN 41 H, Creatinine 2.04 H, Estim Creat Clear Calc 31.55, Est GFR (MDRD) Af Amer 40 L, Est GFR (MDRD) Non-Af 33 L, BUN/Creatinine Ratio 20.1 H, Glucose 205 H, Lactic Acid 2.5 H*, Calcium 7.7 L, Iron 12 L, TIBC 222 L, Iron Saturation 5.4 L, Ferritin 244, Total Creatine Kinase 575 H, Troponin I High Sens 5957 H*, Vitamin B12 223, Folate 9.80 Micro: Microbiology 08/20/23 19:40 Nasal Secretion SARS-CoV-2 & FLU Antigen (Rapid) - Final Rhythm Strip Rhythm Strip: Sinus Tach Rate: 133 Ectopy: None Imagaing Radiology Impression Abdomen/Pelvis CT 08/20/23 19:29 IMPRESSION: No acute findings in the abdomen or pelvis. Electronically Signed: Perez Dangelo MD at 20:40 EST , Brain CT 08/20/23 19:29 IMPRESSION: No acute intracranial abnormality. There is mild underlying small vessel ischemia. Electronically Signed: Perez Dangelo MD at 20:41 EST , Chest X-Ray 08/20/23 20:15 IMPRESSION: No acute findings in the chest. Electronically Signed: Perez Dangelo MD at 20:38 EST , Charges/Coding Procedures Hospitalists Procedures: [id number] Critical Care 1st Hr
--- NOTE | 2023-08-21 06:35 | PCM.HOSP.N ---
Hospitalist Note Notified by nursing staff the patient appeared to have rhythm change 3:45 am. EKG was obtained and showed what appears to be Mobitz type II heart block. Heart rate was sustaining in the mid to high 40s, and patient's blood pressure was mildly hypotensive but sustaining as well. EKG also appeared to show new T wave changes in lateral leads concerning for ischemia. Initial troponin in ED was 18. STAT repeat troponin was greater than 5000. Patient notably has denied chest pain at any point while hospitalized or in days prior to hospitalization. Heparin drip was initiated for NSTEMI, patient given aspirin 325 mg x1, Cardiology consulted. Pads in place.
[2023-08-21 06:51] LABS: Troponin-I HS 11076 pg/mL (3.0-78.0)
--- NOTE | 2023-08-21 06:55 | ECHOCS_ITS ---
Reason For Study: NSTEMI Procedure This was a 2D Doppler, Color Flow transthoracic echocardiogram. Technically difficult study. Echo performed with patient supine due to bed restraints. Contrast injection was performed. Exam performed portable in ICU/CCU. The exam was abbreviated due to the COVID 19 protocol. Left Ventricle Normal LV size. The estimated ejection fraction is 55 %. Left ventricular systolic function is normal. No regional wall motion abnormalities noted. Right Ventricle Normal RV size. Normal systolic function. Mitral Valve There is no stenosis. Mild (1+) mitral valve insufficiency. Tricuspid Valve Normal tricuspid valve. Mild tricuspid valve insufficiency. Aortic Valve Trisinus/trileaflet aortic valve. There is no aortic stenosis. Trivial aortic valve insufficiency. Pulmonic Valve The pulmonic valve is not well visualized. Great Vessels Not well-visualized. Pericardium/Pleural No pericardial effusion. Medication Diluted definity 2.5ml given slow IV push to enhance endocardial definition. Previous Negative Bubble Study. MMode/2D Measurements & Calculations LVIDd: 4.0 cm IVSd: 0.84 cm LAV(MOD-bp): 53.1 ml LVIDs: 2.9 cm LVPWd: 0.83 cm LAV(MOD-bp) Indexed: 24.9 ml/m2 FS: 28.8 % LAV(MOD-sp2): 54.5 ml LAV(MOD-sp4): 52.8 ml SV(MOD-sp4): 49.3 ml SV(sp4-el): 53.8 ml LVAd ap4: 28.6 cm2 LVLd ap4: 8.4 cm EDV(MOD-sp4): 78.3 ml EDV(sp4-el): 82.6 ml LVAs ap4: 15.9 cm2 LVLs ap4: 7.4 cm ESV(MOD-sp4): 29.1 ml ESV(sp4-el): 28.9 ml EF(MOD-sp4): 62.9 % EF(sp4-el): 65.1 % LA A4 area: 19.1 cm2 RA A4 area: 13.7 cm2 Doppler Measurements & Calculations Ao V2 max: 126.3 cm/sec Ao max P.4 mmHg Ao V2 mean: 88.3 cm/sec Ao mean P.6 mmHg Ao V2 VTI: 32.1 cm ECHO/Echo Complete W/ Contrast Interpretation Summary This is a limited echocardiogram The estimated ejection fraction is 55 %. No pericardial effusion. No regional wall motion abnormalities noted. Normal LV size. Ordering Physician: Herberth Beltran Referring Physician: Abdulkadir Ayala Performed By: Konrad Gates RCS
[2023-08-21 07:18] LABS: Alkaline Phosphatase 75 U/L (45-117)
[2023-08-21] MEDS: Insulin Lispro 100 UNIT/ML INSULN.PEN SC (07:43)
[2023-08-21] MEDS: Tamsulosin HCl 0.4 MG Capsule 0.400000000000000022 MG PO (07:45)
[2023-08-21] MEDS: Pramipexole Di-HCl 1 MG Tablet 1.5 MG PO ×2 (07:46→20:01)
[2023-08-21] MEDS: Remdesivir 200 MG in 0.9% Normal Saline (250mL Bag) 210 ML 250 MG IV (08:09)
[2023-08-21 08:14] LABS: Reflex Lactate? Y
[2023-08-21 08:25] LABS: Bedside Glucose 175 mg/dL (74-106)
[2023-08-21 09:20] LABS: M R Staph aureus DNA By PCR Negative (Negative); Probe Check PASS; Specimen Processing Control PASS
[2023-08-21] MEDS: Cefepime HCl 1 GM in 0.9% Normal Saline (50mL MB+) 50 ML IV ×2 (09:38→20:27)
[2023-08-21] MEDS: dexAMETHasone 10 MG/ML Vial 6 MG IV (09:39)
[2023-08-21 10:46] LABS: Partial Thromboplast Time > 200.0 Seconds (24.1-36.2)
[2023-08-21] MEDS: 0.9% Normal Saline (1000mL) 1,000 ML 999 ML IV (11:34)
[2023-08-21 11:43] LABS: Bedside Glucose 155 mg/dL (74-106)
--- NOTE | 2023-08-21 11:53 | NURSING ---
Patient taken to nursery laborer at this time.
[2023-08-21 12:12] LABS: Pathologist Review Reviewed
--- NOTE | 2023-08-21 12:55 | CON.PCM.CA_ITS ---
Assessment & Plan Assessment/Plan (1) NSTEMI, initial episode of care: (2) COVID-19: PLAN: Plan 1. Acute myocardial infarction. 2. Mobitz type I second-degree AV block/Wenckebach: Asymptomatic. It was likely related to sedation and Precedex drip 3. hypotension: Resolved, was likely related to sedation as patient received Geodon, Haldol, morphine and was placed on Precedex drip overnight 4. COVID infection 5. altered mental status: Resolved #6 CKD Plan Patient is currently hemodynamically stable, denied any chest pain, denied any shortness of breath, blood pressure is normal 130/70 mmHg, he is off pressors, he is in normal sinus rhythm, not bradycardic anymore. Echocardiogram this morning showed normal ejection fraction with no significant wall motion abnormalities. Due to the presenting acute NH and significantly elevated troponin along with abnormal EKG, I had long discussion with the patient to proceed with left heart catheterization for further delineation of her anatomy given his presentation. Initially patient was hesitant to proceed with left heart catheterization due to his CKD specially that he was not having any chest pain or shortness of breath however due to the significantly elevated troponin and abnormal EKG I had a long discussion with the patient explaining risks and benefits and eventually he agreed to proceed with left heart catheterization and accepted the risks of renal failure which might end up requiring dialysis. Patient was given IV fluid bolus on the floor, will continue with the IV fluid hydration at 100 cc an hour to minimize risk of worsening kidney function. Will start patient on aspirin 81 mg daily. Will start patient on high intensity statin Lipitor 80 mg daily. Given his worsening kidney function we will hold off SANTANA inhibitor in the meantime. Will hold off beta-charlotte in the meantime due to recent hypotensive episode also due to asymptomatic Wenckebach. Will start beta-charlotte and SANTANA inhibitor once heart rate allows and kidney function allows. Recommend to consult nephrology for management of CKD. Continue treatment of COVID as per primary team Will proceed with left heart catheterization for further delineation of current anatomy. Procedure risks and benefits and potential complications including NH, stroke, renal failure requiring dialysis, bleeding, were explained to the patient, he verbalized understanding and agreed on proceeding with the procedure. HPI Consult Data Date of Consult: 08/21/23 HPI Narrative Reason for Consultation: NSTEMI and Mobitz 1 on EKG HPI Narrative: CANDICE MUSA, is a 83 M who presents with altered mental status. I was consulted this morning at 7:00 AM for management of NSTEMI and possible Mobitz 1 on EKG. An 83-year-old male patient with past medical history of CKD for which she follows with a health safety engineer at [place], diabetes and hypertension who was brought to the emergency room due to altered mental status and agitation. Patient was agitated and confused and restless requiring Geodon, Haldol and morphine. Patient was febrile in the emergency room. He was admitted to the ICU for observation, he was started on Precedex drip. While on Precedex drip patient became bradycardic and hypotensive so Precedex was stopped and he was started on Levophed. Cardiology was consulted this morning due to NSTEMI and concern of Mobitz 1 on telemetry while he was on Precedex. Upon my evaluation of the patient today he was awake, alert and oriented. His blood pressure was normal 130/70 mmHg of pressors. He does not appear an respiratory distress. His O2 sat is normal on nasal cannula O2. He denied any chest pain, denied any shortness of breath, denied palpitations or dizziness or syncope. He said he has been having chills, subjective fever. He said he has chronic cough which is productive of phlegm. He denied history of smoking. Initial EKG upon presentation to the ED yesterday at 7 PM showed normal sinus rhythm with inferior Q waves indicating old NH and subtle inferior ST elevation in lead III and aVF similar to previous EKG in 2008, repeat EKG at 3 AM this morning while he was on Precedex showed normal sinus rhythm with 2:1 AV block. Patient had previous EKG in 2008 which showed inferior Q waves indicating old inferior NH and subtle inferior ST elevation in lead III and aVF along with T wave inversion in aVL. Repeat EKG at 10:57 this morning showed normal sinus rhythm with Mobitz 1 second-degree AV block/Wenckebach, there was inferior Q waves indicating old inferior NH with very subtle inferior ST elevation in lead III and aVF, these inferior changes are similar to previous EKG in 2008. Initial troponin was negative however troponins [place] [id number]. Echocardiogram this morning showed normal ejection fraction with no significant wall motion abnormalities noted. Upon my evaluation of the patient this morning again he was chest pain-free with normal hemodynamics, his blood pressure was normal off pressors. Patient has been on heparin drip. I have long discussion with the patient about proceeding with left heart catheterization, patient said he had severe kidney disease/CKD with a GFR of 35 for which he is following with his health safety engineer at [place], he said he was told not to receive any IV dye so he would not do the heart cath however after long discussion and explaining the risks and benefits and explaining to the patient that he is having acute NH, he decided to proceed with left heart catheterization and excepting the risk of renal failure which might lead to dialysis. [facility] Medical History (Updated 08/21/23 @ 14:[address] Karoline Rosales MD) Arthritis Carpal tunnel syndrome Diabetes Hypertension IBS (irritable bowel syndrome) Kidney stones Neuropathy Prostate abscess Sleep apnea Medical History unable to obtain Home Medications lisinopril 5 mg tablet 5 mg PO DAILY 03/31/18 [History Last Taken Unknown] ropinirole 5 mg tablet (Requip) 1 mg PO BID 03/31/18 [History Last Taken Unknown] simvastatin 10 mg tablet 10 mg PO QHS 03/31/18 [History Last Taken Unknown] tamsulosin 0.4 mg capsule 0.4 mg PO DAILY 03/31/18 [History Last Taken Unknown] calcitonin (salmon) 200 unit/actuation nasal spray 1 spray intranasal DAILY 08/20/23 [History Last Taken Unknown] citalopram 20 mg tablet 20 mg PO DAILY 08/20/23 [History Last Taken Unknown] glimepiride 2 mg tablet 2 mg PO DAILY 08/20/23 [History Last Taken Unknown] metformin 1,000 mg tablet 1,000 mg PO BID 08/20/23 [History Last Taken Unknown] methadone 5 mg tablet 5 mg PO QHS 08/20/23 [History Last Taken Unknown] methocarbamol 750 mg tablet 750 mg PO Q8H PRN muscle pain 08/20/23 [History Last Taken Unknown] Allergy/AdvReac Type Severity Reaction Status Date / Time meperidine [From Demerol] Allergy Mild insomnia Verified 08/20/23 19:32 Family History Other Asthma Surgical History History of cholecystectomy History of circumcision History of foot surgery History of shoulder surgery History of tonsillectomy Social History Smoking Status: Never smoker alcohol intake: never substance use type: does not use what type of physical activity do you participate in: none ROS ROS Narrative 12 point review of systems were obtained, negative other than what mentioned HPI. Physical Exam Const alert, oriented x3 and no apparent distress HEENT normocephalic and head/scalp atraumatic Eyes PERRL and EOMs intact bilaterally Neck full ROM, supple and no JVD Chest inspection of chest normal and palpation of chest normal Resp normal respiratory effort and clear to auscultation bilaterally Cardio regular rate, regular rhythm, S1 normal heart sound and S2 normal heart sound Skin no rashes or lesions noted and no wounds Psych mental status grossly normal, thought process normal, cooperative, affect normal and speech normal Risk Stratification Risk Stratification Applicable: No Objective Data Vital Signs: Vital Signs Temp Pulse Resp BP Pulse Ox O2 Del Method O2 Flow Rate 98.4 F 64 27 H 117/74 96 Room Air 2 08/21/23 12:00 08/21/23 12:00 08/21/23 12:00 08/21/23 12:00 08/21/23 12:00 08/21/23 12:00 08/21/23 10:00 FiO2 2 08/21/23 11:00 Oxygen Flow Rate (L/min) 2 Oxygen Delivery Method Room Air Weight: 195 lb 1.745 oz Body Mass Index (BMI) 25.7 Intake & Output: Intake and Output for Last 24 Hours 08/19/23 08/20/23 08/21/23 23:59 23:59 23:59 Intake Total 2718.43 / 2718.43 3068.66 / 3068.66 Output Total 325 / 325 Balance 2718.43 / 2718.43 2743.66 / 2743.66 Lab / Micro Data 08/21/23 04:05 08/21/23 04:05 Labs: Laboratory Results - last 24 hr 08/20/23 00:00: Lactic Acid 3.5 H* 08/20/23 19:15: WBC 3.5 L, RBC 3.65 L, Hgb 11.6 L, Hct 35.5 L, MCV 97.3 H, MCH 31.8, MCHC 32.7, RDW Std Deviation 43.6, RDW Coeff of Radha 12.1, Plt Count 128 L, MPV 11.0, Immature Gran % (Auto) 0.000, Neut % (Auto) 84.3 H, Lymph % (Auto) 13.0 L, Brewster % (Auto) 1.2, Eos % (Auto) 1.2, Baso % (Auto) 0.3, Absolute Neuts (auto) 2.9, Absolute Lymphs (auto) 0.45 L, Nucleated RBC % 0, Differential Comment SCANNED, Diff Path Review Reviewed, PT 13.5, INR 1.0, APTT 21.5 L, Sodium 139, Potassium 4.7, Chloride 108 H, Carbon Dioxide 24.0, Anion Gap 7, BUN 33 H, Creatinine 1.80 H, Estim Creat Clear Calc 35.76, Est GFR (MDRD) Af Amer 47 L, Est GFR (MDRD) Non-Af 39 L, BUN/Creatinine Ratio 18.3, Glucose 151 H, Lactic Acid 3.3 H*, Calcium 9.0, Total Bilirubin 0.40, AST 16, ALT 23, Alkaline Phosphatase 103, Troponin I High Sens 18, Total Protein 6.2 L, Albumin 3.1 L, Globulin 3.1, Albumin/Globulin Ratio 1.0 08/20/23 19:20: Urine Color Yellow, Urine Clarity Clear, Urine pH 6.0, Ur Specific Dresser 1.010, Urine Protein 30 H, Urine Glucose (UA) Normal, Urine Ketones Negative, Urine Occult Blood 25 H, Urine Nitrite Negative, Urine Bilirubin Negative, Urine Urobilinogen Normal, Ur Leukocyte Esterase Negative, Urine RBC 0-5 SEEN, Urine WBC 0-5 SEEN, Ur Squamous Epith Cells 0 SEEN, Urine Ba cteria 0 SEEN, Urine Mucus 0 SEEN 08/20/23 22:50: POC Glucose 161 H 08/21/23 01:20: Urine Opiates Screen POSITIVE H, Urine Methadone Screen POSITIVE H, Ur Barbiturates Screen NEGATIVE, Ur Phencyclidine Scrn NEGATIVE, Ur Amphetamines Screen NEGATIVE, MDMA (Ecstasy) Screen NEGATIVE, U Benzodiazepines Scrn NEGATIVE, Urine Cocaine Screen NEGATIVE, U Cannabinoids Screen NEGATIVE, Ur Drug Screen Comment 08/21/23 04:05: WBC 13.5 H, RBC 3.44 L, Hgb 10.6 L, Hct 34.2 L, MCV 99.4 H, MCH 30.8, MCHC 31.0 L D, RDW Std Deviation 45.1 H, RDW Coeff of Radha 12.5, Plt Count 113 L, MPV 11.5, Sodium 140, Potassium 5.1, Chloride 113 H, Carbon Dioxide 21.0, Anion Gap 6, BUN 41 H, Creatinine 2.04 H, Estim Creat Clear Calc 31.55, Est GFR (MDRD) Af Amer 40 L, Est GFR (MDRD) Non-Af 33 L, BUN/Creatinine Ratio 20.1 H, Glucose 205 H, Lactic Acid 2.5 H*, Calcium 7.7 L, Iron 12 L, TIBC 222 L, Iron Saturation 5.4 L, Ferritin 244, Total Creatine Kinase 575 H, Troponin I High Sens 5957 H*, Vitamin B12 223, Folate 9.80 08/21/23 05:55: Alkaline Phosphatase 75, Troponin I High Sens 49709 H* 08/21/23 07:40: MRSA (PCR) Negative 08/21/23 07:41: POC Glucose 175 H 08/21/23 10:15: APTT > 200.0 H*, Troponin I High Sens 28736 H* 08/21/23 11:20: POC Glucose 155 H Micro: Microbiology 08/20/23 19:40 Nasal Secretion SARS-CoV-2 & FLU Antigen (Rapid) - Final SARS-CoV-2 (COVID 19) Rhythm Strip Rhythm Strip: Sinus Tach Rate: 133 Ectopy: None Cardiology Labs/Tests 08/20/23 00:00: Lactic Acid 3.5 H* 08/20/23 19:15: WBC 3.5 L, RBC 3.65 L, Hgb 11.6 L, Hct 35.5 L, MCV 97.3 H, MCH 31.8, MCHC 32.7, Plt Count 128 L, MPV 11.0, Immature Gran % (Auto) 0.000, Neut % (Auto) 84.3 H, Lymph % (Auto) 13.0 L, Brewster % (Auto) 1.2, Eos % (Auto) 1.2, Baso % (Auto) 0.3, Absolute Neuts (auto) 2.9, Nucleated RBC % 0, PT 13.5, INR 1.0, APTT 21.5 L, Sodium 139, Potassium 4.7, Chloride 108 H, Carbon Dioxide 24.0, Anion Gap 7, BUN 33 H, Creatinine 1.80 H, Est GFR (MDRD) Af Amer 47 L, Est GFR (MDRD) Non-Af 39 L, BUN/Creatinine Ratio 18.3, Glucose 151 H, Lactic Acid 3.3 H* , Calcium 9.0, Total Bilirubin 0.40 08/20/23 19:20: Urine Color Yellow, Urine Clarity Clear, Urine pH 6.0, Ur Specific Dresser 1.010, Urine Protein 30 H, Urine Glucose (UA) Normal, Urine Ketones Negative, Urine Occult Blood 25 H, Urine Nitrite Negative, Urine Bilirubin Negative, Urine Urobilinogen Normal, Ur Leukocyte Esterase Negative, Urine RBC 0-5 SEEN, Urine WBC 0-5 SEEN 08/21/23 04:05: WBC 13.5 H, RBC 3.44 L, Hgb 10.6 L, Hct 34.2 L, MCV 99.4 H, MCH 30.8, MCHC 31.0 L D, Plt Count 113 L, MPV 11.5, Sodium 140, Potassium 5.1, Chloride 113 H, Carbon Dioxide 21.0, Anion Gap 6, BUN 41 H, Creatinine 2.04 H, Est GFR (MDRD) Af Amer 40 L, Est GFR (MDRD) Non-Af 33 L, BUN/Creatinine Ratio 20.1 H, Glucose 205 H, Lactic Acid 2.5 H*, Calcium 7.7 L, Iron 12 L, TIBC 222 L, Iron Saturation 5.4 L, Ferritin 244 08/21/23 10:15: APTT > 200.0 H* Rhythm: EKG: ECHO: Stress Test: Cardiac Cath: PCI: CT Surgery: Holter monitor: EPS: PPM: CXR: Chest CT Scan: Radiography Diagnostic Testing: Radiology Impression Abdomen/Pelvis CT 08/20/23 19:29 IMPRESSION: No acute findings in the abdomen or pelvis. Electronically Signed: Perez Dangelo MD at 20:40 EST , Brain CT 08/20/23 19:29 IMPRESSION: No acute intracranial abnormality. There is mild underlying small vessel ischemia. Electronically Signed: Perez Dangelo MD at 20:41 EST , Chest X-Ray 08/20/23 20:15 IMPRESSION: No acute findings in the chest. Electronically Signed: Perez Dangelo MD at 20:38 EST , Echocardiogram 08/21/23 06:55 Interpretation Summary This is a limited echocardiogram The estimated ejection fraction is 55 %. No pericardial effusion. No regional wall motion abnormalities noted. Normal LV size. Ordering Physician: Herberth Beltran Referring Physician: Abdulkadir Ayala Performed By: Konrad Gates RCS
[2023-08-21] MEDS: 0.9% Normal Saline (1000mL) 1,000 ML 100 ML IV ×2 (14:00→20:27)
--- NOTE | 2023-08-21 14:27 | PN_ITS ---
Subjective Subjective Patient seen and examined. He remains weak and lethargic. Unable to really answer any questions. He has remained hemodynamically stable. He had cardiac cath today which showed severe triple vessel disease. Plan is therefore for transfer to tertiary center for evaluation for CABG. Objective Data Objective Data Vital Signs: Vital Signs Temp Pulse Resp BP Pulse Ox O2 Del Method O2 Flow Rate 98.4 F 65 20 H 131/75 H 93 Room Air 2 08/21/23 12:00 08/21/23 14:00 08/21/23 14:00 08/21/23 14:00 08/21/23 14:00 08/21/23 14:00 08/21/23 10:00 FiO2 2 08/21/23 11:00 Oxygen Flow Rate (L/min) 2 Oxygen Delivery Method Room Air Weight: 195 lb 1.745 oz Body Mass Index (BMI) 25.7 Intake & Output: Intake and Output for Last 24 Hours 08/19/23 08/20/23 08/21/23 23:59 23:59 23:59 Intake Total 2718.43 / 2718.43 4068.66 / 4068.66 Output Total 500 / 500 Balance 2718.43 / 2718.43 3568.66 / 3568.66 Lab / Micro Data 08/21/23 04:05 08/21/23 04:05 Labs: Laboratory Results - last 24 hr 08/20/23 00:00: Lactic Acid 3.5 H* 08/20/23 19:15: WBC 3.5 L, RBC 3.65 L, Hgb 11.6 L, Hct 35.5 L, MCV 97.3 H, MCH 31.8, MCHC 32.7, RDW Std Deviation 43.6, RDW Coeff of Radha 12.1, Plt Count 128 L, MPV 11.0, Immature Gran % (Auto) 0.000, Neut % (Auto) 84.3 H, Lymph % (Auto) 13.0 L, Alexander % (Auto) 1.2, Eos % (Auto) 1.2, Baso % (Auto) 0.3, Absolute Neuts (auto) 2.9, Absolute Lymphs (auto) 0.45 L, Nucleated RBC % 0, Differential Comment SCANNED, Diff Path Review Reviewed, PT 13.5, INR 1.0, APTT 21.5 L, Sodium 139, Potassium 4.7, Chloride 108 H, Carbon Dioxide 24.0, Anion Gap 7, BUN 33 H, Creatinine 1.80 H, Estim Creat Clear Calc 35.76, Est GFR (MDRD) Af Amer 47 L, Est GFR (MDRD) Non-Af 39 L, BUN/Creatinine Ratio 18.3, Glucose 151 H, Lactic Acid 3.3 H*, Calcium 9.0, Total Bilirubin 0.40, AST 16, ALT 23, Alkaline Phosphatase 103, Troponin I High Sens 18, Total Protein 6.2 L, Albumin 3.1 L, Globulin 3.1, Albumin/Globulin Ratio 1.0 08/20/23 19:20: Urine Color Yellow, Urine Clarity Clear, Urine pH 6.0, Ur Speci fic [place] 1.010, Urine Protein 30 H, Urine Glucose (UA) Normal, Urine Ketones Negative, Urine Occult Blood 25 H, Urine Nitrite Negative, Urine Bilirubin Negative, Urine Urobilinogen Normal, Ur Leukocyte Esterase Negative, Urine RBC 0-5 SEEN, Urine WBC 0-5 SEEN, Ur Squamous Epith Cells 0 SEEN, Urine Bacteria 0 SEEN, Urine Mucus 0 SEEN 08/20/23 22:50: POC Glucose 161 H 08/21/23 01:20: Urine Opiates Screen POSITIVE H, Urine Methadone Screen POSITIVE H, Ur Barbiturates Screen NEGATIVE, Ur Phencyclidine Scrn NEGATIVE, Ur Amphetamines Screen NEGATIVE, MDMA (Ecstasy) Screen NEGATIVE, U Benzodiazepines Scrn NEGATIVE, Urine Cocaine Screen NEGATIVE, U Cannabinoids Screen NEGATIVE, Ur Drug Screen Comment 08/21/23 04:05: WBC 13.5 H, RBC 3.44 L, Hgb 10.6 L, Hct 34.2 L, MCV 99.4 H, MCH 30.8, MCHC 31.0 L D, RDW Std Deviation 45.1 H, RDW Coeff of Radha 12.5, Plt Count 113 L, MPV 11.5, Sodium 140, Potassium 5.1, Chloride 113 H, Carbon Dioxide 21.0, Anion Gap 6, BUN 41 H, Creatinine 2.04 H, Estim Creat Clear Calc 31.55, Est GFR (MDRD) Af Amer 40 L, Est GFR (MDRD) Non-Af 33 L, BUN/Creatinine Ratio 20.1 H, Glucose 205 H, Lactic Acid 2.5 H*, Calcium 7.7 L, Iron 12 L, TIBC 222 L, Iron Saturation 5.4 L, Ferritin 244, Total Creatine Kinase 575 H, Troponin I High Sens 5957 H*, Vitamin B12 223, Folate 9.80 08/21/23 05:55: Alkaline Phosphatase 75, Troponin I High Sens 16360 H* 08/21/23 07:40: MRSA (PCR) Negative 08/21/23 07:41: POC Glucose 175 H 08/21/23 10:15: APTT > 200.0 H*, Troponin I High Sens 06387 H* 08/21/23 11:20: POC Glucose 155 H Micro: Microbiology 08/20/23 19:40 Nasal Secretion SARS-CoV-2 & FLU Antigen (Rapid) - Final SARS-CoV-2 (COVID 19) Radiography Diagnostic Testing: Radiology Impression Abdomen/Pelvis CT 08/20/23 19:29 IMPRESSION: No acute findings in the abdomen or pelvis. Electronically Signed: Perez Dangelo MD at 20:40 EST , Brain CT 08/20/23 19:29 IMPRESSION: No acute intracranial abnormality. There is mild underlying small vessel ischemia. Electronically Signed: Perez Dangelo MD at 20:41 EST , Chest X-Ray 08/20/23 20:15 IMPRESSION: No acute findings in the chest. Electronically Signed: Perez Dangelo MD at 20:38 EST , Echocardiogram 08/21/23 06:55 Interpretation Summary This is a limited echocardiogram The estimated ejection fraction is 55 %. No pericardial effusion. No regional wall motion abnormalities noted. Normal LV size. Ordering Physician: Herberth Beltran Referring Physician: Abdulkadir Ayala Performed By: Konrad Gates RCS Rhythm Strip Rhythm Strip: Sinus Tach Rate: 133 Ectopy: None Physical Exam Const Constitutional Narrative: restless Orientation / Consciousness: confused and lethargic HEENT normocephalic, head/scalp atraumatic and moist oral mucous membranes Eyes PERRL and EOMs intact bilaterally Neck no lymphadenopathy and supple Lymph Lymphatic: no lymphadenopathy noted and no lymphedema noted Resp Resp Narrative: mildly diminished breath sounds bilaterally, no wheezes or crackles. on room air. Cardio regular rate, regular rhythm, S1 normal heart sound, S2 normal heart sound and no murmurs GI normal to inspection, nondistended, normoactive bowel sounds, soft to palpation, non-tender and non-distended Extremity normal capillary refill, no clubbing, cyanosis or edema and no calf tenderness General Extremity: no tenderness to palpation of joints or extremities Skin General Skin Exam: no breakdown Neuro CN's II-XII intact bilaterally Neuro Narrative: confused, moves all extremities Motor Exam: general weakness Psych Psych Narrative: confused Assessment & Plan Assessment/Plan (1) COVID-19: (2) Acute encephalopathy: (3) NSTEMI, initial episode of care: PLAN: Plan #Acute encephalopathy likely due to nonstemi * Was admitted with altered mental status after being found restless and agitated by roommate. CT of the brain showed no acute intracranial pathology. There was concern that this was due to opiate withdrawal as patient was on low-dose methadone. * He did test positive for COVID. Troponins however trended up to over 11,000. * Cardiology was consulted and he had cardiac cath today which showed severe multivessel disease. * Patient on heparin drip. Plan is to transfer patient to [facility] for evaluation for CABG. * #COVID-19 infection * Currently on room air. Was hydrated with fluids per sepsis protocol due to concerns about sepsis as he was tachycardic and tachypneic and lactic acid was also mildly elevated. He was also febrile. However I think the symptoms can be explained by his non-STEMI with exception of the fever which may have been due to the COVID. * Currently on room air. * started on remdesivir and decadron also as he went into septic shock * #septic shock * currently on levophed. * critical care on board * on broad spectrum antibiotics with IV vancomycin and cefepime * blood cultures ordered and pending * started on remdesivir and decadron also. * #DORY: Creatinine was 1.8 on admission and is now up to 2. No baseline known. Being hydrated with IV fluids so we will monitor creatinine. #History of L1 fracture * Has had low back pain due to this fracture. Was on methadone since August 2021. Methadone held due to patient's altered mental status. * #Depression: On citalopram. This is on hold currently. #Thrombocytopenia and anemia: * Platelets are 113. It was 118 on admission. Hb is also 10.6. * Also had leukopenia but this has resolved. Will monitor now. Patient on heparin drip so if thrombocytopenia worsens will consider stopping heparin drip. Hypertension: On lisinopril which was held on admission. #Hyperlipidemia: On statin #Type 2 diabetes mellitus: On metformin and glimepiride. #BPH: On Flomax #Restless leg syndrome: Ropinirole DVT prophylaxis: On heparin drip Disposition: For transfer to tertiary facility for evaluation for CABG. Transfer initiated Total time spent on evaluation and management of patient, reviewing chart and specialist notes, discussion with nursing and ancillary staff as well as documentation: 48 mins Charges/Coding Visit Charges Inpatient E&M: 47880 Subs Hosp L3
--- NOTE | 2023-08-21 14:59 | PCI.CARDCATH ---
PCI Cardiac Cath Report PCI Report: PROCEDURES PERFORMED: 1. Left heart catheterization 2. Selective left and right coronary angiography 3. Moderate conscious sedation INDICATIONS FOR PROCEDURE: NSTEMI. This is an 83-year-old male patient who originally presented to the ED due to altered mental status and agitation and was found to have acute COVID infection. EKG showed normal sinus rhythm with inferior Q waves indicating old MS and subtle inferior ST elevation in lead III and aVF similar to previous EKG in 2009. High-sensitivity troponins came back positive and trended up significantly to above 20,000. DESCRIPTION OF PROCEDURE: After informed consent was obtained, the patient was brought down to the [facility] in a fasting state. The left and right inguinal areas were draped, prepped, and sterilized in the usual fashion. Moderate conscious sedation, administration, documentation and physiologic monitoring of the IV conscious sedation was performed under my direct supervision by a trained registered nurse. Intraservice time started at 1220 and ended at 1236 for a total of 16 minutes.. Using ultrasound guidance, the right femoral artery was then cannulated. A 6-Moroccan sheath was placed. The sheath was then flushed. JL4 and JR4 catheters were then used to engage the left and right coronary artery systems, respectively. Multiple orthogonal images were then taken. JR4 catheter was used to cross the aortic valve into the left ventricle. Multiple hemodynamic data was obtained. A left ventriculography was performed. After reviewing images decision was to proceed with CT surgery consult for CABG evaluation. The sheath was then removed and hemostasis was achieved with Mynx closure device.. The patient tolerated the procedure well without any immediate complications. HEMODYNAMICS: Aortic pressure 101/52 mmHg, LV pressure was 111/ 0 mmHg, LVEDP 25 millimeters mercury DESCRIPTION OF CORONARY ANATOMY: #1 the left main originates from the left coronary sinus of Valsalva in the usual fashion. It then trifurcates into the left anterior descending artery, the circumflex artery and ramus intermedius. There was a good reflux of dye from the vessel into the sinus of valsalva. No ventricularization or dampening of pressure were noted. This vessel has no significant coronary artery disease noted. #2 the left anterior descending artery originates from the left main in the usual fashion. It then courses its way down the anterior interventricular groove giving rise to 2 small size diagonal arteries and multiple septal perforators. It then wraps around the apex of the heart. The LAD has heavily calcified diffuse stenosis in the proximal part of around 60% and 80% stenosis in the mid part. #3 the left circumflex artery originates from the left main in the usual fashion. It then courses its way down the lateral atrioventricular groove as it gives off to obtuse marginal arteries. It was nondominant artery. There was 80% Stenosis in the Left Circumflex Artery, There Was 80 to 90% stenosis in the proximal part of OM1 #4 ramus intermedius, it was large caliber vessel, it has 90% stenosis in the mid part of it. #5 the right coronary artery originates from the right coronary sinus of Valsalva in the usual fashion. It then courses along the atrioventricular groove and then gives off acute marginal artery. It continues into the posterior descending artery as it gives off the posterior lateral artery. This makes a right dominant system. There was patent stent in the proximal RCA with 50% diffuse ISR, there was 80 to 90% stenosis in the mid RCA which is exactly at an early bifurcation of PDA and PL branch. The right PDA was severely and diffusely diseased with 80% proximal stenosis and 90% stenosis in the mid part of it with MARTA II flow. 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 Given the above mentioned along with having multivessel CAD with diabetes and CKD we will go ahead and proceed with CT surgery consult for CABG evaluation. Restart heparin drip. Will start patient on aspirin 81 mg daily. Will start patient on Lipitor 80 mg daily. Will start patient on Lopressor 12.5 mg twice daily for now Continue IV fluid hydration at 100 cc an hour for 4 hours. Unable to start patient on SANTANA inhibitor in the meantime due to worsening kidney function however will consider starting SANTANA inhibitor once kidney function is at baseline.
--- NOTE | 2023-08-21 15:47 | CASEMGMT ---
[facility] is as follows: [facility], [place], [facility], [facility], [facility],, [facility] ([facility]), [facility], [facility] and . Tracie Copeland, Discharge Planning Asst.
--- NOTE | 2023-08-21 15:50 | CASEMGMT ---
JAMES MEREDITH NOTE: [facility] reviewed w/pt, as pt had stated he did not wish to transfer to [facility] and wanted [facility] to be billed for hospitalization. Pt signed form. Pt provided w/a copy and copy placed on chart. Aakash ESPINAL RN CM
[2023-08-21 16:04] LABS: Bedside Glucose 141 mg/dL (74-106)
[2023-08-21] MEDS: Atorvastatin Calcium 80 MG Tablet PO (20:27)
[2023-08-21 21:02] LABS: Partial Thromboplast Time 114.3 Seconds (24.1-36.2)
[2023-08-21 21:12] LABS: Bedside Glucose 146 mg/dL (74-106)
--- NOTE | 2023-08-21 22:19 | NURSING ---
1929 called [facility] to set up transport to [facility]. Given ETA 2-3 hours. 2129 report called to Yasmeen RAMIREZ on [facility] ([phone]) 2144 called pt's daughter Nakia Ye ([phone]) to let her know pt got a bed at [facility] and that he would be transported tonight. [facility] room number and unit phone number given to Nakia. All questions answered at this time. 2199 [facility] on unit to sisal picker pt. Report given. Helped transfer pt to cot. Pt's belongings given to transport team. 2214 called [facility] to let them know pt just left this facility.
== END 2023-08-21 22:15 | disposition short-term general hospital (02) | DRG 871 ==
LOC: ED 21:34 → ICU 22:22
PROVIDERS: Internal Medicine Cardiovascular Disease; Internal Medicine Critical Care Medicine; Admitting Provider Hospitalist; Emergency Provider Emergency Medicine; PCP Family Medicine; Referring Provider Emergency Medicine; Visit Provider Student in an Organized Health Care Education/Training Program
DX: A41.9 Sepsis, unspecified organism (principal); I21.4 Non-ST elevation (NSTEMI) myocardial infarction; R65.21 Severe sepsis with septic shock; U07.1 COVID-19; D61.818 Other pancytopenia; G93.49 Other encephalopathy; N17.9 Acute kidney failure, unspecified; E11.40 Type 2 diabetes mellitus with diabetic neuropathy, unspecified; N18.32 Chronic kidney disease, stage 3b; E11.22 Type 2 diabetes mellitus with diabetic chronic kidney disease; I12.9 Hypertensive chronic kidney disease with stage 1 through stage 4 chronic kidney disease, or unspecified chronic kidney disease; F32.A Depression, unspecified; G25.81 Restless legs syndrome; E78.5 Hyperlipidemia, unspecified; I25.10 Atherosclerotic heart disease of native coronary artery without angina pectoris; I95.2 Hypotension due to drugs; I44.1 Atrioventricular block, second degree; I25.2 Old myocardial infarction; T42.75XA Adverse effect of unspecified antiepileptic and sedative-hypnotic drugs, initial encounter; N40.1 Benign prostatic hyperplasia with lower urinary tract symptoms; R35.0 Frequency of micturition; Z95.5 Presence of coronary angioplasty implant and graft; Z79.84 Long term (current) use of oral hypoglycemic drugs; Z79.891 Long term (current) use of opiate analgesic; Z79.899 Other long term (current) drug therapy; Z87.81 Personal history of (healed) traumatic fracture
CPT/HCPCS: 70450; 71045; 74176; 80048; 80053; 80307; 81001; 82550; 82607; 82728; 82746; 82962; 83540; 83550; 83605; 84075; 84484; 85025; 85027; 85610; 85730; 87040; 87077; 87086; 87088; 87428; 87641; 93005; 93306; 93454; 94668; 94762; 99152; 99153; 99252; 99285; C1760; C1894; J7030; J7040; J7050; J7120; Q9957; Q9967; A4216; C1769; C8929; G0463; J0248; J3486

== ENCOUNTER 2023-09-22 17:49 | Emergency (ER) | payer MEDICARE, SELFPAY ==
[2023-09-22 18:04] VITALS: BP 135/74; PULSE 56; RESP 20; TEMP 36.2; O2SAT 98
--- NOTE | 2023-09-22 18:46 | CT_ITS ---
We are attempting to reach an attending provider to discuss findings. An addendum with communication details will be sent when the communication is complete. INDICATION: fall EXAMINATION: CT CERVICAL SPINE - CT Spine Cervical W/O Contrast Injection TECHNIQUE: Helically acquired images were obtained of the cervical spine. 2D reformatted images were reviewed. A radiation dose optimization technique was used for this scan. IV Contrast dosage and agent: None. RADIATION DOSAGE (If Supplied By Facility): CTDIvol = ( 17.61 ) mGy, DLP = ( 399.09 ) mGycm COMPARISON: No relevant prior comparison study available FINDINGS: VERTEBRAE: Nondisplaced fracture of the posterior arch of C1 on the right side and possibly on the left side. Transverse nondisplaced fracture of the odontoid process. The remainder of the vertebral heights are within normal limits. Normal alignment. Normal craniocervical junction and cervicothoracic junction. DISCS and SPINAL CANAL: Degenerative changes of the atlantoaxial joint. Multilevel degenerative changes with severe narrowing of C3-C4 and C6-C7 disc spaces disc with posterior lateral degenerative spurs. Degenerative changes in the apophyseal joints bilaterally at multiple levels. NECK SOFT TISSUES: Mild prevertebral soft tissue swelling anterior to C1-C2. There is no cervical adenopathy. LUNG APICES: Clear. CT/Spine Cervical without Contras IMPRESSION: 1. Transverse nondisplaced fracture of the odontoid process of C2. 2. Fracture of the posterior arch of C1 on the right side and possibly on the left side as well. 3. Multilevel degenerative changes. Electronically Signed: Brent Bender MD at 19:30 EST ,
--- NOTE | 2023-09-22 18:46 | CT_ITS ---
INDICATION: fall EXAMINATION: CT BRAIN - CT Head or Brain W/O Contrast Injection TECHNIQUE: Multiple axial images were obtained of the head without intravenous contrast. A radiation dose optimization technique was used for this scan. IV Contrast dosage and agent: None. RADIATION DOSAGE (If Supplied By Facility): CTDIvol = ( 44.99 ) mGy, DLP = ( 779.24 ) mGycm COMPARISON: Prior study dated: 08/20/2023 FINDINGS: BRAIN PARENCHYMA: No intra- or extra-axial hemorrhage. No evidence of acute infarct. No intracranial mass or mass effect. Mild chronic periventricular deep white matter changes. There is preservation of the medrano/white matter interface. Posterior fossa structures are unremarkable. CSF SPACES: Appropriate for age. No hydrocephalus. Basal cisterns are patent. CALVARIUM, SKULL BASE, PARANASAL SINUSES AND MASTOID AIR CELLS: Clear. No discrete lytic or blastic abnormalities. ORBITS: Both globes, extraocular muscles, optic nerves and retrobulbar fat appear unremarkable. CT/Brain/Head without Contrast IMPRESSION: No acute intracranial process. Electronically Signed: Brent Bender MD at 19:35 EST ,
--- NOTE | 2023-09-22 19:39 | EX.ED.DYSGE1 ---
HPI <EDIN Shaffer - Last Filed: 09/22/23 20:49> History of Present Illness Chief Complaint: Fall Narrative Narrative: Patient is an 83-year-old male with history of CAD who recently had stent placement x 6. Patient is on Brilinta. Patient also has history of type 2 diabetes, patient presents to the emerged department after mechanical fall. Patient states at 3 PM he tripped over his foot falling forward striking his forehead. Patient denies any LOC, states it did take him a while to get up, this happened at 3 PM, however the pain got much worse got much more sore and he is here for evaluation. Patient did have CT scan of the brain, cervical spine done in the triage area secondary to there being no bed, there was concern about his cervical spine and he was placed in a bed. Patient was placed in c-collar upon arrival [facility] <EDIN Shaffer - Last Filed: 09/22/23 20:49> [facility] Medical History (HFpEF) heart failure with preserved ejection fraction Acute encephalopathy Arthritis Arthritis of wrist, degenerative Back pain CAD (coronary artery disease) Carpal tunnel syndrome COVID-19 Depression Diabetes Dyslipidemia Hypertension IBS (irritable bowel syndrome) Intermittent second degree atrioventricular block Kidney stones Left knee pain Narcolepsy Neuropathy Prostate abscess Restlessness and agitation RLS (restless legs syndrome) Segmental and somatic dysfunction of cervical region Segmental and somatic dysfunction of lumbar region Segmental and somatic dysfunction of pelvic region Segmental and somatic dysfunction of thoracic region Sepsis Sleep apnea Home Medications tamsulosin 0.4 mg capsule 0.4 mg PO DAILY 03/31/18 [History Last Taken Unknown] calcitonin (salmon) 200 unit/actuation nasal spray 1 spray intranasal DAILY 08/20/23 [History Last Taken Unknown] citalopram 20 mg tablet 20 mg PO DAILY 08/20/23 [History Last Taken Unknown] glimepiride 2 mg tablet 2 mg PO DAILY 08/20/23 [History Last Taken Unknown] metformin 1,000 mg tablet 1,000 mg PO BID 08/20/23 [History Last Taken Unknown] methadone 5 mg tablet 5 mg PO QHS 08/20/23 [History Last Taken Unknown] methocarbamol 750 mg tablet 750 mg PO Q8H PRN muscle pain 12/28/23 [History Last Taken Unknown] albuterol sulfate 90 mcg/actuation aerosol inhaler 2 puff inhalation Q6H PRN 08/31/23 [History Last Taken Unknown] aspirin 81 mg tablet,delayed release 81 mg PO DAILY 08/31/23 [History Last Taken Unknown] carvedilol 6.25 mg tablet 6.25 mg PO BID 08/31/23 [History Last Taken Unknown] finasteride 5 mg tablet 5 mg PO DAILY 08/31/23 [History Last Taken Unknown] melatonin 10 mg tablet 10 mg PO HS PRN 08/31/23 [History Last Taken Unknown] pantoprazole 40 mg tablet,delayed release 40 mg PO DAILY 08/31/23 [History Last Taken Unknown] ropinirole 1 mg tablet 1 mg PO DAILY 08/31/23 [History Last Taken Unknown] rosuvastatin 40 mg tablet 40 mg PO DAILY 08/31/23 [History Last Taken Unknown] ticagrelor 90 mg tablet (Brilinta) 90 mg PO BID 08/31/23 [History Last Taken Unknown] Allergy/AdvReac Type Severity Reaction Status Date / Time meperidine [From Demerol] Allergy Mild insomnia Verified 09/01/23 13:05 Family History Other Asthma CAD (coronary artery disease) Heart disease Hypertension Surgical History History of cholecystectomy History of circumcision History of foot surgery History of shoulder surgery History of tonsillectomy Hx of cardiac catheterization (~08/25/23) Stented coronary artery (~08/25/23) Social History Smoking Status: Never smoker alcohol intake: never substance use type: does not use caffeine: Yes Type: carbonated beverages what type of physical activity do you participate in: none ROS <EDIN Shaffer - Last Filed: 09/22/23 20:49> ROS ED ROS Narrative Constitutional: Negative for fever, chills, weight loss, weakness Eyes: Negative for vision loss, vision change, double vision ENT: Negative for any sore throat, ear pain, congestion Cardiovascular: Negative for any chest pain, tightness, palpitations Respiratory: Negative for any cough, sputum production, hemoptysis, dyspnea, dyspnea on exertion, orthopnea Gastrointestinal: Negative for any abdominal pain, nausea, vomiting, diarrhea, constipation, blood in stool, blood in vomit : Negative for any urinary frequency, dysuria, retention, blood in urine Muscle skeletal: Negative for any myalgias, arthralgias, back pain. Positive for neck pain Neurological: Negative for any syncope, paresthesias, dizziness. Positive for headache Skin: Negative for any rashes, lumps, itching, lacerations. Positive for abrasion Psychiatric: Negative for any depression, anxiety, stress, suicidal ideation, homicidal ideation Hematologic: Negative for any easy bruising, excessive bruising, easy bleeding Allergies: Negative for any eczema, hives, rash EXAM <EDIN Shaffer - Last Filed: 09/22/23 20:49> Physical Exam Narrative Exam Narrative: Vital signs reviewed. Patient is alert and orient x 4. Patient is in c-collar laying flat in the bed. HEET: Head normocephalic atraumatic, TMs clear bilaterally. Posterior pharynx is clear, moist mucous membranes. Nares clear bilaterally. Pupils are equal round reactive to light. Negative for any hemotympanum, septal hematoma. Neck: Supple with no lymphadenopathy . No signs of meningismus. Patient in a c-collar, patient is complaining of posterior neck pain. Cardiac: Regular rate and rhythm no murmurs gallops or rubs, equal peripheral pulses bilaterally. Respiratory: Lungs clear to auscultation bilaterally. No chest tenderness. Abdomen: Soft, nontender, nondistended. No abdominal bruit or pulsatile masses. No hepatosplenomegaly Extremities: No peripheral edema, no signs of gross trauma or deformity. Active full range of motion of all extremities. Neuro: Cranial nerves II through XII intact, no focal neurological deficits. Patient does have some tingling to the left hand however this is chronic and has been going on for months. The remainder of the neurological exam is grossly unremarkable. Equal tafe lecturer strength, equal push pull. Skin: Clean dry and intact with no rash, purpura, petechiae, vesicles or pustules. Backs/flank: No CVA tenderness, no midline spinal tenderness, no deformity. Psych: Normal mood and affect. No SI, HI or acute psychosis. Const Vital Signs: 09/22/23 18:04 09/22/23 20:00 09/22/23 20:01 Temperature 97.2 F L Temperature Source Temporal Pulse Rate 56 L 78 Respiratory Rate 20 H 16 Respiratory Effort Normal Non-Labored Respiratory Depth Normal Respiratory Pattern Normal Blood Pressure 135/74 H 137/73 H Blood Pressure Mean 94 94 Pulse Ox 98 98 Oxygen Delivery Method Room Air Room Air 09/22/23 22:00 09/22/23 23:45 Temperature Temperature Source Pulse Rate 102 H 98 Respiratory Rate 16 16 Respiratory Effort Respiratory Depth Respiratory Pattern Blood Pressure 117/74 134/71 H Blood Pressure Mean 88 92 Pulse Ox 96 97 Oxygen Delivery Method Room Air Positive well nourished and well developed General Appearance ED: well developed <Dr. Bimal Carter MD - Last Filed: 09/23/23 00:44> Physical Exam Const Vital Signs: 09/22/23 18:04 09/22/23 20:00 09/22/23 20:01 Temperature 97.2 F L Temperature Source Temporal Pulse Rate 56 L 78 Respiratory Rate 20 H 16 Respiratory Effort Normal Non-Labored Respiratory Depth Normal Respiratory Pattern Normal Blood Pressure 135/74 H 137/73 H Blood Pressure Mean 94 94 Pulse Ox 98 98 Oxygen Delivery Method Room Air Room Air 09/22/23 22:00 09/22/23 23:45 Temperature Temperature Source Pulse Rate 102 H 98 Respiratory Rate 16 16 Respiratory Effort Respiratory Depth Respiratory Pattern Blood Pressure 117/74 134/71 H Blood Pressure Mean 88 92 Pulse Ox 96 97 Oxygen Delivery Method Room Air MDM <EDIN Shaffer - Last Filed: 09/22/23 20:49> [facility] Lab Data Labs: Laboratory Results - last 24 hr 09/22/23 19:45 WBC 7.5 RBC 3.74 L Hgb 11.5 L Hct 34.6 L MCV 92.5 MCH 30.7 MCHC 33.2 RDW Std Deviation 43.7 RDW Coeff of Radha 12.9 Plt Count 112 L MPV 12.1 H Immature Gran % (Auto) 0.400 Neut % (Auto) 64.0 Lymph % (Auto) 21.9 Hutchinson % (Auto) 9.4 Eos % (Auto) 3.6 Baso % (Auto) 0.7 Absolute Neuts (auto) 4.8 Absolute Lymphs (auto) 1.65 Nucleated RBC % 0 PT 13.5 INR 1.0 Sodium 135 L Potassium 4.0 Chloride 99 Carbon Dioxide 27.0 Anion Gap 9 BUN 70 H Creatinine 2.80 H Estim Creat Clear Calc 22.99 Est GFR (MDRD) Af Amer 28 L Est GFR (MDRD) Non-Af 23 L BUN/Creatinine Ratio 25.0 H Glucose 171 H Calcium 9.4 Radiography Diagnostic Testing: Clinical Impression(s) from Imaging Studies Brain CT 09/22/23 18:46 IMPRESSION: No acute intracranial process. Electronically Signed: Brent Bender MD at 19:35 EST , Cervical Spine CT 09/22/23 18:46 IMPRESSION: 1. Transverse nondisplaced fracture of the odontoid process of C2. 2. Fracture of the posterior arch of C1 on the right side and possibly on the left side as well. 3. Multilevel degenerative changes. Electronically Signed: Brent Bender MD at 19:30 EST , ADDENDUM: 09/22/231939 IMPRESSION: 1. Transverse nondisplaced fracture of the odontoid process of C2. 2. Fracture of the posterior arch of C1 on the right side and possibly on the left side as well. 3. Multilevel degenerative changes. N.B. : The above Results were Read Back by Brent Bender MD to Todd Reid NP, and understanding confirmed on 09/22/2023 19:33:20 (ET). Electronically Signed: Brent Bender MD at 19:30 EST , Treatment and Re-Evaluation :: Patient appears to be in no obvious respiratory distress, however patient is uncomfortable secondary to his position as well as from his trauma of falling forward striking his head and neck. Differential diagnosis includes closed head injury, skull fracture, cervical spine fracture, neck strain. I did get a call from the radiologist. Radiologist read a transverse nondisplaced fracture of the odontoid process of C2. Fracture of the posterior arch of C1 on the right side and possibly on the left side as well. Concern for some unstable fracture. Second this finding, patient donal in a c-collar. CT scan of the brain was grossly unremarked for any acute fracture, intracranial bleeding. Patient will be given IV fluids, IV morphine, IV Zofran. Basic laboratory values will be drawn. I will reach out to [facility] trauma. I spoke with [facility] trauma, Dr. Edwards. He will be except the patient. Patient will go to [facility]. They were currently waiting to call us for a bed. Patient remains immobilized. Patient's laboratory values show a normal CBC, patient's chemistries did show some renal sufficiency with a creatinine of 2.8, this is a jump from 2.04 from 08/21/2023, patient will be given maintenance fluids. At this time, patient stable for transport. <Dr. Bimal Carter MD - Last Filed: 09/23/23 00:44> [facility] MDM Narrative Medical decision making narrative: I have personally performed a face to face assessment of the patient and have reviewed the LAURIE Note. I performed a substantive portion of the visit including all aspects of the following. My fernandes findings include: History: Patient presents after tripping on his foot falling hitting the top front of his forehead. This happened several hours ago. He is on Brilinta. No numbness or tingling other than some cough chronic upper extremity paresthesias that are unchanged. Exam: Patient does have a contusion/abrasion to the upper forehead just off to the left. No step-off. Mild soreness of the neck. But no gross neurologic finding. Lungs are clear. Abdomen is benign. Patient actually overall looks quite young and fit much younger than his stated age. Medical Decision Making: Imaging shows C1 and C2 fracture. He is placed in a collar. He will be transferred to trauma center. His CBC showed minimal anemia but normal white count. He does have just minimally low platelets at 112 but this should not affect clotting. Other blood work is pending. Lab Data Labs: Laboratory Results - last 24 hr 09/22/23 19:45 WBC 7.5 RBC 3.74 L Hgb 11.5 L Hct 34.6 L MCV 92.5 MCH 30.7 MCHC 33.2 RDW Std Deviation 43.7 RDW Coeff of Radha 12.9 Plt Count 112 L MPV 12.1 H Immature Gran % (Auto) 0.400 Neut % (Auto) 64.0 Lymph % (Auto) 21.9 Hutchinson % (Auto) 9.4 Eos % (Auto) 3.6 Baso % (Auto) 0.7 Absolute Neuts (auto) 4.8 Absolute Lymphs (auto) 1.65 Nucleated RBC % 0 PT 13.5 INR 1.0 Sodium 135 L Potassium 4.0 Chloride 99 Carbon Dioxide 27.0 Anion Gap 9 BUN 70 H Creatinine 2.80 H Estim Creat Clear Calc 22.99 Est GFR (MDRD) Af Amer 28 L Est GFR (MDRD) Non-Af 23 L BUN/Creatinine Ratio 25.0 H Glucose 171 H Calcium 9.4 Radiography Diagnostic Testing: Clinical Impression(s) from Imaging Studies Brain CT 09/22/23 18:46 IMPRESSION: No acute intracranial process. Electronically Signed: Brent Bender MD at 19:35 EST , Cervical Spine CT 09/22/23 18:46 IMPRESSION: 1. Transverse nondisplaced fracture of the odontoid process of C2. 2. Fracture of the posterior arch of C1 on the right side and possibly on the left side as well. 3. Multilevel degenerative changes. Electronically Signed: Brent Bender MD at 19:30 EST , ADDENDUM: 09/22/231939 IMPRESSION: 1. Transverse nondisplaced fracture of the odontoid process of C2. 2. Fracture of the posterior arch of C1 on the right side and possibly on the left side as well. 3. Multilevel degenerative changes. N.B. : The above Results were Read Back by Brent Bender MD to Todd Aslanides, TRADING FLOOR OPERATOR, and understanding confirmed on 09/22/2023 19:33:20 (ET). Electronically Signed: Brent Bender MD at 19:30 EST , <EDIN Shaffer - Last Filed: 09/22/23 20:49> Critical Care Time Critical Care Time: Yes Critical care time (excluding procedures): 30-74 minutes, Discussing w/Patient &/or Family/Laborer [place], Discussing w/Consultants, Arranging Admission or Transfer and Performing Direct Patient Care at Bedside Discharge Plan Triage Chief Complaint: Fall Other Complaint: Other, Pain/Inj ED Midlevel Provider: Todd Reid ED Provider: Bimal Carter Dx/Rx/DC Orders Clinical Impression: Head injury, C2 cervical fracture, C1 cervical fracture, Fall, Acute traumatic injury of cervical spine Prescriptions: No Action aspirin 81 mg tablet,delayed release (DR/EC) 81 mg PO DAILY albuterol sulfate 90 mcg/actuation HFA aerosol inhaler 2 puff inhalation Q6H PRN Patient Comments: INHALE 2 PUFSS BY MOUTH EVERY 6 HOURS NEEDED FOR WHEEZING Brilinta 90 mg tablet 90 mg PO BID carvedilol 6.25 mg tablet 6.25 mg PO BID finasteride 5 mg tablet 5 mg PO DAILY Patient Comments: take 1 tablet by mouth once daily melatonin 10 mg tablet 10 mg PO HS PRN pantoprazole 40 mg tablet,delayed release (DR/EC) 40 mg PO DAILY ropinirole 1 mg tablet 1 mg PO DAILY rosuvastatin 40 mg tablet 40 mg PO DAILY tamsulosin 0.4 MG capsule 0.4 mg PO DAILY citalopram 20 mg tablet 20 mg PO DAILY Patient Comments: take 1 tablet by mouth once daily glimepiride 2 mg tablet 2 mg PO DAILY Patient Comments: take 1 tablet by mouth every morning methocarbamol 750 mg tablet 750 mg PO Q8H PRN (Reason: muscle pain) Patient Comments: take 1 tablet by mouth three times a day if needed methadone 5 mg tablet 5 mg PO QHS Patient Comments: TAKE 0.5 TO 1 TABLET BY MOUTH ONCE DAILY metformin 1,000 mg tablet 1,000 mg PO BID Patient Comments: take 1 tablet by mouth twice a day with food calcitonin (salmon) 200 unit/actuation spray,non-aerosol 1 spray intranasal DAILY Patient Comments: instill 1 spray INTO ALTERNATING NOSTRILS ONCE DAILY Primary Care Provider: Jignesh Leger Referrals: Jignesh Leger MD [Primary Care Provider] - Disposition Disposition: Acute Care Hospital Discharge Location: [facility] Discharge Date/Time: 09/22/23 23:57
[2023-09-22] MEDS: Ondansetron 4 MG/2 ML Vial IV (19:50)
[2023-09-22] MEDS: Morphine 4 MG/ML Syringe IV (19:50)
[2023-09-22 20:00] VITALS: BP 137/73; PULSE 78; RESP 16; O2SAT 98
[2023-09-22 20:09] LABS: Absolute Lymphocyte Count 1.65 X10^3/uL (0.83-4.51); Absolute Neutrophil Count 4.8 X10^3/uL (2.0-7.7); Basophil# 0.05 X10^3/uL; Basophil% 0.7 % (0-1); Eosinophil# 0.27 X10^3/uL; Eosinophils% 3.6 % (0-5); Hematocrit 34.6 % (40-54); Hemoglobin 11.5 g/dL (13.0-16.5); Lymphocyte # 1.65 X10^3/ul (0.83-4.51); Lymphocyte % 21.9 % (19-41); Mean Corp Hgb Conc 33.2 g/dL (32-36); Mean Corpuscular Hgb 30.7 pg (27.0-32.0); Mean Corpuscular Volume 92.5 fL (80-94); Mean Platelet Vol. 12.1 fl (6.2-12.0); Monocyte# 0.71 X10^3/uL; Monocyte% 9.4 % (0-10); NRBC Flagged by Analyzer 0 % (0-5); Neutrophil # 4.82 X10^3/uL (2.7-7.7); Platelet Count 112 K/mm3 (150-450); RBC Distribution Width CV 12.9 % (11.6-14.6); RBC Distribution Width SD 43.7 fl (35.1-43.9); Red Blood Count 3.74 M/mm3 (4.6-6.2); White Blood Count 7.5 K/mm3 (4.4-11.0)
[2023-09-22 20:14] VITALS: BMI 25.6
[2023-09-22 20:18] LABS: Prothrombin Time (Protime)PT. 13.5 SECONDS (11.7-14.9)
[2023-09-22 20:22] LABS: Anion Gap 9 (5-15); BUN 70 mg/dL (7-18); Calcium,Total 9.4 mg/dL (8.5-10.1); Chloride 99 mmol/L (98-107); EST Glomerular Filtration Rate 23 mL/min (>60); Est Glom Filt Rate - Afr Amer 28 mL/min (>60); Estimated Creatinine Clearance 22.99 ml/min; Glucose 171 mg/dL (74-106); Sodium Level 135 mmol/L (136-145)
[2023-09-22] MEDS: HYDROmorphone 0.5 MG/0.5 ML SYRINGE IV ×2 (20:24→22:37)
[2023-09-22 22:00] VITALS: BP 117/74; PULSE 102; RESP 16; O2SAT 96
[2023-09-22 23:45] VITALS: BP 134/71; PULSE 98; RESP 16; O2SAT 97
== END 2023-09-22 23:57 | disposition short-term general hospital (02) ==
PROVIDERS: Nurse Practitioner; Emergency Provider Emergency Medicine; PCP Family Medicine; Visit Provider Emergency Medicine
DX: S12.030A Displaced posterior arch fracture of first cervical vertebra, initial encounter for closed fracture (principal); S12.191A Other nondisplaced fracture of second cervical vertebra, initial encounter for closed fracture; E11.40 Type 2 diabetes mellitus with diabetic neuropathy, unspecified; S00.83XA Contusion of other part of head, initial encounter; S00.81XA Abrasion of other part of head, initial encounter; W01.198A Fall on same level from slipping, tripping and stumbling with subsequent striking against other object, initial encounter; I25.10 Atherosclerotic heart disease of native coronary artery without angina pectoris; Z95.5 Presence of coronary angioplasty implant and graft; Z79.02 Long term (current) use of antithrombotics/antiplatelets; Z79.82 Long term (current) use of aspirin; Z79.84 Long term (current) use of oral hypoglycemic drugs; Z79.899 Other long term (current) drug therapy; Z86.16 Personal history of COVID-19
CPT/HCPCS: 70450; 72125; 80048; 85025; 85610; 96374; 96375; 96376; 99285; A4216; J2405

== ENCOUNTER → 2024-04-26 | Outpatient (CLI) | payer MEDICARE, SELFPAY | END | disposition home or self-care (01) | LOC: LAB 12:51 → LABSPEC 12:52 | PROVIDERS: PCP Family Medicine; Referring Provider Internal Medicine Pulmonary Disease; Visit Provider Internal Medicine Pulmonary Disease | DX: R05.9 Cough, unspecified (principal) | CPT/HCPCS: 87070; 87205 ==

== ENCOUNTER → 2024-06-01 | Outpatient (CLI) | payer MEDICARE, SELFPAY ==
[2024-06-01 16:53] LABS: Absolute Neutrophil Count 1.8 X10^3/uL (2.0-7.7); Basophil# 0.02 X10^3/uL; Basophil% 0.5 % (0-1); Eosinophil# 0.39 X10^3/uL; Hematocrit 31.8 % (40-54); Lymphocyte % 33.3 % (19-41); Mean Corp Hgb Conc 31.4 g/dL (32-36); Mean Corpuscular Hgb 31.1 pg (27.0-32.0); Mean Corpuscular Volume 98.8 fL (80-94); Mean Platelet Vol. 10.8 fl (6.2-12.0); Monocyte% 10.3 % (0-10); NRBC Flagged by Analyzer 0 % (0-5); Neutrophil # 1.78 X10^3/uL (2.7-7.7); Neutrophil % 45.6 % (47-70); Platelet Count 140 K/mm3 (150-450); RBC Distribution Width CV 12.9 % (11.6-14.6); RBC Distribution Width SD 46.7 fl (35.1-43.9); Red Blood Count 3.22 M/mm3 (4.6-6.2); White Blood Count 3.9 K/mm3 (4.4-11.0)
[2024-06-01 17:01] LABS: Erythrocyte Sedimentation Rate 4 mm/hr (0-20)
[2024-06-01 17:13] LABS: BNP,B-Type NATRIURETIC PEPTIDE 181.5 pg/mL (0-100)
[2024-06-01 17:19] LABS: CRP < 2.90 mg/L (0.0-3.0)
[2024-06-03 15:09] LABS: Angiotensin Convert Enzyme 68 U/L (14-82)
== END | disposition home or self-care (01) ==
LOC: LAB 15:48
PROVIDERS: PCP Family Medicine
DX: J98.6 Disorders of diaphragm (principal); R05.9 Cough, unspecified; R06.00 Dyspnea, unspecified
CPT/HCPCS: 36415; 82164; 83880; 85025; 85652; 86140

== ENCOUNTER → 2024-06-22 | Outpatient (CLI) | payer MEDICARE, SELFPAY ==
--- NOTE | 2024-06-22 17:06 | CT_ITS ---
INDICATION: DISORDERS OF DIAPHRAGM/COUGH/DYSPNEA/WHEEZING EXAMINATION: CT CHEST WITHOUT CONTRAST - CT Chest W/O Contrast Injection TECHNIQUE: Helically acquired images were obtained of the chest. A radiation dose optimization technique was used for this scan. IV Contrast dosage and agent: None. COMPARISON: None. FINDINGS: Prominent elevation of the right hemidiaphragm. This decreases volume of the right lung. Otherwise normal lung volumes. Streaky and discoid pulmonary opacities are seen in the lower right lung consistent with scarring and/or subsegmental atelectasis. No effusions. Normal heart size. Heavily calcified coronary arteries. Although no gross mediastinal or hilar mass or adenopathy is seen, adenopathy is difficult to exclude without IV contrast was not given. Degenerative changes of the spine. Compression fracture of L1, probably having progressed since previous study of 08/20/2023. CT/Chest without Contrast IMPRESSION: Prominent elevation of the right hemidiaphragm. Atelectasis or scarring in the right lung base. No other evidence for acute chest disease. Electronically Signed: Corwin Lance MD at 22:50 EDT ,
== END | disposition home or self-care (01) ==
LOC: CT 16:41
PROVIDERS: PCP Family Medicine; Referring Provider Internal Medicine Pulmonary Disease; Visit Provider Internal Medicine Pulmonary Disease
DX: J98.6 Disorders of diaphragm (principal); R05.9 Cough, unspecified; R06.00 Dyspnea, unspecified; R06.2 Wheezing
CPT/HCPCS: 71250

== ENCOUNTER → 2025-01-02 | Outpatient (CLI) | payer MEDICARE, SELFPAY ==
--- NOTE | 2025-01-02 11:00 | MRI_ITS ---
PROCEDURE: SPINE CERVICAL (ROUTINE) 01/02/2025 REASON FOR EXAM: PAIN, history of cervical spine fractures TECHNIQUE: Multiplanar and multisequence images were obtained without IV contrast administration. COMPARISON: September 22, 2023 CT. 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 There is grade 1 spondylolisthesis at C4-5, 0.4 cm. There is grade 1 spondylolisthesis at C5-6, 0.4 cm. There is grade 1 spondylolisthesis at C6-7, 0.2 cm. There is grade 1 spondylolisthesis at C7-T1, 0.4 cm. Vertebral body marrow signal is normal. The intervertebral disc signal shows desiccation. C2-C3: There is disc extrusion which extends beyond the C3 endplate and into the left lateral recess, attached at the margin, measuring 0.4 x 0.7 by 0.7 cm. There is moderate left lateral recess effacement. There is moderate left foraminal narrowing secondary to disc and osteophyte protrusion. There is moderate central canal stenosis.. C3-C4: There is disc extrusion which extends beyond the C4 endplate, attached at the margin, measuring 0.6 x 0.8 by 1.0 cm. There is moderate right and severe left lateral recess stenosis. There is moderate right and severe left foraminal narrowing secondary to disc and osteophyte protrusion. There is moderate central canal stenosis.. C4-C5: There is mild central and right and left paracentral disc and osteophyte protrusion. There is mild left lateral recess effacement. There is no significant foraminal narrowing or central canal stenosis.. C5-C6: There is mild central and right paracentral disc and osteophyte protrusion. There is no significant lateral recess or foraminal narrowing. There is no central canal stenosis.. C6-C7: There is moderate central, moderate right and mild left paracentral disc and osteophyte protrusion. There is moderate right and mild left lateral recess stenosis. There is moderate right and mild left foraminal narrowing secondary to disc and osteophyte protrusion. There is mild central canal stenosis.. C7-T1: There is mild central and right and left paracentral disc and osteophyte protrusion. There is no significant lateral recess or foraminal narrowing. There is no central canal stenosis. There is mild cord atrophy from C2-5. Adjacent soft tissues are grossly unremarkable. 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 There is grade 1 spondylolisthesis at C4-5, 0.4 cm. There is grade 1 spondyloli sthesis at C5-6, 0.4 cm. There is grade 1 spondylolisthesis at C6-7, 0.2 cm. There is grade 1 spondylolisthesis at C7-T1, 0.4 cm. There is disc extrusion at C2-3 and C3-4. There is moderate central canal stenosis at C2-3, C3-4, mild central canal sten osis at C6-7, with lateral recess and foraminal narrowing. There is mild cord atrophy from C2-5. Reading Location: [facility]
== END | disposition home or self-care (01) ==
PROVIDERS: PCP Family Medicine; Referring Provider Student in an Organized Health Care Education/Training Program; Visit Provider Student in an Organized Health Care Education/Training Program
DX: R52 Pain, unspecified (principal)
CPT/HCPCS: 72141

== ENCOUNTER → 2025-01-13 | Outpatient (CLI) | payer MEDICARE, SELFPAY ==
[2025-01-13 18:24] LABS: Amphetamine Urine PRESUMPTIVE POSITIVE (<1000 ng/mL); Barbiturate Urine NEGATIVE (< 200 ng/mL); Benzodiazepine Urine NEGATIVE (< 200 ng/mL); Buprenorphine Urine NEGATIVE (< 200 ng/mL); Cocaine Urine NEGATIVE (< 300 ng/mL); Fentanyl, Urine NEGATIVE; Methadone Urine PRESUMPTIVE POSITIVE (< 300 ng/mL); Opiates Urine NEGATIVE (< 300 ng/mL); Oxycodone, Urine NEGATIVE (< 100 ng/mL); PCP Urine NEGATIVE (< 25 ng/mL); THC Urine NEGATIVE (< 50 ng/mL)
== END | disposition home or self-care (01) ==
LOC: MTLAB 16:08
PROVIDERS: PCP Family Medicine; Referring Provider Internal Medicine Pulmonary Disease; Visit Provider Internal Medicine Pulmonary Disease
DX: G47.10 Hypersomnia, unspecified (principal)
CPT/HCPCS: 80307